=== PATIENT | female | born 1945 | race Caucasian/White ===

== ENCOUNTER → 2016-03-01 | Outpatient (REF) | payer OTHER ==
[~2016-03-01] MED LIST: CENTTAB PO; CRES20TA PO; FERA1TAB PO; OXYC1TAB23 PO; SULF500T2 PO; TYLE325T5 PO
[2016-03-01 14:02] LABS: PERCENT SATURATION 17.5 % (13.2-37.4)
== END | disposition home or self-care (01) ==
LOC: M LAB REF 13:15
PROVIDERS: ATTEND Internal Medicine
DX: D50.9 Iron deficiency anemia, unspecified (principal)

== ENCOUNTER → 2016-06-14 | Outpatient (CLI) | payer OTHER ==
[2016-06-14 18:26] LABS: CALCIUM LEVEL 8.8 MG/DL (8.8-10.2); CREATININE FOR GFR 1.1 MG/DL (0.55-1.02); POTASSIUM SERUM 4.6 MEQ/L (3.5-5.1)
== END ==
LOC: M SMT 13:54
PROVIDERS: ATTEND Urology
DX: Z85.528 Personal history of other malignant neoplasm of kidney (principal)

== ENCOUNTER → 2016-06-24 | Outpatient (CLI) | payer OTHER ==
[~2016-06-24] MED LIST changes: +GASTROGRAFIN SOLUTION 30ML (Q9963) As Ordered ONE; +ISOVUE-370 76% 100ML VIAL (Q9967) As Ordered ONE
--- NOTE | 2016-06-25 05:57 | REP ---
Clinical: History of renal carcinoma. Comparison: 06/16/2015. Technique: Axial precontrast, contrast enhanced, and delayed images of the abdomen using oral and 100 ml Isovue 370 intravenous contrast material with coronal and sagittal re-formations. Findings: The kidneys demonstrate chronic changes including cortical thinning, lobulated contour and areas of cortical scarring bilaterally. There is a 13 mm nonobstructing right intrarenal calculus along with smaller bilateral calcifications and no evidence for hydroureteronephrosis, acute perinephric stranding, or obvious recurrent renal mass lesion. Previously identified 2 cm left lower pole renal mass has been removed. Liver, spleen, pancreas, gallbladder, and bilateral adrenal glands are normal. The visualized enteric system is without obstruction or obvious acute process. No ascites. No obvious adenopathy. Large hiatal hernia again noted. Lung bases demonstrate chronic interstitial changes. Visualized portions of the heart and pericardium are normal. Impression: 1. Chronic-appearing changes of bilateral kidneys including 13 mm nonobstructing right renal calculus and evidence for prior partial left nephrectomy and excision of 2 cm previously identified renal mass. No acute renal findings are appreciated. 2. Large hiatal hernia. Signed by Mynor Paez MD 06/25/2016 05:47 A
== END ==
LOC: M RAD 12:13
PROVIDERS: ATTEND Urology
DX: Z09 Encounter for follow-up examination after completed treatment for conditions other than malignant neoplasm (principal); Z85.528 Personal history of other malignant neoplasm of kidney; N20.0 Calculus of kidney; K44.9 Diaphragmatic hernia without obstruction or gangrene
CPT/HCPCS: 74170; Q9963; Q9967

== ENCOUNTER → 2017-03-10 | Outpatient (REF) | payer OTHER ==
[2017-03-10 13:03] LABS: IRON (FE) 62 UG/DL (50-170); PERCENT SATURATION 34.4 % (13.2-45.0); TOTAL IRON BINDING CAPACITY 180 UG/DL (250-450)
== END ==
LOC: M LAB REF 12:11
DX: D50.9 Iron deficiency anemia, unspecified (principal)
CPT/HCPCS: 83550

== ENCOUNTER → 2017-09-03 | Outpatient (REF) | payer OTHER ==
[2017-09-03 14:35] LABS: IRON (FE) 68 UG/DL (50-170); PERCENT SATURATION 29.7 % (13.2-45.0); TOTAL IRON BINDING CAPACITY 229 UG/DL (250-450)
== END ==
LOC: M LAB REF 13:37
DX: D50.9 Iron deficiency anemia, unspecified (principal)
CPT/HCPCS: 83550

== ENCOUNTER 2017-10-30 14:34 | Emergency (ER) | payer OTHER ==
[2017-10-30 16:00] LABS: BASO % 0.4 % (0.0-1.0); EOS # 0.2 10^3/uL (0.0-0.50); HEMATOCRIT 36.4 % (36.0-47.0); HEMOGLOBIN 11.9 g/dl (12.0-15.5); IMMATURE GRANULOCYTE % 0.5 % (0-3.0); LYMPH # 1.1 10^3/uL (1.5-4.5); LYMPH % 12.9 % (24.0-44.0); MEAN CORPUSCULAR HEMOGLOBIN 30.3 pg (27.0-33.0); MEAN CORPUSCULAR HGB CONC 32.7 g/dl (32.0-36.5); MEAN CORPUSCULAR VOLUME 92.6 fl (80.0-96.0); MONO # 0.5 10^3/uL (0.0-0.8); MONO % 6.3 % (0.0-5.0); NEUTROPHILS # 6.6 10^3/uL (1.8-7.7); NEUTROPHILS % 77.9 % (36.0-66.0); PLATELET COUNT, AUTOMATED 260 10^3/uL (150-450); RED BLOOD COUNT 3.93 10^6/uL (4.00-5.40); RED CELL DISTRIBUTION WIDTH 14.6 % (11.5-14.5); WHITE BLOOD COUNT 8.4 10^3/uL (4.0-10.0)
[2017-10-30 16:37] LABS: ALBUMIN 4.1 GM/DL (3.2-5.2); ALBUMIN/GLOBULIN RATIO 1.14 (1.00-1.93); ALKALINE PHOSPHATASE 75 U/L (45-117); ALT/SGPT 30 U/L (12-78); ANION GAP 8 MEQ/L (8-16); AST/SGOT 18 U/L (7-37); BILIRUBIN,DIRECT 0.1 MG/DL (0.0-0.2); BILIRUBIN,TOTAL 0.4 MG/DL (0.2-1.0); BLOOD UREA NITROGEN 14 MG/DL (7-18); CALCIUM LEVEL 9.8 MG/DL (8.8-10.2); CARBON DIOXIDE LEVEL 25 MEQ/L (21-32); CHLORIDE LEVEL 108 MEQ/L (98-107); CREATININE FOR GFR 1.19 MG/DL (0.55-1.30); GLOMERULAR FILTRATION RATE 47.2 (>39); GLUCOSE, FASTING 86 MG/DL (70-100); POTASSIUM SERUM 4.4 MEQ/L (3.5-5.1); SODIUM LEVEL 141 MEQ/L (136-145); TOTAL PROTEIN 7.7 GM/DL (6.4-8.2)
[2017-10-30] MEDS ORDERED: PROHANCE 279.3MG/ML 5ML VIAL (A9576) As Ordered (19:18)
[2017-10-30] MEDS: methylPREDNISolone INJ 125 MG/2 ML VIAL (J2930) IV (20:39)
== END 2017-10-30 20:59 | disposition home or self-care (01) ==
LOC: M ED 14:34
DX: H54.62 Unqualified visual loss, left eye, normal vision right eye (principal); I10 Essential (primary) hypertension; E78.5 Hyperlipidemia, unspecified; D64.9 Anemia, unspecified; N28.9 Disorder of kidney and ureter, unspecified; Z79.899 Other long term (current) drug therapy
CPT/HCPCS: A9576

== ENCOUNTER → 2017-11-21 | Outpatient (CLI) | payer OTHER ==
[2017-11-21 15:15] LABS: HEMATOCRIT 35.3 % (36.0-47.0); HEMOGLOBIN 11.6 g/dl (12.0-15.5); MEAN CORPUSCULAR HEMOGLOBIN 30.4 pg (27.0-33.0); MEAN CORPUSCULAR HGB CONC 32.9 g/dl (32.0-36.5); MEAN CORPUSCULAR VOLUME 92.7 fl (80.0-96.0); PLATELET COUNT, AUTOMATED 167 10^3/uL (150-450); RED BLOOD COUNT 3.81 10^6/uL (4.00-5.40); RED CELL DISTRIBUTION WIDTH 14.3 % (11.5-14.5)
[2017-11-21 15:35] LABS: ANION GAP 6 MEQ/L (8-16); BLOOD UREA NITROGEN 17 MG/DL (7-18); C REACTIVE PROTEIN QUANTITATIV < 0.30 MG/DL (0.00-0.30); CALCIUM LEVEL 9.1 MG/DL (8.8-10.2); CARBON DIOXIDE LEVEL 27 MEQ/L (21-32); CHLORIDE LEVEL 111 MEQ/L (98-107); CREATININE FOR GFR 1.28 MG/DL (0.55-1.30); GLOMERULAR FILTRATION RATE 43.4 (>39); GLUCOSE, FASTING 147 MG/DL (70-100); POTASSIUM SERUM 3.8 MEQ/L (3.5-5.1); SODIUM LEVEL 144 MEQ/L (136-145)
[2017-11-21 17:43] LABS: ERYTHROCYTE SEDIMENTATION RATE 34 mm/hr (0-30)
[2017-11-25 00:06] LABS: ANGIOTENSIN 1 CONVERTING ENZYM 38 U/L (14-82); ANTINUCLEAR ANTIBODIES DIRECT Negative (Negative); Lyme Disease IgG/IgM Antibodie <0.91 ISR (0.00-0.90); Lyme Disease IgM Ab Quantitati <0.80 index (0.00-0.79); T PALLIDUM AB (FTA-AB) Non Reactive (Non Reactive)
== END ==
LOC: M LAB 14:47
DX: H47.012 Ischemic optic neuropathy, left eye (principal)
CPT/HCPCS: 82164

== ENCOUNTER → 2017-12-09 | Outpatient (CLI) | payer OTHER | LOC: M WUC 12:22 | DX: S80.01XA Contusion of right knee, initial encounter (principal); S80.11XA Contusion of right lower leg, initial encounter | CPT/HCPCS: 73564 ==

== ENCOUNTER → 2017-12-23 | Outpatient (REF) | payer OTHER ==
[2017-12-23 13:58] LABS: BASO % 0.5 % (0.0-1.0); EOS # 0.3 10^3/uL (0.0-0.50); EOS % 4.2 % (0.0-3.0); HEMATOCRIT 31.6 % (36.0-47.0); HEMOGLOBIN 10.1 g/dl (12.0-15.5); IMMATURE GRANULOCYTE % 0.9 % (0-3.0); LYMPH # 1.1 10^3/uL (1.5-4.5); LYMPH % 14.4 % (24.0-44.0); MEAN CORPUSCULAR HEMOGLOBIN 30.1 pg (27.0-33.0); MEAN CORPUSCULAR VOLUME 94.3 fl (80.0-96.0); MONO # 0.7 10^3/uL (0.0-0.8); MONO % 8.6 % (0.0-5.0); NEUTROPHILS # 5.4 10^3/uL (1.8-7.7); NEUTROPHILS % 71.4 % (36.0-66.0); PLATELET COUNT, AUTOMATED 322 10^3/uL (150-450); RED BLOOD COUNT 3.35 10^6/uL (4.00-5.40); RED CELL DISTRIBUTION WIDTH 14.1 % (11.5-14.5); WHITE BLOOD COUNT 7.6 10^3/uL (4.0-10.0)
[2017-12-23 14:12] LABS: DRVV SCREEN 43.2 SEC
[2017-12-23 14:13] LABS: ALBUMIN 3.8 GM/DL (3.2-5.2); ALBUMIN/GLOBULIN RATIO 1.23 (1.00-1.93); ALKALINE PHOSPHATASE 79 U/L (45-117); ALT/SGPT 24 U/L (12-78); ANION GAP 7 MEQ/L (8-16); AST/SGOT 17 U/L (7-37); BILIRUBIN,TOTAL 0.3 MG/DL (0.2-1.0); BLOOD UREA NITROGEN 17 MG/DL (7-18); CALCIUM LEVEL 9.5 MG/DL (8.8-10.2); CARBON DIOXIDE LEVEL 28 MEQ/L (21-32); CHLORIDE LEVEL 105 MEQ/L (98-107); CHOLESTEROL LEVEL 152 MG/DL (<200); CHOLESTEROL RISK RATIO 3.377 (<5); CREATININE FOR GFR 1.24 MG/DL (0.55-1.30); GLUCOSE, FASTING 82 MG/DL (70-100); HDL CHOLESTEROL 45 MG/DL (>40); LDL CHOLESTEROL 32 MG/DL (<100); NON-HDL-C 107 MG/DL; POTASSIUM SERUM 4.6 MEQ/L (3.5-5.1); RHEUMATOID FACTOR QUANT < 10.0 IU/ML (<15.0); SODIUM LEVEL 140 MEQ/L (136-145); TOTAL PROTEIN 6.9 GM/DL (6.4-8.2); TRIGLYCERIDES LEVEL 377 MG/DL (<150)
[2017-12-23 14:15] LABS: FOLATE > 24.0 NG/ML; VITAMIN B12 LEVEL 809 PG/ML
[2017-12-23 14:49] LABS: ERYTHROCYTE SEDIMENTATION RATE 63 mm/hr (0-30)
[2017-12-23 14:59] LABS: ESTIMATED AVERAGE GLUCOSE 111 MG/DL (60-110); HEMOGLOBIN A1c 5.5 %
[2017-12-25 11:35] LABS: ALBUMIN % 56.5 % (55.8-66.1); ALPHA-1-GLOBULIN % 4.9 % (2.9-4.9); ALPHA-1-GLOBULINS 0.34 GM/DL (0.17-0.41); ALPHA-2-GLOBULINS 0.99 GM/DL (0.42-0.99); ALPHA-2-GLOBULINS % 14.3 % (7.1-11.8); BETA-1-GLOBULINS 0.41 GM/DL (0.28-0.60); BETA-1-GLOBULINS % 5.9 % (4.7-7.2); BETA-2-GLOBULINS 0.36 GM/DL (0.19-0.55); BETA-2-GLOBULINS % 5.2 % (3.2-6.5); GAMMA GLOBULIN % 13.2 % (11.1-18.8); GAMMA GLOBULINS 0.91 GM/DL (0.65-1.58)
[2017-12-27 00:06] LABS: ANCA-ATYPICAL <1:20 titer (Neg:<1:20); ANTI DOUBLE STRAND-DNA AB 2 IU/mL (0-9); ANTINUCLEAR ANTIBODIES DIRECT Negative (Negative); CYTOPLASMIC NEUTROP AB ANCA-C <1:20 titer (Neg:<1:20); Lyme Disease IgG/IgM Antibodie <0.91 ISR (0.00-0.90); Lyme Disease IgM Ab Quantitati <0.80 index (0.00-0.79); PERINUCLEAR AB ANCA-P <1:20 titer (Neg:<1:20); SJOGREN'S ANTI SS-A <0.2 AI (0.0-0.9); SJOGREN'S ANTI SS-B <0.2 AI (0.0-0.9); VITAMIN B1 LEVEL WHOLE BLOOD 130.5 nmol/L (66.5-200.0); VITAMIN B6,PYRIDOXAL PHOSPHATE 29.5 ug/L (2.0-32.8); VITAMIN E(ALPHA TOCOPHEROL) 21.7 mg/L (9.0-29.0); VITAMIN E(GAMMA TOCOPHEROL) 1.3 mg/L (0.5-4.9)
== END ==
LOC: M LABNEURO 10:25
DX: H47.019 Ischemic optic neuropathy, unspecified eye (principal); G62.9 Polyneuropathy, unspecified
CPT/HCPCS: 82746

== ENCOUNTER → 2018-03-11 | Outpatient (REF) | payer OTHER, MEDICARE ==
[~2018-03-11] MED LIST changes: -GASTROGRAFIN SOLUTION 30ML (Q9963) As Ordered ONE; -ISOVUE-370 76% 100ML VIAL (Q9967) As Ordered ONE; +PREDOPD
[2018-03-11 13:52] LABS: PERCENT SATURATION 23.6 % (13.2-45.0)
== END ==
LOC: M LAB REF 13:25
PROVIDERS: ATTEND Internal Medicine
DX: D50.9 Iron deficiency anemia, unspecified (principal)

== ENCOUNTER 2018-05-27 06:15 | Day surgery (SDC) | payer MEDICARE ==
[~2018-05-27] VITALS: Ht 147.3 cm; Wt 59.0 kg
[~2018-05-27 06:15] MED LIST changes: -CRES20TA PO; +CRES20TA2 PO
[2018-05-27] MEDS ORDERED: NS 1,000 ML IV ONE (07:00)
[2018-05-27] MEDS ORDERED: PROPOFOL 200 MG/20 ML VIAL As Ordered ONE ×2 (07:03→08:16)
[2018-05-27] MEDS ORDERED: LIDOCAINE 2% INJ 100 MG/5 ML SDV (FOR ANES.) As Ordered ONE (07:03)
--- NOTE | 2018-05-27 07:56 | ROOR ---
Patient Name: Ruthy Gonzalez Procedure Date: 05/27/2018 7:31 AM Date of : 1945 Age: 72 Room: [facility] Gender: Female Note Status: Finalized Procedure: Colonoscopy to 30 cms + Biopsies (Incomplete Procedure) Indications: High risk colon cancer surveillance: Ulcerative pancolitis of 8 (or more) years duration Providers: Saturnino Clancy MD Referring MD: FRANKY HAYES JR, MD Requesting Provider: Medicines: Monitored Anesthesia Care Complications: No immediate complications. Procedure: Pre-Anesthesia Assessment: - The heart rate, respiratory rate, oxygen saturations, blood pressure, adequacy of pulmonary ventilation, and response to care were monitored throughout the procedure. The Colonoscope was introduced through the anus and advanced to the sigmoid colon. The colonoscopy was performed without difficulty. The patient tolerated the procedure well. The quality of the bowel preparation was good. Findings: The perianal and digital rectal examinations were normal. Non-bleeding internal hemorrhoids were found during retroflexion. The hemorrhoids were small and Grade I (internal hemorrhoids that do not prolapse). A benign-appearing, intrinsic severe stenosis was found at 30 cm proximal to the anus and was non-traversed. Biopsies were taken with a cold forceps for histology. Inflammation characterized by altered vascularity, congestion (edema), erosions, erythema, granularity and loss of vascularity was found in a continuous and circumferential pattern from the anus to the sigmoid colon. This was moderate in severity, and when compared to previous examinations, the findings are unchanged. Biopsies were taken with a cold forceps for histology. The exam was otherwise without abnormality. Impression: - Non-bleeding internal hemorrhoids. - Stricture at 30 cm proximal to the anus. Biopsied. - Ulcerative colitis. Inflammation was found from the anus to the sigmoid colon. This was moderate in severity, unchanged compared to previous examinations. Biopsied. - The examination was otherwise normal. - The procedure was aborted due to bowel stenosis. Recommendation: - Patient has a contact number available for emergencies. The signs and symptoms of potential delayed complications were discussed with the patient. Return to normal activities tomorrow. Written discharge instructions were provided to the patient. - Discharge patient to home. - Continue present medications. - Await pathology results. - Telephone GI clinic for pathology results in 1 week. - Refer to a colo-rectal surgeon at appointment to be scheduled. - The findings and recommendations were discussed with the patient's family. Saturnino Clancy MD Saturnino Clancy MD 05/27/2018 7:56:14 AM Electronically signed by Saturnino Clanyc MD Number of Addenda: 0 Note Initiated On: 05/27/2018 7:31 AM Estimated Blood Loss: Estimated blood loss: none.
[2018-05-27 08:21] VITALS: BP 150/84
== END 2018-05-27 08:24 | disposition home or self-care (01) ==
LOC: M OPP 06:15
PROVIDERS: ATTEND Internal Medicine Gastroenterology
DX: K64.0 First degree hemorrhoids (principal); K51.012 Ulcerative (chronic) pancolitis with intestinal obstruction

== ENCOUNTER → 2018-06-18 | Outpatient (CLI) | payer MEDICARE ==
[~2018-06-18] MED LIST changes: +LIQUID POLIBAR PLUS 105% w/v 1900ML BTL As Ordered ONE
--- NOTE | 2018-06-19 11:17 | REP ---
BARIUM ENEMA The procedure was performed under the direct supervision of Dr. Robbins. The images were reviewed with Dr. Robbins. [employer] film shows no organomegaly or pathological masses. The intestinal gas pattern is nonspecific. There are two right renal stones identified. Liquid barium was instilled into the colon and retrograde flow. In the sigmoid there is a 4 cm stricture. The visualized portion of the descending colon shows possible skip lesions. Not enough barium could be passed through the stricture to complete the exam. There are diverticula identified in the left colon. These findings may represent inflammatory changes versus neoplasm. Impression: There is a 4 cm stricture in the sigmoid colon. There are possible skip lesions identified approximately, however, not enough barium could be passed proximal to the stricture to complete the exam. These findings may represent inflammatory changes versus neoplasm. There are diverticula identified in the left colon. 2.3 minutes of fluoroscopy time was utilized for this procedure. Reviewed by CODI Mendez 06/18/2018 05:01 P Electronically Signed by Erik Robbins MD 06/19/2018 11:08 A
== END ==
LOC: M RAD 09:12
PROVIDERS: ATTEND Internal Medicine Gastroenterology
DX: K51.90 Ulcerative colitis, unspecified, without complications (principal); N20.0 Calculus of kidney; Q42 Congenital absence, atresia and stenosis of large intestine

== ENCOUNTER → 2018-07-20 | Outpatient (CLI) | payer MEDICARE ==
[~2018-07-20] MED LIST changes: -LIQUID POLIBAR PLUS 105% w/v 1900ML BTL As Ordered ONE
[2018-07-20 11:28] LABS: CREATININE FOR GFR 1.32 MG/DL (0.55-1.30); GLOMERULAR FILTRATION RATE 41.9 (>39)
== END ==
LOC: M LAB 10:35
PROVIDERS: ATTEND Surgery
DX: K56.699 Other intestinal obstruction unspecified as to partial versus complete obstruction (principal)

== ENCOUNTER → 2018-07-22 | Outpatient (CLI) | payer MEDICARE ==
[~2018-07-22] MED LIST changes: +GASTROGRAFIN SOLUTION 30ML (Q9963) As Ordered ONE; +ISOVUE-370 76% 100ML VIAL (Q9967) As Ordered ONE
--- NOTE | 2018-07-23 06:06 | REP ---
Clinical: Sigmoid stricture. History of renal cell carcinoma. Technique: Axial contrast enhanced images from the lung bases to the pubic symphysis using oral (per protocol) and 100 ml Isovue 370 intravenous contrast material. Coronal and sagittal re-formations obtained. Comparison: 06/24/2016, 06/16/2015. Findings: Lung bases demonstrate scattered fibroatelectatic changes along with a relatively new small 5 mm nodular density in the posterior left base (image 6). Large gastric hiatal hernia is essentially unchanged. Liver, spleen, pancreas, gallbladder, and bilateral adrenal glands are normal. Kidneys demonstrate extensive cortical thinning, scarring and irregular lobulations with a stable 12 mm calculus in the lower pole of the right kidney. No acute perinephric stranding or hydroureteronephrosis is appreciated. Further evaluation of the enteric system demonstrates a normal terminal ileum and appendix in the right lower quadrant as well as a nonobstructed right inguinal hernia containing loops of small bowel. Colonic and predominantly sigmoid diverticulosis is appreciated the sigmoid colon demonstrates moderate mucosal thickening along with chronic-appearing pericolonic mesenteric stranding and diverticulosis including a giant diverticulum along the inferior contour of the mid sigmoid colon which appears to be inseparable from surrounding chronic changes related to the superior/left side of the bladder. These findings may represent chronic sequelae of prior diverticulitis and appear relatively stable when compared to 2016. Further evaluation of the pelvis demonstrates the patient to be status post hysterectomy. A fat containing left inguinal hernia is identified. No ascites. No free air. No significant adenopathy. Abdominal aorta and vasculature without aneurysm or dissection. Musculoskeletal structures demonstrate degenerative changes without focal osseous abnormality. Impression: 1. Chronic-appearing changes to the kidneys including nonobstructing 12 mm right lower pole calculus. Previously identified left renal mass has been removed and there is no evidence for recurrence or metastatic disease. 2. Chronic-appearing changes involving the sigmoid colon likely related to prior diverticulitis with chronic changes along the left/superior aspect of the bladder which remain relatively stable when compared to 2016. 3. Right inguinal hernia contains nonobstructed loops of small bowel. Small fat containing left inguinal hernia also identified. 4. Small 5 mm noncalcified nodule in the left lung base is nonspecific and may warrant 6-month follow-up chest CT. 5. Further chronic changes as described above. Electronically Signed by Mynor Paez MD 07/23/2018 05:57 A
== END ==
LOC: M RAD 16:01
PROVIDERS: ATTEND Surgery
DX: K56.699 Other intestinal obstruction unspecified as to partial versus complete obstruction (principal); K57.30 Diverticulosis of large intestine without perforation or abscess without bleeding; K40.90 Unilateral inguinal hernia, without obstruction or gangrene, not specified as recurrent; N20.0 Calculus of kidney; R91.1 Solitary pulmonary nodule
CPT/HCPCS: 74177; Q9963; Q9967

== ENCOUNTER 2018-10-08 08:16 | Inpatient (IN) | payer MEDICARE ==
[~2018-10-08] VITALS: Ht 144.8 cm; Wt 54.4 kg
--- NOTE | 2018-10-08 05:30 | HPE ---
DATE OF ADMISSION: 10/08/2018 ADMITTING DIAGNOSIS: Sigmoid colon stricture with history of ulcerative colitis. HISTORY OF PRESENT ILLNESS: The patient is a 73-year-old woman who had undergone a colonoscopy on May 27, 2018 for followup of a long history of ulcerative colitis. At the time of the colonoscopy by Dr. Clancy she was found to have a narrowing in the colon approximately 30 cm proximal to the anus. It was impossible to advance the scope beyond this point. Biopsies revealed chronic active colitis with surface ulceration but no granuloma or dysplasia was identified. With her long history of ulcerative colitis she is certainly at risk for carcinoma. There was no definite cancer seen but it is unclear if her narrowing is due to just chronic scarring from her colitis or whether this could be a malignant stricture. She was referred to me for consideration of resection. She had a barium enema obtained on June 18, 2018 which confirmed a 4 cm stricture in the sigmoid colon. Minimal contrast refluxed proximal to the stricture so it was difficult to ascertain the extent of her disease. A CT scan of the abdomen and pelvis was obtained which showed some chronic appearing changes involving the sigmoid colon. There was also noted a right inguinal hernia as well as a small nodule in the left lung base. There were some chronic changes in her kidneys associated with prior renal surgery. The patient is now admitted to undergo a robotic-assisted laparoscopic sigmoid colectomy with coloproctostomy. The patient is performing a full mechanical and antibiotic bowel preparation on the October 07 in anticipation of her admission on October 08 for surgery. MEDICATIONS: The patient's current medications include: - rosuvastatin 20 mg by mouth daily - Ferate 240 which is an iron preparation daily - woman's vitamin supplement daily ALLERGIES: The patient denies any known drug allergies. PAST MEDICAL HISTORY: 1. History of ulcerative colitis for many years. 2. She has history of hypercholesterolemia. 3.Anemia. 4. She had renal cell carcinoma. PAST SURGICAL HISTORY: 1. Robotic-assisted left partial nephrectomy. 2. She has had colonoscopies in 2014, 2016 and 2019 at least. 3. She undergone a previous lithotripsy. 4. She has had an anterior and posterior colporrhaphies. FAMILY HISTORY: Her father is secondary to natural causes and her mother is associated with hypertension. SOCIAL HISTORY: She is a nonsmoker and denies any alcohol use. REVIEW OF SYSTEMS: Review of systems reveals no recent chest pain or palpitations. She has no cough, wheezing or sputum production. She denies any current or recent rectal bleeding. She has had no abdominal pain. There is no history of heartburn, nausea or vomiting. She denies any dysuria or hematuria. She is not having any significant bone or joint issues. There is no history of deep venous thrombosis (DVT) or pulmonary embolus. PHYSICAL EXAMINATION: GENERAL: Physical exam shows a pleasant older woman in no acute distress. She is alert and oriented. VITAL SIGNS: Height is recorded as 58 inches with a weight of 59 kilograms for a BMI of approximately 27. HEENT: Sclerae are anicteric. SKIN: The skin is warm and dry. NECK: Neck is supple without mass or bruit. HEART: Exam shows a regular rate and rhythm. LUNGS: The lungs are clear. ABDOMEN: Soft and nontender without appreciable mass. She has several small scars on the left side of the abdomen consistent with her prior partial nephrectomy. The abdomen is otherwise soft and nontender. LOWER EXTREMITIES: Reveal no peripheral edema and she has palpable radial pulses. The patient underwent a preoperative medical evaluation by Dr. Refugio Gaspar on October 01. She was felt to be optimized from a cardiovascular standpoint for her planned surgery. She was instructed by her physician to hold her iron vitamin and chlorthalidone the night before the surgery. IMPRESSION: 1. Sigmoid colon stricture, possible malignant versus post inflammatory. 2. History of ulcerative colitis. 3. iron deficiency anemia. 4. Hypercholesterolemia. 5. Hypertension. PLAN: The patient is performing a mechanical and antibiotic bowel preparation on October 07. She will be admitted on the morning of October 08 for her robotic-assisted laparoscopic sigmoid colectomy with anastomosis. She was counseled regarding the risks of the surgery. Risks include but are not limited to bleeding, infection, scarring, adverse drug reaction, need for further surgery, injury to internal organ, hernia, and anastomotic leak. She had an opportunity to ask questions. She desires to proceed with surgery as it has been outlined. SEEMA
[~2018-10-08 08:16] MED LIST changes: +ALVIMOPAN 12 MG CAPSULE (ENTEREG) PO SCH; -GASTROGRAFIN SOLUTION 30ML (Q9963) As Ordered ONE; -ISOVUE-370 76% 100ML VIAL (Q9967) As Ordered ONE; +LR 1,000 ML IV SCH; +LR 500 ML IV SCH; +MULTCAP PO; +cefoTEtan DISODIUM 2 GM in D5W MINI-BAG PLUS 50 ML IV SCH
[2018-10-08] MEDS ORDERED: ALVIMOPAN 12 MG CAPSULE (ENTEREG) PO ONE (08:45)
[2018-10-08] MEDS ORDERED: LIDOCAINE 2% INJ 100 MG/5 ML SDV (FOR ANES.) As Ordered ONE (08:46)
[2018-10-08] MEDS ORDERED: fentaNYL 250 MCG/5 ML INJECTION (J3010) As Ordered ONE (08:46)
[2018-10-08] MEDS ORDERED: ROCURONIUM BROMIDE 50 MG/5 ML VIAL As Ordered ONE ×3 (08:46→18:21)
[2018-10-08] MEDS ORDERED: dexameTHASONE 4 MG/ML 1ML VIAL (J1100) As Ordered ONE (08:46)
[2018-10-08] MEDS ORDERED: ONDANSETRON 4MG/2ML VIAL (J2405) As Ordered ONE ×2 (08:46→15:14)
[2018-10-08] MEDS ORDERED: PROPOFOL 200 MG/20 ML VIAL As Ordered ONE (08:46)
[2018-10-08] MEDS ORDERED: MIDAZOLAM INJ 2 MG/2 ML VIAL (J2250) As Ordered ONE (08:47)
[2018-10-08] MEDS ORDERED: BUPIVACAINE HCL 0.25% 30 ML VIAL As Ordered ONE (10:26)
[2018-10-08] MEDS ORDERED: PHENYLephrine HCL 500 MCG/5 ML (100MCG/ML) SYRINGE (J2370) As Ordered ONE ×2 (11:01→19:44)
[2018-10-08] MEDS ORDERED: LABETALOL HCL 100 MG/20 ML VIAL As Ordered ONE ×2 (11:56→12:43)
[2018-10-08] MEDS ORDERED: REMIFENTANIL 1MG 3ML VIAL As Ordered ONE (11:57)
[2018-10-08] MEDS ORDERED: ACETAMINOPHEN 1000MG 100ML IV BTL (OFIRMEV) (J0131 PER 10MG) As Ordered ONE ×2 (12:18→19:59)
[2018-10-08] MEDS ORDERED: hydrALAZINE INJ 20 MG/ML VIAL As Ordered ONE (13:20)
[2018-10-08] MEDS ORDERED: NEOSTIGMINE 10 MG/10 ML VIAL (J2710) As Ordered ONE (15:09)
[2018-10-08] MEDS ORDERED: GLYCOPYRROLATE INJ 0.2 MG/ML 2 ML VIAL As Ordered ONE (15:09)
[2018-10-08] MEDS ORDERED: ESMOLOL INJ 100MG/10ML VIAL As Ordered ONE (15:17)
[2018-10-08] MEDS ORDERED: KETOROLAC 60 MG/2 ML VIAL (J1885) As Ordered ONE (17:17)
[2018-10-08] MEDS ORDERED: fentaNYL 100 MCG/2 ML INJECTION (J3010) As Ordered ONE (17:17)
[2018-10-08] MEDS ORDERED: cefoTEtan INJ 2GM VIAL (S0074 PER 500MG) As Ordered ONE (18:58)
[2018-10-08] MEDS ORDERED: SUGAMMADEX SODIUM 500 MG/5 ML VIAL (BRIDION) As Ordered ONE (19:18)
[2018-10-08] MEDS ORDERED: PHENYLEPHRINE INJ 10MG/ML VIAL (J2370) As Ordered ONE (19:28)
[2018-10-08] MEDS ORDERED: HYDROmorphone HCL 2 MG/ML 1ML VIAL (J1170) As Ordered ONE (19:42)
[2018-10-08] MEDS ORDERED: MORPHINE 4 MG/ML 1ML VIAL/SYRINGE (J2270) IV PRN (21:00)
[2018-10-08] MEDS ORDERED: ACETAMINOPHEN TAB 650MG DOSE (2X325MG) PO PRN (21:00)
[2018-10-08] MEDS ORDERED: ONDANSETRON 4MG/2ML VIAL (J2405) IV PRN ×2 (21:00→21:15)
[2018-10-08] MEDS ORDERED: NORCO, ANEXSIA 5/325MG TABLET (HYDROcodone/ACETAMINOPHEN) PO PRN (21:00)
[2018-10-08] MEDS ORDERED: KETOROLAC 30 MG/ML VIAL (J1885) IV PRN (21:00)
[2018-10-08] MEDS ORDERED: fentaNYL 100 MCG/2 ML INJECTION (J3010) IV PRN (21:15)
[2018-10-08] MEDS ORDERED: LR 1,000 ML IV SCH (21:15)
[2018-10-08] MEDS ORDERED: PERCOCET 5MG/325MG TAB PO PRN (21:15)
[2018-10-08] MEDS: LR 1,000 ML IV SCH (22:30)
[2018-10-08 22:40] VITALS: BP 125/62
[2018-10-08 23:10] VITALS: BP 115/69
[2018-10-08] MEDS: PIPERACILLIN/TAZOBACTAM SOD 3.375 GM in D5W MINI-BAG PLUS 50 ML IV SCH (23:31)
[2018-10-09] VITALS (9 sets, daily range): BP systolic 114–138; BP diastolic 53–81
[2018-10-09] MEDS: ALVIMOPAN 12 MG CAPSULE (ENTEREG) PO SCH ×3 (00:07→20:48)
[2018-10-09] MEDS: LR 1,000 ML IV SCH ×3 (04:59→20:48)
[2018-10-09] MEDS: PIPERACILLIN/TAZOBACTAM SOD 3.375 GM in D5W MINI-BAG PLUS 50 ML IV SCH ×3 (05:23→18:45)
[2018-10-09 06:35] LABS: BASO % 0.2 % (0.0-1.0); HEMATOCRIT 27.7 % (36.0-47.0); LYMPH # 0.8 10^3/uL (1.5-4.5); LYMPH % 6.3 % (24.0-44.0); MEAN CORPUSCULAR HEMOGLOBIN 30.7 pg (27.0-33.0); MEAN CORPUSCULAR HGB CONC 32.5 g/dl (32.0-36.5); MEAN CORPUSCULAR VOLUME 94.5 fl (80.0-96.0); MONO # 0.8 10^3/uL (0.0-0.8); MONO % 6.6 % (0.0-5.0); NEUTROPHILS % 86.5 % (36.0-66.0); PLATELET COUNT, AUTOMATED 199 10^3/uL (150-450); RED BLOOD COUNT 2.93 10^6/uL (4.00-5.40); WHITE BLOOD COUNT 12.7 10^3/uL (4.0-10.0)
[2018-10-09 06:56] LABS: CREATININE FOR GFR 2.16 MG/DL (0.55-1.30); GLOMERULAR FILTRATION RATE 23.7 (>39); POTASSIUM SERUM 4.2 MEQ/L (3.5-5.1)
[2018-10-09] MEDS: ENOXAPARIN 40 MG/0.4 ML SYRINGE (J1650) SC SCH (10:48)
--- NOTE | 2018-10-09 13:45 | IPN ---
DATE: 10/09/2018 Subjectively, the patient has been doing well overnight. No complaints of nausea. No vomiting. Has been tolerating some clear liquids. She has been afebrile overnight, and her white count is slightly elevated at 12.7 this morning. She has overall had some serosanguineous drainage from her Len-Rivas. Her ostomy is starting to put out some liquids. Her dressings clean and dry. Lungs are diminished bilaterally at the bases. Heart is regular. Abdomen is soft, nondistended, nontender. IMPRESSION AND PLAN: Patient is status post sigmoid colectomy with low anastomosis and diverting ostomy, who at this point seems to be making some slow but progressive improvement. She has overall been relatively stable. She is not complaining of any significant shortness of breath, not complaining of any significant pain at this time, and thus recommendation at this time is to continue on a clear liquid diet from a gastrointestinal (GI) standpoint and will watch her fluid output. She does seem a little bit dry still, and thus will keep her fluids going as well as her oral at this time. Seems to be comfortable from a pain standpoint and thus will continue with current treatment as is. Encourage her to get up out of bed from a Torre catheter standpoint. Given there was a bladder repair that was required at the time of the operation, I would recommend keeping the Torre in 3-5 days. Will see how she is doing from an activity standpoint prior to proceeding with the next step of discontinuing Torre, increasing activity, diet, etc.,
[2018-10-09] MEDS: ROSUVASTATIN 10 MG TAB (CRESTOR) PO SCH (20:48)
[2018-10-10] VITALS (8 sets, daily range): BP systolic 108–150; BP diastolic 70–90
[2018-10-10] MEDS: PIPERACILLIN/TAZOBACTAM SOD 3.375 GM in D5W MINI-BAG PLUS 50 ML IV SCH ×4 (00:16→18:16)
[2018-10-10] MEDS: LR 1,000 ML IV SCH (04:09)
[2018-10-10] MEDS: ALVIMOPAN 12 MG CAPSULE (ENTEREG) PO SCH ×2 (08:47→20:38)
[2018-10-10] MEDS: ENOXAPARIN 40 MG/0.4 ML SYRINGE (J1650) SC SCH (08:48)
[2018-10-10] MEDS: IPRATROPIUM 0.5MG/ALBUTEROL 2.5MG INH SOL UD 3ML (DUONEB)(J7620) NEB SCH ×3 (11:34→19:59)
[2018-10-10] MEDS: ROSUVASTATIN 10 MG TAB (CRESTOR) PO SCH (20:38)
[2018-10-11] MEDS: PIPERACILLIN/TAZOBACTAM SOD 3.375 GM in D5W MINI-BAG PLUS 50 ML IV SCH ×5 (00:12→23:33)
[2018-10-11 02:00] VITALS: BP 127/72
[2018-10-11 06:00] VITALS: BP 122/70
[2018-10-11 06:13] LABS: HEMATOCRIT 26.1 % (36.0-47.0); HEMOGLOBIN 8.3 g/dl (12.0-15.5); MEAN CORPUSCULAR HEMOGLOBIN 29.9 pg (27.0-33.0); MEAN CORPUSCULAR HGB CONC 31.8 g/dl (32.0-36.5); MEAN CORPUSCULAR VOLUME 93.9 fl (80.0-96.0); PLATELET COUNT, AUTOMATED 207 10^3/uL (150-450); RED BLOOD COUNT 2.78 10^6/uL (4.00-5.40)
[2018-10-11 06:27] LABS: CALCIUM LEVEL 8.6 MG/DL (8.8-10.2); CREATININE FOR GFR 1.52 MG/DL (0.55-1.30); GLOMERULAR FILTRATION RATE 35.5 (>39); POTASSIUM SERUM 3.8 MEQ/L (3.5-5.1)
[2018-10-11] MEDS: IPRATROPIUM 0.5MG/ALBUTEROL 2.5MG INH SOL UD 3ML (DUONEB)(J7620) NEB SCH ×4 (07:43→19:49)
[2018-10-11] MEDS: ENOXAPARIN 40 MG/0.4 ML SYRINGE (J1650) SC SCH (08:20)
[2018-10-11] MEDS: ALVIMOPAN 12 MG CAPSULE (ENTEREG) PO SCH (08:20)
[2018-10-11] MEDS: LOPERAMIDE 2 MG CAP PO SCH ×2 (11:36→20:21)
[2018-10-11] MEDS: LACTOBACILLUS ACIDOPHILUS CAP (BACID) PO SCH ×3 (11:36→20:21)
[2018-10-11 14:00] VITALS: BP 124/74
[2018-10-11 18:00] VITALS: BP 140/90
--- NOTE | 2018-10-11 18:25 | IPN ---
DATE: 10/11/2018 The patient is status post laparoscopic sigmoid colectomy which ended up with a very low anastomosis, some anastomosis issues that resulted in a diverting ileostomy and since that time she has been doing relatively well increasing her activity. Her white count is normal and she has had good ileostomy output. Her creatinine has dropped nicely as well and she continues with her Torre catheter in place. Her Len-Rivas drain has continued to drain a significant amount of serosanguineous but no purulent fluid and no other significant abnormality. On her physical exam, her abdomen is soft, nondistended, nontender. No guarding, no rebound, no peritoneal signs are appreciated. Her ileostomy is functioning nicely with some very liquid enteric contents. IMPRESSION AND PLAN: The patient is status post bowel surgery and seems to be making some slow but progressive improvements. At this point, continuing her on a regular diet and encouraging her to take by mouth intake is reasonable at this time. She was encouraged to increase her activity and start with ostomy training. We have started her on some lactobacillus, also some minimal Imodium, we will see how that affects the GI output. We have encouraged her to increase her activity and we will see how the Len-Rivas drain drains over the next several days. From a Torre standpoint, she has a bladder repair performed and thus we will keep the Torre catheter in for the next 24-48 hours and at that point depending on how she is doing, if she is continuing to increase her activity we may consider removing the Torre catheter.
[2018-10-11] MEDS: ROSUVASTATIN 10 MG TAB (CRESTOR) PO SCH (20:22)
[2018-10-11 22:00] VITALS: BP 124/79
[2018-10-12] MEDS: PIPERACILLIN/TAZOBACTAM SOD 3.375 GM in D5W MINI-BAG PLUS 50 ML IV SCH ×3 (05:49→17:44)
[2018-10-12 06:00] VITALS: BP 130/83
[2018-10-12] MEDS: IPRATROPIUM 0.5MG/ALBUTEROL 2.5MG INH SOL UD 3ML (DUONEB)(J7620) NEB SCH ×4 (07:13→20:18)
[2018-10-12] MEDS: ENOXAPARIN 40 MG/0.4 ML SYRINGE (J1650) SC SCH (08:09)
[2018-10-12] MEDS: LOPERAMIDE 2 MG CAP PO SCH ×4 (08:10→20:10)
[2018-10-12] MEDS: LACTOBACILLUS ACIDOPHILUS CAP (BACID) PO SCH ×4 (08:10→20:10)
[2018-10-12 10:00] VITALS: BP 133/85
--- NOTE | 2018-10-12 13:14 | RO ---
DATE OF PROCEDURE: 10/08/2018 PREOPERATIVE DIAGNOSIS: Sigmoid colon stricture. POSTOPERATIVE DIAGNOSES: 1. 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 2. Rectal laceration secondary to instrumentation. 3. Right inguinal hernia. PROCEDURES PERFORMED: 1. Robotic-assisted sigmoid colectomy with takedown of extensive colovesical adhesions and possible fistula. 2. Robotic-assisted repair of bladder. 3. Flexible sigmoidoscopy with application of endoscopic clips for repair of rectal laceration. 4. Open coloproctostomy with ileostomy. 5. Mobilization of splenic flexure. SURGEON: Dr. Bassem Stock LABEL CODER: Dr. Keven Waterman SECOND ANIMAL PATHOLOGY TEACHER: Jo Lopez, nurse practitioner Dr. Waterman's assistance was essential in performing the anastomosis and repairing the rectal laceration endoscopically. ANESTHESIA: General. INDICATIONS FOR PROCEDURE: The patient is a 72-year-old woman with a long history of ulcerative colitis. She had recently undergone a routine colonoscopy and was found to have a significant stricture at 30 cm which could not be passed. Given her history of ulcerative colitis, it is unclear if this is a benign or malignant stricture. She is now for a robotic-assisted laparoscopic sigmoid colectomy. OPERATIVE PROCEDURE: The patient was brought to the operating room and placed on the table in a supine position. She was placed under general endotracheal anesthesia. The patient was moved into a low lithotomy position with the legs supported in padded leg holders. A Torre catheter was inserted. I performed a digital rectal examination which showed no evidence of significant stricture in the palpable rectum. The abdomen was prepped and draped in a sterile fashion. The site for four robotic ports were marked essentially in a row extending from the left upper quadrant beneath the costal margin in the midclavicular line down into the right lower quadrant. The abdomen was eventually entered with a Veress needle and was inflated without difficulty. The trocars were all placed. The patient cart was brought into position and the camera port was docked and following targeting the additional robotic arms were docked. Instruments were inserted and I moved to the control console to proceed with the laparoscopic robotic-assisted portion of the procedure. Initial inspection showed some small bowel filling the pelvis. The patient was tilted to a fairly sharp Trendelenburg position and rolled to the right. The sigmoid colon was found to be densely scarred to the anterolateral pelvic wall. Initially, some lateral attachments of the low to mid descending colon were lysed using a combination of sharp, cautery and blunt dissection. The sigmoid colon was found to be densely scarred to the posterior inferior aspect of the bladder. As dissection was attempted it was clear that there was effectively a fusion of the wall of the colon with the bladder. I proceeded with the dissection, but in the course of dissection I did create a small opening in the bladder, perhaps a centimeter to a centimeter and a half in size. It may be that the patient had an underlying colovesical fistula though she had not complained of any definite symptoms. The left ureter was identified and preserved, though distally this had been caught in some of the scar tissue around the colon. Once the colon had been freed from the pelvic sidewall of the bladder, I proceeded with some additional dissection up to and including the splenic flexure. The colon was transected above the area of scarring using two firings of the da Simon surgical 45 mm stapler. Then using the vessel sealer, the mesentery was divided down to its base and dissection proceeded inferiorly freeing the distal sigmoid and upper rectum from the posterior attachments. Distally the distal rectum was also transected with a load of the 45 mm stapler. The specimen was set to the side. A number of small bleeding points were identified and controlled. The ends of the bowel were inspected and some fibrofatty tissue was dissected to clear the area for a stapled anastomosis. At this point the bladder defect was sutured closed with two layers of #3-0 Vicryl sutures. These were placed robotically prior to proceeding with the attempted anastomosis. At this point, Dr. Waterman came to the operating room to assist. The 12 mm port in the right lower quadrant was removed and this incision was extended to approximately 5 cm with the fascia opened and the muscle preserved. A small Sylvester retractor was utilized. The specimen was delivered. The small piece of fibrofatty tissue was removed which was found to contain a single 1 cm firm node and this was sent as a separate specimen for lymph node. The colon was densely scarred in its midportion and somewhat dilated proximal to this area. This was set aside for further inspection later. The proximal end of the colon was delivered through the incision and was cleared of some fibrofatty tissue. The staple line was removed and a pursestring suture of #2-0 Prolene was placed. The anvil of a 29 mm EEA stapler was inserted. The colon was irrigated and then reduced into the abdomen. The posterior tissues of the rectus sheath were closed with a running suture of #1 Vicryl. The anterior sheath was also closed with absorbable sutures. The wound was filled with a moistened sponge. Dr. Waterman then went down to the perineum and gently dilated the rectum with EEA sizers. He attempted to advance the 29 mm stapler without success and then reattempted passage of an EEA sizer and it was clear that this had penetrated much of the wall of the rectum in a right posterolateral position. The sizer was seen just subperitoneally. He removed the sizer and then proceeded to perform a flexible sigmoidoscopic exam. This showed a definite perhaps 2 cm laceration of the rectal wall at or below the 10 cm samuel. We discussed options for treatment. We agreed that he would attempt closure of the laceration using endoscopic clips. He therefore continued the flexible sigmoidoscopic exam and placed six to eight hemostatic clips to approximate the edges of the mucosa across the defect. He appeared to have adequate closure of the defect. He then removed the colonoscope. We discussed options how to address her rectal laceration. This would preclude further attempts at a transanal stapling. I tried briefly to approximate the two ends of the bowel using robotic suturing after redocking the robot. However, it was clear that this would take an unacceptable length of time and would still leave us in a situation with a somewhat uncertain rectal closure. I elected to proceed with an open coloproctostomy with creation of a diverting ileostomy. A low midline incision was made and a Bookwalter retractor was placed. The ends of the bowel were identified and there was clearly an acceptable length for a closure without undue tension. The suture lines were cut off both ends of the bowel. A posterior row of interrupted #3-0 Vicryl seromuscular sutures were placed. A two-layer hand-sewn anastomosis was performed with #3-0 Vicryl. Two running sutures of #3-0 Vicryl were begun at the midline of the posterior wall and run in opposite directions using a cannel suturing anteriorly. A second row of #3-0 Vicryl sutures was placed anteriorly. This appeared to produce an excellent anastomosis. The terminal ileum was identified and at a point approximately 10-12 inches proximal to the ileocecal valve the small bowel was divided with a linear cutter 55 stapler. The mesentery was partially divided using cautery. An ostomy site was created in the right upper quadrant through one of the trocar sites. The distal end of the bowel was sutured to the side of the proximal end of the bowel to keep these approximated for ease of anastomosis. The suturing was done with #2-0 Prolene to samuel this area. The end of the bowel was delivered through the ostomy site. The abdomen was irrigated diffusely with warm saline which was removed. There was no evidence of any significant bleeding. A 19-English Armando drain was placed through a stab wound in the left lower quadrant and directed down into the pelvis near the bladder repair. The midline incision was closed with #1 Vicryl for the peritoneum and then interrupted simple sutures of #1 Vicryl closing the midline fascia. The drain was sutured to the skin with a #2-0 Prolene. The skin incisions were all closed with skin gianna. The ileostomy was then matured by excising the suture line and creating a short Cheadle slit. The stoma was then everted with four corner everting sutures of #3-0 Vicryl. Multiple additional sutures were placed to complete the maturation of the ostomy. An ostomy appliance was placed. A chlorhexidine gluconate OpSite was placed at the drain site. Sterile dressings were applied. The Torre catheter was left in place. The patient tolerated the procedure surprisingly well considering the long duration of the surgery at approximately 9 hours. She was awakened in the operating room, extubated and moved to the recovery room in stable condition. SEEMA
[2018-10-12 14:00] VITALS: BP 132/86
[2018-10-12] MEDS: ROSUVASTATIN 10 MG TAB (CRESTOR) PO SCH (20:10)
[2018-10-12 22:00] VITALS: BP 138/82
[2018-10-13] MEDS: PIPERACILLIN/TAZOBACTAM SOD 3.375 GM in D5W MINI-BAG PLUS 50 ML IV SCH ×4 (00:12→17:54)
[2018-10-13 02:00] VITALS: BP 132/71
[2018-10-13 06:00] VITALS: BP 130/81
[2018-10-13] MEDS: IPRATROPIUM 0.5MG/ALBUTEROL 2.5MG INH SOL UD 3ML (DUONEB)(J7620) NEB SCH ×4 (07:39→19:29)
[2018-10-13] MEDS: LOPERAMIDE 2 MG CAP PO SCH ×4 (08:10→21:09)
[2018-10-13] MEDS: LACTOBACILLUS ACIDOPHILUS CAP (BACID) PO SCH ×4 (08:10→21:09)
[2018-10-13] MEDS: ENOXAPARIN 40 MG/0.4 ML SYRINGE (J1650) SC SCH (08:10)
[2018-10-13 14:00] VITALS: BP 130/80
[2018-10-13] MEDS ORDERED: CYSTO-CONRAY II 17.2% 250ML VIAL (Q9958) As Ordered ONE (15:36)
[2018-10-13 18:00] VITALS: BP 133/82
[2018-10-13] MEDS: ROSUVASTATIN 10 MG TAB (CRESTOR) PO SCH (21:09)
[2018-10-13 22:00] VITALS: BP 134/77
--- NOTE | 2018-10-13 23:36 | REP ---
CYSTOGRAM The procedure was performed under the direct supervision of Dr. Robbins. The images were reviewed with Dr. Robbins. The patient has a history of sigmoid colectomy. The patient arrived in the department with an existing indwelling Torre catheter. Cysto-Conray II was instilled into the bladder in a retrograde flow. 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 There is impression on the left dome of the bladder which likely represents postsurgical repair. There is no extravasation of contrast from the bladder visualized. There is a small amount of postvoid residual. 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 This may further be evaluated with a CT cystogram. There is impression on the left dome of the bladder which likely represents postsurgical repair. There is no extravasation of contrast from the bladder visualized. 0.2 minutes of fluoroscopy time was utilized for this procedure. Reviewed by CODI Mendez 10/13/2018 04:31 P Electronically Signed by Erik Robbins MD 10/13/2018 11:27 P
[2018-10-14] MEDS: PIPERACILLIN/TAZOBACTAM SOD 3.375 GM in D5W MINI-BAG PLUS 50 ML IV SCH ×2 (00:04→05:57)
[2018-10-14 06:00] VITALS: BP 146/89
[2018-10-14 06:35] LABS: CALCIUM LEVEL 9.1 MG/DL (8.8-10.2); CREATININE FOR GFR 1.28 MG/DL (0.55-1.30); GLOMERULAR FILTRATION RATE 43.3 (>39); POTASSIUM SERUM 4.1 MEQ/L (3.5-5.1)
[2018-10-14] MEDS: IPRATROPIUM 0.5MG/ALBUTEROL 2.5MG INH SOL UD 3ML (DUONEB)(J7620) NEB SCH ×4 (07:44→20:01)
[2018-10-14] MEDS: LACTOBACILLUS ACIDOPHILUS CAP (BACID) PO SCH ×4 (08:14→20:31)
[2018-10-14] MEDS: ENOXAPARIN 40 MG/0.4 ML SYRINGE (J1650) SC SCH (08:14)
[2018-10-14] MEDS: LOPERAMIDE 2 MG CAP PO SCH ×4 (08:14→20:32)
[2018-10-14 10:00] VITALS: BP 134/83
[2018-10-14 14:00] VITALS: BP 136/88
[2018-10-14 18:00] VITALS: BP 135/90
[2018-10-14] MEDS: ROSUVASTATIN 10 MG TAB (CRESTOR) PO SCH (20:32)
[2018-10-14 22:00] VITALS: BP 137/90
[2018-10-15 02:00] VITALS: BP 134/86
[2018-10-15 06:00] VITALS: BP 157/85
[2018-10-15] MEDS: IPRATROPIUM 0.5MG/ALBUTEROL 2.5MG INH SOL UD 3ML (DUONEB)(J7620) NEB SCH ×2 (07:23→11:28)
[2018-10-15] MEDS: LOPERAMIDE 2 MG CAP PO SCH ×2 (07:38→12:10)
[2018-10-15] MEDS: LACTOBACILLUS ACIDOPHILUS CAP (BACID) PO SCH ×2 (07:38→12:10)
[2018-10-15] MEDS: ENOXAPARIN 40 MG/0.4 ML SYRINGE (J1650) SC SCH (07:39)
--- NOTE | 2018-10-20 10:23 | IPN ---
DATE: 10/12/2018 The patient overall seems to be making some very slow progress, but overall seems to have had some higher ostomy output over the last several days. She has been relatively slow in progressing. She has tolerated a regular diet that I started on her yesterday. In general, the major issue at this time seems to be rehabilitation from a surgical standpoint. Her ostomy is pink and draining some liquid stool today. Otherwise, her midline incision is healing nicely without any erythema, drainage or discharge. She has been afebrile and intake and output show that she continues to have significant Len-Rivas (J-P) output but it is mostly serosanguineous at this time. IMPRESSION/PLAN: The patient seems to be making some slow but progressive improvement. However, she is still not in a position where she can adequately care for her ostomy. The nurses have been working with her to see if this could be expedited with some care from the family and it sounds as though her daughter will be helping provide some of this care. In any case, we will continue with current treatment and we will see how she can do over the next day or so and hopefully get her home when she is able to master this issue.
--- NOTE | 2018-10-20 10:27 | IPN ---
DATE: 10/13/2018 Subjectively, the patient still continues to be doing relatively well every time I see her; however, she is sitting in the chair and not really moving around all that much and seems to have not a great understanding of her ostomy and ostomy care. However, it seems as though she is tolerating her diet better and she is moving around a little bit better each day. She has been afebrile. Her vital signs have been stable. Urine output has been good. However, her CHER drain still continues with some serosanguineous drainage. Incisions otherwise on abdominal exam seem to be improving daily and she seems to be making some slow progress. Will continue with patient education and care. At this point, it has been a week since her surgery, so will order a cystogram to see what is going on with her gallbladder and make sure the bladder repair has held up nicely. Once this is looking good, will discontinue the Torre and then will see about discharging her home over the next few days. Otherwise, I have asked the nurses to discuss with occupational therapy/physical therapy (OT/PT) whether this is an individual that would benefit from rehabilitation on a short-term basis.
--- NOTE | 2018-10-20 10:28 | IPN ---
DATE: 10/14/2018 The patient overall seems to be continuing to make some good progress and actually the nursing staff says they have worked it out that it would be reasonable to discharge her home over the next 24 hours with again some additional teaching care this afternoon for her daughter. From a surgical standpoint, a cystogram was performed and where the bladder repair was showed no evidence of leak. However, there was some question of leak from the urethra. Thus, I discussed this with Dr. Dolan and Dr. Dolan has instructed us to keep the Torre catheter in for a week and have her seen in the office in a week. At that point, he will do a cystoscopy and make sure that they do not see any tear or problems with the urethra itself. However, he anticipates that some of this was some incontinence of fluid around the Torre catheter itself, which just dribbled through the urethra itself. However, to be on the safe side, he recommended keeping the Torre catheter in place and to see her in a week. Thus, we will schedule that after discharge for him. In addition, we will get gianna out prior to discharge as well as the Len-Rivas drain and then she will followup in week or two with Dr. Stock if she continues to make some progress and is ready for discharge home tomorrow.
== END 2018-10-15 14:37 | disposition home health service (06) | DRG 330 ==
LOC: M OR 08:16 → M MSPAV 22:18
PROVIDERS: ADMIT Surgery; ATTEND Surgery
PROC: 0TQB4ZZ Repair Bladder, Percutaneous Endoscopic Approach (ICD-10-PCS; 2018-10-08)
PROC: 07BC4ZX Excision of Pelvis Lymphatic, Percutaneous Endoscopic Approach, Diagnostic (ICD-10-PCS; 2018-10-08)
PROC: 0D1B0J4 Bypass Ileum to Cutaneous with Synthetic Substitute, Open Approach (ICD-10-PCS; 2018-10-08)
PROC: 0W3P8ZZ Control Bleeding in Gastrointestinal Tract, Via Natural or Artificial Opening Endoscopic (ICD-10-PCS; 2018-10-08)
PROC: 8E0W4CZ Robotic Assisted Procedure of Trunk Region, Percutaneous Endoscopic Approach (ICD-10-PCS; 2018-10-08)
PROC: 0DBN4ZZ Excision of Sigmoid Colon, Percutaneous Endoscopic Approach (ICD-10-PCS; principal; 2018-10-08 10:15)
DX: K51.812 Other ulcerative colitis with intestinal obstruction (principal); N32.1 Vesicointestinal fistula; K91.71 Accidental puncture and laceration of a digestive system organ or structure during a digestive system procedure; I12.9 Hypertensive chronic kidney disease with stage 1 through stage 4 chronic kidney disease, or unspecified chronic kidney disease; N18.3 Chronic kidney disease, stage 3 (moderate); D50.9 Iron deficiency anemia, unspecified; E78.00 Pure hypercholesterolemia, unspecified; Z85.528 Personal history of other malignant neoplasm of kidney; Z90.5 Acquired absence of kidney; Z79.899 Other long term (current) drug therapy; Z53.31 Laparoscopic surgical procedure converted to open procedure

== ENCOUNTER 2018-11-04 14:34 | Inpatient (IN) | payer MEDICARE ==
[~2018-11-04] VITALS: Ht 147.3 cm; Wt 53.1 kg
[~2018-11-04 14:34] MED LIST changes: -ALVIMOPAN 12 MG CAPSULE (ENTEREG) PO SCH; -LR 1,000 ML IV SCH; -LR 500 ML IV SCH; -cefoTEtan DISODIUM 2 GM in D5W MINI-BAG PLUS 50 ML IV SCH
[2018-11-04] MEDS ORDERED: NS 1,000 ML IV ONE (15:15)
[2018-11-04 15:31] LABS: BASO % 0.3 % (0.0-1.0); EOS # 0.1 10^3/uL (0.0-0.5); EOS % 0.8 % (0.0-3.0); HEMATOCRIT 34.8 % (36.0-47.0); HEMOGLOBIN 12.2 g/dl (12.0-15.5); LYMPH # 0.5 10^3/uL (1.5-5.0); MEAN CORPUSCULAR HEMOGLOBIN 29.9 pg (27.0-33.0); MEAN CORPUSCULAR HGB CONC 35.1 g/dl (32.0-36.5); MEAN CORPUSCULAR VOLUME 85.3 fl (80.0-96.0); MONO # 0.3 10^3/uL (0.0-0.8); MONO % 4.5 % (0.0-5.0); NEUTROPHILS # 6.3 10^3/uL (1.5-8.5); NEUTROPHILS % 86.8 % (36.0-66.0); PLATELET COUNT, AUTOMATED 233 10^3/uL (150-450); RED BLOOD COUNT 4.08 10^6/uL (4.00-5.40); WHITE BLOOD COUNT 7.3 10^3/uL (4.0-10.0)
[2018-11-04 15:44] LABS: INR 1.08; PROTHROMBIN TIME 13.7 SECONDS (11.8-14.0)
[2018-11-04 15:45] LABS: PARTIAL THROMBOPLASTIN TIME 32.1 SECONDS (25.0-38.4)
--- NOTE | 2018-11-04 15:51 | REP ---
CHEST, SINGLE VIEW: Single view of the chest is performed. There is no acute infiltrate. Heart is normal in size. There is calcification of the thoracic aorta. There is a moderate sized hiatal hernia. Electronically Signed by Erik Robbins MD 11/05/2018 04:47 P
[2018-11-04 16:03] LABS: BILIRUBIN,DIRECT 0.2 MG/DL (0.0-0.2); BILIRUBIN,TOTAL 0.4 MG/DL (0.2-1.0); CALCIUM LEVEL 8.4 MG/DL (8.8-10.2); CREATININE FOR GFR 11.1 MG/DL (0.55-1.30); GLOMERULAR FILTRATION RATE 3.6 (>39); POTASSIUM SERUM 4.1 MEQ/L (3.5-5.1); TOTAL PROTEIN 7.9 GM/DL (6.4-8.2)
[2018-11-04 17:25] LABS: VENOUS BASE EXCESS -11.9 (-2.0-2.0); VENOUS HCO3 11.7 MEQ/L (23.0-27.0); VENOUS O2 SATURATION 98.8 % (60.0-80.0); VENOUS PARTIAL PRESSURE CO2 21.2 mmHg (38.0-50.0); VENOUS PARTIAL PRESSURE O2 205.6 mmHg (30.0-50.0); VENOUS PH 7.361 UNITS (7.330-7.430); VENOUS TOTAL CO2 12.4 MEQ/L (24.0-28.0)
[2018-11-04] MEDS ORDERED: PT COMMENTS (17:35)
[2018-11-04 18:40] VITALS: BP 120/74
--- NOTE | 2018-11-04 19:33 | HPEPDOC ---
[facility] Medical History & Physical Date of Admission Nov 04, 2018 Date of Service: Nov 04, 2018 History and Physical CHIEF COMPLAINT: [look ill] The patient is a 73-year-old woman who had undergone sigmoid colectomy with coloproctostomy this past summer who was sent to the ed by Dr. Gaspar because of elevated cr. She stated that since her surgery she has not had good appetite and has been getting weaker. Per daughter at bedside she only eats soft foods. Patient said she feels a bit depressed, and denied difficulty swallowing, nausea, vomiting, abd pain, fever or chills. MEDICATIONS: see below ALLERGIES: The patient denies any known drug allergies. PAST MEDICAL HISTORY: 1. History of ulcerative colitis for many years. 2. She has history of hypercholesterolemia. 3.Anemia. 4. She had renal cell carcinoma. PAST SURGICAL HISTORY: sigmoid colectomy with coloproctostomy Robotic-assisted left partial nephrectomy. She has had colonoscopies in 2013, 2016 and 2018 at least. She undergone a previous lithotripsy. She has had an anterior and posterior colporrhaphies. FAMILY HISTORY: Her father is secondary to natural causes and her mother is associated with hypertension. SOCIAL HISTORY: She is a nonsmoker and denies any alcohol use ROS All 10 points ROS are negative except for what stated in HPI PHYSICAL EXAMINATION: GENERAL: dry, alert and oriented, slow to respond, in no acute distress. HEENT normocephalic , atraumatic, PEERLA, EOMI, neck supple, no enlarged thyr oid, no tenderness , no lymphadenopathy VITAL SIGNS: Afebrile, vital signs stable. CARDIOVASCULAR: Regular rate and rhythm, no murmurs , rubs or gallops , no chest wall tenderness RESP LCTAB , no wheezes, crackles or rhonchi , no fremitus ABDOMEN: + bowel sounds, Soft, nontender, no distended , no organomegaly , colostomy bag with green soft stool EXTREMITIES: moves extremities voluntarily, no tenderness, or swelling, normal strength NEURO cn 2-12 intact, no foal deficit, AOA Psych- depressed mood and flat affect Assessment and plan Acute on chronic renal failure with metabolic acidosis hyponatremia -c/w ruth - strict I and Os -nephro consulted -bmp q8 for now for sodium correction -f/u UA -f/u vitamin D and b12 dvt ppx full code, from home, no svc - Vital Signs Vital Signs Date Time Temp Pulse Resp B/P (MAP) Pulse Ox O2 Delivery O2 Flow Rate FiO2 11/04/18 18:40 97.9 86 16 120/74 (89) 98 11/04/18 14:35 Room Air Laboratory Data Labs 24H Laboratory Tests 2 11/04/18 15:21: Immature Granulocyte % (Auto) 0.6, White Blood Count 7.3, Red Blood Count 4.08, Hemoglobin 12.2, Hematocrit 34.8L, Mean Corpuscular Volume 85.3, Mean Corpuscular Hemoglobin 29.9, Mean Corpuscular Hemoglobin Concent 35.1, Red Cell Distribution Width 14.1, Platelet Count 233, Neutrophils (%) (Auto) 86.8H, Lymphocytes (%) (Auto) 7.0L, Monocytes (%) (Auto) 4.5, Eosinophils (%) (Auto) 0.8, Basophils (%) (Auto) 0.3, Neutrophils # (Auto) 6.3, Lymphocytes # (Auto) 0.5L, Monocytes # (Auto) 0.3, Eosinophils # (Auto) 0.1, Basophils # (Auto) 0.0, Nucleated Red Blood Cells % (auto) 0.0, Prothrombin Time 13.7, Prothromb Time International Ratio 1.08, Activated Partial Thromboplast Time 32.1, Anion Gap 22H, Glomerular Filtration Rate 3.6L, Calcium Level 8.4L, Aspartate Amino Transf (AST/SGOT) 20, Alanine Aminotransferase (ALT/SGPT) 48, Alkaline Phosphatase 105, Total Bilirubin 0.4, Direct Bilirubin 0.2, Total Protein 7.9, Albumin 4.0, Albumin/Globulin Ratio 1.03, Lipase 520H 11/04/18 17:03: Blood Gas Bicarbonate Standard 15.0, Venous Blood pH 7.361, Venous Blood Partial Pressure CO2 21.2L, Venous Blood Partial Pressure O2 205.6H, Venous Blood Total Carbon Dioxide 12.4L, Venous Blood HCO3 11.7L, Venous Blood Oxygen Saturation 98.8H, Venous Blood Base Excess -11.9L, Lactic Acid Level 1.7 CBC/BMP Laboratory Tests 11/04/18 15:21 Red Blood Count 4.08, Mean Corpuscular Volume 85.3, Mean Corpuscular Hemoglobin 29.9, Mean Corpuscular Hemoglobin Concent 35.1, Red Cell Distribution Width 14.1, Neutrophils (%) (Auto) 86.8 H, Lymphocytes (%) (Auto) 7.0 L, Monocytes (%) (Auto) 4.5, Eosinophils (%) (Auto) 0.8, Basophils (%) (Auto) 0.3, Neutrophils # (Auto) 6.3, Lymphocytes # (Auto) 0.5 L, Monocytes # (Auto) 0.3, Eosinophils # (Auto) 0.1, Basophils # (Auto) 0.0 Home Medications Miscellaneous Medications [Pt Comments] PATIENTS DAUGHTER STATES THAT DR. MORAN TOOK THE PT. OFF EVERYTHING AFTER HER SURGERY ON September. HASN'T TAKEN ANYTHING SINCE 10/08 Allergies Coded Allergies: No Known Allergies (Verified , 10/08/18) A-FIB/CHADSVASC A-FIB History Current/History of A-Fib/PAF?: No Current PO Anticoag Therapy: No Age/Risk Factor Scoring CHADSVASC: CHADSVASC Response (Comments) Value Age Risk Factor Age >/= 75 years old 2 Gender Risk Factor Female 1 Hx of CHF No 0 Hx of HTN Yes 1 Hx of Stroke/TIA/or VTE No 0 Hx of Diabetes Yes 1 Hx of Vascular Disease No 0 Total 5 Treatment Treatment ordered: NONE Reason Anticoagulant not given: Not indicated/[id number] KEN ALONZO MD Nov 04, 2018 19:33
[2018-11-04] MEDS ORDERED: NS 1,000 ML IV SCH ×2 (19:45→22:30)
[2018-11-04 20:00] VITALS: BP 118/64
--- NOTE | 2018-11-04 21:13 | REPVR ---
PROCEDURE INFORMATION: Exam: US Retroperitoneal Limited, Kidneys Exam date and time: 11/04/2018 8:42 PM Clinical history: 73 years old, female; Condition or disease; Kidney or ureter condition; Chronic kidney disease or failure; Not specified; Additional info: Arf TECHNIQUE: Imaging protocol: Real-time ultrasound of the retroperitoneum with image documentation. Examination was focused on the kidneys. COMPARISON: CT ABD PELVIS WITH CONTRAST 07/22/2018 5:35 PM FINDINGS: Right kidney: The right kidney measures 7.5 cm in its cephalocaudad dimension and 3.9 x 2.9 cm in diameter. The right renal parenchyma is echogenic. No mass, cyst or hydronephrosis. There is a shadowing calculus in the lower pole measuring 8 x 4 x 6 mm. No mass, cyst or hydronephrosis. Left kidney: The left kidney measures 9.8 cm in its cephalocaudad dimension and 5.8 x 4.0 cm in diameter. There is a lobular contour of the left kidney with echogenic parenchyma. Bladder: Torre catheter in the bladder. IMPRESSION: 1. Mild right renal atrophy. 2. Echogenic kidneys bilaterally consistent with medical renal disease. There is a lobular contour of the left kidney. 3. Right renal calculus in the lower pole measuring 8 x 4 x 6 mm. 4. There is a Torre catheter in the bladder. 5. No hydronephrosis. Electronically signed by: Ilan Berger On 11/04/2018 21:13:26 PM
[2018-11-04] MEDS: DOCUSATE SODIUM 100 MG CAP PO SCH (21:30)
[2018-11-04] MEDS: HEPARIN SOD (PORCINE) 5000 UNITS/ML VIAL SC SCH (21:31)
[2018-11-04 22:21] LABS: ALBUMIN 3.2 GM/DL (3.2-5.2); CALCIUM LEVEL 7.6 MG/DL (8.8-10.2); MAGNESIUM LEVEL 2.4 MG/DL (1.8-2.4); PHOSPHORUS LEVEL 11.5 MG/DL (2.5-4.9); POTASSIUM SERUM 3.6 MEQ/L (3.5-5.1)
[2018-11-04] MEDS: KCL 20MEQ IN 0.45NS 1000ML 1,000 ML IV SCH (23:28)
[2018-11-04 23:59] VITALS: BP 129/71
[2018-11-05 04:00] VITALS: BP 116/60
--- NOTE | 2018-11-05 07:22 | CR ---
DATE OF CONSULTATION: 11/04/2018 REQUESTING PHYSICIAN: Dr. Ontiveros in the emergency room. CONSULTING PHYSICIAN: Dr. Ann REASON FOR CONSULTATION: Management of acute renal failure. CHIEF COMPLAINT: The patient is feeling weak and tired and she was sent by Dr. Gaspar's office because of abnormal labs. HISTORY OF PRESENT ILLNESS: Ruthy Gonzalez is a 73-year-old female with past medical history of chronic kidney disease stage III with a best baseline creatinine of around 1.2 and history of partial left nephrectomy because of renal cell carcinoma. The patient recently had a sigmoid colectomy with coloproctostomy during the summer and as reported by the patient's daughter the patient does not have a good appetite. She does not eat much. She eats a little bit of soft foods. She does not drink enough liquids. She has been depressed now a days. When she got the labs done at the primary care's office, she was found to have acute renal failure. The patient was sent to the emergency room for further evaluation and on further investigation in the ER she was found to have a creatinine of 11.1 with a BUN of 199 and a sodium of 120. She was extremely dehydrated. She was started on IV fluid hydration. The case was discussed with myself by the ER physician, Dr. Ontiveros. Decision was made to hydrate the patient and repeat the labs in the evening. The patient needed my immediate attention. I emergently saw the patient at the bedside in the emergency room tonight. I took the history from the patient and from her daughter at the bedside. The patient is otherwise afebrile and hemodynamically stable and she is awake and follows commands. PAST MEDICAL HISTORY: Patient has history of chronic kidney disease stage III with baseline creatinine of 1.3, history of ulcerative colitis for many years, hyperlipidemia, anemia, history of renal cell carcinoma. PAST SURGICAL HISTORY: Status post sigmoid colectomy and colpoproctostomy, history of partial left nephrectomy, history of colonoscopies in the past, lithotripsy in the past. ALLERGIES: No known drug allergies. FAMILY HISTORY: No significant family history of end-stage renal disease requiring hemodialysis. SOCIAL HISTORY: The patient lives at home. Her daughter is the caregiver. She denies any smoking, illicit drug abuse or alcohol abuse. REVIEW OF SYSTEMS: The patient is very depressed at this time. She answers few questions. She is feeling weak and tired nowadays. Eyes: She denies any blurry vision, double vision. ENT: She denies any dysphagia or odynophagia. Cardiovascular: She denies any chest pain or palpitation. Respiratory: She denies any shortness of breath. GI: She reports a decreased appetite and she has an ostomy. Genitourinary: She has an indwelling Torre catheter. Musculoskeletal: She denies any muscle aches and pains. She does report weakness. Skin: She denies any rashes or ulcers. WAITER/WAITRESS FORMAL: She denies any strokes or seizures. Psych: The patient denies any issues, but the daughter reports that she is very depressed. Hematology/Oncology: There is no easy bleeding or bruising. All other review of systems is negative. PHYSICAL EXAMINATION: General: The patient is awake, alert, oriented times two, laying in bed, weak and cachectic. Vital Signs: Temperature is 97.6 degrees Fahrenheit. Blood pressure 126/67. Pulse is 94. Respiratory rate of 18. Saturating 99% on room air. Head and Neck Exam: The patient has bitemporal wasting. Neck is supple. Mucous membranes are moist. Cardiovascular: S1 and S2, regular rate. No edema of the bilateral lower extremities. Respiratory: Chest is clear to auscultation bilaterally. Bilateral equal air entry. No rales or rhonchi. Abdomen: Soft. Positive bowel sounds. Right lower quadrant ostomy was noted with liquid stool in the ostomy. Genitourinary: Patient has an indwelling Torre catheter, urine in the bag is dark yellow. Musculoskeletal: No clubbing or cyanosis. Pulses are 2+. Skin: The patient has decreased skin turgor all over indicative of dehydration. WAITER/WAITRESS FORMAL: No focal deficit. The patient moves all extremities and follows commands. LAB REVIEW: CBC showed a WBC of 7.3, hemoglobin 12.2, platelets of 233. INR is 1.08. LVBG: The pH was 7.36. BMP showed sodium 120, potassium 4.1, chloride 83, bicarb 15, BUN 199, creatinine 11.1, glucose 124, lactic acid 1.7, calcium 8.4, albumin 4, lipase 520. Urinalysis is not available. IMAGING STUDIES: Chest x-ray was done which showed a moderate size hiatal hernia, no infiltrate. Renal ultrasound was done today and showed mild right renal atrophy, echogenic kidneys bilaterally, right renal calculus in the lower pole which was 8 x 4 x 6 mm. Torre catheter in the bladder. No hydronephrosis was noted. CURRENT INPATIENT MEDICATIONS: The patient's medications include normal saline 1000 mL bolus and then she was started at 150 mL an hour IV fluid. She is on Colace 100 mg by mouth twice a day and she is on heparin 5000 subcu q. 12 hourly. ASSESSMENT: 73-year-old female with history of chronic kidney disease stage III admitted at this time with acute renal failure, hyponatremia, high anion gap, metabolic acidosis and dehydration. PLAN: 1. Acute renal failure. Clinically, it looks like the patient is dehydrated and volume depleted. She has an ostomy status and she was not able to keep herself well hydrated. She was already given 1 liter normal saline bolus, she is getting normal saline at 150 mL an hour. I have ordered a repeat BMP to be done at 9:00 p.m. today. Depending upon the BMP results, I will change the IV fluid rate or type if needed. Continue the Torre catheter at this time. No urgent need of hemodialysis at this time. I believe that her electrolytes and acid base status would improve with IV fluid hydration. 2. High anion gap metabolic acidosis. It is secondary to a combination of high output of ostomy, dehydration and inability to keep herself hydrated. The bicarb level is expected to improve. However, if her bicarb level does not start improving, I would change the IV fluids to bicarb containing fluids. 3. Hyponatremia. The patient has hypovolemic hyponatremia. Sodium level is expected to improve with IV normal saline hydration. Repeat BMP level pending. Depending upon the BMP results, the fluids will be changed. 4. History of left-sided renal mass. The patient had robotic assisted laparoscopic left partial nephrectomy. She had a baseline creatinine of around 1.2 as outpatient. Repeat renal imaging done today showed no evidence of mass. Thank you for involving me in the care of this patient. I shall be happy to follow the patient along with you tomorrow morning. Total critical care time spent in the management of this patient in the emergency room today was 45 minutes.
[2018-11-05 07:53] VITALS: BP 112/60
[2018-11-05 08:26] LABS: HEMATOCRIT 27.2 % (36.0-47.0); MEAN CORPUSCULAR HEMOGLOBIN 29.2 pg (27.0-33.0); MEAN CORPUSCULAR HGB CONC 34.2 g/dl (32.0-36.5); MEAN CORPUSCULAR VOLUME 85.5 fl (80.0-96.0); PLATELET COUNT, AUTOMATED 184 10^3/uL (150-450); RED BLOOD COUNT 3.18 10^6/uL (4.00-5.40); WHITE BLOOD COUNT 6.1 10^3/uL (4.0-10.0)
[2018-11-05 08:32] LABS: HEMOGLOBIN 9.3 g/dl (12.0-15.5)
[2018-11-05] MEDS: DOCUSATE SODIUM 100 MG CAP PO SCH ×2 (09:01→20:02)
[2018-11-05] MEDS: HEPARIN SOD (PORCINE) 5000 UNITS/ML VIAL SC SCH ×2 (09:01→20:02)
[2018-11-05] MEDS: KCL 20MEQ IN 0.45NS 1000ML 1,000 ML IV SCH (09:34)
[2018-11-05 09:37] LABS: ALBUMIN 3.1 GM/DL (3.2-5.2); BILIRUBIN,TOTAL 0.5 MG/DL (0.2-1.0); CALCIUM LEVEL 7.6 MG/DL (8.8-10.2); CREATININE FOR GFR 8.27 MG/DL (0.55-1.30); MAGNESIUM LEVEL 2.2 MG/DL (1.8-2.4); POTASSIUM SERUM 3.8 MEQ/L (3.5-5.1); TOTAL PROTEIN 6.1 GM/DL (6.4-8.2)
--- NOTE | 2018-11-05 10:42 | IPNPDOC ---
Subjective Date Seen The patient was seen on 11/05/18. Subjective Chief Complaint/HPI Patient is comfortable and not in distress. Offers no new complaints General: Denies: ROS Unobtainable, Chills, Night Sweats, Fatigue, Malaise, Normal Appetite, Other Symptoms Constitutional: Denies: Chills, Fever, Malaise, Night Sweats, Weakness, Fatigue, Weight Loss, Lethargy, Other Eyes: Denies: Pain, Vision change, Conjunctivae inflammation, Eyelid inflammation, Redness, Other ENT: Denies: Head Aches, Ear Pain, Dysphagia, Sinus Congestion, Post Nasal Drip, Sore Throat, Epistaxis, Other Symptoms Skin: Denies: Rash, Lesions, Jaundice, Bruising, Itching, Dry, Breakdown, Nail Changes, Other Pulmonary: Denies: Dyspnea, Cough, Pleuritic Chest Pain, Other Symptoms Cardiovascular: Denies: Chest Pain, Palpitations, Orthopnea, Paroxysmal Noc. Dyspnea, Edema, Lt Headedness, Other Symptoms Gastrointestinal: Denies: Nausea, Vomiting, Abdominal Pain, Diarrhea, Consti pation, Melena, Hematochezia, Other Symptoms Endocrine: Denies: Polydipsia, Polyphagia, Polyuria, Heat Intolerance, Cold Intolerance, Other Endocrine Sx Musculoskeletal: Denies: Neck Pain, Back Pain, Shoulder Pain, Arm Pain, Hand Pain, Leg Pain, Foot Pain, Joint Pain, Muscle Pain, Spasms, Other Symptoms Neurological: Denies: Weakness, Numbness, Incoordination, Change in speech, Confusion, Seizures, Other Symptoms Objective Physical Examination General Exam: Positive: Alert, Cooperative Eye Exam: Positive: PERRLA, Conjunctiva & lids normal ENT Exam: Positive: Atraumatic, Mucous membr. moist/pink Neck Exam: Positive: Supple Chest Exam: Positive: Clear to auscultation Heart Exam: Positive: Rate Normal, Normal S1, Normal S2 Abdomen Exam: Positive: Normal bowel sounds Extremity Exam: Positive: Normal pulses Skin Exam: Positive: Nl turgor and temperature Assessment /Plan Problems (1) Acute renal failure Status: Acute Problem Text: Acute renal failure most likely secondary to dehydration Patient received 1 L of normal saline in ED and has been started on normal saline 850 mL per hour Nephrology consult has been up done and appreciated Fluid management as per nephrology Torre catheter Repeat labs in a.m. High anion gap metabolic acidosis secondary to high output from ostomy and dehydration . We'll continue monitoring, bicarbonate if needed, will add bicarbonates and IV fluid (2) Renal cell carcinoma Problem Text: History of left-sided renal cell carcinoma Status post left partial nephrectomy Repeat imaging was within normal limits (3) Hyponatremia Status: Acute Problem Text: Serum sodium level is slightly improved Nephrology consultation appreciated Was likely causes hypovolemic hyponatremia BMP in a.m. (4) Ulcerative colitis Status: Acute Problem Text: History of ulcerative colitis Continue home meds Plan/VTE VTE Prophylaxis Ordered?: Yes VS, I&O, 24H, Fishbone Vital Signs/I&O Vital Signs Date Time Temp Pulse Resp B/P (MAP) Pulse Ox O2 Delivery O2 Flow Rate FiO2 11/05/18 07:53 98.2 88 20 112/60 (77) 100 11/04/18 14:35 Room Air I&O- Last 24 Hours up to 6 AM 11/05/18 06:00 Intake Total 1350 ml Output Total 600 ml Balance 750 ml Laboratory Data 24H LABS Laboratory Tests 2 11/04/18 15:21: Immature Granulocyte % (Auto) 0.6, White Blood Count 7.3, Red Blood Count 4.08, Hemoglobin 12.2, Hematocrit 34.8L, Mean Corpuscular Volume 85.3, Mean Corpuscular Hemoglobin 29.9, Mean Corpuscular Hemoglobin Concent 35.1, Red Cell Distribution Width 14.1, Platelet Count 233, Neutrophils (%) (Auto) 86.8H, Lymphocytes (%) (Auto) 7.0L, Monocytes (%) (Auto) 4.5, Eosinophils (%) (Auto) 0.8, Basophils (%) (Auto) 0.3, Neutrophils # (Auto) 6.3, Lymphocytes # (Auto) 0.5L, Monocytes # (Auto) 0.3, Eosinophils # (Auto) 0.1, Basophils # (Auto) 0.0, Nucleated Red Blood Cells % (auto) 0.0, Prothrombin Time 13.7, Prothromb Time International Ratio 1.08, Activated Partial Thromboplast Time 32.1, Anion Gap 22H, Glomerular Filtration Rate 3.6L, Calcium Level 8.4L, Aspartate Amino Transf (AST/SGOT) 20, Alanine Aminotransferase (ALT/SGPT) 48, Alkaline Phosphatase 105, Total Bilirubin 0.4, Direct Bilirubin 0.2, Total Protein 7.9, Albumin 4.0, Albumin/Globulin Ratio 1.03, Lipase 520H 11/04/18 17:03: Blood Gas Bicarbonate Standard 15.0, Venous Blood pH 7.361, Venous Blood Partial Pressure CO2 21.2L, Venous Blood Partial Pressure O2 205.6H, Venous Blood Total Carbon Dioxide 12.4L, Venous Blood HCO3 11.7L, Venous Blood Oxygen Saturation 98.8H, Venous Blood Base Excess -11.9L, Lactic Acid Level 1.7 11/04/18 21:15: Anion Gap 18H, Glomerular Filtration Rate 4.0L, Calcium Level 7.6L, Albumin 3.2, Blood Urea Nitrogen 175H, Creatinine 10.00*H, Sodium Level 125L, Potassium Level 3.6, Chloride Level 92L, Carbon Dioxide Level 15L, Phosphorus Level 11.5H, Magnesium Level 2.4 11/05/18 08:01: Nucleated Red Blood Cells % (auto) 0.0, Anion Gap 18H, Glomerular Filtration Rate 5.0L, Calcium Level 7.6L, Aspartate Amino Transf (AST/SGOT) 19, Alanine Am inotransferase (ALT/SGPT) 38, Alkaline Phosphatase 78, Total Bilirubin 0.5, Total Protein 6.1#L, Albumin 3.1L, Albumin/Globulin Ratio 1.03, Lipase 498H, Blood Urea Nitrogen 164H, Creatinine 8.27*H, Sodium Level 128L, Potassium Level 3.8, Chloride Level 95L, Carbon Dioxide Level 15L, Magnesium Level 2.2 CBC/BMP Laboratory Tests 11/04/18 15:21 Red Blood Count 4.08, Mean Corpuscular Volume 85.3, Mean Corpuscular Hemoglobin 29.9, Mean Corpuscular Hemoglobin Concent 35.1, Red Cell Distribution Width 14.1, Neutrophils (%) (Auto) 86.8 H, Lymphocytes (%) (Auto) 7.0 L, Monocytes (%) (Auto) 4.5, Eosinophils (%) (Auto) 0.8, Basophils (%) (Auto) 0.3, Neutrophils # (Auto) 6.3, Lymphocytes # (Auto) 0.5 L, Monocytes # (Auto) 0.3, Eosinophils # (Auto) 0.1, Basophils # (Auto) 0.0 11/04/18 21:15 Anion Gap 18 H 11/05/18 08:01 Red Blood Count 3.18 L, Mean Corpuscular Volume 85.5, Mean Corpuscular Hemoglobin 29.2, Mean Corpuscular Hemoglobin Concent 34.2, Red Cell Distribution Width 13.9, Calcium Level 7.6 L, Aspartate Amino Transf (AST/SGOT) 19, Alanine Aminotransferase (ALT/SGPT) 38, Alkaline Phosphatase 78, Total Bilirubin 0.5, Total Protein 6.1 #L, Albumin 3.1 L MARCUS ASHLEY MD Nov 05, 2018 10:42
[2018-11-05 12:00] VITALS: BP 112/60
[2018-11-05 12:07] LABS: TOTAL 25(OH) VITAMIN D 20.2 NG/ML (30.0-100.0)
[2018-11-05 12:27] LABS: AMORPHOUS SEDIMENT MODERATE (NEGATIVE); APPEARANCE, URINE TURBID (CLEAR); BACTERIA, URINE AUTO 3+ (NEGATIVE); BILIRUBIN, URINE AUTO NEGATIVE (NEGATIVE); BLOOD, URINE BLOOD 1+ (NEGATIVE); COLOR, URINE YELLOW (YELLOW); GLUCOSE, URINE (UA) AUTO NEGATIVE (NEGATIVE); KETONE, URINE AUTO NEGATIVE (NEGATIVE); LEUKOCYTE ESTERASE, URINE AUTO 3+ (NEGATIVE); MUCUS, URINE SMALL (NEGATIVE); NITRITE, URINE AUTO POSITIVE (NEGATIVE); PROTEIN, URINE AUTO 1+ mg/dL (NEGATIVE); RBC, URINE AUTO 41 /HPF (0-3); SPECIFIC GRAVITY URINE AUTO 1.011 (1.002-1.035); SQUAMOUS EPITHELIAL CELL UR AU 1 /HPF (0-6); URIC ACID CRYSTALS MODERATE; UROBILINOGEN, URINE AUTO 0.2 mg/dL (0.0-2.0); WBC, URINE AUTO TNTC /HPF (0-3)
[2018-11-05 12:42] LABS: CHLORIDE,RANDOM URINE 28 MEQ/L; CREATININE,RANDOM URINE 98.5 MG/DL; POTASSIUM RANDOM URINE 28.2 MEQ/L; SODIUM,RANDOM URINE 21 MEQ/L
[2018-11-05] MEDS ORDERED: SODIUM BICARBONATE 100 MEQ in KCL 20MEQ IN D5W 1000ML 1,000 ML IV SCH ×2 (13:00)
[2018-11-05] MEDS ORDERED: SODIUM BICARBONATE 100 MEQ, POTASSIUM CHLORIDE INJ 20 MEQ in D5W 1,000 ML IV SCH (13:00)
[2018-11-05 16:00] VITALS: BP 112/60
[2018-11-05 16:45] LABS: ALBUMIN 2.9 GM/DL (3.2-5.2); CALCIUM LEVEL 7.6 MG/DL (8.8-10.2); CREATININE FOR GFR 7.35 MG/DL (0.55-1.30); GLOMERULAR FILTRATION RATE 5.8 (>39); MAGNESIUM LEVEL 2.1 MG/DL (1.8-2.4); PHOSPHORUS LEVEL 8.9 MG/DL (2.5-4.9); POTASSIUM SERUM 3.4 MEQ/L (3.5-5.1)
[2018-11-05] MEDS ORDERED: POTASSIUM CHLORIDE 10 MEQ SR TABLET PO ONE ×2 (19:00→19:30)
[2018-11-05 20:00] VITALS: BP 108/57
[2018-11-05] MEDS: NS 1,000 ML IV SCH (20:02)
--- NOTE | 2018-11-05 21:29 | ECGEPIP ---
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
--- NOTE | 2018-11-05 21:31 | IPN ---
DATE: 11/05/2018 SUBJECTIVE: The patient was seen and examined at the bedside today morning. The patient is more awake and alert today. She is answering more questions. She continues to be on IV fluid hydration. Her renal function is very gradually improving, creatinine is down to 8.2 on today's labs. The patient still has multiple electrolyte abnormalities. She started eating soft food today morning. She is otherwise afebrile and hemodynamically stable. OBJECTIVE: VITAL SIGNS: Temperature is 96.8 degrees Fahrenheit, blood pressure 112/60, pulse is 92, respiratory of 18, saturating 95% on room air. INTAKE AND OUTPUT: Urine output recorded is only 200 mL. Weight on the bed scale is 47.9 kg. PHYSICAL EXAMINATION: GENERAL: Patient is awake, alert, oriented times two laying in bed, depressed, getting ready to eat her breakfast. HEAD AND NECK EXAM: Bitemporal wasting. Neck is supple. Mucous membranes are moist. CARDIOVASCULAR: S1, S2 regular rate. No edema of the bilateral lower extremities. RESPIRATORY: Chest is clear to auscultation bilaterally. Bilateral equal air entry. No rales or rhonchi. ABDOMEN: Soft. Right lower quadrant ostomy was noted with greenish liquid stools. GENITOURINARY: She has an indwelling Torre catheter. MUSCULOSKELETAL: No clubbing or cyanosis. Pulses are 2+. WINDOW DRESSER: The patient has a depressed mood. Otherwise she follows commands and moves extremities. SKIN: The patient has decreased skin turgor. LABORATORY REVIEW: CBC showed WBC 6.1, hemoglobin 9.3, platelets of 184. Urinalysis done today showed it was turbid was 1+ blood, 1+ protein, 3+ leukocyte esterase, 3+ bacteria. BMP done today shows showed sodium 128, potassium 3.8, chloride 95, bicarb 15, BUN 164, creatinine 8.2, glucose 96, calcium 7.6, magnesium 2.2, albumin 3.1. CURRENT INPATIENT MEDICATIONS: The patient was started on KCL 20 mEq and D5W with 100 mEq of bicarb. She is on Tylenol p.r.n. ASSESSMENT/PLAN: 1. Acute renal failure. It is secondary to dehydration volume depletion. The patient is getting IV fluid hydration. Her renal function is gradually improving, BUN and creatinine levels are coming down. IV fluids have been changed according to the serial labs and electrolyte results. The latest result came back in the evening which showed a sodium of 127 and a low potassium and creatinine has come down to 7.35, so the fluids were changed to normal saline at 125 mL an hour. 2. Hypokalemia. Latest potassium is 3.4. The patient was given potassium chloride 40 mEq by mouth times one dose. 3. Hyponatremia. The patient has hypovolemic hyponatremia. Sodium level was gradually improving and IV fluids have been changed back to normal saline at 125 mL an hour. 4. High anion gap metabolic acidosis. It is secondary to renal failure and bicarb loss from the ostomy. IV bicarb containing fluids have been stopped and I have started the patient on Bicitra 30 mL by mouth every 8 hours. 5. Hyperphosphatemia. It is secondary to renal failure. Phosphorus level is slowly improving with IV fluid hydration. 6. Protein calorie malnutrition. The patient had a very decreased oral intake at home. She is very depressed. She has been started on a soft foods. Continue to encourage oral intake. 7. Vitamin D deficiency. I am going to start the patient on daily vitamin D.
[2018-11-05] MEDS: BICITRA 30ML SOLN UDC PO SCH (21:54)
[2018-11-05 23:18] VITALS: BP 113/57
[2018-11-06] MEDS: NS 1,000 ML IV SCH ×3 (03:56→22:10)
[2018-11-06 04:00] VITALS: BP 104/56
[2018-11-06] MEDS: BICITRA 30ML SOLN UDC PO SCH ×2 (05:44→13:46)
[2018-11-06] MEDS: CIPROFLOXACIN 500 MG TAB PO SCH (06:00)
[2018-11-06 06:57] LABS: BASO % 0.3 % (0.0-1.0); EOS # 0.5 10^3/uL (0.0-0.5); EOS % 8.2 % (0.0-3.0); HEMATOCRIT 24.8 % (36.0-47.0); HEMOGLOBIN 8.4 g/dl (12.0-15.5); LYMPH # 0.5 10^3/uL (1.5-5.0); LYMPH % 8.2 % (24.0-44.0); MEAN CORPUSCULAR HEMOGLOBIN 30.2 pg (27.0-33.0); MEAN CORPUSCULAR HGB CONC 33.9 g/dl (32.0-36.5); MEAN CORPUSCULAR VOLUME 89.2 fl (80.0-96.0); MONO # 0.3 10^3/uL (0.0-0.8); MONO % 5.3 % (0.0-5.0); NEUTROPHILS # 4.7 10^3/uL (1.5-8.5); NEUTROPHILS % 77.3 % (36.0-66.0); PLATELET COUNT, AUTOMATED 144 10^3/uL (150-450); RED BLOOD COUNT 2.78 10^6/uL (4.00-5.40)
[2018-11-06 07:13] VITALS: BP 106/56
[2018-11-06 07:29] LABS: ALBUMIN 2.5 GM/DL (3.2-5.2); CALCIUM LEVEL 7.2 MG/DL (8.8-10.2); CREATININE FOR GFR 5.93 MG/DL (0.55-1.30); GLOMERULAR FILTRATION RATE 7.4 (>39); PHOSPHORUS LEVEL 6.6 MG/DL (2.5-4.9); POTASSIUM SERUM 3.8 MEQ/L (3.5-5.1)
[2018-11-06] MEDS: HEPARIN SOD (PORCINE) 5000 UNITS/ML VIAL SC SCH ×2 (08:20→20:54)
[2018-11-06] MEDS: DOCUSATE SODIUM 100 MG CAP PO SCH ×2 (08:20→21:43)
[2018-11-06] MEDS: VITAMIN D 1,000 INTERNATIONAL UNITS TABLET PO SCH (08:20)
[2018-11-06] MEDS ORDERED: POTASSIUM CHLORIDE 10 MEQ SR TABLET PO ONE (10:00)
[2018-11-06] MEDS: CALCIUM/VITAMIN D 500 MG TAB PO SCH ×2 (10:15→20:54)
--- NOTE | 2018-11-06 10:24 | IPNPDOC ---
Subjective Date Seen The patient was seen on 11/06/18. Subjective Chief Complaint/HPI Patient comfortable offers no new complaints at the present time General: Denies: ROS Unobtainable, Chills, Night Sweats, Fatigue, Malaise, Normal Appetite, Other Symptoms Constitutional: Denies: Chills, Fever, Malaise, Night Sweats, Weakness, Fatigue, Weight Loss, Lethargy, Other Eyes: Denies: Pain, Vision change, Conjunctivae inflammation, Eyelid inflammation, Redness, Other ENT: Denies: Head Aches, Ear Pain, Dysphagia, Sinus Congestion, Post Nasal Dr ip, Sore Throat, Epistaxis, Other Symptoms Pulmonary: Denies: Dyspnea, Cough, Pleuritic Chest Pain, Other Symptoms Cardiovascular: Denies: Chest Pain, Palpitations, Orthopnea, Paroxysmal Noc. Dyspnea, Edema, Lt Headedness, Other Symptoms Gastrointestinal: Denies: Nausea, Vomiting, Abdominal Pain, Diarrhea, Constipation, Melena, Hematochezia, Other Symptoms Musculoskeletal: Denies: Neck Pain, Back Pain, Shoulder Pain, Arm Pain, Hand Pain, Leg Pain, Foot Pain, Joint Pain, Muscle Pain, Spasms, Other Symptoms Neurological: Denies: Weakness, Numbness, Incoordination, Change in speech, Con fusion, Seizures, Other Symptoms Objective Physical Examination Neck Exam: Positive: Supple Chest Exam: Positive: Clear to auscultation Heart Exam: Positive: Rate Normal, Normal S1, Normal S2 Abdomen Exam: Positive: Normal bowel sounds Extremity Exam: Positive: Normal pulses Skin Exam: Positive: Nl turgor and temperature Assessment /Plan Problems (1) Acute renal failure Status: Acute Problem Text: Acute renal failure most likely secondary to dehydration Patient received 1 L of normal saline in ED and was started on normal saline 1 50 mL per hour, but later changed to 100 mL per hour by nephrology Fluid management as per nephrology Torre catheter Repeat labs in a.m. High anion gap metabolic acidosis secondary to high output from ostomy and de hydration Bicarbonates were added by nephrology for metabolic acidosis (2) Renal cell carcinoma Status: Chronic Problem Text: History of left-sided renal cell carcinoma Status post left partial nephrectomy Repeat imaging was within normal limits (3) Hyponatremia Status: Acute Problem Text: Serum sodium is improving Nephrology consultation appreciated Was likely causes hypovolemic hyponatremia BMP in a.m. (4) Ulcerative colitis Status: Acute Problem Text: History of ulcerative colitis Continue home meds (5) UTI (urinary tract infection) Status: Acute Problem Text: Add Cipro 250 mg by mouth twice a day Urine cultures pending Plan/VTE VTE Prophylaxis Ordered?: Yes VS, I&O, 24H, Fishbone Vital Signs/I&O Vital Signs Date Time Temp Pulse Resp B/P (MAP) Pulse Ox O2 Delivery O2 Flow Rate FiO2 11/06/18 07:13 97.6 87 20 106/56 (73) 100 11/04/18 14:35 Room Air I&O- Last 24 Hours up to 6 AM 11/06/18 06:00 Intake Total 2135 ml Output Total 1800 ml Balance 335 ml Laboratory Data 24H LABS Laboratory Tests 2 11/05/18 12:01: Urine Appearance TURBIDH, Urine Color YELLOW, Urine pH 8.0, Urine Specific Carmine 1.011, Urine Protein 1+H, Urine Glucose (UA) NEGATIVE, Urine Ketones NEGATIVE, Urine Urobilinogen 0.2, Urine Bilirubin NEGATIVE, Urine Leukocyte Esterase 3+H, Urine Blood 1+H, Urine Nitrite POSITIVE, Urine WBC (Auto) TNTCH, Urine RBC (Auto) 41H, Urine Hyaline Casts (Auto) 0, Urine Bacteria (Auto) 3+H, Urine Squamous Epithelial Cells 1, Urine Uric Acid Crystals (Auto) MODERATE, Urine Amorphous Sediment MODERATEH, Urine Mucus (Auto) SMALL, Urine Sperm (Auto) , Urine Random Creatinine 98.5, Urine Random Sodium 21, Urine Random Potassium 28.2, Urine Random Chloride 28 11/05/18 15:57: Blood Urea Nitrogen 152H, Creatinine 7.35H, Sodium Level 127L, Potassium Level 3.4L, Chloride Level 93L, Carbon Dioxide Level 17L, Anion Gap 17H, Glomerular Filtration Rate 5.8L, Calcium Level 7.6L, Phosphorus Level 8.9#H, Magnesium Level 2.1, Albumin 2.9L 11/06/18 06:01: Blood Urea Nitrogen 139H, Creatinine 5.93H, Sodium Level 131L, Potassium Level 3.8, Chloride Level 100, Carbon Dioxide Level 17L, Anion Gap 14, Glomerular Filtration Rate 7.4L, Calcium Level 7.2L, Phosphorus Level 6.6#H, Albumin 2.5L, Immature Granulocyte % (Auto) 0.7, White Blood Count 6.0, Red Blood Count 2.78L, Hemoglobin 8.4L, Hematocrit 24.8L, Mean Corpuscular Volume 89.2, Mean Corpuscular Hemoglobin 30.2, Mean Corpuscular Hemoglobin Concent 33.9, Red Cell Distribution Width 14.0, Platelet Count 144L, Neutrophils (%) (Auto) 77.3H, Lymphocytes (%) (Auto) 8.2L, Monocytes (%) (Auto) 5.3H, Eosinophils (%) (Auto) 8.2H, Basophils (%) (Auto) 0.3, Neutrophils # (Auto) 4.7, Lymphocytes # (Auto) 0.5L, Monocytes # (Auto) 0.3, Eosinophils # (Auto) 0.5, Basophils # (Auto) 0.0, Nucleated Red Blood Cells % (auto) 0.0 CBC/BMP Laboratory Tests 11/05/18 15:57 Anion Gap 17 H 11/06/18 06:01 Anion Gap 14, Red Blood Count 2.78 L, Mean Corpuscular Volume 89.2, Mean Corpuscular Hemoglobin 30.2, Mean Corpuscular Hemoglobin Concent 33.9, Red Cell Distribution Width 14.0, Neutrophils (%) (Auto) 77.3 H, Lymphocytes (%) (Auto) 8.2 L, Monocytes (%) (Auto) 5.3 H, Eosinophils (%) (Auto) 8.2 H, Basophils (%) (Auto) 0.3, Neutrophils # (Auto) 4.7, Lymphocytes # (Auto) 0.5 L, Monocytes # (Auto) 0.3, Eosinophils # (Auto) 0.5, Basophils # (Auto) 0.0 MARCUS ASHLEY MD Nov 06, 2018 10:24
[2018-11-06 10:26] LABS: ACETONE/KETONE 4.13 MG/DL (<2.81)
[2018-11-06 12:00] VITALS: BP 94/57
[2018-11-06 12:13] LABS: PERCENT SATURATION 24.5 % (13.2-45.0)
[2018-11-06 16:00] VITALS: BP 110/58
[2018-11-06 20:00] VITALS: BP 107/56
[2018-11-06] MEDS ORDERED: NS 1,000 ML IV ONE (20:45)
[2018-11-06] MEDS: SODIUM BICARBONATE 325 MG TAB PO SCH (21:43)
[2018-11-06 23:59] VITALS: BP 118/62
[2018-11-07] MEDS: CIPROFLOXACIN 500 MG TAB PO SCH ×2 (00:34→17:56)
[2018-11-07] MEDS ORDERED: diphenhydrAMINE 25 MG CAP PO ONE (01:00)
[2018-11-07 04:00] VITALS: BP 126/67
[2018-11-07 06:08] LABS: BASO % 0.2 % (0.0-1.0); EOS # 0.6 10^3/uL (0.0-0.5); EOS % 11.7 % (0.0-3.0); HEMATOCRIT 22.2 % (36.0-47.0); HEMOGLOBIN 7.3 g/dl (12.0-15.5); LYMPH # 0.5 10^3/uL (1.5-5.0); LYMPH % 8.9 % (24.0-44.0); MEAN CORPUSCULAR HEMOGLOBIN 29.2 pg (27.0-33.0); MEAN CORPUSCULAR HGB CONC 32.9 g/dl (32.0-36.5); MEAN CORPUSCULAR VOLUME 88.8 fl (80.0-96.0); MONO # 0.3 10^3/uL (0.0-0.8); MONO % 5.3 % (0.0-5.0); NEUTROPHILS # 3.7 10^3/uL (1.5-8.5); NEUTROPHILS % 73.7 % (36.0-66.0); PLATELET COUNT, AUTOMATED 145 10^3/uL (150-450); WHITE BLOOD COUNT 5.1 10^3/uL (4.0-10.0)
[2018-11-07] MEDS: NS 1,000 ML IV SCH ×3 (06:20→22:09)
[2018-11-07 06:34] LABS: ALBUMIN 2.2 GM/DL (3.2-5.2); BILIRUBIN,TOTAL 0.3 MG/DL (0.2-1.0); CALCIUM LEVEL 7.3 MG/DL (8.8-10.2); CREATININE FOR GFR 4.19 MG/DL (0.55-1.30); PHOSPHORUS LEVEL 4.4 MG/DL (2.5-4.9); POTASSIUM SERUM 3.8 MEQ/L (3.5-5.1); TOTAL PROTEIN 4.7 GM/DL (6.4-8.2)
[2018-11-07 08:00] VITALS: BP 118/58
[2018-11-07] MEDS: DOCUSATE SODIUM 100 MG CAP PO SCH ×2 (09:01→20:03)
[2018-11-07] MEDS: VITAMIN D 1,000 INTERNATIONAL UNITS TABLET PO SCH (09:01)
[2018-11-07] MEDS: HEPARIN SOD (PORCINE) 5000 UNITS/ML VIAL SC SCH ×2 (09:01→20:02)
[2018-11-07] MEDS: CALCIUM/VITAMIN D 500 MG TAB PO SCH ×2 (09:01→20:03)
[2018-11-07] MEDS: SODIUM BICARBONATE 325 MG TAB PO SCH ×4 (09:01→20:03)
--- NOTE | 2018-11-07 10:37 | IPNPDOC ---
Subjective Date Seen The patient was seen on 11/07/18. Subjective Chief Complaint/HPI Patient is comfortable offers no new complaints at the present time General: Denies: ROS Unobtainable, Chills, Night Sweats, Fatigue, Malaise, Normal Appetite, Other Symptoms Constitutional: Denies: Chills, Fever, Malaise, Night Sweats, Weakness, Fatigue, Weight Loss, Lethargy, Other Pulmonary: Denies: Dyspnea, Cough, Pleuritic Chest Pain, Other Symptoms Cardiovascular: Denies: Chest Pain, Palpitations, Orthopnea, Paroxysmal Noc. Dyspnea, Edema, Lt Headedness, Other Symptoms Gastrointestinal: Denies: Nausea, Vomiting, Abdominal Pain, Diarrhea, Constipation, Melena, Hematochezia, Other Symptoms Musculoskeletal: Denies: Neck Pain, Back Pain, Shoulder Pain, Arm Pain, Hand Pain, Leg Pain, Foot Pain, Joint Pain, Muscle Pain, Spasms, Other Symptoms Neurological: Denies: Weakness, Numbness, Incoordination, Change in speech, Confusion, Seizures, Other Symptoms Objective Physical Examination General Exam: Positive: Alert, Cooperative Neck Exam: Positive: Supple Chest Exam: Positive: Clear to auscultation, Normal air movement Heart Exam: Positive: Rate Normal, Normal S1, Normal S2 Abdomen Exam: Positive: Normal bowel sounds, Soft Extremity Exam: Positive: Normal pulses Skin Exam: Positive: Nl turgor and temperature Assessment /Plan Problems (1) Acute renal failure Status: Acute Problem Text: Acute renal failure most likely secondary to dehydration Patient received 1 L of normal saline in ED and was started on normal saline 1 50 mL per hour, but later changed to 100 mL per hour by nephrology Continue fluid management as per nephrology Patient's BUN is 98, and creatinine 4.19 today, which is improving Patient's hemoglobin 7.3 with hematocrit of 22.2, probably dilutional patient is asymptomatic , We will transfuse if hemoglobin drops under 7, repeat CBC in a.m. High anion gap metabolic acidosis secondary to high output from ostomy and dehydration Bicarbonates were added by nephrology for metabolic acidosis (2) Renal cell carcinoma Status: Chronic Problem Text: History of left-sided renal cell carcinoma Status post left partial nephrectomy Repeat imaging was within normal limits (3) Hyponatremia Status: Acute Problem Text: Serum sodium is improving Nephrology consultation appreciated Was likely causes hypovolemic hyponatremia BMP in a.m. (4) Ulcerative colitis Status: Acute Problem Text: History of ulcerative colitis Continue home meds (5) UTI (urinary tract infection) Status: Acute Problem Text: Add Cipro 250 mg by mouth twice a day Urine cultures pending Plan/VTE VTE Prophylaxis Ordered?: Yes VS, I&O, 24H, Fishbone Vital Signs/I&O Vital Signs Date Time Temp Pulse Resp B/P (MAP) Pulse Ox O2 Delivery O2 Flow Rate FiO2 11/07/18 08:00 99.8 94 18 118/58 (78) 99 11/04/18 14:35 Room Air I&O- Last 24 Hours up to 6 AM 11/07/18 06:00 Intake Total 2690 ml Output Total 2950 ml Balance -260 ml Laboratory Data 24H LABS Laboratory Tests 2 11/07/18 05:45: Immature Granulocyte % (Auto) 0.2, White Blood Count 5.1, Red Blood Count 2.50L, Hemoglobin 7.3L, Hematocrit 22.2L, Mean Corpuscular Volume 88.8, Mean Corpuscular Hemoglobin 29.2, Mean Corpuscular Hemoglobin Concent 32.9, Red Cell Distribution Width 14.6H, Platelet Count 145L, Neutrophils (%) (Auto) 73.7H, Lymphocytes (%) (Auto) 8.9L, Monocytes (%) (Auto) 5.3H, Eosinophils (%) (Auto) 11.7H, Basophils (%) (Auto) 0.2, Neutrophils # (Auto) 3.7, Lymphocytes # (Auto) 0.5L, Monocytes # (Auto) 0.3, Eosinophils # (Auto) 0.6H, Basophils # (Auto) 0.0, Nucleated Red Blood Cells % (auto) 0.0, Anion Gap 10, Glomerular Filtration Rate 11.0L, Blood Urea Nitrogen 98H, Creatinine 4.19H, Sodium Level 141#, Potassium Level 3.8, Chloride Level 111H, Carbon Dioxide Level 20L, Calcium Level 7.3L, Phosphorus Level 4.4#, Aspartate Amino Transf (AST/SGOT) 24, Alanine Aminotransferase (ALT/SGPT) 38, Alkaline Phosphatase 81, Total Bilirubin 0.3, Total Protein 4.7#L, Albumin 2.2L, Albumin/Globulin Ratio 0.88L CBC/BMP Laboratory Tests 11/07/18 05:45 Red Blood Count 2.50 L, Mean Corpuscular Volume 88.8, Mean Corpuscular Hemoglobin 29.2, Mean Corpuscular Hemoglobin Concent 32.9, Red Cell Distribution Width 14.6 H, Neutrophils (%) (Auto) 73.7 H, Lymphocytes (%) (Auto) 8.9 L, Monocytes (%) (Auto) 5.3 H, Eosinophils (%) (Auto) 11.7 H, Basophils (%) (Auto) 0.2, Neutrophils # (Auto) 3.7, Lymphocytes # (Auto) 0.5 L, Monocytes # (Auto) 0.3, Eosinophils # (Auto) 0.6 H, Basophils # (Auto) 0.0, Calcium Level 7.3 L, Phosphorus Level 4.4 #, Aspartate Amino Transf (AST/SGOT) 24, Alanine Aminotransferase (ALT/SGPT) 38, Alkaline Phosphatase 81, Total Bilirubin 0.3, Total Protein 4.7 #L, Albumin 2.2 L MARCUS ASHLEY MD Nov 07, 2018 10:37
[2018-11-07 12:00] VITALS: BP 111/57
--- NOTE | 2018-11-07 13:29 | IPN ---
DATE OF SERVICE: 11/06/2018 SUBJECTIVE: The patient was seen and examined at the bedside. The patient was sitting in the sofa today. She is still very depressed. She answers few questions. Her oral intake is improving. The patient continues to be on intravenous (IV) fluid. Urine output and stool output is getting better now. Her hyponatremia is slowly improving; creatinine is down to 5.9. OBJECTIVE: Vital signs: Temperature is 97.4 degrees Fahrenheit, blood pressure 110/58, pulse is 97, respiratory rate of 18, saturating 100% on room air. Intake and output: Urine output recorded is 350 mL. Stool output so far is 2100 mL. So, according to this, this patient is in 1 liter negative fluid balance despite continuous IV fluid hydration. Weight in the bed scale is 48.3 kg. PHYSICAL EXAMINATION: General: The patient is awake, alert, oriented times two, sitting up in the sofa, in no apparent distress. Head and neck examination: Extraocular muscles intact. Pupils equally round and reactive to light. Mucous membranes are moist. Neck is supple. There is no jugular venous distention (JVD). Cardiovascular: S1, S2, regular rate. No edema of the bilateral lower extremities. Respiratory: Chest is clear to auscultation bilaterally. Bilateral equal air entry. No rales or rhonchi. Abdomen: Soft. Right lower quadrant ostomy was noted. There is liquid stool in the ostomy. Genitourinary: She has an indwelling Torre catheter. Musculoskeletal: No clubbing or cyanosis. Pulses are 2+. 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 She moves extremities. Otherwise, she has a depressed mood. LABORATORY REVIEW: Complete blood count (CBC) showed a WBC of 6, hemoglobin is 8.4, platelets are 144. Basic metabolic profile (BMP) today morning showed sodium 131, potassium 3.8, chloride 100, bicarbonate 17, BUN 139, creatinine 5.9, calcium is 7.2, phosphorus 6.6, transferrin saturation is 24.5, albumin is 2.5. B-hydroxybutyrate today morning was 4.1. CURRENT INPATIENT MEDICATIONS: The patient's medications were all reviewed by me. She has been started on normal saline at 125 mL/h; and because of the increased stool output, I have ordered a bolus of normal saline 1 liter tonight. She is also started on calcium plus vitamin D. She has also been started on ciprofloxacin 500 mg by mouth every 18 hours. I also started her on Bicitra 30 mL by mouth every 8 hours. The patient was given one dose of potassium chloride 20 mEq today morning, and she has been started on vitamin D 1000 units by mouth daily. ASSESSMENT AND PLAN: 1. Acute renal failure. It was secondary to dehydration and volume depletion. The patient continues to be on normal saline at 125 mL/h. BUN and creatinine are slowly improving. The patient is in negative fluid balance. I have ordered another dose of normal saline 1 liter bolus. 2. Diarrhea. The patient has already been started on ciprofloxacin by primary team. Diarrhea might be related to Bicitra, as well. I am stopping the Bicitra at this time. Continue to monitor the stool output and replete the stool output with normal saline. 3. Hyponatremia. The patient has hypovolemic hyponatremia. Sodium level is improving with improvement in the volume status. Continue hydration with normal saline. 4. High anion gap metabolic acidosis. It is secondary to diarrhea, starvation ketosis, and acute renal failure. The patient was started on oral Bicitra; however, because of diarrhea, I have stopped the Bicitra. I would start the patient on oral sodium bicarbonate tablets. IV bicarbonate was stopped. Serum bicarbonate level is slowly improving with improvement in the renal function. 5. Hyperphosphatemia. It is secondary to renal failure. Phosphorus level is slowly improving. 6. Anemia. Iron levels are adequate. If needed, the patient can get 1 unit of packed red blood cells (PRBC) transfusion. Vitamin B12 levels are also normal. 7. Vitamin D deficiency. The patient has been started on oral vitamin D and calcium supplementation. 8. Protein-calorie malnutrition. The patient is currently on a soft mechanical diet. She is tolerating the food better. However, diarrhea is also worsening. 9. High output Ostomy. The patient is having more ostomy output. So far, stool output is more than 2 liters. Extra 1 liter normal saline was ordered. Bicitra is being stopped. She is also getting ciprofloxacin. The patient has history of ulcerative colitis. 10. Urinary tract infection. Culture results are pending. Urine was very turbid yesterday. Ciprofloxacin should cover urinary tract infection (UTI), as well. MTDD
[2018-11-07 16:00] VITALS: BP 134/68
[2018-11-07 20:00] VITALS: BP 122/57
[2018-11-07] MEDS: ACETAMINOPHEN TAB 650MG DOSE (2X325MG) PO PRN (23:48)
[2018-11-07 23:59] VITALS: BP 109/52
[2018-11-08 04:00] VITALS: BP 120/61
[2018-11-08 05:42] LABS: BASO % 0.2 % (0.0-1.0); EOS # 0.6 10^3/uL (0.0-0.5); EOS % 10.2 % (0.0-3.0); HEMATOCRIT 22.1 % (36.0-47.0); HEMOGLOBIN 7.2 g/dl (12.0-15.5); LYMPH # 0.4 10^3/uL (1.5-5.0); LYMPH % 7.2 % (24.0-44.0); MEAN CORPUSCULAR HEMOGLOBIN 29.5 pg (27.0-33.0); MEAN CORPUSCULAR HGB CONC 32.6 g/dl (32.0-36.5); MEAN CORPUSCULAR VOLUME 90.6 fl (80.0-96.0); MONO # 0.3 10^3/uL (0.0-0.8); MONO % 5.2 % (0.0-5.0); NEUTROPHILS # 4.6 10^3/uL (1.5-8.5); NEUTROPHILS % 76.9 % (36.0-66.0); PLATELET COUNT, AUTOMATED 131 10^3/uL (150-450); RED BLOOD COUNT 2.44 10^6/uL (4.00-5.40)
[2018-11-08 06:06] LABS: BILIRUBIN,TOTAL 0.2 MG/DL (0.2-1.0); CALCIUM LEVEL 7.7 MG/DL (8.8-10.2); CREATININE FOR GFR 3.39 MG/DL (0.55-1.30); GLOMERULAR FILTRATION RATE 14.1 (>39); PHOSPHORUS LEVEL 3.9 MG/DL (2.5-4.9); POTASSIUM SERUM 3.7 MEQ/L (3.5-5.1); TOTAL PROTEIN 4.7 GM/DL (6.4-8.2)
[2018-11-08] MEDS: NS 1,000 ML IV SCH ×2 (06:17→14:30)
[2018-11-08 08:00] VITALS: BP 122/69
[2018-11-08] MEDS: HEPARIN SOD (PORCINE) 5000 UNITS/ML VIAL SC SCH ×2 (09:12→20:59)
[2018-11-08] MEDS: SODIUM BICARBONATE 325 MG TAB PO SCH ×4 (09:13→20:59)
[2018-11-08] MEDS: CALCIUM/VITAMIN D 500 MG TAB PO SCH ×2 (09:13→20:59)
[2018-11-08] MEDS: DOCUSATE SODIUM 100 MG CAP PO SCH ×2 (09:13→20:59)
[2018-11-08] MEDS: VITAMIN D 1,000 INTERNATIONAL UNITS TABLET PO SCH (09:13)
--- NOTE | 2018-11-08 09:26 | IPN ---
DATE OF VISIT: 11/07/2018 Mrs. Gonzalez is seen this morning on her bedside. She is sitting in the chair and dosed off. I woke her up. She is receiving intravenous (IV) fluid. She is still very weak and frail. She did not have any complaints this morning. On physical exam, temperature 99.8 degrees Fahrenheit, heart rate 94 per minute and respiratory rate 18 per minute. Blood pressure 118/58 mmHg and oxygen saturation 99% on room air. Head is atraumatic. Neck is supple and without jugular venous distention (JVD) or thyroid enlargement. Heart sounds are regular and lungs clear to auscultation. Abdomen soft and nontender. Bowel sounds are normal. Extremities without any cyanosis or clubbing. Neurologically she seems grossly intact. Today's labs show WBC count 5.1, hemoglobin 7.3 and hematocrit 22. Sodium 141, potassium 3.8, CO2 20, BUN 98 and creatinine 4.19. Glucose 90, calcium 7.3 and phosphorus 4.4. Her iron studies from yesterday showed an iron level of 56, ferritin 646 and saturation 24.5%. PROBLEMS: 1. Acute renal failure probably superimposed on chronic kidney disease. Kidney function gradually improving with IV fluid hydration. Her oral intake is still not great. We will continue with IV fluid for next 24 hours and repeat her renal profile again tomorrow morning. 2. Hyponatremia. Her sodium level has improved to normal range now and we will continue with current IV fluid. 3. Metabolic acidosis. Improving with sodium bicarbonate supplement, which will be continued for next 24 hours, and renal profile will be repeated again. 4. Anemia. Patient has worsening anemia related to hemodilution. She was most likely quite dehydrated on admission. I feel that she would need transfusion, however, will defer to hospitalist service. SEEMA
--- NOTE | 2018-11-08 10:39 | IPNPDOC ---
Subjective Date Seen The patient was seen on 11/08/18. Subjective Chief Complaint/HPI Patient is comfortable offers no new complaints at the present time General: Denies: ROS Unobtainable, Chills, Night Sweats, Fatigue, Malaise, Normal Appetite, Other Symptoms Constitutional: Denies: Chills, Fever, Malaise, Night Sweats, Weakness, Fatigue, Weight Loss, Lethargy, Other Eyes: Denies: Pain, Vision change, Conjunctivae inflammation, Eyelid inflammation, Redness, Other Skin: Denies: Rash, Lesions, Jaundice, Bruising, Itching, Dry, Breakdown, Nail Changes, Other Pulmonary: Denies: Dyspnea, Cough, Pleuritic Chest Pain, Other Symptoms Cardiovascular: Denies: Chest Pain, Palpitations, Orthopnea, Paroxysmal Noc. Dyspnea, Edema, Lt Headedness, Other Symptoms Gastrointestinal: Denies: Nausea, Vomiting, Abdominal Pain, Diarrhea, Constipation, Melena, Hematochezia, Other Symptoms Musculoskeletal: Denies: Neck Pain, Back Pain, Shoulder Pain, Arm Pain, Hand Pain, Leg Pain, Foot Pain, Joint Pain, Muscle Pain, Spasms, Other Symptoms Neurological: Denies: Weakness, Numbness, Incoordination, Change in speech, Confusion, Seizures, Other Symptoms Objective Physical Examination General Exam: Positive: Alert, Cooperative Neck Exam: Positive: Supple Chest Exam: Positive: Clear to auscultation, Normal air movement Heart Exam: Positive: Rate Normal, Normal S1, Normal S2 Abdomen Exam: Positive: Normal bowel sounds, Soft Extremity Exam: Positive: Normal pulses Skin Exam: Positive: Nl turgor and temperature Assessment /Plan Problems (1) Acute renal failure Status: Acute Problem Text: Acute renal failure most likely secondary to dehydration Patient received 1 L of normal saline in ED and was started on normal saline 1 50 mL per hour, but later changed to 100 mL per hour by nephrology Continue IV fluids for 24 more hours. Renal functions are improving very well. Her BUN is 67, creatinine of 3.39 Patient's BUN is 98, and creatinine 4.19 today, which is improving Patient's hemoglobin is 7.2 today admitted, hematocrit 22.1, we'll transfuse 1 unit of PRBC today High anion gap metabolic acidosis secondary to high output from ostomy and dehydration Bicarbonates were added by nephrology for metabolic acidosis (2) Renal cell carcinoma Status: Chronic Problem Text: History of left-sided renal cell carcinoma Status post left partial nephrectomy Repeat imaging was within normal limits (3) Hyponatremia Status: Acute Problem Text: Serum sodium is within normal limit, now Was likely causes hypovolemic hyponatremia Continue IV fluids as per orders P labs in a.m. (4) Ulcerative colitis Status: Acute Problem Text: History of ulcerative colitis Continue home meds (5) UTI (urinary tract infection) Status: Acute Problem Text: Add Cipro 250 mg by mouth twice a day Urine cultures pending Plan/VTE VTE Prophylaxis Ordered?: Yes VS, I&O, 24H, Fishbone Vital Signs/I&O Vital Signs Date Time Temp Pulse Resp B/P (MAP) Pulse Ox O2 Delivery O2 Flow Rate FiO2 11/08/18 08:00 97.5 94 18 122/69 (86) 97 11/04/18 14:35 Room Air I&O- Last 24 Hours up to 6 AM 11/08/18 06:00 Intake Total 1555 ml Output Total 2825 ml Balance -1270 ml Laboratory Data 24H LABS Laboratory Tests 2 11/08/18 05:32: Immature Granulocyte % (Auto) 0.3, White Blood Count 6.0, Red Blood Count 2.44L, Hemoglobin 7.2L, Hematocrit 22.1L, Mean Corpuscular Volume 90.6, Mean Corpuscular Hemoglobin 29.5, Mean Corpuscular Hemoglobin Concent 32.6, Red Cell Distribution Width 14.6H, Platelet Count 131L, Neutrophils (%) (Auto) 76.9H, Lymphocytes (%) (Auto) 7.2L, Monocytes (%) (Auto) 5.2H, Eosinophils (%) (Auto) 10.2H, Basophils (%) (Auto) 0.2, Neutrophils # (Auto) 4.6, Lymphocytes # (Auto) 0.4L, Monocytes # (Auto) 0.3, Eosinophils # (Auto) 0.6H, Basophils # (Auto) 0.0, Nucleated Red Blood Cells % (auto) 0.0, Anion Gap 10, Glomerular Filtration Rate 14.1L, Blood Urea Nitrogen 67H, Creatinine 3.39H, Sodium Level 141, Potassium Level 3.7, Chloride Level 112H, Carbon Dioxide Level 19L, Calcium Level 7.7L, Phosphorus Level 3.9, Aspartate Amino Transf (AST/SGOT) 17, Alanine Aminotransferase (ALT/SGPT) 33, Alkaline Phosphatase 80, Total Bilirubin 0.2, Total Protein 4.7L, Albumin 2.0L, Albumin/Globulin Ratio 0.74L CBC/BMP Laboratory Tests 11/08/18 05:32 Red Blood Count 2.44 L, Mean Corpuscular Volume 90.6, Mean Corpuscular Hemoglobin 29.5, Mean Corpuscular Hemoglobin Concent 32.6, Red Cell Distribution Width 14.6 H, Neutrophils (%) (Auto) 76.9 H, Lymphocytes (%) (Auto) 7.2 L, Monocytes (%) (Auto) 5.2 H, Eosinophils (%) (Auto) 10.2 H, Basophils (%) (Auto) 0.2, Neutrophils # (Auto) 4.6, Lymphocytes # (Auto) 0.4 L, Monocytes # (Auto) 0.3, Eosinophils # (Auto) 0.6 H, Basophils # (Auto) 0.0, Calcium Level 7.7 L, Phosphorus Level 3.9, Aspartate Amino Transf (AST/SGOT) 17, Alanine Amino transferase (ALT/SGPT) 33, Alkaline Phosphatase 80, Total Bilirubin 0.2, Total Protein 4.7 L, Albumin 2.0 L MARCUS ASHLEY MD Nov 08, 2018 10:39
[2018-11-08 12:00] VITALS: BP 123/66
[2018-11-08] MEDS: CIPROFLOXACIN 500 MG TAB PO SCH (14:30)
[2018-11-08 16:00] VITALS: BP 140/71
[2018-11-08 20:00] VITALS: BP 113/68
[2018-11-08] MEDS: ACETAMINOPHEN TAB 650MG DOSE (2X325MG) PO PRN (21:02)
[2018-11-09] VITALS: BP 135/63
[2018-11-09 04:00] VITALS: BP 136/71
[2018-11-09 05:52] LABS: BASO % 0.2 % (0.0-1.0); EOS # 0.6 10^3/uL (0.0-0.5); EOS % 9.3 % (0.0-3.0); HEMATOCRIT 27.4 % (36.0-47.0); LYMPH # 0.6 10^3/uL (1.5-5.0); MEAN CORPUSCULAR HEMOGLOBIN 29.8 pg (27.0-33.0); MEAN CORPUSCULAR HGB CONC 32.8 g/dl (32.0-36.5); MEAN CORPUSCULAR VOLUME 90.7 fl (80.0-96.0); MONO # 0.3 10^3/uL (0.0-0.8); MONO % 4.9 % (0.0-5.0); NEUTROPHILS # 4.7 10^3/uL (1.5-8.5); NEUTROPHILS % 76.1 % (36.0-66.0); PLATELET COUNT, AUTOMATED 166 10^3/uL (150-450); RED BLOOD COUNT 3.02 10^6/uL (4.00-5.40); WHITE BLOOD COUNT 6.1 10^3/uL (4.0-10.0)
[2018-11-09] MEDS: CIPROFLOXACIN 500 MG TAB PO SCH ×2 (05:52→21:27)
[2018-11-09 06:23] LABS: CALCIUM LEVEL 7.4 MG/DL (8.8-10.2); CREATININE FOR GFR 3.09 MG/DL (0.55-1.30); GLOMERULAR FILTRATION RATE 15.7 (>39); PHOSPHORUS LEVEL 3.4 MG/DL (2.5-4.9); POTASSIUM SERUM 3.7 MEQ/L (3.5-5.1)
[2018-11-09 06:24] LABS: BILIRUBIN,TOTAL 0.6 MG/DL (0.2-1.0); TOTAL PROTEIN 4.7 GM/DL (6.4-8.2)
[2018-11-09 07:59] VITALS: BP 121/71
[2018-11-09] MEDS: DOCUSATE SODIUM 100 MG CAP PO SCH ×2 (09:00→21:00)
[2018-11-09] MEDS: HEPARIN SOD (PORCINE) 5000 UNITS/ML VIAL SC SCH ×2 (09:03→21:25)
[2018-11-09] MEDS: VITAMIN D 1,000 INTERNATIONAL UNITS TABLET PO SCH (09:04)
[2018-11-09] MEDS: SODIUM BICARBONATE 325 MG TAB PO SCH ×4 (09:04→21:24)
[2018-11-09] MEDS: CALCIUM/VITAMIN D 500 MG TAB PO SCH ×2 (09:04→21:24)
[2018-11-09] MEDS: NS 1,000 ML IV SCH ×4 (09:30→22:55)
--- NOTE | 2018-11-09 09:51 | IPNPDOC ---
Subjective Date Seen The patient was seen on 11/09/18. Subjective Chief Complaint/HPI Patient stable. Offers no new complaints at the present time General: Denies: ROS Unobtainable, Chills, Night Sweats, Fatigue, Malaise, Normal Appetite, Other Symptoms Constitutional: Denies: Chills, Fever, Malaise, Night Sweats, Weakness, Fatigue, Weight Loss, Lethargy, Other Skin: Denies: Rash, Lesions, Jaundice, Bruising, Itching, Dry, Breakdown, Nail Changes, Other Pulmonary: Denies: Dyspnea, Cough, Pleuritic Chest Pain, Other Symptoms Cardiovascular: Denies: Chest Pain, Palpitations, Orthopnea, Paroxysmal Noc. Dyspnea, Edema, Lt Headedness, Other Symptoms Gastrointestinal: Denies: Nausea, Vomiting, Abdominal Pain, Diarrhea, Constipation, Melena, Hematochezia, Other Symptoms Endocrine: Denies: Polydipsia, Polyphagia, Polyuria, Heat Intolerance, Cold Intolerance, Other Endocrine Sx Musculoskeletal: Denies: Neck Pain, Back Pain, Shoulder Pain, Arm Pain, Hand Pain, Leg Pain, Foot Pain, Joint Pain, Muscle Pain, Spasms, Other Symptoms Neurological: Denies: Weakness, Numbness, Incoordination, Change in speech, Confusion, Seizures, Other Symptoms Objective Physical Examination General Exam: Positive: Alert, Cooperative Neck Exam: Positive: Supple Chest Exam: Positive: Clear to auscultation, Normal air movement Heart Exam: Positive: Rate Normal, Normal S1, Normal S2 Abdomen Exam: Positive: Normal bowel sounds, Soft Extremity Exam: Positive: Normal pulses Skin Exam: Positive: Nl turgor and temperature Assessment /Plan Problems (1) Acute renal failure Status: Acute Problem Text: Acute renal failure most likely secondary to dehydration Patient received 1 L of normal saline in ED and was started on normal saline 1 50 mL per hour, but later changed to 100 mL per hour by nephrology IV fluids were continued. BUN is 54 and creatinine 3.09 which is progressively improving Patient's hemoglobin is 9, hematocrit 27.4 after transfusion of 1 unit of PRBC yesterday Patient is still has a high output from ostomy causing dehydration Will await nephrology follow-up and recommendations DC planning (2) Renal cell carcinoma Status: Chronic Problem Text: History of left-sided renal cell carcinoma Status post left partial nephrectomy Repeat imaging was within normal limits (3) Hyponatremia Status: Acute Problem Text: Serum sodium is within normal limit, 140 now Was likely causes hypovolemic hyponatremia Continue IV fluids as per orders Further recommendations as per nephrology (4) Ulcerative colitis Status: Acute Problem Text: History of ulcerative colitis Continue home meds (5) UTI (urinary tract infection) Status: Acute Problem Text: Continue Cipro 500 mg by mouth every 18 hours for UTI Urine cultures were never done. We will repeat UA with reflex culture Plan/VTE VTE Prophylaxis Ordered?: Yes VS, I&O, 24H, Fishbone Vital Signs/I&O Vital Signs Date Time Temp Pulse Resp B/P (MAP) Pulse Ox O2 Delivery O2 Flow Rate FiO2 11/09/18 07:59 98.2 91 18 121/71 (88) 98 11/04/18 14:35 Room Air I&O- Last 24 Hours up to 6 AM 11/09/18 06:00 Intake Total 420 ml Output Total 2125 ml Balance -1705 ml Laboratory Data 24H LABS Laboratory Tests 2 11/09/18 05:11: Immature Granulocyte % (Auto) 0.5, White Blood Count 6.1, Red Blood Count 3.02L, Hemoglobin 9.0L, Hematocrit 27.4L, Mean Corpuscular Volume 90.7, Mean Corpuscular Hemoglobin 29.8, Mean Corpuscular Hemoglobin Concent 32.8, Red Cell Distribution Width 15.1H, Platelet Count 166, Neutrophils (%) (Auto) 76.1H, Lym phocytes (%) (Auto) 9.0L, Monocytes (%) (Auto) 4.9, Eosinophils (%) (Auto) 9.3H, Basophils (%) (Auto) 0.2, Neutrophils # (Auto) 4.7, Lymphocytes # (Auto) 0.6L, Monocytes # (Auto) 0.3, Eosinophils # (Auto) 0.6H, Basophils # (Auto) 0.0, Nucleated Red Blood Cells % (auto) 0.0, Anion Gap 9, Glomerular Filtration Rate 15.7L, Blood Urea Nitrogen 54H, Creatinine 3.09H, Sodium Level 140, Potassium Level 3.7, Chloride Level 109H, Carbon Dioxide Level 22, Calcium Level 7.4L, Phosphorus Level 3.4, Aspartate Amino Transf (AST/SGOT) 18, Alanine Aminotransferase (ALT/SGPT) 33, Alkaline Phosphatase 86, Total Bilirubin 0.6#, Total Protein 4.7L, Albumin 2.0L, Albumin/Globulin Ratio 0.74L CBC/BMP Laboratory Tests 11/09/18 05:11 Red Blood Count 3.02 L, Mean Corpuscular Volume 90.7, Mean Corpuscular Hemoglobin 29.8, Mean Corpuscular Hemoglobin Concent 32.8, Red Cell Distribution Width 15.1 H, Neutrophils (%) (Auto) 76.1 H, Lymphocytes (%) (Auto) 9.0 L, Monocytes (%) (Auto) 4.9, Eosinophils (%) (Auto) 9.3 H, Basophils (%) (Auto) 0.2, Neutrophils # (Auto) 4.7, Lymphocytes # (Auto) 0.6 L, Monocytes # (Auto) 0.3, Eosinophils # (Auto) 0.6 H, Basophils # (Auto) 0.0, Calcium Level 7.4 L, Phosphorus Level 3.4, Aspartate Amino Transf (AST/SGOT) 18, Alanine Aminotransferase (ALT/SGPT) 33, Alkaline Phosphatase 86, Total Bilirubin 0.6 #, Total Protein 4.7 L, Albumin 2.0 L MARCUS ASHLEY MD Nov 09, 2018 09:51
[2018-11-09 11:52] VITALS: BP 142/77
[2018-11-09 16:00] VITALS: BP 135/76
--- NOTE | 2018-11-09 19:43 | IPN ---
DATE: 11/08/2018 Ms. Gonzalez is seen this morning on her bedside. She is sitting in the chair again today but is awake and able to respond to questions. She denies any dyspnea or chest pain. She reports that she did eat some breakfast. She has no fever or chills. Her ostomy has been functioning. PHYSICAL EXAMINATION: Temperature 97.5 degrees Fahrenheit, heart rate 94 per minute and respiratory rate 18 per minute. Blood pressure 122/69 mmHg and oxygen saturation 97% on room air. Intake and output records from yesterday showed total intake 1555 and output 2450 mL. Her weight is up 0.7 pounds since yesterday. Her head is atraumatic. Neck is supple and without JVD or thyroid enlargement. Heart sounds are regular and lungs clear to auscultation. Abdomen soft and nontender and bowel sounds are normal. Extremities without any cyanosis or clubbing. Skin has no rash or ulcers. Neurologically she is more alert today and able to answer questions. Today's labs show WBC count 6.0, hemoglobin 7.2 and hematocrit 22.1. Sodium 141, potassium 3.7, CO2 19, BUN 67 and creatinine 3.39. PROBLEMS: 1. Acute renal failure superimposed on chronic kidney disease. Kidney function continues to improve. She is receiving IV fluid and we will continue with the same. She has high output ostomy and needs to continue IV fluid for now. Her oral intake is not great. 2. Metabolic acidosis. She has improved and now mild metabolic acidosis. At this point her kidney function is improving and we anticipate that her acidosis will correct. We will continue with sodium bicarbonate. 3. Anemia. Her anemia is significant and she is likely to benefit from transfusion. I would recommend two units of packed RBCs as she still seems to be dehydrated and likely to have further hemodilution.
[2018-11-09 20:00] VITALS: BP 117/67
[2018-11-10] VITALS: BP 128/64
[2018-11-10 04:00] VITALS: BP 133/64
[2018-11-10] MEDS: NS 1,000 ML IV SCH ×3 (06:00→20:49)
[2018-11-10 06:14] LABS: BASO % 0.2 % (0.0-1.0); EOS # 0.6 10^3/uL (0.0-0.5); EOS % 9.1 % (0.0-3.0); HEMATOCRIT 25.8 % (36.0-47.0); HEMOGLOBIN 8.4 g/dl (12.0-15.5); LYMPH # 0.6 10^3/uL (1.5-5.0); LYMPH % 9.6 % (24.0-44.0); MEAN CORPUSCULAR HEMOGLOBIN 29.5 pg (27.0-33.0); MEAN CORPUSCULAR HGB CONC 32.6 g/dl (32.0-36.5); MEAN CORPUSCULAR VOLUME 90.5 fl (80.0-96.0); MONO # 0.3 10^3/uL (0.0-0.8); MONO % 4.6 % (0.0-5.0); NEUTROPHILS # 4.8 10^3/uL (1.5-8.5); NEUTROPHILS % 76.2 % (36.0-66.0); PLATELET COUNT, AUTOMATED 163 10^3/uL (150-450); RED BLOOD COUNT 2.85 10^6/uL (4.00-5.40); WHITE BLOOD COUNT 6.4 10^3/uL (4.0-10.0)
--- NOTE | 2018-11-10 06:24 | IPN ---
DATE OF SERVICE: 11/09/2018 Ms. Gonzalez is seen this morning on her bedside. She is feeling about the same and continues to have highly watery output from her ostomy. She denies any nausea or vomiting. She has no fever or chills. On physical examination, temperature 98.2 degrees Fahrenheit, heart rate 90 per minute and respiratory rate 18 per minute. Blood pressure 120/71 mmHg and oxygen saturation 98% on room air. Intake and output records from yesterday show a negative fluid balance of about 1700 mL with recorded intake of 1170 and output 2900. I feel that her intake is not being recorded accurately as she is receiving IV fluid at 125 mL per hour and her intake should be at least 2624 ml. Head is atraumatic. Neck is supple and without jugular venous distention (JVD) or thyroid enlargement. Heart sounds are regular and lungs clear to auscultation. Abdomen: Soft and nontender. Ostomy is functioning and bag is about half way filled with liquid stool. Extremities have no cyanosis or clubbing. Neurologically she is awake, alert and oriented. Today's labs show WBC count 6.1, hemoglobin 9.0, hematocrit 27.4. Sodium 140, potassium 3.7, CO2 is up to 22, BUN 54 and creatinine 3.09. Calcium 7.4 and phosphorus 3.4. PROBLEMS: 1. Acute renal failure superimposed on chronic kidney disease. Kidney function is gradually improving and we will continue with current IV fluid of 125 mL per hour. I feel that her intake has not been recorded accurately yesterday and she should be receiving at least 2-1/2 liters of fluid a day in addition to her oral intake. 2. Metabolic acidosis. The patient remains on oral sodium bicarbonate and acidosis has improved. We will continue with the same for now. 3. Anemia. Her anemia has improved following transfusion. At this point, we will continue to monitor on a daily basis. 5. Watery diarrhea. The patient remains on ciprofloxacin 500 mg every 28 hours.
[2018-11-10 06:38] LABS: ALBUMIN 1.8 GM/DL (3.2-5.2); CALCIUM LEVEL 7.5 MG/DL (8.8-10.2); CREATININE FOR GFR 2.81 MG/DL (0.55-1.30); GLOMERULAR FILTRATION RATE 17.5 (>39); PHOSPHORUS LEVEL 3.4 MG/DL (2.5-4.9); POTASSIUM SERUM 3.6 MEQ/L (3.5-5.1)
[2018-11-10 07:55] VITALS: BP 110/62
[2018-11-10] MEDS ORDERED: diphenhydrAMINE 25 MG CAP PO ONE (09:00)
[2018-11-10] MEDS: SODIUM BICARBONATE 325 MG TAB PO SCH ×4 (09:45→20:49)
[2018-11-10] MEDS: VITAMIN D 1,000 INTERNATIONAL UNITS TABLET PO SCH (09:45)
[2018-11-10] MEDS: CALCIUM/VITAMIN D 500 MG TAB PO SCH ×2 (09:45→20:49)
[2018-11-10] MEDS: DOCUSATE SODIUM 100 MG CAP PO SCH ×2 (09:45→20:49)
[2018-11-10] MEDS: HEPARIN SOD (PORCINE) 5000 UNITS/ML VIAL SC SCH ×2 (09:46→20:49)
--- NOTE | 2018-11-10 10:50 | IPNPDOC ---
Text Note Date of Service The patient was seen on 11/10/18. NOTE Subjective: Patient was seen and examined at the bedside. Patient reports that he continued to express high output from the ostomy. He denies any chest pain, shortness breath, palpitations. Objective: Vitals (See below) General: Lying in bed, no acute distress, comfortable, AAOx3 HEENT: NC, AT CVS: +S1S2 Lungs: Fair air entry b/l, -w/r/r Abdomen: Soft, ND, NT, + Ostomy Extremities: - Edema, - Calf tenderness Assessment and plan: Acute renal failure - likely 2/2 dehydration - 2/2 increased fluid losses from ostomy - Baseline Cr of 1.2-1.5 - Creatinine on admission of 11.1; has improved significantly with IV fluid hydration - c/w IV fluid hydration - Nephrology on consultation Renal Cell CA - s/p L sided renal cell CA; s/p Left partial nephrectomy s/p Hyponatremia - Resolved High output from ostomy - Has history of Ulcerative colitis - Will get CT abdomen / pelvis - Check output for C. diff - c/w Ciprofloxacin and Metronidazole - Will trend CRP UTI - UA consistent with urinary tract infection; repeat urine culture on 11/09, does not appear to reveal any bacteria - c/w Ciprofloxacin Severe Protein Malnutrition - Poor oral intake; have consumed 25% of her meals - Dietary consulted for output from ostomy DVT prophylaxis - c/w Heparin VS,Fishbone, I+O VS, Fishbone, I+O Laboratory Tests 11/10/18 05:53 Red Blood Count 2.85 L, Mean Corpuscular Volume 90.5, Mean Corpuscular Hemoglobin 29.5, Mean Corpuscular Hemoglobin Concent 32.6, Red Cell Distribution Width 15.2 H, Neutrophils (%) (Auto) 76.2 H, Lymphocytes (%) (Auto) 9.6 L, Webb cytes (%) (Auto) 4.6, Eosinophils (%) (Auto) 9.1 H, Basophils (%) (Auto) 0.2, Neutrophils # (Auto) 4.8, Lymphocytes # (Auto) 0.6 L, Monocytes # (Auto) 0.3, Eosinophils # (Auto) 0.6 H, Basophils # (Auto) 0.0, Anion Gap 8 Vital Signs Date Time Temp Pulse Resp B/P (MAP) Pulse Ox O2 Delivery O2 Flow Rate FiO2 11/10/18 07:55 97.3 83 18 110/62 (78) 94 11/04/18 14:35 Room Air I&O- Last 24 Hours up to 6 AM 11/10/18 06:00 Intake Total 5365 ml Output Total 3330 ml Balance 2035 ml KEIRA CHANG MD Nov 10, 2018 10:50
[2018-11-10 11:41] LABS: C REACTIVE PROTEIN QUANTITATIV 1.26 MG/DL (0.00-0.30)
[2018-11-10 12:00] VITALS: BP 125/62
--- NOTE | 2018-11-10 12:49 | REP ---
CT of the abdomen and pelvis without IV or bowel contrast: Comparison is 07/22/2018. The patient is an interim sigmoid colectomy and diverting ileostomy. Within the visualized lower lung salter are small bilateral pleural effusions accompanied by atelectasis of the lower lobes as interval changes. The left lower lobe 5 mm lung nodule on the comparison study is obscured on the current examination. There is no bowel distension or obstruction. There are no air-fluid levels. There is a lack of haustral pattern throughout the colon. This may represent chronic colitis. There is no ascites. No pneumoperitoneum. There is a large fixed hiatal hernia containing almost all of the stomach. This is unchanged. The unenhanced hepatic parenchyma, pancreas, spleen, and adrenals are unremarkable. There is chronic bilateral renal cortical scarring, unchanged. There are nonobstructive calculi in the lower pole right kidney, unchanged. There is no hydronephrosis. The abdominal aorta is unremarkable except for occasional calcified atheroma. The mesentery is unremarkable. There is no ascites. Pelvis: There is a Torre catheter in the bladder. There is a hysterectomy. Vaginal cuff and adnexa are unremarkable. The right inguinal hernia containing bowel loops identified on the prior study is no longer present. Impression: There has been interim sigmoid colon resection and diverting ileostomy. There is no evidence of bowel distension or obstruction. No air-fluid levels. There is no ascites. The mesentery is unremarkable. There is a large fixed hiatal hernia containing almost all of the stomach, unchanged. There are small bilateral pleural effusions and there is bilateral lower lobe atelectasis as an interval change. The left lower lobe lung nodule is obscured on the current study. Bilateral renal cortical scarring. There is no hydronephrosis. There are nonobstructive renal calculi at the lower pole of the right kidney. There appear be capsular calcifications at the lower pole of the left kidney. The previous right inguinal hernia containing small bowel loops is no longer identified. Electronically Signed by Erik Thornton MD 11/10/2018 12:40 P
[2018-11-10] MEDS: metroNIDAZOLE (FLAGYL) 500 MG TAB PO SCH ×2 (13:17→21:08)
[2018-11-10 15:00] LABS: CLOSTRIDIUM DIFFICILE PCR NEGATIVE (NEGATIVE)
[2018-11-10 15:55] VITALS: BP 117/56
[2018-11-10] MEDS: CIPROFLOXACIN 500 MG TAB PO SCH (17:03)
--- NOTE | 2018-11-10 19:06 | IPN ---
DATE: 11/10/2018 Mrs. Gonzalez is seen this morning on her bedside. She is sitting in the chair as usual and continues to have watery diarrhea from her ostomy. She denies any nausea, vomiting, dyspnea or chest pain. She is receiving IV fluid at 125 mL per hour. PHYSICAL EXAMINATION: Temperature 97.3 degrees Fahrenheit, heart rate 82 per minute and respiratory rate 18 per minute. Blood pressure 110/62 mmHg and oxygen saturation 94% on room air. Her head is atraumatic. Neck is supple and jugular venous distention (JVD) is not abnormally elevated. Heart sounds are regular. Lungs are clear to auscultation. Abdomen is soft and ostomy is putting out watery stool. Extremities have no cyanosis or clubbing. LABORATORY DATA: Today's laboratories show WBC count 6.4, hemoglobin 8.4 and hematocrit 25.8. Sodium 143, potassium 3.6, CO2 21, BUN 38 and creatinine 2.81. PROBLEMS: 1. Acute renal failure superimposed on chronic kidney disease. Kidney function is gradually improving and we will continue with IV fluid hydration as she has significant output from ostomy. 2. Metabolic acidosis. Her acidosis is also improving now and she remains on sodium bicarbonate supplement. 3. Anemia. Her anemia improved following transfusion, but now gradually it is worsening again. We will need to monitor closely and transfuse her as needed. 4. Diarrhea. Her ostomy output remains high. I have discussed with the hospitalist service and probably she will need to get a gastrointestinal (GI) panel to rule out any possibility of infection causes.
[2018-11-10 22:00] VITALS: BP 112/68
[2018-11-11] MEDS ORDERED: diphenhydrAMINE 25 MG CAP PO ONE (01:00)
[2018-11-11 06:00] VITALS: BP 123/68
[2018-11-11] MEDS: metroNIDAZOLE (FLAGYL) 500 MG TAB PO SCH (06:09)
[2018-11-11] MEDS: NS 1,000 ML IV SCH ×4 (06:10→21:47)
[2018-11-11 06:25] LABS: BASO % 0.2 % (0.0-1.0); EOS # 0.5 10^3/uL (0.0-0.5); EOS % 8.8 % (0.0-3.0); HEMATOCRIT 26.3 % (36.0-47.0); HEMOGLOBIN 8.5 g/dl (12.0-15.5); LYMPH # 0.5 10^3/uL (1.5-5.0); LYMPH % 8.8 % (24.0-44.0); MEAN CORPUSCULAR HGB CONC 32.3 g/dl (32.0-36.5); MEAN CORPUSCULAR VOLUME 92.9 fl (80.0-96.0); MONO # 0.4 10^3/uL (0.0-0.8); MONO % 6.7 % (0.0-5.0); NEUTROPHILS # 4.2 10^3/uL (1.5-8.5); NEUTROPHILS % 75.1 % (36.0-66.0); PLATELET COUNT, AUTOMATED 174 10^3/uL (150-450); RED BLOOD COUNT 2.83 10^6/uL (4.00-5.40); WHITE BLOOD COUNT 5.5 10^3/uL (4.0-10.0)
[2018-11-11 06:49] LABS: ALBUMIN 1.9 GM/DL (3.2-5.2); C REACTIVE PROTEIN QUANTITATIV 1.01 MG/DL (0.00-0.30); CALCIUM LEVEL 7.6 MG/DL (8.8-10.2); CREATININE FOR GFR 2.6 MG/DL (0.55-1.30); GLOMERULAR FILTRATION RATE 19.1 (>39); PHOSPHORUS LEVEL 3.1 MG/DL (2.5-4.9); POTASSIUM SERUM 3.6 MEQ/L (3.5-5.1)
[2018-11-11] MEDS ORDERED: LOPERAMIDE 2 MG CAPLET PO ONE (07:45)
[2018-11-11] MEDS: DOCUSATE SODIUM 100 MG CAP PO SCH ×2 (08:14→21:00)
[2018-11-11] MEDS: CALCIUM/VITAMIN D 500 MG TAB PO SCH ×2 (08:30→21:48)
[2018-11-11] MEDS: LACTOBACILLUS ACIDOPHILUS CAP (BACID) PO SCH ×3 (08:30→18:11)
[2018-11-11] MEDS: SODIUM BICARBONATE 325 MG TAB PO SCH ×4 (08:30→21:48)
[2018-11-11] MEDS: HEPARIN SOD (PORCINE) 5000 UNITS/ML VIAL SC SCH ×2 (08:31→21:52)
[2018-11-11] MEDS: VITAMIN D 1,000 INTERNATIONAL UNITS TABLET PO SCH (08:31)
[2018-11-11] MEDS: CIPROFLOXACIN 500 MG TAB PO SCH (11:52)
[2018-11-11] MEDS: diphenhydrAMINE 25 MG CAP PO PRN (11:52)
--- NOTE | 2018-11-11 11:52 | IPNPDOC ---
Text Note Date of Service The patient was seen on 11/11/18. NOTE Subjective: Patient was seen and examined at the bedside. Currently patient notes that her output from her ostomy is still significant. She denies any CP, SOB or p alpitations. Has been tolerating a diet. Objective: Vitals (See below) General: Lying in bed, no acute distress, comfortable, AAOx3 HEENT: NC, AT CVS: +S1S2 Lungs: Fair air entry b/l, no appreciable wheezing, rhonchi or rales Abdomen: Soft, nondistended, without tenderness, + Ostomy Extremities: No evidence of lower extremity edema, - Calf tenderness Assessment and plan: Acute renal failure - likely 2/2 dehydration - 2/2 increased fluid losses from ostomy - Baseline Cr of 1.2-1.5 - Creatinine on admission of 11.1; has improved significantly with IV fluid hydration - c/w IV fluid hydration - Nephrology on consultation Renal Cell CA - s/p L sided renal cell CA; s/p Left partial nephrectomy s/p Hyponatremia - Resolved High output from ostomy - Has history of Ulcerative colitis - CRP improving - C. diff PCR negative - CT abdomen / pelvis 11/10: There has been interim sigmoid colon resection and diverting ileostomy. There is no evidence of bowel distension or obstruction. No air-fluid levels. There is no ascites. The mesentery is unremarkable. There is a large fixed hiatal hernia containing almost all of the stomach, unchanged. There are small bilateral pleural effusions and there is bilateral lower lobe atelectasis as an interval change. The left lower lobe lung nodule is obscured on the current study. Bilateral renal cortical scarring. There is no hydronephrosis. There are nonobstructive renal calculi at the lower pole of the right kidney. There appear be capsular calcifications at the lower pole of the left kidney. The previous right inguinal hernia containing small bowel loops is no longer identified. - Will DC Metronidazole and Ciprofloxacin - Will start Loperamide UTI - UA consistent with urinary tract infection; repeat urine culture on 11/09, does not appear to reveal any bacteria - Will DC Ciprofloxacin - completed 5 day course Severe Protein Malnutrition - Poor oral intake; have consumed 25% of her meals - Dietary consulted for output from ostomy DVT prophylaxis - c/w Heparin Disposition: - Anticipate discharge within 24-48 hours VS,Ethel, I+O VS, Fishbone, I+O Laboratory Tests 11/11/18 06:05 Red Blood Count 2.83 L, Mean Corpuscular Volume 92.9, Mean Corpuscular Hemoglobin 30.0, Mean Corpuscular Hemoglobin Concent 32.3, Red Cell Distribution Width 15.3 H, Neutrophils (%) (Auto) 75.1 H, Lymphocytes (%) (Auto) 8.8 L, Monocytes (%) (Auto) 6.7 H, Eosinophils (%) (Auto) 8.8 H, Basophils (%) (Auto) 0.2, Neutrophils # (Auto) 4.2, Lymphocytes # (Auto) 0.5 L, Monocytes # (Auto) 0.4, Eosinophils # (Auto) 0.5, Basophils # (Auto) 0.0, Anion Gap 9 Vital Signs Date Time Temp Pulse Resp B/P (MAP) Pulse Ox O2 Delivery O2 Flow Rate FiO2 11/11/18 06:00 96.6 95 18 123/68 (86) 97 I&O- Last 24 Hours up to 6 AM 11/11/18 06:00 Intake Total 4147 ml Output Total 3575 ml Balance 572 ml KEIRA CHANG MD Nov 11, 2018 11:52
[2018-11-11] MEDS: LOPERAMIDE 2 MG CAPLET PO PRN (18:11)
--- NOTE | 2018-11-11 18:22 | IPN ---
DATE: 11/11/2018 Ms. Gonzalez is seen this morning on her bedside. She is getting ready for physical therapy and is sitting at the edge of bed. She continues to have large amount of liquid stool from her ostomy. She is receiving IV fluid at 125 mL per hour. The patient denies any fever, chills, vomiting, dyspnea or chest pain. PHYSICAL EXAMINATION: Temperature 96.6 degrees Fahrenheit, heart rate 95 per minute and respiratory rate 18 per minute. Blood pressure 123/68 mmHg and oxygen saturation 97% on room air. Head is atraumatic. Neck: Supple and without JVD or thyroid enlargement. Heart: Sounds regular and lungs clear to auscultation. Abdomen: Soft and ostomy is draining greenish liquid stools. Extremities have no cyanosis or clubbing. Today's labs show WBC count 5.5, hemoglobin 8.5, hematocrit 26.3. Sodium 143, potassium 3.6, CO2 20, BUN 32 and creatinine 2.60. PROBLEMS: 1. Acute kidney injury superimposed on chronic kidney disease. Slight improvement in kidney function is noticed and overall her kidney function has been gradually improving for THE last several days. She remains with high output from her ostomy and we will continue with IV fluid until her output decreases. 2. Metabolic acidosis. The patient remains on oral sodium bicarbonate 325 mg four times a day and her acidosis is gradually improving. 3. Anemia. At present, her anemia is stable since she was transfused few days ago. No urgent intervention is indicated. 4. High output ostomy. The patient remains on ciprofloxacin 500 mg every 18 hours. Metronidazole was started but has already been stopped.
[2018-11-11 22:00] VITALS: BP 119/66
[2018-11-12] MEDS: NS 1,000 ML IV SCH ×2 (05:56→22:19)
[2018-11-12] MEDS: CIPROFLOXACIN 500 MG TAB PO SCH (05:56)
[2018-11-12 06:00] VITALS: BP 115/65
[2018-11-12 07:17] LABS: BASO % 0.2 % (0.0-1.0); EOS # 0.5 10^3/uL (0.0-0.5); EOS % 11.3 % (0.0-3.0); HEMATOCRIT 24.9 % (36.0-47.0); LYMPH # 0.6 10^3/uL (1.5-5.0); LYMPH % 13.2 % (24.0-44.0); MEAN CORPUSCULAR HEMOGLOBIN 29.6 pg (27.0-33.0); MEAN CORPUSCULAR HGB CONC 32.1 g/dl (32.0-36.5); MEAN CORPUSCULAR VOLUME 92.2 fl (80.0-96.0); MONO # 0.3 10^3/uL (0.0-0.8); MONO % 7.2 % (0.0-5.0); NEUTROPHILS # 3.1 10^3/uL (1.5-8.5); NEUTROPHILS % 67.7 % (36.0-66.0); PLATELET COUNT, AUTOMATED 195 10^3/uL (150-450); WHITE BLOOD COUNT 4.6 10^3/uL (4.0-10.0)
[2018-11-12 07:40] LABS: ALBUMIN 1.8 GM/DL (3.2-5.2); C REACTIVE PROTEIN QUANTITATIV 0.99 MG/DL (0.00-0.30); CALCIUM LEVEL 7.2 MG/DL (8.8-10.2); CREATININE FOR GFR 2.51 MG/DL (0.55-1.30); GLOMERULAR FILTRATION RATE 19.9 (>39); PHOSPHORUS LEVEL 3.1 MG/DL (2.5-4.9); POTASSIUM SERUM 3.9 MEQ/L (3.5-5.1)
[2018-11-12 07:55] VITALS: BP 118/66
[2018-11-12] MEDS: VITAMIN D 1,000 INTERNATIONAL UNITS TABLET PO SCH (08:57)
[2018-11-12] MEDS: CALCIUM/VITAMIN D 500 MG TAB PO SCH ×2 (08:58→19:42)
[2018-11-12] MEDS: LACTOBACILLUS ACIDOPHILUS CAP (BACID) PO SCH ×3 (08:58→17:56)
[2018-11-12] MEDS: SODIUM BICARBONATE 325 MG TAB PO SCH ×4 (08:58→19:42)
[2018-11-12] MEDS: HEPARIN SOD (PORCINE) 5000 UNITS/ML VIAL SC SCH ×2 (08:59→19:42)
--- NOTE | 2018-11-12 10:38 | IPNPDOC ---
Text Note Date of Service The patient was seen on 11/12/18. NOTE Subjective: Patient was seen and examined at the bedside. . Patient has had no events overnight. She does indicate that output from her ostomy has improved after s tarting loperamide. Patient denies nausea, vomiting. Patient does have a Torre catheter in place that will be removed and replaced today. Denies chest pain, shortness of breath or palpitations. Objective: Vitals (See below) General: Lying in bed, no acute distress, comfortable, AAOx3 HEENT: NC, AT CVS: +S1S2 Lungs: Air entry remains fair bilaterally without evidence of wheezing, rales or rhonchi Abdomen: Remains soft, without any distention or tenderness, + Ostomy Extremities: Lower extremities are free of any edema, - Calf tenderness Assessment and plan: Acute renal failure - likely 2/2 dehydration - 2/2 increased fluid losses from ostomy - Baseline Cr of 1.2-1.5 - Creatinine on admission of 11.1; has improved significantly with IV fluid hydration - c/w IV fluid hydration for additional 24 hours - Nephrology on consultation High output from ostomy - Has history of Ulcerative colitis - Output from ostomy has improved; will continue to monitor - CRP continues to improve - C. diff PCR negative - CT abdomen / pelvis 11/10: There has been interim sigmoid colon resection and diverting ileostomy. There is no evidence of bowel distension or obstruction. No air-fluid levels. There is no ascites. The mesentery is unremarkable. There is a large fixed hiatal hernia containing almost all of the stomach, unchanged. There are small bilateral pleural effusions and there is bilateral lower lobe atelectasis as an interval change. The left lower lobe lung nodule is obscured on the current study. Bilateral renal cortical scarring. There is no hydronephrosis. There are nonobstructive renal calculi at the lower pole of the right kidney. There appear be capsular calcifications at the lower pole of the left kidney. The previous right inguinal hernia containing small bowel loops is no longer identified. - s/p Metronidazole and Ciprofloxacin - c/w Loperamide Renal Cell CA - s/p L sided renal cell CA; s/p Left partial nephrectomy s/p Hyponatremia - Resolved UTI - UA consistent with urinary tract infection; repeat urine culture on 11/09, does not appear to reveal any bacteria - s/p Ciprofloxacin 5 day course Severe Protein Malnutrition - Poor oral intake; have consumed 25% of her meals - Dietary consulted for output from ostomy DVT prophylaxis - c/w Heparin Disposition: - Anticipate discharge within 24 hours VS,Ethel, I+O VS, Ethel, I+O Laboratory Tests 11/12/18 06:27 Red Blood Count 2.70 L, Mean Corpuscular Volume 92.2, Mean Corpuscular Hemoglobin 29.6, Mean Corpuscular Hemoglobin Concent 32.1, Red Cell Distribution Width 15.7 H, Neutrophils (%) (Auto) 67.7 H, Lymphocytes (%) (Auto) 13.2 L, Monocytes (%) (Auto) 7.2 H, Eosinophils (%) (Auto) 11.3 H, Basophils (%) (Auto) 0.2, Neutrophils # (Auto) 3.1, Lymphocytes # (Auto) 0.6 L, Monocytes # (Auto) 0.3, Eosinophils # (Auto) 0.5, Basophils # (Auto) 0.0, Anion Gap 7 L Vital Signs Date Time Temp Pulse Resp B/P (MAP) Pulse Ox O2 Delivery O2 Flow Rate FiO2 11/12/18 07:55 99.1 72 18 118/66 (30) 97 I&O- Last 24 Hours up to 6 AM 11/12/18 06:00 Intake Total 3940 ml Output Total 2150 ml Balance 1790 ml KEIRA CHANG MD Nov 12, 2018 10:38
[2018-11-12 14:06] VITALS: BP 108/66
[2018-11-12 22:00] VITALS: BP 113/76
[2018-11-13 06:00] VITALS: BP 114/67
[2018-11-13] MEDS: NS 1,000 ML IV SCH ×3 (06:13→22:03)
[2018-11-13 07:19] LABS: C REACTIVE PROTEIN QUANTITATIV 1.12 MG/DL (0.00-0.30)
[2018-11-13] MEDS: CALCIUM/VITAMIN D 500 MG TAB PO SCH ×2 (07:46→20:30)
[2018-11-13] MEDS: LACTOBACILLUS ACIDOPHILUS CAP (BACID) PO SCH ×3 (07:46→18:11)
[2018-11-13] MEDS: SODIUM BICARBONATE 325 MG TAB PO SCH ×3 (07:46→17:17)
[2018-11-13] MEDS: VITAMIN D 1,000 INTERNATIONAL UNITS TABLET PO SCH (07:46)
[2018-11-13 07:57] LABS: BASO % 0.3 % (0.0-1.0); EOS # 0.6 10^3/uL (0.0-0.5); EOS % 15.5 % (0.0-3.0); HEMATOCRIT 25.9 % (36.0-47.0); HEMOGLOBIN 8.2 g/dl (12.0-15.5); LYMPH # 0.5 10^3/uL (1.5-5.0); LYMPH % 14.7 % (24.0-44.0); MEAN CORPUSCULAR HGB CONC 31.7 g/dl (32.0-36.5); MEAN CORPUSCULAR VOLUME 94.9 fl (80.0-96.0); MONO # 0.3 10^3/uL (0.0-0.8); MONO % 7.9 % (0.0-5.0); NEUTROPHILS # 2.2 10^3/uL (1.5-8.5); NEUTROPHILS % 61.1 % (36.0-66.0); PLATELET COUNT, AUTOMATED 210 10^3/uL (150-450); RED BLOOD COUNT 2.73 10^6/uL (4.00-5.40); WHITE BLOOD COUNT 3.7 10^3/uL (4.0-10.0)
[2018-11-13] MEDS: HEPARIN SOD (PORCINE) 5000 UNITS/ML VIAL SC SCH ×2 (08:03→20:30)
[2018-11-13 08:12] LABS: CALCIUM LEVEL 7.4 MG/DL (8.8-10.2); CREATININE FOR GFR 2.5 MG/DL (0.55-1.30); MAGNESIUM LEVEL 1.1 MG/DL (1.8-2.4)
[2018-11-13] MEDS: LOPERAMIDE 2 MG CAPLET PO PRN (08:19)
[2018-11-13] MEDS: LOPERAMIDE 2 MG CAPLET PO SCH ×8 (09:00→23:08)
--- NOTE | 2018-11-13 12:50 | IPNPDOC ---
Text Note Date of Service The patient was seen on 11/13/18. NOTE Subjective: Patient was seen and examined at the bedside. , Currently patient denies any abdominal pain, nausea, vomiting. Still has high output from her ostomy site. Denies any chest pain, shortness of breath or palpitations. Objective: Vitals (See below) General: Lying in bed, no acute distress, comfortable, AAOx3 HEENT: NC, AT CVS: +S1S2 Lungs: There is fair air entry bilaterally without any evidence of rhonchi, wheezing or rales Abdomen: Abdomen is soft, without any distention or tenderness. Ostomy site noted Extremities: No edema appreciated at lower extremities, - Calf tenderness Assessment and plan: Acute renal failure - likely 2/2 dehydration - 2/2 increased fluid losses from ostomy - Baseline Cr of 1.2-1.5 - Creatinine on admission of 11.1; has improved significantly with IV fluid hydration - Cr appears to have remained unchanged - c/w IV fluids based on output from ostomy - Nephrology on consultation High output from ostomy - Has history of Ulcerative colitis - Output from ostomy has improved; will continue to monitor - CRP continues to improve - C. diff PCR negative - CT abdomen / pelvis 11/10: There has been interim sigmoid colon resection and diverting ileostomy. There is no evidence of bowel distension or obstruction. No air-fluid levels. There is no ascites. The mesentery is unremarkable. There is a large fixed hiatal hernia containing almost all of the stomach, unchanged. There are small bilateral pleural effusions and there is bilateral lower lobe atelectasis as an interval change. The left lower lobe lung nodule is obscured on the current study. Bilateral renal cortical scarring. There is no hydronephrosis. There are nonobstructive renal calculi at the lower pole of the right kidney. There appear be capsular calcifications at the lower pole of the left kidney. The previous right inguinal hernia containing small bowel loops is no longer identified. - s/p Metronidazole and Ciprofloxacin - c/w Loperamide; will adjust to ensure that it gets provided on a regular basis Renal Cell CA - s/p L sided renal cell CA; s/p Left partial nephrectomy s/p Hyponatremia - Resolved UTI - UA consistent with urinary tract infection; repeat urine culture on 11/09, does not appear to reveal any bacteria - s/p Ciprofloxacin 5 day course Severe Protein Malnutrition - Poor oral intake; have consumed 25% of her meals - Dietary consulted for output from ostomy DVT prophylaxis - c/w Heparin Disposition: - Anticipate discharge within 24 hours ABHISHEK,Ethel, I+O VS, Ethel, I+O Laboratory Tests 11/13/18 06:35 Red Blood Count 2.73 L, Mean Corpuscular Volume 94.9, Mean Corpuscular H emoglobin 30.0, Mean Corpuscular Hemoglobin Concent 31.7 L, Red Cell Distribution Width 15.6 H, Neutrophils (%) (Auto) 61.1, Lymphocytes (%) (Auto) 14.7 L, Monocytes (%) (Auto) 7.9 H, Eosinophils (%) (Auto) 15.5 H, Basophils (%) (Auto) 0.3, Neutrophils # (Auto) 2.2, Lymphocytes # (Auto) 0.5 L, Monocytes # (Auto) 0.3, Eosinophils # (Auto) 0.6 H, Basophils # (Auto) 0.0, Calcium Level 7.4 L Vital Signs Date Time Temp Pulse Resp B/P (MAP) Pulse Ox O2 Delivery O2 Flow Rate FiO2 11/13/18 06:00 97.5 92 15 114/67 (44) 97 I&O- Last 24 Hours up to 6 AM 11/13/18 05:59 Intake Total 2080 ml Output Total 3300 ml Balance -1220 ml KEIRA CHANG MD Nov 13, 2018 12:50
[2018-11-13] MEDS ORDERED: MAG SULF 1GM/100ML (MAG RUN) 1 GM in IV 1 EA IV ONE (13:00)
[2018-11-13 14:00] VITALS: BP 104/54
[2018-11-13] MEDS: ACETAMINOPHEN TAB 650MG DOSE (2X325MG) PO PRN (15:53)
--- NOTE | 2018-11-13 20:48 | IPN ---
DATE: 11/13/2018 Mrs. Gonzalez is seen this morning on her bedside. She is sitting in the chair at the time of my visit. She is still receiving IV fluid at 125 mL per hour. Her output from her ostomy is still liquid and significant. She denies any nausea or vomiting. PHYSICAL EXAMINATION: Temperature 97.5 degrees Fahrenheit, heart rate 92 per minute and respiratory rate 15 per minute. Blood pressure 115/67 mmHg and oxygen saturation 97% on room air. Intake and output records from yesterday show a negative fluid balance of 1220 mL. On physical exam, the patient has no jugular venous distention (JVD) or thyroid enlargement. She has no oral thrush or ulcers. Heart sounds are relatively tachycardiac and lungs clear to auscultation. Abdomen: Soft and nontender. Ostomy in right lower abdomen is draining greenish liquid stool. Extremities have no cyanosis or clubbing. Neurologically she is awake, alert and oriented times three. Today's labs show WBC count 3.7, hemoglobin 8.2 and hematocrit 25.9. Platelets are 210. Sodium 145, potassium 4.0, CO2 of 25, BUN 25 and creatinine 2.50. Calcium level is 7.4 and magnesium 1.1. PROBLEM #1: Acute kidney injury. Most likely related to dehydration and kidney function has been improving with IV fluid hydration. She still has significant output from ostomy, and I would recommend to continue with IV fluid at 125-150 mL per hour. She will probably need gastrointestinal (GI) evaluation if her output from ostomy does not go down. PROBLEM #2: Metabolic acidosis. Acidosis has improved and I am going to stop her oral sodium bicarbonate, which could be contributing to watery stools. At this point, we will monitor without any bicarbonate and continued just with IV fluid. PROBLEM #3: Hypomagnesemia. She has received one dose of magnesium sulfate 1 gram. She is likely to require further magnesium supplement. PROBLEM #4: Anemia. The patient was transfused a few days ago and anemia had improved. However, seems to be gradually worsening again. She is likely to require further transfusion. PROBLEM #5: Disposition: At this point, the patient does not seem to be quite ready for discharge from A medical standpoint, though physically she seems better. She still has more than 3 liters output from her ostomy, which is significant and will put her at risk for dehydration and acute renal failure if she gets discharged. She needs to get at least 3-1/2 to 4 liters intake, which is quite difficult for her to take by mouth. Even if she takes that much amount orally, she is likely to pass it through her ostomy.
[2018-11-13 22:00] VITALS: BP 104/55
[2018-11-14] MEDS: LOPERAMIDE 2 MG CAPLET PO SCH ×12 (01:30→23:00)
[2018-11-14 06:00] VITALS: BP 116/69
[2018-11-14] MEDS: NS 1,000 ML IV SCH ×3 (06:09→20:06)
[2018-11-14 07:02] LABS: C REACTIVE PROTEIN QUANTITATIV 1.01 MG/DL (0.00-0.30)
[2018-11-14 08:15] LABS: HEMATOCRIT 24.4 % (36.0-47.0); HEMOGLOBIN 7.8 g/dl (12.0-15.5); MEAN CORPUSCULAR HEMOGLOBIN 30.6 pg (27.0-33.0); MEAN CORPUSCULAR VOLUME 95.7 fl (80.0-96.0); PLATELET COUNT, AUTOMATED 204 10^3/uL (150-450); RED BLOOD COUNT 2.55 10^6/uL (4.00-5.40); WHITE BLOOD COUNT 3.5 10^3/uL (4.0-10.0)
[2018-11-14 08:20] LABS: CALCIUM LEVEL 7.1 MG/DL (8.8-10.2); CREATININE FOR GFR 2.16 MG/DL (0.55-1.30); GLOMERULAR FILTRATION RATE 23.7 (>39); MAGNESIUM LEVEL 1.3 MG/DL (1.8-2.4); POTASSIUM SERUM 3.9 MEQ/L (3.5-5.1)
[2018-11-14] MEDS: CALCIUM/VITAMIN D 500 MG TAB PO SCH ×2 (08:42→20:46)
[2018-11-14] MEDS: VITAMIN D 1,000 INTERNATIONAL UNITS TABLET PO SCH (08:42)
[2018-11-14] MEDS: LACTOBACILLUS ACIDOPHILUS CAP (BACID) PO SCH ×3 (08:42→17:04)
[2018-11-14] MEDS: HEPARIN SOD (PORCINE) 5000 UNITS/ML VIAL SC SCH ×2 (08:42→20:46)
[2018-11-14] MEDS: MAG SULF 1GM/100ML (MAG RUN) 1 GM in IV 1 EA IV SCH ×3 (10:18→13:20)
[2018-11-14] MEDS: MAGNESIUM OXIDE 400 MG TAB (MAG-OX) PO SCH ×2 (10:20→20:46)
--- NOTE | 2018-11-14 10:45 | IPNPDOC ---
Text Note Date of Service The patient was seen on 11/14/18. NOTE Subjective: Patient was seen and examined at the bedside. Patient reports that output from her ostomy site has improved significantly. She denies any nausea, vomiting or abdominal pain. Denies chest pain, shortness breath, palpitations. Objective: Vitals (See below) General: Lying in bed, no acute distress, comfortable, AAOx3 HEENT: NC, AT CVS: +S1S2 Lungs: Air entry is fair bilaterally without evidence of rhonchi, rales or wheezing Abdomen: Abdomen remains soft without distention or tenderness. Right lower quadrant ostomy site is present Extremities: Lower extremities appear edematous, however, there is no pitting edema, - Calf tenderness Assessment and plan: Acute renal failure - likely 2/2 dehydration - 2/2 increased fluid losses from ostomy - Baseline Cr of 1.2-1.5 - Creatinine on admission of 11.1; has improved significantly with IV fluid hydration - Cr has improved this morning after ostomy output has reduced - c/w IV fluids based on output from ostomy - Nephrology on consultation High output from ostomy - Has history of Ulcerative colitis - Over the last 24 hours have been a significant reduction in the from her ostomy - CRP trending down - C. diff PCR negative - CT abdomen / pelvis 11/10: There has been interim sigmoid colon resection and diverting ileostomy. There is no evidence of bowel distension or obstruction. No air-fluid levels. There is no ascites. The mesentery is unremarkable. There is a large fixed hiatal hernia containing almost all of the stomach, unchanged. There are small bilateral pleural effusions and there is bilateral lower lobe atelectasis as an interval change. The left lower lobe lung nodule is obscured on the current study. Bilateral renal cortical scarring. There is no hydronephrosis. There are nonobstructive renal calculi at the lower pole of the right kidney. There appear be capsular calcifications at the lower pole of the left kidney. The previous right inguinal hernia containing small bowel loops is no longer identified. - s/p Metronidazole and Ciprofloxacin - c/w Loperamide on a scheduled basis Renal Cell CA - s/p L sided renal cell CA; s/p Left partial nephrectomy Leukopenia - No evidence of infection - Remains hemodynamically stable and afebrile - Will hold off on antibiotic therapy Normocytic anemia - Hg has slowly trended down - s/p 1 unit PRBC transfusion on 11/08/2018 - Will be transfused 1 unit PRBC today s/p Hyponatremia - Resolved UTI - UA consistent with urinary tract infection; repeat urine culture on 11/09, does not appear to reveal any bacteria - s/p Ciprofloxacin 5 day course Severe Protein Malnutrition - Poor oral intake; have consumed 25% of her meals - Dietary consulted for output from ostomy DVT prophylaxis - c/w Heparin Disposition: - Awaiting nephrology clearance VS,Ethel, I+O VS, Ethel I+O Laboratory Tests 11/14/18 05:58 Red Blood Count 2.55 L, Mean Corpuscular Volume 95.7, Mean Corpuscular Hemo globin 30.6, Mean Corpuscular Hemoglobin Concent 32.0, Red Cell Distribution Width 15.7 H, Calcium Level 7.1 L Vital Signs Date Time Temp Pulse Resp B/P (MAP) Pulse Ox O2 Delivery O2 Flow Rate FiO2 11/14/18 06:00 97.7 87 16 116/69 (85) 97 I&O- Last 24 Hours up to 6 AM 11/14/18 06:00 Intake Total 2920 ml Output Total 2575 ml Balance 345 ml KEIRA CHANG MD Nov 14, 2018 10:45
[2018-11-14] MEDS: SODIUM BICARBONATE 325 MG TAB PO SCH ×2 (12:04→20:46)
[2018-11-14 14:00] VITALS: BP 122/60
--- NOTE | 2018-11-14 14:54 | IPN ---
DATE: 11/14/2018 SUBJECTIVE: The patient was seen and examined at the bedside this morning. She continues to be on IV fluid hydration at 125 mL an hour. She is reporting that she is able to tolerate the oral diet now. Her ostomy output is getting better with the use of Lomotil. Renal function continues to improve. Creatinine is down to 2.1 today. Metabolic acidosis is recurrent after her bicarbonate was stopped. OBJECTIVE: Vital signs: Temperature is 97.7 degrees Fahrenheit, blood pressure 116/69, pulse is 87, respiratory of 60, saturating 97% on room air. Intake and output: Urine output recorded is 600 mL since overnight and stool output is 167 mL so far since overnight. Weight on the bed scale is not available. PHYSICAL EXAMINATION: General: The patient is awake, alert, oriented times three, laying in bed in no apparent distress. Head and neck exam: Extraocular muscles intact. Pupils equally round and reactive to light. Mucous membranes are moist. Neck is supple. There is no jugular venous distention (JVD). Cardiovascular: S1, S2 regular rate. Trace edema of the bilateral lower extremities. Respiratory: Chest is clear to auscultation bilaterally. Bilateral equal air entry. No rales or rhonchi. Abdomen: Soft, positive bowel sounds. Right lower quadrant ostomy was noted and there are semi-formed stools in the ostomy. Musculoskeletal: No clubbing or cyanosis. Pulses are 2+. Central nervous system (WEIGHT RECORDER):: No focal deficit. Power is 5/5 in all extremities. LABORATORY REVIEW: CBC showed WBC of 3.5, hemoglobin 7.8, platelets are 204. BMP shows sodium 144, potassium 3.9, chloride 115, bicarbonate 20, BUN 22, creatinine is 2.1, it was 2.5 yesterday. Calcium 7.1, magnesium 1.3, C-reactive protein is 1.01. CURRENT INPATIENT MEDICATIONS: The patient's medications were all reviewed by me. She is getting mag sulfate 1 gram IV every 1 hour for a total of three bags. I have decreased the IV fluid hydration to 75 mL an hour now since stool output is improving now. The patient was started on Imodium 2 mg every two hourly which has helped slow down the ostomy output. I have started the patient on magnesium oxide 800 mg p.o. twice a day. Even though sodium bicarbonate was stopped yesterday, I have restarted the sodium bicarbonate 650 mg p.o. twice a day because bicarbonate is worse again today morning. ASSESSMENT/PLAN: 1. Acute kidney injury. It was secondary to dehydration, volume depletion and increased ostomy output. The patient continues to be on IV fluid hydration. Since the ostomy output is slowing down, I have decreased the IV fluid hydration to 75 mL an hour now. 2. Metabolic acidosis. Bicarbonate level was stopped; however after stopping the bicarbonate the acidosis has returned. I have restarted the patient on sodium bicarbonate 650 mg p.o. twice a day. 3. Hypomagnsemia. The patient is getting a total of 3 grams of magnesium today IV. I have started her on oral magnesium oxide 800 mg p.o. twice a day. 4. Recurrent anemia. Hemoglobin has dropped below 8 now. I have ordered 1 unit of packed red blood cell transfusion. 5. High ostomy output. The patient was started on Imodium and ostomy output is significantly better with the use of Imodium now. Rest of the management is as per primary team.
[2018-11-14 22:00] VITALS: BP 120/72
[2018-11-15] MEDS: LOPERAMIDE 2 MG CAPLET PO SCH ×12 (00:40→23:16)
[2018-11-15] MEDS: ACETAMINOPHEN TAB 650MG DOSE (2X325MG) PO PRN (00:41)
[2018-11-15 06:00] VITALS: BP 126/68
[2018-11-15 06:37] LABS: BASO % 0.6 % (0.0-1.0); EOS # 0.6 10^3/uL (0.0-0.5); EOS % 16.2 % (0.0-3.0); HEMATOCRIT 27.9 % (36.0-47.0); HEMOGLOBIN 9.1 g/dl (12.0-15.5); LYMPH # 0.7 10^3/uL (1.5-5.0); LYMPH % 18.8 % (24.0-44.0); MEAN CORPUSCULAR HEMOGLOBIN 30.5 pg (27.0-33.0); MEAN CORPUSCULAR HGB CONC 32.6 g/dl (32.0-36.5); MEAN CORPUSCULAR VOLUME 93.6 fl (80.0-96.0); MONO # 0.4 10^3/uL (0.0-0.8); MONO % 10.9 % (0.0-5.0); NEUTROPHILS # 1.9 10^3/uL (1.5-8.5); NEUTROPHILS % 52.4 % (36.0-66.0); PLATELET COUNT, AUTOMATED 205 10^3/uL (150-450); RED BLOOD COUNT 2.98 10^6/uL (4.00-5.40); WHITE BLOOD COUNT 3.6 10^3/uL (4.0-10.0)
[2018-11-15 07:07] LABS: C REACTIVE PROTEIN QUANTITATIV 1.03 MG/DL (0.00-0.30); CALCIUM LEVEL 6.8 MG/DL (8.8-10.2); CREATININE FOR GFR 2.12 MG/DL (0.55-1.30); GLOMERULAR FILTRATION RATE 24.2 (>39); MAGNESIUM LEVEL 2.3 MG/DL (1.8-2.4); POTASSIUM SERUM 4.2 MEQ/L (3.5-5.1)
[2018-11-15] MEDS: NS 1,000 ML IV SCH (08:30)
[2018-11-15] MEDS: MAGNESIUM OXIDE 400 MG TAB (MAG-OX) PO SCH ×2 (08:31→20:10)
[2018-11-15] MEDS: LACTOBACILLUS ACIDOPHILUS CAP (BACID) PO SCH ×3 (08:31→17:50)
[2018-11-15] MEDS: HEPARIN SOD (PORCINE) 5000 UNITS/ML VIAL SC SCH ×2 (08:31→20:11)
[2018-11-15] MEDS: CALCIUM/VITAMIN D 500 MG TAB PO SCH ×2 (08:31→20:11)
[2018-11-15] MEDS: VITAMIN D 1,000 INTERNATIONAL UNITS TABLET PO SCH (08:31)
[2018-11-15] MEDS: SODIUM BICARBONATE 325 MG TAB PO SCH ×2 (08:31→20:11)
[2018-11-15] MEDS: METAMUCIL (PSYLLIUM) PACKET PO SCH ×2 (10:37→20:08)
--- NOTE | 2018-11-15 12:37 | IPNPDOC ---
Text Note Date of Service The patient was seen on 11/15/18. NOTE Subjective: Patient was seen and examined at the bedside. Currently the output from her ostomy has shown reduction in volume. She denies any CP, SOB or palpitations, Denies any abdominal pain. Objective: Vitals (See below) General: Lying in bed, no acute distress, comfortable, AAOx3 HEENT: NC, AT CVS: +S1S2 Lungs: There is fair air entry bilaterally without rhonchi, rales or wheezing Abdomen: Remains soft without distention or tenderness, ostomy site noted - bag with soft stools noted Extremities: LE are free of pitting edema , - Calf tenderness Assessment and plan: Acute renal failure - likely 2/2 dehydration - 2/2 increased fluid losses from ostomy - Baseline Cr of 1.2-1.5 - Creatinine on admission of 11.1; has improved significantly with IV fluid hydration - Cr has improved this morning after ostomy output has reduced - Will DC IV fluids - Nephrology on consultation High output from ostomy - Has history of Ulcerative colitis - Over the last 24 hours have been a significant reduction in the from her ostomy - C. diff PCR negative - CT abdomen / pelvis 11/10: There has been interim sigmoid colon resection and diverting ileostomy. There is no evidence of bowel distension or obstruction. No air-fluid levels. There is no ascites. The mesentery is unremarkable. There is a large fixed hiatal hernia containing almost all of the stomach, unchanged. There are small bilateral pleural effusions and there is bilateral lower lobe atelectasis as an interval change. The left lower lobe lung nodule is obscured on the current study. Bilateral renal cortical scarring. There is no hydronep hrosis. There are nonobstructive renal calculi at the lower pole of the right kidney. There appear be capsular calcifications at the lower pole of the left kidney. The previous right inguinal hernia containing small bowel loops is no longer identified. - s/p Metronidazole and Ciprofloxacin - c/w Loperamide on a scheduled basis; Will add Metamucil BID dosing for bulking effect Renal Cell CA - s/p L sided renal cell CA; s/p Left partial nephrectomy Leukopenia - No evidence of infection - Remains hemodynamically stable and afebrile - Will hold off on antibiotic therapy Normocytic anemia - s/p 2 unit PRBC transfusion on 11/08/18, 11/14/18 - Hemoglobin has improved with transfusion s/p Hyponatremia - Resolved UTI - UA consistent with urinary tract infection; repeat urine culture on 11/09, does not appear to reveal any bacteria - s/p Ciprofloxacin 5 day course Severe Protein Malnutrition - Poor oral intake; have consumed 25% of her meals - Dietary consulted for output from ostomy DVT prophylaxis - c/w Heparin Disposition: - Awaiting for output from ostomy to subside significantly - Will DC fluids and monitor renal function at this time Ethel WEISS I+O VSEthel I+O Laboratory Tests 11/15/18 06:13 Red Blood Count 2.98 L, Mean Corpuscular Volume 93.6, Mean Corpuscular Hemoglobin 30.5, Mean Corpuscular Hemoglobin Concent 32.6, Red Cell Distribution Width 15.9 H, Neutrophils (%) (Auto) 52.4, Lymphocytes (%) (Auto) 18.8 L, Monocytes (%) (Auto) 10.9 H, Eosinophils (%) (Auto) 16.2 H, Basophils (%) (Auto) 0.6, Neutrophils # (Auto) 1.9, Lymphocytes # (Auto) 0.7 L, Monocytes # (Auto) 0.4, Eosinophils # (Auto) 0.6 H, Basophils # (Auto) 0.0, Calcium Level 6.8 L Vital Signs Date Time Temp Pulse Resp B/P (MAP) Pulse Ox O2 Delivery O2 Flow Rate FiO2 11/15/18 06:00 97.9 100 19 126/68 (87) 100 I&O- Last 24 Hours up to 6 AM 11/15/18 06:00 Intake Total 2777 ml Output Total 2250 ml Balance 527 ml KEIRA CHANG MD Nov 15, 2018 12:37
[2018-11-15 14:00] VITALS: BP 122/67
--- NOTE | 2018-11-15 20:38 | IPN ---
DATE: 11/15/2018 SUBJECTIVE: The patient was seen and examined at the bedside today morning. She is afebrile, hemodynamically stable. Her stool output is significantly decreased. Her IV fluids were stopped today morning. Renal function is stable. Creatinine is fluctuating at 2.1 now. She was given 1 unit of PRBC transfusion. Hemoglobin level has improved to 9.1 today. OBJECTIVE: Vital signs: Temperature is 97.9 degrees Fahrenheit, blood pressure 126/68, pulse is 100, respiratory rate of 19, saturating 100% on room air. Intake and output: Urine output recorded is 1100 mL yesterday, 800 mL so far today since overnight. Weight in the bed scale is not available. Stool output is only 600 mL since overnight. PHYSICAL EXAMINATION: General: The patient is awake, alert, oriented times three, laying in bed, in no apparent distress. Head and neck exam: Extraocular muscles intact. Pupils equally round and reactive to light. Mucous membranes are moist. Neck is supple. There is no JVD. Cardiovascular: S1, S2, regular rate. No edema of the bilateral lower extremities. Respiratory: Chest is clear to auscultation bilaterally. Bilateral equal air entry. No rales or rhonchi. Abdomen: Soft, positive bowel sounds. Right lower quadrant ostomy is noted. Semi-formed greenish stool is present in the back. Musculoskeletal: No clubbing or cyanosis. Pulses are 2+. 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 LABORATORY REVIEW: CBC showed WBC 3.6, hemoglobin 9.1, platelets of 105. BMP showed sodium 142, potassium 4.2, chloride 112, bicarbonate is 24, BUN 18, creatinine is 2.1, calcium 6.8, magnesium 2.3, C-reactive protein is 1.03. CURRENT INPATIENT MEDICATIONS: The patient's medications were all reviewed by me. IV fluids have been stopped now. She was started on magnesium 800 mg twice a day. She has also been started on Metamucil one packet by mouth twice a day. ASSESSMENT/PLAN: 1. Acute kidney injury superimposed on chronic kidney disease. Patient's renal function has improved close to baseline. Creatinine has been fluctuating at around 2.1. She is able to hydrate herself orally. IV fluids are being stopped. 2. Metabolic acidosis. Continue current dose of sodium bicarbonate 650 mg by mouth twice a day. Bicarbonate level is improving. 3. Hypomagnesemia. Continue current dose of magnesium oxide 800 mg by mouth twice a day. 4. Anemia. The patient was given 1 unit of PRBC transfusion yesterday. Hemoglobin level is 9.1 which is optimal. 5. High output ostomy. IV fluids are being stopped. The patient is currently getting Imodium. Metamucil was started today to increase the bulk of the stools. DISPOSITION: If the patient is able to hydrate herself orally and if her renal function stays stable without IV fluids, then she can be discharged over the next 24-48 hours.
[2018-11-15 22:00] VITALS: BP 125/67
[2018-11-16] MEDS: LOPERAMIDE 2 MG CAPLET PO SCH ×13 (01:00→23:03)
[2018-11-16] MEDS: ACETAMINOPHEN TAB 650MG DOSE (2X325MG) PO PRN ×2 (01:23→21:49)
[2018-11-16 06:00] VITALS: BP 124/76
[2018-11-16 06:20] LABS: BASO % 0.5 % (0.0-1.0); EOS # 0.7 10^3/uL (0.0-0.5); EOS % 16.6 % (0.0-3.0); HEMATOCRIT 27.6 % (36.0-47.0); LYMPH # 0.8 10^3/uL (1.5-5.0); LYMPH % 18.8 % (24.0-44.0); MEAN CORPUSCULAR HEMOGLOBIN 29.6 pg (27.0-33.0); MEAN CORPUSCULAR HGB CONC 32.6 g/dl (32.0-36.5); MEAN CORPUSCULAR VOLUME 90.8 fl (80.0-96.0); MONO # 0.5 10^3/uL (0.0-0.8); MONO % 11.6 % (0.0-5.0); NEUTROPHILS # 2.2 10^3/uL (1.5-8.5); NEUTROPHILS % 51.8 % (36.0-66.0); PLATELET COUNT, AUTOMATED 204 10^3/uL (150-450); RED BLOOD COUNT 3.04 10^6/uL (4.00-5.40); WHITE BLOOD COUNT 4.2 10^3/uL (4.0-10.0)
[2018-11-16 06:36] LABS: IONIZED CALCIUM 4.2 MG/DL (4.5-5.3)
[2018-11-16 06:52] LABS: CALCIUM LEVEL 7.7 MG/DL (8.8-10.2); CREATININE FOR GFR 2.08 MG/DL (0.55-1.30); GLOMERULAR FILTRATION RATE 24.7 (>39); MAGNESIUM LEVEL 2.1 MG/DL (1.8-2.4); POTASSIUM SERUM 4.7 MEQ/L (3.5-5.1)
[2018-11-16] MEDS: MAGNESIUM OXIDE 400 MG TAB (MAG-OX) PO SCH ×2 (08:01→21:50)
[2018-11-16] MEDS: VITAMIN D 1,000 INTERNATIONAL UNITS TABLET PO SCH (08:01)
[2018-11-16] MEDS: SODIUM BICARBONATE 325 MG TAB PO SCH ×2 (08:01→21:48)
[2018-11-16] MEDS: METAMUCIL (PSYLLIUM) PACKET PO SCH (08:01)
[2018-11-16] MEDS: CALCIUM/VITAMIN D 500 MG TAB PO SCH ×2 (08:01→21:48)
[2018-11-16] MEDS: LACTOBACILLUS ACIDOPHILUS CAP (BACID) PO SCH ×3 (08:01→16:55)
[2018-11-16] MEDS: HEPARIN SOD (PORCINE) 5000 UNITS/ML VIAL SC SCH ×2 (08:02→21:50)
[2018-11-16] MEDS ORDERED: CALCIUM GLUCONATE 1,000 MG in D5W MINI-BAG PLUS 100 ML IV ONE (11:00)
--- NOTE | 2018-11-16 11:09 | IPNPDOC ---
Text Note Date of Service The patient was seen on 11/16/18. NOTE Subjective: Patient was seen and examined at the bedside. I have advised the patient that her kidney function appears to have slightly improved compared to yesterday, however, output from ostomy, although reduced, still remains watery. Patient denies chest pain, shortness breath or palpitation. She has been tolerating an oral diet. Denies any abdominal pain. Objective: Vitals (See below) General: Lying in bed, no acute distress, comfortable, AAOx3 HEENT: NC, AT CVS: +S1S2 Lungs: Air entry is fair bilaterally, without any auscultated rhonchi, rales or wheezing Abdomen: Remains soft without distention or tenderness; stools in ostomy bag remain very watery Extremities: No evidence of pitting edema in lower extremities, - Calf te nderness Assessment and plan: Acute renal failure - likely 2/2 dehydration - 2/2 increased fluid losses from ostomy - Baseline Cr of 1.2-1.5 - Creatinine on admission of 11.1; - Creatinine has continued to improve after holding IV fluids; however, output from ostomy, still remains very watery - Patient is at high risk for readmission - s/p IV fluids - Nephrology on consultation High output from ostomy - Has history of Ulcerative colitis - Output from ostomy site, although reduced in volume, still remains relatively watery - C. diff PCR negative - CT abdomen / pelvis 11/10: There has been interim sigmoid colon resection and diverting ileostomy. There is no evidence of bowel distension or obstruction. No air-fluid levels. There is no ascites. The mesentery is unremarkable. There is a large fixed hiatal hernia containing almost all of the stomach, unchanged. There are small bilateral pleural effusions and there is bilateral lower lobe atelectasis as an interval change. The left lower lobe lung nodule is obscured on the current study. Bilateral renal cortical scarring. There is no hydronephrosis. There are nonobstructive renal calculi at the lower pole of the right kidney. There appear be capsular calcifications at the lower pole of the left kidney. The previous right inguinal hernia containing small bowel loops is no longer identified. - s/p Metronidazole and Ciprofloxacin - c/w Loperamide on a scheduled basis; c/w Metamucil; will increase frequency today Renal Cell CA - s/p L sided renal cell CA; s/p Left partial nephrectomy Leukopenia - No evidence of infection - Remains hemodynamically stable and afebrile - Will hold off on antibiotic therapy Normocytic anemia - s/p 2 unit PRBC transfusion on 11/08/18, 11/14/18 - Hemoglobin has improved with transfusion s/p Hyponatremia - Resolved UTI - UA consistent with urinary tract infection; repeat urine culture on 11/09, does not appear to reveal any bacteria - s/p Ciprofloxacin 5 day course Severe Protein Malnutrition - Poor oral intake; have consumed 25% of her meals - Dietary consulted for output from ostomy DVT prophylaxis - c/w Heparin Disposition: - Awaiting for stool to solidify - s/p IV fluids VS,Fishbone, I+O VS, Fishbone, I+O Laboratory Tests 11/16/18 05:51 Calcium Level 7.7 L 11/16/18 06:06 Red Blood Count 3.04 L, Mean Corpuscular Volume 90.8, Mean Corpuscular H emoglobin 29.6, Mean Corpuscular Hemoglobin Concent 32.6, Red Cell Distribution Width 15.7 H, Neutrophils (%) (Auto) 51.8, Lymphocytes (%) (Auto) 18.8 L, Monocytes (%) (Auto) 11.6 H, Eosinophils (%) (Auto) 16.6 H, Basophils (%) (Auto) 0.5, Neutrophils # (Auto) 2.2, Lymphocytes # (Auto) 0.8 L, Monocytes # (Auto) 0.5, Eosinophils # (Auto) 0.7 H, Basophils # (Auto) 0.0 Vital Signs Date Time Temp Pulse Resp B/P (MAP) Pulse Ox O2 Delivery O2 Flow Rate FiO2 11/16/18 06:00 97.6 76 16 124/76 (92) 99 I&O- Last 24 Hours up to 6 AM 11/16/18 06:00 Intake Total 2910 ml Output Total 3150 ml Balance -240 ml KEIRA CHANG MD Nov 16, 2018 11:09
[2018-11-16] MEDS ORDERED: METAMUCIL (PSYLLIUM) PACKET PO SCH ×2 (13:00→21:00)
[2018-11-16 14:00] VITALS: BP 151/83
--- NOTE | 2018-11-16 14:00 | IPN ---
DATE: 11/16/2018 SUBJECTIVE: The patient was seen and examined at the bedside. She was actually sitting on the sofa. She was eating her breakfast in the morning when I saw her. Her IV fluid was stopped yesterday. Renal function is stable, creatinine is at 2.08 now. She reports that she is able to keep herself hydrated now. Stool output from the ostomy is stable. She denies any active complaints at this time. OBJECTIVE: Vital signs: Temperature is 97.6 degrees Fahrenheit, blood pressure 124/76, pulse is 76, respiratory of 16, saturating 99% on room air. Intake and output: Urine output recorded is 1700 mL yesterday. There is no urine output recorded today. Stool output so far since overnight is 2.8 liters. Weight on the bed scale is not available. PHYSICAL EXAMINATION: General: The patient is awake, alert, oriented times three, sitting up in the sofa. No apparent distress. Head and neck exam: Extraocular muscles intact. Pupils equally round and reactive to light. Mucous membranes are moist. Neck is supple. There is no jugular venous distention (JVD). Cardiovascular: S1, S2. Regular rate. No edema of the bilateral lower extremities. Respiratory: Chest is clear to auscultation bilaterally. Bilateral equal air entry. No rales or rhonchi. Abdomen: Soft, positive bowel sounds. Right lower quadrant ostomy with greenish liquid stools in the bag. Musculoskeletal: No clubbing or cyanosis. Pulses are 2+. Central nervous system (MANAGER ECONOMIC): No focal deficit. Power is 5/5 in all extremities. LABORATORY REVIEW: CBC showed WBC of 4.2, hemoglobin is 9, platelets 204. BMP showed sodium 142, potassium 4.7, chloride 110, bicarbonate 24, BUN 16, creatinine is 2.08, it was 2.1 yesterday, calcium 7.7, ionized calcium is 4.2, magnesium is 2.1 . CURRENT INPATIENT MEDICATIONS: The patient's medications were all reviewed by me. Her IV fluids have been stopped. I have ordered a dose of calcium gluconate 1 gram IV times one dose. I see that the Metamucil dose has been increased to one packet four times a day. ASSESSMENT/PLAN: 1. Acute kidney injury superimposed on chronic kidney disease. The patient's IV fluids were stopped yesterday. Renal function is stable. Continue to encourage oral hydration. 2. Metabolic acidosis. It is well controlled with current dose of sodium bicarbonate. 3. Hypocalcemia. The patient continues to be on oral calcium tablets I have ordered one dose of IV calcium gluconate today as well. 4. Hypomagnesemia. Magnesium level is controlled with current dose of magnesium oxide 800 mg twice a day. 5. High output ostomy. IV fluids have been stopped. Metamucil dose is being increased. She is also getting Imodium. The rest of the management is as per primary team. 6. Anemia. Hemoglobin is stable at around 9. Last blood transfusion was 2 days ago. DISPOSITION: The patient's ostomy output is looking more watery today. There is a right of readmission. Primary team is keeping her in the hospital for now to monitor the intake and output.
[2018-11-16] MEDS ORDERED: FIBER-CON 625 MG TAB PO ONE (15:00)
[2018-11-16] MEDS ORDERED: FIBER-CON 625 MG TAB PO SCH (21:00)
[2018-11-16 22:00] VITALS: BP 138/72
[2018-11-17] MEDS: LOPERAMIDE 2 MG CAPLET PO SCH ×9 (00:22→20:28)
[2018-11-17 06:00] VITALS: BP 121/67
[2018-11-17 06:11] LABS: EOS # 0.8 10^3/uL (0.0-0.5); EOS % 18.6 % (0.0-3.0); HEMOGLOBIN 9.3 g/dl (12.0-15.5); LYMPH # 0.8 10^3/uL (1.5-5.0); LYMPH % 19.3 % (24.0-44.0); MEAN CORPUSCULAR HEMOGLOBIN 29.6 pg (27.0-33.0); MEAN CORPUSCULAR HGB CONC 32.1 g/dl (32.0-36.5); MEAN CORPUSCULAR VOLUME 92.4 fl (80.0-96.0); MONO # 0.4 10^3/uL (0.0-0.8); MONO % 10.5 % (0.0-5.0); NEUTROPHILS # 2.1 10^3/uL (1.5-8.5); NEUTROPHILS % 49.2 % (36.0-66.0); PLATELET COUNT, AUTOMATED 237 10^3/uL (150-450); RED BLOOD COUNT 3.14 10^6/uL (4.00-5.40); WHITE BLOOD COUNT 4.2 10^3/uL (4.0-10.0)
[2018-11-17 06:37] LABS: CALCIUM LEVEL 7.6 MG/DL (8.8-10.2); CREATININE FOR GFR 2.06 MG/DL (0.55-1.30); POTASSIUM SERUM 4.6 MEQ/L (3.5-5.1)
[2018-11-17 08:00] VITALS: BP 140/82
[2018-11-17] MEDS: SODIUM BICARBONATE 325 MG TAB PO SCH ×2 (08:58→20:27)
[2018-11-17] MEDS: LACTOBACILLUS ACIDOPHILUS CAP (BACID) PO SCH ×3 (08:58→17:03)
[2018-11-17] MEDS: VITAMIN D 1,000 INTERNATIONAL UNITS TABLET PO SCH (08:59)
[2018-11-17] MEDS: MAGNESIUM OXIDE 400 MG TAB (MAG-OX) PO SCH ×2 (08:59→20:28)
[2018-11-17] MEDS: diphenhydrAMINE 25 MG CAP PO PRN (09:00)
[2018-11-17] MEDS: HEPARIN SOD (PORCINE) 5000 UNITS/ML VIAL SC SCH ×2 (09:00→20:29)
[2018-11-17] MEDS: CALCIUM/VITAMIN D 500 MG TAB PO SCH ×2 (09:00→20:28)
[2018-11-17] MEDS: FIBER-CON 625 MG TAB PO SCH ×4 (09:01→20:28)
[2018-11-17] MEDS ORDERED: ESCITALOPRAM OXALATE 10 MG TAB (LEXAPRO) PO ONE (10:45)
--- NOTE | 2018-11-17 11:02 | IPNPDOC ---
Text Note Date of Service The patient was seen on 11/17/18. NOTE Subjective: Patient was seen and examined at the bedside. Currently patient still continues to experience watery output from her ostomy. She denies any CP, SOB or palpitations. She is without abdominal pain. Objective: Vitals (See below) General: Lying in bed, no acute distress, comfortable, AAOx3 HEENT: NC, AT CVS: +S1S2 Lungs: Air entry is fair b/l, no rhonchi/rales/wheezing Abdomen: Soft, ND, NT, Ostomy bag noted with copious watery stool Extremities: LE are free of edema , - Calf tenderness Assessment and plan: Acute renal failure - likely 2/2 dehydration - 2/2 increased fluid losses from ostomy - Baseline Cr of 1.2-1.5 - Creatinine on admission of 11.1; - Creatinine is approaching normal however has not changed significantly over last 48 hours - Patient is at high risk for readmission - s/p IV fluids - Nephrology on consultation High output from ostomy - Has history of Ulcerative colitis - Patient reports that she is unable to tolerate taking Metamucil - Output from ostomy site, although reduced in volume, still remains relatively watery - C. diff PCR negative - CT abdomen / pelvis 11/10: There has been interim sigmoid colon resection and diverting ileostomy. There is no evidence of bowel distension or obstruction. No air-fluid levels. There is no ascites. The mesentery is unremarkable. There is a large fixed hiatal hernia containing almost all of the stomach, unchanged. There are small bilateral pleural effusions and there is bilateral lower lobe atelectasis as an interval change. The left lower lobe lung nodule is obscured on the current study. Bilateral renal cortical scarring. There is no hydronephrosis. There are nonobstructive renal calculi at the lower pole of the right kidney. There appear be capsular calcifications at the lower pole of the left kidney. The previous right inguinal hernia containing small bowel loops is no longer identified. - s/p Metronidazole and Ciprofloxacin - c/w Loperamide - will adjust the frequency to ensure more coverage over a 24 hour period; c/w FiberCon at high frequency / dose; s/p Metamucil Renal Cell CA - s/p L sided renal cell CA; s/p Left partial nephrectomy s/p Leukopenia - No evidence of infection - Remains hemodynamically stable and afebrile - Will hold off on antibiotic therapy Normocytic anemia - s/p 2 unit PRBC transfusion on 11/08/18, 11/14/18 - Hemoglobin has improved with transfusion s/p Hyponatremia - Resolved UTI - UA consistent with urinary tract infection; repeat urine culture on 11/09, does not appear to reveal any bacteria - s/p Ciprofloxacin 5 day course Severe Protein Malnutrition - Poor oral intake; have consumed 25% of her meals - Dietary consulted for output from ostomy DVT prophylaxis - c/w Heparin Disposition: - Awaiting for stool to solidify - s/p IV fluids VS,Fishbone, I+O VS, Fishbone, I+O Laboratory Tests 11/17/18 05:46 Red Blood Count 3.14 L, Mean Corpuscular Volume 92.4, Mean Corpuscular Hemoglobin 29.6, Mean Corpuscular Hemoglobin Concent 32.1, Red Cell Distribution Width 15.5 H, Neutrophils (%) (Auto) 49.2, Lymphocytes (%) (Auto) 19.3 L, Monocytes (%) (Auto) 10.5 H, Eosinophils (%) (Auto) 18.6 H, Basophils (%) (Auto) 1.0, Neutrophils # (Auto) 2.1, Lymphocytes # (Auto) 0.8 L, Monocytes # (Auto) 0.4, Eosinophils # (Auto) 0.8 H, Basophils # (Auto) 0.0, Calcium Level 7.6 L Vital Signs Date Time Temp Pulse Resp B/P (MAP) Pulse Ox O2 Delivery O2 Flow Rate FiO2 11/17/18 08:00 97.5 82 14 140/82 (101) 95 I&O- Last 24 Hours up to 6 AM 11/17/18 06:00 Intake Total 1620 ml Output Total 4825 ml Balance -3205 ml KEIRA CHANG MD Nov 17, 2018 11:02
[2018-11-17 12:33] LABS: C REACTIVE PROTEIN QUANTITATIV 2.13 MG/DL (0.00-0.30)
[2018-11-17 14:00] VITALS: BP 138/78
--- NOTE | 2018-11-17 20:19 | IPN ---
DATE: 11/17/2018 SUBJECTIVE The patient was seen and examined at the bedside today morning. She is afebrile, hemodynamically stable. She is no longer on IV fluids. Although she has liquid stools from the ostomy she is able to hydrate herself. Renal function is stable, creatinine is at 2.06 today. OBJECTIVE Vital signs: Temperature is 97.7 degrees Fahrenheit. Blood pressure 138/78, pulse is 86, respiratory rate of 16, saturating 95% on room air. Intake and output: Urine output recorded as 1.2 liters so far today since overnight. Stool output is 1.6 liters. Weight in the bed scale is not available. PHYSICAL EXAMINATION General: The patient is awake, alert, oriented times three, sitting up in the sofa. No apparent distress. Head and neck examination: Extraocular muscles intact. Pupils equally round and reactive to light. Mucous membranes are moist. Neck is supple. There is no JVD. Cardiovascular: S1, S2, regular rate. No edema of the bilateral lower extremities. Respiratory: Chest is clear to auscultation bilaterally. Bilateral equal air entry. No rales or rhonchi. Abdomen: Soft, positive bowel sounds. Right lower quadrant ostomy with liquid greenish stool in the bag. Musculoskeletal: No clubbing or cyanosis. Pulses are 2+. DOCKETING SPECIALIST: No focal deficit. Power is 5/5 in all extremities. LAB REVIEW: CBC showed WBC 4.2, hemoglobin 9.3, platelets 237. BMP showed sodium 142, potassium 4.6, chloride 110, bicarb 26, BUN 16, creatinine is 2.06, calcium 7.6, magnesium is 2, C-reactive protein is 2.1. CURRENT INPATIENT MEDICATIONS The patient's medications were all reviewed by me. FiberCon is changed to four times a day. Imodium has been changed to 2 mg every 4 hourly. Metamucil has been stopped. ASSESSMENT/PLAN 1. Acute kidney injury superimposed on chronic kidney disease. It was secondary to dehydration. Patient's renal function has been stable for last 2 days without IV fluids. Continue to encourage oral hydration. 2. Metabolic acidosis. Continue current dose of oral sodium bicarbonate, bicarb level is stable. 3. Hypocalcemia. Continue oral calcium tablets. The patient was given a dose of IV calcium gluconate yesterday as well. 4. Hypomagnesemia. Magnesium level is controlled with current dose of magnesium oxide. 5. High output ostomy. Continue to encourage oral hydration. The patient is currently on FiberCon and Imodium. The rest of the management is as per primary team. 6. Disposition. The patient's renal function is stable. Electrolytes are within the acceptable range. Nephrology service is going to sign off at this moment. Please call nephrology service for any help in the management of this patient during this hospitalization.
[2018-11-17] MEDS: ACETAMINOPHEN TAB 650MG DOSE (2X325MG) PO PRN (20:27)
[2018-11-17 22:00] VITALS: BP 137/81
[2018-11-18] MEDS: LOPERAMIDE 2 MG CAPLET PO SCH ×6 (01:59→20:32)
[2018-11-18 06:00] VITALS: BP 134/80
[2018-11-18 06:22] LABS: BASO # 0.1 10^3/uL (0.0-0.2); BASO % 1.1 % (0.0-1.0); EOS # 0.9 10^3/uL (0.0-0.5); EOS % 19.5 % (0.0-3.0); HEMATOCRIT 30.9 % (36.0-47.0); HEMOGLOBIN 9.9 g/dl (12.0-15.5); LYMPH # 0.8 10^3/uL (1.5-5.0); LYMPH % 17.6 % (24.0-44.0); MEAN CORPUSCULAR HEMOGLOBIN 29.7 pg (27.0-33.0); MEAN CORPUSCULAR VOLUME 92.8 fl (80.0-96.0); MONO # 0.6 10^3/uL (0.0-0.8); MONO % 11.8 % (0.0-5.0); NEUTROPHILS # 2.3 10^3/uL (1.5-8.5); NEUTROPHILS % 47.9 % (36.0-66.0); PLATELET COUNT, AUTOMATED 270 10^3/uL (150-450); RED BLOOD COUNT 3.33 10^6/uL (4.00-5.40); WHITE BLOOD COUNT 4.8 10^3/uL (4.0-10.0)
[2018-11-18 06:45] LABS: CALCIUM LEVEL 8.3 MG/DL (8.8-10.2); CREATININE FOR GFR 2.08 MG/DL (0.55-1.30); GLOMERULAR FILTRATION RATE 24.7 (>39); POTASSIUM SERUM 4.5 MEQ/L (3.5-5.1)
[2018-11-18] MEDS: CALCIUM/VITAMIN D 500 MG TAB PO SCH ×2 (09:52→20:31)
[2018-11-18] MEDS: MAGNESIUM OXIDE 400 MG TAB (MAG-OX) PO SCH ×2 (09:52→20:31)
[2018-11-18] MEDS: ESCITALOPRAM OXALATE 10 MG TAB (LEXAPRO) PO SCH (09:52)
[2018-11-18] MEDS: LACTOBACILLUS ACIDOPHILUS CAP (BACID) PO SCH ×3 (09:53→17:12)
[2018-11-18] MEDS: FIBER-CON 625 MG TAB PO SCH ×4 (09:53→20:31)
[2018-11-18] MEDS: SODIUM BICARBONATE 325 MG TAB PO SCH ×2 (09:53→20:31)
[2018-11-18] MEDS: HEPARIN SOD (PORCINE) 5000 UNITS/ML VIAL SC SCH ×2 (09:53→20:31)
[2018-11-18] MEDS: VITAMIN D 1,000 INTERNATIONAL UNITS TABLET PO SCH (09:53)
--- NOTE | 2018-11-18 12:56 | IPNPDOC ---
Text Note Date of Service The patient was seen on 11/18/18. NOTE Subjective: Patient was seen and examined at the bedside. Continues to experience profuse watery diarrhea. No CP, SOB, palpitations or cough. Denies abdominal pain, N/V. Objective: Vitals (See below) General: Lying in bed, no acute distress, comfortable, AAOx3 HEENT: NC, AT CVS: +S1S2 Lungs: Air entry is fair b/l, auscultations without rhonchi, rales or Abdomen: Soft, non-distended / non-tender, Ostomy with continued output Extremities: No edema is appreciated at LE bilaterally, - Calf tenderness Assessment and plan: Acute renal failure - likely 2/2 dehydration - 2/2 increased fluid losses from ostomy - Baseline Cr of 1.2-1.5 - Creatinine on admission of 11.1; - Creatinine is approaching normal however has not changed significantly over last 48 hours - Patient is at high risk for readmission - s/p IV fluids - Appreciate nephrology's input; have signed off High output from ostomy - Has history of Ulcerative colitis - Continues with profuse output - will adjust therapy to reduce output - C. diff PCR negative - CT abdomen / pelvis 11/10: There has been interim sigmoid colon resection and diverting ileostomy. There is no evidence of bowel distension or obstruction. No air-fluid levels. There is no ascites. The mesentery is unremarkable. There is a large fixed hiatal hernia containing almost all of the stomach, unchanged. There are small bilateral pleural effusions and there is bilateral lower lobe atelectasis as an interval change. The left lower lobe lung nodule is obscured on the current study. Bilateral renal cortical scarring. There is no hydronephrosis. There are nonobstructive renal calculi at the lower pole of the right kidney. There appear be capsular calcifications at the lower pole of the left kidney. The previous right inguinal hernia containing small bowel loops is no longer identified. - s/p Metronidazole and Ciprofloxacin - c/w Loperamide / FiberCon; Added Cholestyramine and Octreotide Renal Cell CA - s/p L sided renal cell CA; s/p Left partial nephrectomy s/p Leukopenia - No evidence of infection - Remains hemodynamically stable and afebrile Normocytic anemia - s/p 2 unit PRBC transfusion on 11/08/18, 11/14/18 - Hemoglobin has improved with transfusion s/p Hyponatremia - Resolved UTI - UA consistent with urinary tract infection; repeat urine culture on 11/09, does not appear to reveal any bacteria - s/p Ciprofloxacin 5 day course Severe Protein Malnutrition - Poor oral intake - Dietary consulted for output from ostomy DVT prophylaxis - c/w Heparin Disposition: - Awaiting for stool to solidify; added 2 additional agents to regimen - s/p IV fluids VS,Fishbone, I+O VS, Fishbone, I+O Laboratory Tests 11/18/18 05:46 Red Blood Count 3.33 L, Mean Corpuscular Volume 92.8, Mean Corpuscular Hemoglobin 29.7, Mean Corpuscular Hemoglobin Concent 32.0, Red Cell Distribution Width 15.2 H, Neutrophils (%) (Auto) 47.9, Lymphocytes (%) (Auto) 17.6 L, Monocytes (%) (Auto) 11.8 H, Eosinophils (%) (Auto) 19.5 H, Basophils (%) (Auto) 1.1 H, Neutrophils # (Auto) 2.3, Lymphocytes # (Auto) 0.8 L, Monocytes # (Auto) 0.6, Eosinophils # (Auto) 0.9 H, Basophils # (Auto) 0.1, Calcium Level 8.3 L Vital Signs Date Time Temp Pulse Resp B/P (MAP) Pulse Ox O2 Delivery O2 Flow Rate FiO2 11/18/18 06:00 98.0 84 18 134/80 (98) 17 I&O- Last 24 Hours up to 6 AM 11/18/18 06:00 Intake Total 1470 ml Output Total 2850 ml Balance -1380 ml KEIRA CHANG MD Nov 18, 2018 12:56
[2018-11-18] MEDS: OCTREOTIDE ACETATE 100 MCG/ML VIAL (J2354) SC SCH ×2 (13:37→20:32)
[2018-11-18 14:00] VITALS: BP 126/68
[2018-11-18] MEDS ORDERED: CHOLESTYRAMINE 4 GM PWD PKT PO SCH (16:00)
[2018-11-18] MEDS: CHOLESTYRAMINE 4 GM PWD PKT PO SCH ×2 (17:12→20:30)
[2018-11-18 22:00] VITALS: BP 124/70
[2018-11-19] MEDS: LOPERAMIDE 2 MG CAPLET PO SCH ×6 (00:48→21:00)
[2018-11-19] MEDS: OCTREOTIDE ACETATE 100 MCG/ML VIAL (J2354) SC SCH ×2 (05:07→12:06)
[2018-11-19 06:00] VITALS: BP 127/71
[2018-11-19 06:18] LABS: BASO # 0.1 10^3/uL (0.0-0.2); BASO % 1.3 % (0.0-1.0); EOS # 1.1 10^3/uL (0.0-0.5); HEMATOCRIT 30.9 % (36.0-47.0); HEMOGLOBIN 9.8 g/dl (12.0-15.5); LYMPH # 0.8 10^3/uL (1.5-5.0); LYMPH % 17.3 % (24.0-44.0); MEAN CORPUSCULAR HEMOGLOBIN 29.6 pg (27.0-33.0); MEAN CORPUSCULAR HGB CONC 31.7 g/dl (32.0-36.5); MEAN CORPUSCULAR VOLUME 93.4 fl (80.0-96.0); MONO # 0.5 10^3/uL (0.0-0.8); MONO % 10.9 % (0.0-5.0); NEUTROPHILS # 2.2 10^3/uL (1.5-8.5); NEUTROPHILS % 45.7 % (36.0-66.0); PLATELET COUNT, AUTOMATED 290 10^3/uL (150-450); RED BLOOD COUNT 3.31 10^6/uL (4.00-5.40); WHITE BLOOD COUNT 4.8 10^3/uL (4.0-10.0)
[2018-11-19 06:46] LABS: CALCIUM LEVEL 8.1 MG/DL (8.8-10.2); CREATININE FOR GFR 2.09 MG/DL (0.55-1.30); GLOMERULAR FILTRATION RATE 24.6 (>39); MAGNESIUM LEVEL 1.8 MG/DL (1.8-2.4); POTASSIUM SERUM 5.2 MEQ/L (3.5-5.1)
[2018-11-19 06:51] LABS: EOS % 21.9 % (0.0-3.0)
[2018-11-19 08:15] VITALS: BP 156/78
[2018-11-19] MEDS: LACTOBACILLUS ACIDOPHILUS CAP (BACID) PO SCH ×3 (08:42→16:55)
[2018-11-19] MEDS: MAGNESIUM OXIDE 400 MG TAB (MAG-OX) PO SCH ×2 (08:42→20:48)
[2018-11-19] MEDS: CALCIUM/VITAMIN D 500 MG TAB PO SCH ×2 (08:42→20:48)
[2018-11-19] MEDS: VITAMIN D 1,000 INTERNATIONAL UNITS TABLET PO SCH (08:42)
[2018-11-19] MEDS: ESCITALOPRAM OXALATE 10 MG TAB (LEXAPRO) PO SCH (08:43)
[2018-11-19] MEDS: FIBER-CON 625 MG TAB PO SCH ×4 (08:43→20:48)
[2018-11-19] MEDS: HEPARIN SOD (PORCINE) 5000 UNITS/ML VIAL SC SCH ×2 (08:43→20:47)
[2018-11-19] MEDS: SODIUM BICARBONATE 325 MG TAB PO SCH ×2 (08:47→20:48)
[2018-11-19] MEDS: CHOLESTYRAMINE 4 GM PWD PKT PO SCH ×3 (10:50→21:00)
[2018-11-19] MEDS ORDERED: SOD POLYSTYRENE SULFONATE SUSP 15 GM/60 ML UD PO ONE (11:00)
[2018-11-19] MEDS ORDERED: ESCI10TA2 PO (12:42)
[2018-11-19] MEDS ORDERED: SODI325T9 PO (12:42)
[2018-11-19] MEDS ORDERED: CHOL4PW PO (12:42)
[2018-11-19] MEDS ORDERED: CALCD50TA PO (12:42)
[2018-11-19] MEDS ORDERED: CHOL100029 PO (12:42)
[2018-11-19] MEDS ORDERED: RISATAB3 PO (12:42)
[2018-11-19] MEDS ORDERED: FIBE62TA PO (12:42)
[2018-11-19] MEDS ORDERED: LOPE2CA PO (12:42)
[2018-11-19] MEDS ORDERED: MAG400TA PO (12:42)
--- NOTE | 2018-11-19 12:44 | IPNPDOC ---
Text Note Date of Service The patient was seen on 11/19/18. NOTE Subjective: Patient was seen and examined at the bedside. Continues to experience profuse watery diarrhea. No CP, SOB, palpitations or cough. Denies abdominal pain, N/V. Objective: Vitals (See below) General: Lying in bed, no acute distress, comfortable, AAOx3 HEENT: NC, AT CVS: +S1S2 Lungs: Air entry is fair b/l, auscultations without rhonchi, rales or Abdomen: Soft, non-distended / non-tender, Ostomy with continued output Extremities: No edema is appreciated at LE bilaterally, - Calf tenderness Assessment and plan: Acute renal failure - likely 2/2 dehydration - 2/2 increased fluid losses from ostomy - Baseline Cr of 1.2-1.5 - Creatinine on admission of 11.1; - Creatinine is approaching normal however has not changed significantly over last 48 hours - Patient is at high risk for readmission - s/p IV fluids - Appreciate nephrology's input; have signed off High output from ostomy - Has history of Ulcerative colitis - Output today appears to have subsided significantly - C. diff PCR negative - CT abdomen / pelvis 11/10: There has been interim sigmoid colon resection and diverting ileostomy. There is no evidence of bowel distension or obstruction. No air-fluid levels. There is no ascites. The mesentery is unremarkable. There is a large fixed hiatal hernia containing almost all of the stomach, unchanged. There are small bilateral pleural effusions and there is bilateral lower lobe atelectasis as an interval change. The left lower lobe lung nodule is obscured on the current study. Bilateral renal cortical scarring. There is no hydronephrosis. There are nonobstructive renal calculi at the lower pole of the right kidney. There appear be capsular calcifications at the lower pole of the left kidney. The previous right inguinal hernia containing small bowel loops is no longer identified. - s/p Metronidazole and Ciprofloxacin - c/w Loperamide / FiberCon / Cholestyramine; Will attempt to discontinue Octreotide today Renal Cell CA - s/p L sided renal cell CA; s/p Left partial nephrectomy s/p Leukopenia - No evidence of infection - Remains hemodynamically stable and afebrile Normocytic anemia - s/p 2 unit PRBC transfusion on 11/08/18, 11/14/18 - Hemoglobin has improved with transfusion s/p Hyponatremia - Resolved UTI - UA consistent with urinary tract infection; repeat urine culture on 11/09, does not appear to reveal any bacteria - s/p Ciprofloxacin 5 day course Severe Protein Malnutrition - Poor oral intake - Dietary consulted for output from ostomy DVT prophylaxis - c/w Heparin Disposition: - Patient still appears to be solidifying - Anticipate discharge within 24-48 hours VS,Fishbone, I+O VS, Fishbone, I+O Laboratory Tests 11/19/18 06:03 Red Blood Count 3.31 L, Mean Corpuscular Volume 93.4, Mean Corpuscular Hemoglobin 29.6, Mean Corpuscular Hemoglobin Concent 31.7 L, Red Cell Distribution Width 14.7 H, Neutrophils (%) (Auto) 45.7, Lymphocytes (%) (Auto) 17.3 L, Monocytes (%) (Auto) 10.9 H, Eosinophils (%) (Auto) 21.9 H, Basophils (%) (Auto) 1.3 H, Neutrophils # (Auto) 2.2, Lymphocytes # (Auto) 0.8 L, Monocytes # (Auto) 0.5, Eosinophils # (Auto) 1.1 H, Basophils # (Auto) 0.1, Calcium Level 8.1 L Vital Signs Date Time Temp Pulse Resp B/P (MAP) Pulse Ox O2 Delivery O2 Flow Rate FiO2 11/19/18 08:15 98.8 65 18 156/78 (104) 95 I&O- Last 24 Hours up to 6 AM 11/19/18 06:00 Intake Total 2760 ml Output Total 2850 ml Balance -90 ml KEIRA CHANG MD Nov 19, 2018 12:44
[2018-11-19 14:00] VITALS: BP 135/60
[2018-11-19 22:00] VITALS: BP 119/83
[2018-11-20] MEDS: LOPERAMIDE 2 MG CAPLET PO SCH ×6 (01:00→22:39)
[2018-11-20 06:00] VITALS: BP 127/73
[2018-11-20 06:14] LABS: HEMATOCRIT 33.9 % (36.0-47.0); HEMOGLOBIN 10.3 g/dl (12.0-15.5); MEAN CORPUSCULAR HEMOGLOBIN 29.3 pg (27.0-33.0); MEAN CORPUSCULAR HGB CONC 30.4 g/dl (32.0-36.5); MEAN CORPUSCULAR VOLUME 96.6 fl (80.0-96.0); PLATELET COUNT, AUTOMATED 278 10^3/uL (150-450); RED BLOOD COUNT 3.51 10^6/uL (4.00-5.40); WHITE BLOOD COUNT 5.5 10^3/uL (4.0-10.0)
[2018-11-20 06:33] LABS: CALCIUM LEVEL 8.3 MG/DL (8.8-10.2); CREATININE FOR GFR 2.01 MG/DL (0.55-1.30); GLOMERULAR FILTRATION RATE 25.7 (>39)
[2018-11-20 07:08] LABS: EOSINOPHILS 16 % (0-3); LYMPHOCYTES 32 % (16-44); MONOCYTES 3 % (0-5); NEUTROPHILS 49 % (28-66)
[2018-11-20 07:09] LABS: PLATELET ESTIMATE NORMAL (NORMAL)
--- NOTE | 2018-11-20 08:46 | IPNPDOC ---
Text Note Date of Service The patient was seen on 11/20/18. NOTE Subjective: -Persisting higher than baseline ostomy output with watery stool without abdominal pain/N/V/CP/SOB. Objective: Vitals (See below) General: Lying in bed, no acute distress, AOx3 HEENT: NC, AT, MMM CVS: RRR, no mrg Lungs: CTAB, no crackles or wheezing Abdomen: Normoactive bowel sounds, non-distended / non-tender, Ostomy with watery brown stool Extremities: WWP, no LE edema Assessment and plan: Acute renal failure - likely 2/2 dehydration - 2/2 increased fluid losses from ostomy - Baseline Cr of 1.2-1.5 - Creatinine on admission of 11.1; continues to improve - Patient at high risk for readmission, s/p IV fluids - Appreciate nephrology's input; have signed off, recommended normalization of Cr back to baseline before DC Diarrhea: with high output from ostomy - Has history of Ulcerative colitis - Improved output but still significant - C. diff PCR negative - CT abdomen / pelvis 11/10: noted interim sigmoid colon resection and diverting ileostomy without acute pathology - s/p Metronidazole and Ciprofloxacin - c/w Loperamide / FiberCon / Cholestyramine - dc'd octreotide Renal Cell CA - s/p L sided renal cell CA; s/p Left partial nephrectomy s/p Leukopenia - No evidence of infection - Remains hemodynamically stable and afebrile Normocytic anemia - s/p 2 unit PRBC transfusion on 11/08/18, 11/14/18 - Hemoglobin has improved with transfusion and is stable at this time s/p Hyponatremia - Resolved UTI - UA consistent with urinary tract infection; repeat urine culture on 11/09, does not appear to reveal any bacteria - s/p Ciprofloxacin 5 day course Severe Protein Malnutrition - Poor oral intake - Dietary consulted for output from ostomy DVT prophylaxis - c/w Heparin Disposition: - Diarrhea improving - Anticipate discharge within 24-48 hours VS,Ethel, I+O VS, Ethel, I+O Laboratory Tests 11/20/18 05:57 Red Blood Count 3.51 L, Mean Corpuscular Volume 96.6 H, Mean Corpuscular Hemoglobin 29.3, Mean Corpuscular Hemoglobin Concent 30.4 L, Red Cell Distribution Width 14.7 H, Calcium Level 8.3 L Vital Signs Date Time Temp Pulse Resp B/P (MAP) Pulse Ox O2 Delivery O2 Flow Rate FiO2 11/20/18 06:00 97.9 74 16 127/73 (91) 98 I&O- Last 24 Hours up to 6 AM 11/20/18 06:00 Intake Total 860 ml Output Total 3925 ml Balance -3065 ml LALITO AMADOR MD Nov 20, 2018 08:46
[2018-11-20] MEDS: LACTOBACILLUS ACIDOPHILUS CAP (BACID) PO SCH ×3 (09:21→17:10)
[2018-11-20] MEDS: ESCITALOPRAM OXALATE 10 MG TAB (LEXAPRO) PO SCH (09:21)
[2018-11-20] MEDS: CALCIUM/VITAMIN D 500 MG TAB PO SCH ×2 (09:21→22:40)
[2018-11-20] MEDS: VITAMIN D 1,000 INTERNATIONAL UNITS TABLET PO SCH (09:21)
[2018-11-20] MEDS: FIBER-CON 625 MG TAB PO SCH ×4 (09:21→22:40)
[2018-11-20] MEDS: HEPARIN SOD (PORCINE) 5000 UNITS/ML VIAL SC SCH ×2 (09:22→22:40)
[2018-11-20] MEDS: MAGNESIUM OXIDE 400 MG TAB (MAG-OX) PO SCH ×2 (09:22→22:39)
[2018-11-20] MEDS: SODIUM BICARBONATE 325 MG TAB PO SCH ×2 (09:22→22:40)
[2018-11-20] MEDS: CHOLESTYRAMINE 4 GM PWD PKT PO SCH ×3 (09:22→22:39)
[2018-11-20 14:00] VITALS: BP 137/78
[2018-11-20 22:00] VITALS: BP 138/82
[2018-11-21] MEDS: LOPERAMIDE 2 MG CAPLET PO SCH ×6 (01:44→21:01)
[2018-11-21 06:00] VITALS: BP 125/78
[2018-11-21 06:45] LABS: HEMATOCRIT 32.5 % (36.0-47.0); HEMOGLOBIN 10.3 g/dl (12.0-15.5); MEAN CORPUSCULAR HGB CONC 31.7 g/dl (32.0-36.5); MEAN CORPUSCULAR VOLUME 94.8 fl (80.0-96.0); PLATELET COUNT, AUTOMATED 359 10^3/uL (150-450); RED BLOOD COUNT 3.43 10^6/uL (4.00-5.40); WHITE BLOOD COUNT 6.4 10^3/uL (4.0-10.0)
[2018-11-21 07:10] LABS: CALCIUM LEVEL 8.4 MG/DL (8.8-10.2); CREATININE FOR GFR 2.01 MG/DL (0.55-1.30); GLOMERULAR FILTRATION RATE 25.7 (>39); MAGNESIUM LEVEL 1.8 MG/DL (1.8-2.4); POTASSIUM SERUM 4.6 MEQ/L (3.5-5.1)
[2018-11-21 08:33] LABS: ANISOCYTOSIS 1+; ATYPICAL LYMPH 2 % (0-5); EOSINOPHILS 12 % (0-3); LYMPHOCYTES 19 % (16-44); METAMYELOCYTES 2 % (0-0); MONOCYTES 9 % (0-5); MYELOCYTES 3 % (0-0); NEUTROPHILS 48 % (28-66); PLATELET ESTIMATE NORMAL (NORMAL)
[2018-11-21] MEDS: SODIUM BICARBONATE 325 MG TAB PO SCH ×2 (08:33→21:02)
[2018-11-21] MEDS: FIBER-CON 625 MG TAB PO SCH ×4 (08:33→21:03)
[2018-11-21] MEDS: VITAMIN D 1,000 INTERNATIONAL UNITS TABLET PO SCH (08:33)
[2018-11-21] MEDS: HEPARIN SOD (PORCINE) 5000 UNITS/ML VIAL SC SCH ×2 (08:33→21:03)
[2018-11-21] MEDS: ESCITALOPRAM OXALATE 10 MG TAB (LEXAPRO) PO SCH (08:33)
[2018-11-21] MEDS: LACTOBACILLUS ACIDOPHILUS CAP (BACID) PO SCH ×3 (08:33→17:03)
[2018-11-21] MEDS: MAGNESIUM OXIDE 400 MG TAB (MAG-OX) PO SCH ×2 (08:33→21:01)
[2018-11-21] MEDS: CALCIUM/VITAMIN D 500 MG TAB PO SCH ×2 (08:33→21:01)
--- NOTE | 2018-11-21 09:07 | IPNPDOC ---
Text Note Date of Service The patient was seen on 11/21/18. NOTE Subjective: -Persisting higher than baseline ostomy, however better over the material handler 1st shift last night, this AM output with watery stool without abdominal pain/N/V/CP/SOB. Objective: Vitals (See below) General: Lying in bed, no acute distress, AOx3 HEENT: NC, AT, MMM CVS: RRR, no mrg Lungs: CTAB, no crackles or wheezing Abdomen: Normoactive bowel sounds, non-distended / non-tender, Ostomy with watery brown stool Extremities: WWP, no LE edema Assessment and plan: Acute renal failure - likely 2/2 dehydration - 2/2 increased fluid losses from ostomy - Baseline Cr of 1.2-1.5 - Creatinine on admission of 11.1; much improved now stable at 2.01 - Patient at high risk for readmission, s/p IV fluids - Appreciate nephrology's input; have signed off, recommended normalization of Cr back to baseline before DC - continue sodium bicarb 650 BID Diarrhea: with high output from ostomy - Has history of Ulcerative colitis - Improved output but still significant - C. diff PCR negative - CT abdomen / pelvis 11/10: noted interim sigmoid colon resection and diverting ileostomy without acute pathology - s/p Metronidazole and Ciprofloxacin - Loperamide was increased from 1g BID to 2g QID / FiberCon / Cholestyramine -Of note, patient was given kayexalate before for hyperK which likely exacerbated the output, none will be given today - s/p octreotide Renal Cell CA - s/p L sided renal cell CA; s/p Left partial nephrectomy s/p Leukopenia - No evidence of infection - Remains hemodynamically stable and afebrile Normocytic anemia - s/p 2 unit PRBC transfusion on 11/08/18, 11/14/18 - Hemoglobin has improved with transfusion and is stable at this time s/p Hyponatremia - Resolved UTI - UA consistent with urinary tract infection; repeat urine culture on 11/09, does not appear to reveal any bacteria - s/p Ciprofloxacin 5 day course Severe Protein Malnutrition - Poor oral intake - Dietary consulted for output from ostomy DVT prophylaxis - c/w Heparin Disposition: - per clinical improvement VS,Fishbone, I+O VS, Fishbone, I+O Laboratory Tests 11/21/18 05:50 Red Blood Count 3.43 L, Mean Corpuscular Volume 94.8, Mean Corpuscular Hemoglobin 30.0, Mean Corpuscular Hemoglobin Concent 31.7 L, Red Cell Distribution Width 14.8 H, Calcium Level 8.4 L Vital Signs Date Time Temp Pulse Resp B/P (MAP) Pulse Ox O2 Delivery O2 Flow Rate FiO2 11/21/18 06:00 99.2 75 16 125/78 (94) 94 I&O- Last 24 Hours up to 6 AM 11/21/18 06:00 Intake Total 560 ml Output Total 1975 ml Balance -1415 ml LALITO AMADOR MD Nov 21, 2018 09:07
[2018-11-21] MEDS: CHOLESTYRAMINE 4 GM PWD PKT PO SCH ×3 (10:07→21:03)
[2018-11-21 14:00] VITALS: BP 135/82
[2018-11-21 22:00] VITALS: BP 114/70
[2018-11-22] MEDS: LOPERAMIDE 2 MG CAPLET PO SCH ×6 (01:40→20:41)
[2018-11-22 06:00] VITALS: BP 110/70
[2018-11-22 06:39] LABS: HEMATOCRIT 34.8 % (36.0-47.0); HEMOGLOBIN 10.9 g/dl (12.0-15.5); MEAN CORPUSCULAR HEMOGLOBIN 29.6 pg (27.0-33.0); MEAN CORPUSCULAR HGB CONC 31.3 g/dl (32.0-36.5); MEAN CORPUSCULAR VOLUME 94.6 fl (80.0-96.0); PLATELET COUNT, AUTOMATED 388 10^3/uL (150-450); RED BLOOD COUNT 3.68 10^6/uL (4.00-5.40); WHITE BLOOD COUNT 9.2 10^3/uL (4.0-10.0)
[2018-11-22 06:49] LABS: CALCIUM LEVEL 8.8 MG/DL (8.8-10.2); CREATININE FOR GFR 2.03 MG/DL (0.55-1.30); GLOMERULAR FILTRATION RATE 25.4 (>39); POTASSIUM SERUM 5.1 MEQ/L (3.5-5.1)
[2018-11-22] MEDS: FIBER-CON 625 MG TAB PO SCH ×4 (08:58→20:41)
[2018-11-22] MEDS: CALCIUM/VITAMIN D 500 MG TAB PO SCH ×2 (08:58→20:41)
[2018-11-22] MEDS: LACTOBACILLUS ACIDOPHILUS CAP (BACID) PO SCH ×3 (08:58→17:09)
[2018-11-22] MEDS: MAGNESIUM OXIDE 400 MG TAB (MAG-OX) PO SCH ×2 (08:58→20:40)
[2018-11-22] MEDS: VITAMIN D 1,000 INTERNATIONAL UNITS TABLET PO SCH (08:58)
[2018-11-22] MEDS: HEPARIN SOD (PORCINE) 5000 UNITS/ML VIAL SC SCH ×2 (08:59→20:41)
[2018-11-22] MEDS: ESCITALOPRAM OXALATE 10 MG TAB (LEXAPRO) PO SCH (08:59)
[2018-11-22] MEDS: SODIUM BICARBONATE 325 MG TAB PO SCH ×2 (08:59→20:40)
[2018-11-22] MEDS ORDERED: LOMOTIL 2.5MG/0.025MG TABLET PO SCH ×2 (09:00→11:45)
[2018-11-22] MEDS: CHOLESTYRAMINE 4 GM PWD PKT PO SCH ×3 (11:02→23:22)
--- NOTE | 2018-11-22 11:06 | IPNPDOC ---
Text Note Date of Service The patient was seen on 11/22/18. NOTE Subjective: Patient continues to have high stool output via ostomy, watery like, greenish color. Patient denies nausea, vomiting, fever, chills, shortness of breath, dysuria Objective: NAD Vitals (See below) General: Lying in bed, no acute distress, AOx3 HEENT: PERRLA, EOMI CVS: RRR, no mrg Lungs: CTAB, no crackles or wheezing Abdomen: Normoactive bowel sounds, mildly distended, non-tender, ostomy with watery greenish stool Extremities: No cyanosis, no edema Assessment and plan: Patient is 73 years old female with past medical history of ulcerative colitis, status post bilateral resection with ileostomy presents to the hospital with acute kidney injury, high ostomy output and anemia. Acute renal failure - likely 2/2 dehydration, patient has left partial nephrec conner - 2/2 increased fluid losses from ostomy. - Baseline Cr of 1.2-1.5 - Creatinine on admission of 11.1; much improved now stable at 2 - continue sodium bicarb 650 BID Diarrhea: with high output from ostomy - Has history of Ulcerative colitis - Improved output but still significant - C. diff PCR negative - CT abdomen / pelvis 11/10: noted interim sigmoid colon resection and diverting ileostomy without acute pathology - s/p Metronidazole and Ciprofloxacin - Loperamide was increased from 1g BID to 2g QID / FiberCon / Cholestyramine - I added Lomotil to her medical regimen - GI panel - s/p octreotide Renal Cell CA - s/p L sided renal cell CA; s/p Left partial nephrectomy s/p Leukopenia - No evidence of infection - Remains hemodynamically stable and afebrile Normocytic anemia - s/p 2 unit PRBC transfusion on 11/08/18, 11/14/18 - Hemoglobin has improved with transfusion and is stable at this time s/p Hyponatremia - Resolved UTI - UA consistent with urinary tract infection; repeat urine culture on 11/09, does not appear to reveal any bacteria - s/p Ciprofloxacin 5 day course Severe Protein Malnutrition - Poor oral intake - Dietary consulted for output from ostomy DVT prophylaxis - c/w Heparin Disposition: - per clinical improvement VS,Fishbone, I+O VS, Fishbone, I+O Laboratory Tests 11/22/18 05:53 Red Blood Count 3.68 L, Mean Corpuscular Volume 94.6, Mean Corpuscular Hemoglobin 29.6, Mean Corpuscular Hemoglobin Concent 31.3 L, Red Cell Distribution Width 14.8 H, Calcium Level 8.8 Vital Signs Date Time Temp Pulse Resp B/P (MAP) Pulse Ox O2 Delivery O2 Flow Rate FiO2 11/22/18 06:00 99.4 85 16 110/70 (83) 95 I&O- Last 24 Hours up to 6 AM 11/22/18 05:59 Intake Total 918 ml Output Total 3150 ml Balance -2232 ml MARC MCCANN DO Nov 22, 2018 11:06
[2018-11-22 14:00] VITALS: BP 110/71
[2018-11-22] MEDS: LOMOTIL 2.5MG/0.025MG TABLET PO SCH ×2 (16:10→20:41)
[2018-11-22 22:00] VITALS: BP 106/69
[2018-11-23] MEDS: LOPERAMIDE 2 MG CAPLET PO SCH ×6 (01:56→20:26)
[2018-11-23 06:00] VITALS: BP 93/58
[2018-11-23 06:35] LABS: HEMATOCRIT 34.9 % (36.0-47.0); HEMOGLOBIN 10.9 g/dl (12.0-15.5); MEAN CORPUSCULAR HEMOGLOBIN 29.5 pg (27.0-33.0); MEAN CORPUSCULAR HGB CONC 31.2 g/dl (32.0-36.5); MEAN CORPUSCULAR VOLUME 94.3 fl (80.0-96.0); PLATELET COUNT, AUTOMATED 386 10^3/uL (150-450); WHITE BLOOD COUNT 8.8 10^3/uL (4.0-10.0)
[2018-11-23 07:03] LABS: CALCIUM LEVEL 8.8 MG/DL (8.8-10.2); CREATININE FOR GFR 2.28 MG/DL (0.55-1.30); GLOMERULAR FILTRATION RATE 22.2 (>39); MAGNESIUM LEVEL 2.1 MG/DL (1.8-2.4); POTASSIUM SERUM 5.1 MEQ/L (3.5-5.1)
[2018-11-23] MEDS: VITAMIN D 1,000 INTERNATIONAL UNITS TABLET PO SCH (10:38)
[2018-11-23] MEDS: SODIUM BICARBONATE 325 MG TAB PO SCH ×2 (10:38→20:25)
[2018-11-23] MEDS: LACTOBACILLUS ACIDOPHILUS CAP (BACID) PO SCH ×3 (10:38→17:44)
[2018-11-23] MEDS: CALCIUM/VITAMIN D 500 MG TAB PO SCH ×2 (10:39→20:26)
[2018-11-23] MEDS: FIBER-CON 625 MG TAB PO SCH ×4 (10:39→20:26)
[2018-11-23] MEDS: ESCITALOPRAM OXALATE 10 MG TAB (LEXAPRO) PO SCH (10:40)
[2018-11-23] MEDS: MAGNESIUM OXIDE 400 MG TAB (MAG-OX) PO SCH ×2 (10:41→20:26)
[2018-11-23] MEDS: HEPARIN SOD (PORCINE) 5000 UNITS/ML VIAL SC SCH ×2 (10:41→20:26)
[2018-11-23] MEDS: LOMOTIL 2.5MG/0.025MG TABLET PO SCH ×3 (10:48→20:25)
[2018-11-23] MEDS: CHOLESTYRAMINE 4 GM PWD PKT PO SCH ×3 (12:09→21:05)
[2018-11-23] MEDS: NS 1,000 ML IV SCH ×2 (12:32→16:21)
[2018-11-23 14:00] VITALS: BP 122/60
--- NOTE | 2018-11-23 14:11 | REP ---
AP pelvis: There are multiple metallic clips in the midline of the pelvis inferiorly. There is demineralization. There is no fracture. The sacroiliac and hip articulations are unremarkable. Impression: Multiple metallic clips in the midline of the pelvis inferiorly. Electronically Signed by Erik Thornton MD 11/23/2018 02:02 P
--- NOTE | 2018-11-23 14:54 | IPNPDOC ---
Text Note Date of Service The patient was seen on 11/23/18. NOTE Subjective: Patient continues to have high stool output via ostomy. Yesterday patient developed large bowel movement per rectum with blood clots. Patient denies nausea, vomiting, fever, chills, shortness of breath, dysuria Objective: NAD Vitals (See below) General: Lying in bed, no acute distress, AOx3 HEENT: PERRLA, EOMI CVS: RRR, no mrg Lungs: CTAB, no crackles or wheezing Abdomen: Normoactive bowel sounds, mildly distended, non-tender, ostomy with watery greenish stool Extremities: No cyanosis, no edema AP pelvis: There are multiple metallic clips in the midline of the pelvis inferiorly. There is demineralization. There is no fracture. The sacroiliac and hip articulations are unremarkable. Impression: Multiple metallic clips in the midline of the pelvis inferiorly. Assessment and plan: Patient is 73 years old female with past medical history of ulcerative colitis, status post bilateral resection with ileostomy presents to the hospital with acute kidney injury, high ostomy output and anemia. Acute renal failure - likely 2/2 dehydration, patient has left partial nephrectomy - 2/2 increased fluid losses from ostomy. - Baseline Cr of 1.2-1.5 - Creatinine on admission of 11.1; much improved now stable at 2.2 - continue sodium bicarb 650 BID Diarrhea: with high output from ostomy - Has history of ulcerative colitis - Improved output but still significant - C. diff PCR negative - CT abdomen / pelvis 11/10: noted interim sigmoid colon resection and diverting ileostomy without acute pathology - s/p Metronidazole and Ciprofloxacin - Loperamide was increased from 1g BID to 2g QID / FiberCon / Cholestyramine - I added Lomotil to her medical regimen - GI panel negative - s/p octreotide - Dr Haynes planned a reconnection bowel surgery Renal Cell CA - s/p L sided renal cell CA; s/p Left partial nephrectomy s/p Leukopenia - No evidence of infection - Remains hemodynamically stable and afebrile Normocytic anemia - s/p 2 unit PRBC transfusion on 11/08/18, 11/14/18 - Hemoglobin has improved with transfusion and is stable at this time s/p Hyponatremia - Resolved UTI - Resolved - UA consistent with urinary tract infection; repeat urine culture on 11/09, does not appear to reveal any bacteria - s/p Ciprofloxacin 5 day course Severe Protein Malnutrition - Poor oral intake - Dietary consulted for output from ostomy -Ensure DVT prophylaxis - c/w Heparin Disposition: - per clinical improvement VS,Ethel, I+O VS, [place], I+O Laboratory Tests 11/23/18 06:10 Red Blood Count 3.70 L, Mean Corpuscular Volume 94.3, Mean Corpuscular Hemoglobin 29.5, Mean Corpuscular Hemoglobin Concent 31.2 L, Red Cell Distribution Width 15.0 H, Calcium Level 8.8 Vital Signs Date Time Temp Pulse Resp B/P (MAP) Pulse Ox O2 Delivery O2 Flow Rate FiO2 11/23/18 06:00 98.1 84 17 93/58 (61) 94 I&O- Last 24 Hours up to 6 AM 11/23/18 06:00 Intake Total 480 ml Output Total 1800 ml Balance -1320 ml MARC MCCANN DO Nov 23, 2018 14:54
[2018-11-23 22:00] VITALS: BP 124/69
[2018-11-24] MEDS: LOPERAMIDE 2 MG CAPLET PO SCH ×6 (02:17→20:29)
[2018-11-24] MEDS: NS 1,000 ML IV SCH ×3 (02:20→15:26)
[2018-11-24 06:00] VITALS: BP 100/64
[2018-11-24 06:50] LABS: HEMATOCRIT 32.2 % (36.0-47.0); MEAN CORPUSCULAR HEMOGLOBIN 29.4 pg (27.0-33.0); MEAN CORPUSCULAR HGB CONC 31.1 g/dl (32.0-36.5); MEAN CORPUSCULAR VOLUME 94.7 fl (80.0-96.0); PLATELET COUNT, AUTOMATED 373 10^3/uL (150-450); WHITE BLOOD COUNT 8.6 10^3/uL (4.0-10.0)
[2018-11-24 07:15] LABS: CALCIUM LEVEL 8.4 MG/DL (8.8-10.2); CREATININE FOR GFR 2.23 MG/DL (0.55-1.30); GLOMERULAR FILTRATION RATE 22.8 (>39)
[2018-11-24] MEDS: CALCIUM/VITAMIN D 500 MG TAB PO SCH ×2 (09:02→20:29)
[2018-11-24] MEDS: VITAMIN D 1,000 INTERNATIONAL UNITS TABLET PO SCH (09:02)
[2018-11-24] MEDS: HEPARIN SOD (PORCINE) 5000 UNITS/ML VIAL SC SCH ×2 (09:02→20:29)
[2018-11-24] MEDS: MAGNESIUM OXIDE 400 MG TAB (MAG-OX) PO SCH ×2 (09:03→20:29)
[2018-11-24] MEDS: LOMOTIL 2.5MG/0.025MG TABLET PO SCH ×3 (09:03→20:32)
[2018-11-24] MEDS: SODIUM BICARBONATE 325 MG TAB PO SCH ×2 (09:04→20:29)
[2018-11-24] MEDS: FIBER-CON 625 MG TAB PO SCH ×4 (09:04→20:28)
[2018-11-24] MEDS: ESCITALOPRAM OXALATE 10 MG TAB (LEXAPRO) PO SCH (09:04)
[2018-11-24] MEDS: CHOLESTYRAMINE 4 GM PWD PKT PO SCH ×3 (10:49→21:42)
--- NOTE | 2018-11-24 13:13 | IPNPDOC ---
Text Note Date of Service The patient was seen on 11/24/18. NOTE Subjective: Patient continues to have high stool output via ostomy. Ostomy bag full with greenish liquid. Patient denies nausea, vomiting, fever, chills, shortness of breath, dysuria Objective: NAD Vitals (See below) General: Lying in bed, no acute distress, AOx3 HEENT: PERRLA, EOMI CVS: RRR, no mrg Lungs: CTAB, no crackles or wheezing Abdomen: Normoactive bowel sounds, mildly distended, non-tender, ostomy with watery greenish stool Extremities: No cyanosis, no edema Assessment and plan: Patient is 73 years old female with past medical history of ulcerative colitis, status post bilateral resection with ileostomy presents to the hospital with acute kidney injury, high ostomy output and anemia. Acute renal failure - likely 2/2 dehydration, patient has left partial nephrectomy - 2/2 increased fluid losses from ostomy. - Baseline Cr of 1.2-1.5 - Creatinine on admission of 11.1; much improved now stable - continue sodium bicarb 650 BID Diarrhea: with high output from ostomy - Has history of ulcerative colitis - Improved output but still significant - C. diff PCR negative - CT abdomen / pelvis 11/10: noted interim sigmoid colon resection and diverting ileostomy without acute pathology - s/p Metronidazole and Ciprofloxacin - Loperamide was increased from 1g BID to 2g QID / FiberCon / Cholestyramine - I added Lomotil to her medical regimen - GI panel negative - s/p octreotide - Dr Haynes planned a reconnection bowel surgery Renal Cell CA - s/p L sided renal cell CA; s/p Left partial nephrectomy s/p Leukopenia - No evidence of infection - Remains hemodynamically stable and afebrile Normocytic anemia - s/p 2 unit PRBC transfusion on 11/08/18, 11/14/18 - Hemoglobin has improved with transfusion and is stable at this time s/p Hyponatremia - Resolved UTI - Resolved - UA consistent with urinary tract infection; repeat urine culture on 11/09, does not appear to reveal any bacteria - s/p Ciprofloxacin 5 day course Severe Protein Malnutrition - Poor oral intake - Dietary consulted for output from ostomy -Ensure DVT prophylaxis - c/w Heparin Disposition: - per clinical improvement VS,Fishbone, I+O VS, Fishbone, I+O Laboratory Tests 11/24/18 05:51 Red Blood Count 3.40 L, Mean Corpuscular Volume 94.7, Mean Corpuscular Hemoglobin 29.4, Mean Corpuscular Hemoglobin Concent 31.1 L, Red Cell Distribution Width 14.9 H, Calcium Level 8.4 L Vital Signs Date Time Temp Pulse Resp B/P (MAP) Pulse Ox O2 Delivery O2 Flow Rate FiO2 11/24/18 06:00 98.9 86 16 100/64 (67) 93 I&O- Last 24 Hours up to 6 AM 11/24/18 05:59 Intake Total 2480 ml Output Total 2860 ml Balance -380 ml MARC MCCANN DO Nov 24, 2018 13:13
[2018-11-24 14:00] VITALS: BP 135/72
[2018-11-24 22:00] VITALS: BP 129/68
[2018-11-25] MEDS: NS 1,000 ML IV SCH ×3 (00:28→22:24)
[2018-11-25] MEDS: LOPERAMIDE 2 MG CAPLET PO SCH ×6 (00:28→22:23)
[2018-11-25] MEDS: ACETAMINOPHEN TAB 650MG DOSE (2X325MG) PO PRN (00:28)
[2018-11-25 06:00] VITALS: BP 147/70
[2018-11-25 06:04] LABS: HEMATOCRIT 32.1 % (36.0-47.0); HEMOGLOBIN 9.9 g/dl (12.0-15.5); MEAN CORPUSCULAR HEMOGLOBIN 29.5 pg (27.0-33.0); MEAN CORPUSCULAR HGB CONC 30.8 g/dl (32.0-36.5); MEAN CORPUSCULAR VOLUME 95.5 fl (80.0-96.0); PLATELET COUNT, AUTOMATED 314 10^3/uL (150-450); RED BLOOD COUNT 3.36 10^6/uL (4.00-5.40); WHITE BLOOD COUNT 8.1 10^3/uL (4.0-10.0)
[2018-11-25 06:33] LABS: CALCIUM LEVEL 8.5 MG/DL (8.8-10.2); CREATININE FOR GFR 1.93 MG/DL (0.55-1.30); GLOMERULAR FILTRATION RATE 26.9 (>39); MAGNESIUM LEVEL 1.9 MG/DL (1.8-2.4); POTASSIUM SERUM 4.7 MEQ/L (3.5-5.1)
--- NOTE | 2018-11-25 07:52 | IPN ---
DATE: 11/24/2018 The patient is approaching 7 weeks postop from a laparoscopic sigmoid colectomy for a stricture associated with underlying ulcerative colitis. Some technical problems were encountered during her surgery wherein she suffered a laceration of the rectal mucosa and underlying muscularis which was closed with some surgical clips. A hand-sewn anastomosis was performed and a diverting ileostomy was created. The patient was doing well in general, but developed significant dehydration with acute renal failure and was actually admitted to the hospital on November 04 just under month after her surgery. She has remained hospitalized now for nearly 3 weeks receiving IV fluid. When I saw her 2 days ago he was looking pretty good. She continues with a fairly high output from her ileostomy. A KUB was done yesterday which showed multiple clips still in place in the rectum. VITAL SIGNS: Show that she has been afebrile over the past 24 hours. Her pulse is in the 80s and 90s. Blood pressure is normal with a normal room air pulse oximetry. INTAKE AND OUTPUT: Shows that yesterday she had 1280 mL recorded in with 2600 recorded out. Intake and output record would suggest that she is negative 8556-1142 mL of everyday and clearly this record cannot be correct. PHYSICAL EXAMINATION: The patient is sitting up in a chair eating pancakes syrup. She is alert and oriented. She appears comfortable. Abdomen is soft and without significant tenderness. She has an ileostomy in the right side of the abdomen with some fluid in the bag. Laboratory studies today show white count of 90, hemoglobin and hematocrit 32 and platelet count of 373,000. Her chemistry profile shows normal electrolytes with BUN of 15, creatinine 2.2 which is stable and a glucose of 85. IMPRESSION: The patient appears to be quite stable on her IV hydration and the hospital monitoring. She still has multiple clips present in the rectum at the site of her clipped closure of the rectal laceration. ' PLAN: I have spoken with the patient about proceeding with a flexible sigmoidoscopic exam to assess her rectal laceration and her colorectal anastomosis. If these areas appear to be well-healed or healing then we may be able to consider a closure of her ileostomy which would likely be the most effective means of controlling her high ileostomy output. She will likely require a barium enema or a CT scan of the rectum with rectal contrast to further ensure that her rectal injury is healed prior to proceeding with the closure. I would anticipate the flexible sigmoidoscopic exam will occur on November 26. MTDD
[2018-11-25] MEDS: FIBER-CON 625 MG TAB PO SCH ×4 (08:39→22:23)
[2018-11-25] MEDS: ESCITALOPRAM OXALATE 10 MG TAB (LEXAPRO) PO SCH (08:39)
[2018-11-25] MEDS: SODIUM BICARBONATE 325 MG TAB PO SCH ×2 (08:40→22:23)
[2018-11-25] MEDS: CALCIUM/VITAMIN D 500 MG TAB PO SCH ×2 (08:40→22:22)
[2018-11-25] MEDS: VITAMIN D 1,000 INTERNATIONAL UNITS TABLET PO SCH (08:40)
[2018-11-25] MEDS: MAGNESIUM OXIDE 400 MG TAB (MAG-OX) PO SCH ×2 (08:40→22:22)
[2018-11-25] MEDS: HEPARIN SOD (PORCINE) 5000 UNITS/ML VIAL SC SCH ×2 (08:41→22:22)
[2018-11-25] MEDS: CHOLESTYRAMINE 4 GM PWD PKT PO SCH ×3 (08:44→22:21)
[2018-11-25] MEDS: LOMOTIL 2.5MG/0.025MG TABLET PO SCH ×3 (09:05→22:22)
[2018-11-25 14:00] VITALS: BP 124/73
--- NOTE | 2018-11-25 14:17 | IPNPDOC ---
Text Note Date of Service The patient was seen on 11/25/18. NOTE Subjective: No any acute events overnight. Ostomy bag full with greenish liquid. Patient denies nausea, vomiting, fever, chills, shortness of breath, dysuria Objective: NAD Vitals (See below) General: Lying in bed, no acute distress, AOx3 HEENT: PERRLA, EOMI CVS: RRR, no mrg Lungs: CTAB, no crackles or wheezing Abdomen: Normoactive bowel sounds, mildly distended, non-tender, ostomy with watery greenish stool Extremities: No cyanosis, no edema Assessment and plan: Patient is 73 years old female with past medical history of ulcerative colitis, status post bilateral resection with ileostomy presents to the hospital with acute kidney injury, high ostomy output and anemia. Acute renal failure - likely 2/2 dehydration, patient has left partial nephrectomy - 2/2 increased fluid losses from ostomy. - Baseline Cr of 1.2-1.5 - Creatinine on admission of 11.1; much improved now stable - continue sodium bicarb 650 BID Diarrhea: with high output from ostomy - Has history of ulcerative colitis - Improved output but still significant - C. diff PCR negative - CT abdomen / pelvis 11/10: noted interim sigmoid colon resection and diverting ileostomy without acute pathology - s/p Metronidazole and Ciprofloxacin - Loperamide was increased from 1g BID to 2g QID / FiberCon / Cholestyramine - I added Lomotil to her medical regimen - GI panel negative - s/p octreotide - Dr Haynes planned a flexible sigmoidoscopic exam to assess her rectal laceration and her colorectal anastomosis on 11/26/18, . If these areas appeared to be well-healed or healing then the surgical team may be able to consider a closure of her ileostomy. Renal Cell CA - s/p L sided renal cell CA; s/p Left partial nephrectomy s/p Leukopenia - No evidence of infection - Remains hemodynamically stable and afebrile Normocytic anemia - s/p 2 unit PRBC transfusion on 11/08/18, 11/14/18 - Hemoglobin has improved with transfusion and is stable at this time s/p Hyponatremia - Resolved UTI - Resolved - UA consistent with urinary tract infection; repeat urine culture on 11/09, does not appear to reveal any bacteria - s/p Ciprofloxacin 5 day course Severe Protein Malnutrition - Poor oral intake - Dietary consulted for output from ostomy -Ensure DVT prophylaxis - c/w Heparin VS,Fishbone, I+O VS, Fishbone, I+O Laboratory Tests 11/25/18 05:45 Red Blood Count 3.36 L, Mean Corpuscular Volume 95.5, Mean Corpuscular Hemoglobin 29.5, Mean Corpuscular Hemoglobin Concent 30.8 L, Red Cell Distribution Width 14.8 H, Calcium Level 8.5 L Vital Signs Date Time Temp Pulse Resp B/P (MAP) Pulse Ox O2 Delivery O2 Flow Rate FiO2 11/25/18 06:00 98.9 88 18 147/70 (95) 95 I&O- Last 24 Hours up to 6 AM 11/25/18 06:00 Intake Total 3586 ml Output Total 2550 ml Balance 1036 ml MARC MCCANN DO Nov 25, 2018 14:17
[2018-11-25] MEDS: FLEET ENEMA PR SCH ×2 (14:31→22:24)
[2018-11-25 20:00] VITALS: BP 128/72
[2018-11-26] MEDS: LOPERAMIDE 2 MG CAPLET PO SCH ×6 (01:19→21:41)
[2018-11-26 06:00] VITALS: BP 130/78
[2018-11-26 06:05] LABS: HEMATOCRIT 31.7 % (36.0-47.0); HEMOGLOBIN 9.9 g/dl (12.0-15.5); MEAN CORPUSCULAR HEMOGLOBIN 30.1 pg (27.0-33.0); MEAN CORPUSCULAR HGB CONC 31.2 g/dl (32.0-36.5); MEAN CORPUSCULAR VOLUME 96.4 fl (80.0-96.0); PLATELET COUNT, AUTOMATED 312 10^3/uL (150-450); RED BLOOD COUNT 3.29 10^6/uL (4.00-5.40); WHITE BLOOD COUNT 8.1 10^3/uL (4.0-10.0)
[2018-11-26 06:30] LABS: CALCIUM LEVEL 8.1 MG/DL (8.8-10.2); CREATININE FOR GFR 1.63 MG/DL (0.55-1.30); GLOMERULAR FILTRATION RATE 32.7 (>39); MAGNESIUM LEVEL 1.7 MG/DL (1.8-2.4); POTASSIUM SERUM 4.5 MEQ/L (3.5-5.1)
[2018-11-26] MEDS ORDERED: PROPOFOL 200 MG/20 ML VIAL As Ordered ONE (07:11)
[2018-11-26] MEDS ORDERED: LIDOCAINE 2% INJ 100 MG/5 ML SDV (FOR ANES.) As Ordered ONE (07:11)
[2018-11-26] MEDS: NS 1,000 ML IV SCH ×2 (08:03→17:07)
--- NOTE | 2018-11-26 08:15 | ROOR ---
Patient Name: Ruthy Gonzalez Procedure Date: 11/26/2018 7:34 AM Date of : 1945 Age: 73 Room: OP02 Gender: Female Note Status: Finalized Procedure: Colonoscopy Indications: Follow-up endoscopy after surgery, Patient had rectal laceration at surgery 7 weeks ago treated with endoscopic clips. Now for reevaluation of rectal tear and hand sewn anastomosis. Providers: Bassem Stock MD Referring MD: FRANKY HAYES JR, MD Requesting Provider: Medicines: Monitored Anesthesia Care Complications: No immediate complications. Procedure: Pre-Anesthesia Assessment: - Prior to the procedure, a History and Physical was performed, and patient medications and allergies were reviewed. The patient is competent. The risks and benefits of the procedure and the sedation options and risks were discussed with the patient. All questions were answered and informed consent was obtained. Patient identification and proposed procedure were verified by the physician, the nurse and the anesthesiologist in the procedure room. Mental Status Examination: alert and oriented. Airway Examination: normal oropharyngeal airway and neck mobility. CV Examination: regular rate and rhythm. Prophylactic Antibiotics: The patient does not require prophylactic antibiotics. Prior Anticoagulants: The patient has taken no previous anticoagulant or antiplatelet agents. ASA Grade Assessment: II - A patient with mild systemic disease. After reviewing the risks and benefits, the patient was deemed in satisfactory condition to undergo the procedure. The anesthesia plan was to use monitored anesthesia care (MAC). Immediately prior to administration of medications, the patient was re-assessed for adequacy to receive sedatives. The heart rate, respiratory rate, oxygen saturations, blood pressure, adequacy of pulmonary ventilation, and response to care were monitored throughout the procedure. The physical status of the patient was re-assessed after the procedure. The Colonoscope [id number] #[id number] was introduced through the anus and advanced to the descending colon for evaluation. This was the intended extent. The colonoscopy was performed without difficulty. The patient tolerated the procedure well. The quality of the bowel preparation was adequate. Findings: The digital rectal exam findings include palpable endoscopic clips at tip of finger. Some blood was noted on the examining finger. A diffuse area of severely congested, erythematous, eroded, friable (with spontaneous bleeding), granular and inflamed mucosa was found in the rectum, in the recto-sigmoid colon and in the sigmoid colon. Biopsies were taken with a cold forceps for histology. There was evidence of a prior end-to-end colo-rectal anastomosis at 16 cm proximal to the anus. This was patent and was characterized by erosion, friable mucosa, a hemorrhagic appearance and inflammation. The anastomosis was traversed. There was evidence of a prior repair of the rectum with multiple endoscopic clips noted in the rectal wall. Impression: - Palpable endoscopic clips at tip of finger. found on digital rectal exam. - Congested, erythematous, eroded, friable (with spontaneous bleeding), granular and inflamed mucosa in the rectum, in the recto-sigmoid colon and in the sigmoid colon. Biopsied. - Patent end-to-end colo-rectal anastomosis, characterized by erosion, friable mucosa, a hemorrhagic appearance and inflammation. - Repair of the rectum with multiple endoscopic clips noted in the rectal wall. anastomosis. Recommendation: - [facility] patient to [facility] for [facility] care. Bassem Stock MD Bassem Stock MD 11/26/2018 8:15:10 AM Electronically signed by Bassem Stock MD Number of Addenda: 0 Note Initiated On: 11/26/2018 7:34 AM Estimated Blood Loss: Estimated blood loss was minimal.
[2018-11-26 08:39] VITALS: BP 159/105
[2018-11-26 09:00] VITALS: BP 160/86
[2018-11-26] MEDS: LOMOTIL 2.5MG/0.025MG TABLET PO SCH ×3 (09:00→21:42)
[2018-11-26 10:00] VITALS: BP 146/80
[2018-11-26] MEDS: HEPARIN SOD (PORCINE) 5000 UNITS/ML VIAL SC SCH ×2 (10:25→21:40)
[2018-11-26] MEDS: VITAMIN D 1,000 INTERNATIONAL UNITS TABLET PO SCH (10:25)
[2018-11-26] MEDS: SODIUM BICARBONATE 325 MG TAB PO SCH ×2 (10:25→21:41)
[2018-11-26] MEDS: FIBER-CON 625 MG TAB PO SCH ×4 (10:26→21:41)
[2018-11-26] MEDS: MAGNESIUM OXIDE 400 MG TAB (MAG-OX) PO SCH ×2 (10:26→21:41)
[2018-11-26] MEDS: CALCIUM/VITAMIN D 500 MG TAB PO SCH ×2 (10:27→21:41)
[2018-11-26] MEDS: ESCITALOPRAM OXALATE 10 MG TAB (LEXAPRO) PO SCH (10:27)
--- NOTE | 2018-11-26 11:30 | IPN ---
DATE: 11/25/2018 HISTORY: The patient had undergone a sigmoid colectomy for a stricture in the face of longstanding ulcerative colitis about 6-7 weeks ago. She required a diverting ileostomy because of some problems with her rectal anastomosis. She was admitted 3 weeks ago with dehydration from ileostomy output. I had counseled her previously that the best approach might be to close her ileostomy if her rectal injury has healed. Vital signs show that she has been afebrile. Her pulse has been in the 80s and low 90s. Blood pressure is good. Intake and output show that yesterday she had 3500 recorded in with 2500 recorded out. PHYSICAL EXAMINATION: The patient appears quite comfortable today. She is alert and oriented. Abdomen is soft and without significant tenderness. Her low midline incision is well-healed. Her ileostomy appears healthy. Laboratory studies show a white count of 8, hemoglobin 10, hematocrit 32 and platelet count 314,000. Chemistry profile shows normal electrolytes with a BUN of 14, creatinine 1.9 and glucose of 91. IMPRESSION: The patient seems to be doing well currently, but is requiring IV hydration to prevent problems from continued relatively high output from her ileostomy. PLAN: The patient was counseled for a flex sig/colonoscopy tomorrow. Primarily I wish to reassess her rectal injury to see if that is healed and also look at her anastomosis. Because we were not able to see above her stricture in the sigmoid at her most recent colonoscopy, I will try to see as much of her colon as is possible. The patient was counseled and desires to proceed with the procedure tomorrow. SEEMA
[2018-11-26] MEDS: CHOLESTYRAMINE 4 GM PWD PKT PO SCH ×3 (11:58→21:42)
[2018-11-26 14:00] VITALS: BP 112/74
--- NOTE | 2018-11-26 15:46 | IPNPDOC ---
Text Note Date of Service The patient was seen on 11/26/18. NOTE Subjective: Patient did have colonoscopy in the morning, she complains of nausea and one time vomiting after colonoscopy. Objective: NAD Vitals (See below) General: Lying in bed, no acute distress, AOx3 HEENT: PERRLA, EOMI CVS: RRR, no mrg Lungs: CTAB, no crackles or wheezing Abdomen: Normoactive bowel sounds, mildly distended, non-tender, ostomy with watery greenish stool Extremities: No cyanosis, no edema Assessment and plan: Patient is 73 years old female with past medical history of ulcerative colitis, status post bilateral resection with ileostomy presents to the hospital with acute kidney injury, high ostomy output and anemia. Acute renal failure - likely 2/2 dehydration, patient has left partial nephrectomy - 2/2 increased fluid losses from ostomy. - Baseline Cr of 1.2-1.5 - Creatinine on admission of 11.1; much improved now stable - continue sodium bicarb 650 BID Diarrhea: with high output from ostomy - Has history of ulcerative colitis - Improved output but still significant - C. diff PCR negative - CT abdomen / pelvis 11/10: noted interim sigmoid colon resection and diverting ileostomy without acute pathology - s/p Metronidazole and Ciprofloxacin - Loperamide was increased from 1g BID to 2g QID / FiberCon / Cholestyramine - I added Lomotil to her medical regimen - GI panel negative - s/p octreotide - Dr Haynes did colonoscopy on 11/26/18: patent end-to-end colo-rectal anastomosis, characterized by erosion, friable mucosa, a hemorrhagic appearance and inflammation Renal Cell CA - s/p L sided renal cell CA; s/p Left partial nephrectomy s/p Leukopenia - No evidence of infection - Remains hemodynamically stable and afebrile Normocytic anemia - s/p 2 unit PRBC transfusion on 11/08/18, 11/14/18 - Hemoglobin has improved with transfusion and is stable at this time s/p Hyponatremia - Resolved UTI - Resolved - UA consistent with urinary tract infection; repeat urine culture on 11/09, does not appear to reveal any bacteria - s/p Ciprofloxacin 5 day course Severe Protein Malnutrition - Poor oral intake - Dietary consulted for output from ostomy -Ensure DVT prophylaxis - c/w Heparin VS,Fishbone, I+O VS, Fishbone, I+O Laboratory Tests 11/26/18 05:44 Red Blood Count 3.29 L, Mean Corpuscular Volume 96.4 H, Mean Corpuscular Hemoglobin 30.1, Mean Corpuscular Hemoglobin Concent 31.2 L, Red Cell Distribution Width 14.8 H, Calcium Level 8.1 L Vital Signs Date Time Temp Pulse Resp B/P (MAP) Pulse Ox O2 Delivery O2 Flow Rate FiO2 11/26/18 14:00 98.8 92 18 112/74 (87) 96 I&O- Last 24 Hours up to 6 AM 11/26/18 06:00 Intake Total 1320 ml Output Total 1925 ml Balance -605 ml MARC MCCANN DO Nov 26, 2018 15:45
[2018-11-26] MEDS: MESALAMINE 250 MG CR CAP PO SCH ×2 (16:24→21:41)
--- NOTE | 2018-11-26 17:32 | IPN ---
DATE: 11/26/2018 HISTORY: Patient is now seven weeks postoperative from her prior sigmoid colectomy with hand-sewn anastomosis and clipped closure of a rectal laceration with diverting ileostomy. She has been in the hospital now on the medicine service for three weeks, keeping her hydrated for relatively higher output ileostomy. I performed a flexible sigmoidoscopic exam today that shows that her rectal laceration appears to be well-healed. Her anastomosis is healed, though a little narrowed in this area by inflammation because she appears to have had a significant exacerbation of her underlying ulcerative colitis. She has diffuse marked inflammation with some small ulcerations, hemorrhage and inflammation diffusely. I spoke with Dr. Clancy this afternoon about how best to try to control her ulcerative colitis. He recommended starting her on some Solu-Medrol with 20 mg intravenous (IV) every 6 hours and also suggested we could consider Pentasa. I have ordered the Solu-Medrol and Pentasa, with the Pentasa starting at a relatively low dose. I spoke with the patient about this plan. Once she has been treated for several days, I would consider proceeding with a closure of her ileostomy. Long-term, the patient may well require some immunomodulator therapy for her ulcerative colitis. I did do some biopsies and they should have results within the next several days. I am thinking surgery might be able to take place next Friday or . SEEMA
[2018-11-26] MEDS: methylPREDNISolone INJ 40 MG/1 ML VIAL (J2920) IV SCH (17:59)
[2018-11-26 22:00] VITALS: BP 134/70
[2018-11-27] MEDS: LOPERAMIDE 2 MG CAPLET PO SCH ×6 (00:56→17:00)
[2018-11-27] MEDS: methylPREDNISolone INJ 40 MG/1 ML VIAL (J2920) IV SCH ×4 (00:56→17:42)
[2018-11-27] MEDS: NS 1,000 ML IV SCH ×3 (00:56→19:45)
[2018-11-27 06:00] VITALS: BP 123/72
[2018-11-27 06:17] LABS: HEMATOCRIT 28.7 % (36.0-47.0); MEAN CORPUSCULAR HEMOGLOBIN 29.5 pg (27.0-33.0); MEAN CORPUSCULAR HGB CONC 31.4 g/dl (32.0-36.5); MEAN CORPUSCULAR VOLUME 94.1 fl (80.0-96.0); PLATELET COUNT, AUTOMATED 280 10^3/uL (150-450); RED BLOOD COUNT 3.05 10^6/uL (4.00-5.40); WHITE BLOOD COUNT 6.3 10^3/uL (4.0-10.0)
[2018-11-27 06:35] LABS: CALCIUM LEVEL 8.5 MG/DL (8.8-10.2); CREATININE FOR GFR 1.61 MG/DL (0.55-1.30); GLOMERULAR FILTRATION RATE 33.2 (>39); MAGNESIUM LEVEL 1.8 MG/DL (1.8-2.4); POTASSIUM SERUM 5.3 MEQ/L (3.5-5.1)
[2018-11-27] MEDS: LOMOTIL 2.5MG/0.025MG TABLET PO SCH ×3 (08:10→21:05)
[2018-11-27] MEDS: FIBER-CON 625 MG TAB PO SCH ×4 (08:10→21:06)
[2018-11-27] MEDS: VITAMIN D 1,000 INTERNATIONAL UNITS TABLET PO SCH (08:11)
[2018-11-27] MEDS: HEPARIN SOD (PORCINE) 5000 UNITS/ML VIAL SC SCH ×2 (08:11→21:07)
[2018-11-27] MEDS: MAGNESIUM OXIDE 400 MG TAB (MAG-OX) PO SCH ×2 (08:11→21:06)
[2018-11-27] MEDS: SODIUM BICARBONATE 325 MG TAB PO SCH ×2 (08:11→21:06)
[2018-11-27] MEDS: ESCITALOPRAM OXALATE 10 MG TAB (LEXAPRO) PO SCH (08:11)
[2018-11-27] MEDS: CALCIUM/VITAMIN D 500 MG TAB PO SCH ×2 (08:12→21:06)
[2018-11-27] MEDS: MESALAMINE 250 MG CR CAP PO SCH ×3 (08:12→21:06)
[2018-11-27] MEDS: CHOLESTYRAMINE 4 GM PWD PKT PO SCH ×3 (10:02→22:19)
[2018-11-27 14:00] VITALS: BP 126/74
--- NOTE | 2018-11-27 14:12 | IPNPDOC ---
Text Note Date of Service The patient was seen on 11/27/18. NOTE Subjective: Patient is doing better today. She has a formed stool in ostomy bag. Patient denies fever, chills, nausea, vomiting, dysuria Objective: NAD Vitals (See below) General: Lying in bed, no acute distress, AOx3 HEENT: PERRLA, EOMI CVS: RRR, no mrg Lungs: CTAB, no crackles or wheezing Abdomen: Normoactive bowel sounds, mildly distended, non-tender, ostomy with watery greenish formed stool Extremities: No cyanosis, no edema Assessment and plan: Patient is 73 years old female with past medical history of ulcerative colitis, status post bilateral resection with ileostomy presents to the hospital with acute kidney injury, high ostomy output and anemia. Acute renal failure - likely 2/2 dehydration, patient has left partial nephrectomy - 2/2 increased fluid losses from ostomy. - Baseline Cr of 1.2-1.5 - Creatinine on admission of 11.1; much improved now stable Diarrhea: with high output from ostomy - Has history of ulcerative colitis - Improved output but still significant - C. diff PCR negative - CT abdomen / pelvis 11/10: noted interim sigmoid colon resection and diverting ileostomy without acute pathology - s/p Metronidazole and Ciprofloxacin - Loperamide was increased from 1g BID to 2g QID / FiberCon / Cholestyramine - I added Lomotil to her medical regimen - GI panel negative - s/p octreotide - Dr Haynes did colonoscopy on 11/26/18: patent end-to-end colo-rectal anastomosis, characterized by erosion, friable mucosa, a hemorrhagic appearance and inflammation. Dr Clancy recommended starting her on some Solu-Medrol with 20 mg intravenous (IV) every 6 hours and Pentasa. Plan per surgical team: Once she has been treated for several days, proceed with a closure of her ileostomy Renal Cell CA - s/p L sided renal cell CA; s/p Left partial nephrectomy s/p Leukopenia - No evidence of infection - Remains hemodynamically stable and afebrile Normocytic anemia - s/p 2 unit PRBC transfusion on 11/08/18, 11/14/18 - Hemoglobin has improved with transfusion and is stable at this time s/p Hyponatremia - Resolved UTI - Resolved - UA consistent with urinary tract infection; repeat urine culture on 11/09, does not appear to reveal any bacteria - s/p Ciprofloxacin 5 day course Severe Protein Malnutrition - Poor oral intake - Dietary consulted for output from ostomy -Ensure DVT prophylaxis - c/w Heparin VS,Fishbone, I+O VS, Fishbone, I+O Laboratory Tests 11/27/18 06:01 Red Blood Count 3.05 L, Mean Corpuscular Volume 94.1, Mean Corpuscular Hemoglobin 29.5, Mean Corpuscular Hemoglobin Concent 31.4 L, Red Cell Distribution Width 14.6 H, Calcium Level 8.5 L 11/27/18 07:47 11/27/18 11:36 Vital Signs Date Time Temp Pulse Resp B/P (MAP) Pulse Ox O2 Delivery O2 Flow Rate FiO2 11/27/18 06:00 98.2 70 16 123/72 (89) 96 I&O- Last 24 Hours up to 6 AM 11/27/18 06:00 Intake Total 2150 ml Output Total 2600 ml Balance -450 ml MARC MCCANN DO Nov 27, 2018 14:12
[2018-11-27] MEDS ORDERED: CALCIUM GLUCONATE 1,000 MG in D5W MINI-BAG PLUS 100 ML IV ONE (17:45)
[2018-11-27] MEDS ORDERED: ALBUTEROL SULFATE 2.5 MG/0.5 ML INH NEB SOLN NEB ONE (18:00)
[2018-11-27 18:27] LABS: CALCIUM LEVEL 8.1 MG/DL (8.8-10.2); CREATININE FOR GFR 1.76 MG/DL (0.55-1.30); POTASSIUM SERUM 4.8 MEQ/L (3.5-5.1)
[2018-11-27 21:55] LABS: CALCIUM LEVEL 8.4 MG/DL (8.8-10.2); CREATININE FOR GFR 1.78 MG/DL (0.55-1.30); GLOMERULAR FILTRATION RATE 29.6 (>39); POTASSIUM SERUM 4.4 MEQ/L (3.5-5.1)
[2018-11-27 22:00] VITALS: BP 129/75
[2018-11-28] MEDS: methylPREDNISolone INJ 40 MG/1 ML VIAL (J2920) IV SCH ×5 (00:03→23:53)
[2018-11-28 02:15] LABS: CALCIUM LEVEL 8.3 MG/DL (8.8-10.2); CREATININE FOR GFR 1.71 MG/DL (0.55-1.30); POTASSIUM SERUM 5.3 MEQ/L (3.5-5.1)
[2018-11-28] MEDS: NS 1,000 ML IV SCH ×3 (04:23→23:53)
[2018-11-28 06:00] VITALS: BP 137/79
[2018-11-28 06:07] LABS: HEMATOCRIT 25.9 % (36.0-47.0); HEMOGLOBIN 8.3 g/dl (12.0-15.5); MEAN CORPUSCULAR HEMOGLOBIN 30.4 pg (27.0-33.0); MEAN CORPUSCULAR VOLUME 94.9 fl (80.0-96.0); PLATELET COUNT, AUTOMATED 251 10^3/uL (150-450); RED BLOOD COUNT 2.73 10^6/uL (4.00-5.40); WHITE BLOOD COUNT 9.6 10^3/uL (4.0-10.0)
[2018-11-28 06:40] LABS: CALCIUM LEVEL 8.2 MG/DL (8.8-10.2); CREATININE FOR GFR 1.64 MG/DL (0.55-1.30); GLOMERULAR FILTRATION RATE 32.5 (>39); MAGNESIUM LEVEL 1.6 MG/DL (1.8-2.4)
[2018-11-28] MEDS ORDERED: HumuLIN R (REGULAR) INSULIN (NovoLIN R) **100U/ML** PER UNIT IV STA (08:37)
[2018-11-28] MEDS ORDERED: DEXTROSE 50% 50 ML SYRINGE IV STA (08:37)
[2018-11-28] MEDS ORDERED: CALCIUM GLUCONATE 1,000 MG in D5W MINI-BAG PLUS 100 ML IV ONE (08:45)
[2018-11-28] MEDS ORDERED: ALBUTEROL SULFATE 2.5 MG/0.5 ML INH NEB SOLN NEB ONE (08:45)
[2018-11-28] MEDS ORDERED: FLUBLOK(EGG FREE)(QUAD)INFLUENZA VACC 0.5ML SYRINGE (90682)18YRS&OLDER IM ONE (09:00)
[2018-11-28] MEDS: SODIUM BICARBONATE 325 MG TAB PO SCH ×2 (09:10→20:41)
[2018-11-28] MEDS: FIBER-CON 625 MG TAB PO SCH ×4 (09:10→20:41)
[2018-11-28] MEDS: MESALAMINE 250 MG CR CAP PO SCH ×3 (09:10→20:41)
[2018-11-28] MEDS: ESCITALOPRAM OXALATE 10 MG TAB (LEXAPRO) PO SCH (09:11)
[2018-11-28] MEDS: MAGNESIUM OXIDE 400 MG TAB (MAG-OX) PO SCH ×2 (09:11→20:41)
[2018-11-28] MEDS: VITAMIN D 1,000 INTERNATIONAL UNITS TABLET PO SCH (09:11)
[2018-11-28] MEDS: CALCIUM/VITAMIN D 500 MG TAB PO SCH ×2 (09:11→20:40)
[2018-11-28 09:45] LABS: CALCIUM LEVEL 8.5 MG/DL (8.8-10.2); CREATININE FOR GFR 1.63 MG/DL (0.55-1.30); GLOMERULAR FILTRATION RATE 32.7 (>39); POTASSIUM SERUM 5.4 MEQ/L (3.5-5.1)
[2018-11-28] MEDS ORDERED: SODIUM BICARBONATE 150 MEQ in D5W 1,000 ML IV ONE (10:00)
--- NOTE | 2018-11-28 10:08 | ECGEPIP ---
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
--- NOTE | 2018-11-28 10:09 | ECGEPIP ---
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
[2018-11-28] MEDS: LOMOTIL 2.5MG/0.025MG TABLET PO SCH ×3 (10:14→20:41)
[2018-11-28] MEDS: HEPARIN SOD (PORCINE) 5000 UNITS/ML VIAL SC SCH ×2 (10:15→20:42)
[2018-11-28] MEDS: CHOLESTYRAMINE 4 GM PWD PKT PO SCH ×3 (10:15→22:03)
[2018-11-28 13:34] LABS: CALCIUM LEVEL 8.4 MG/DL (8.8-10.2); CREATININE FOR GFR 1.75 MG/DL (0.55-1.30); GLOMERULAR FILTRATION RATE 30.2 (>39); POTASSIUM SERUM 4.1 MEQ/L (3.5-5.1)
[2018-11-28 14:00] VITALS: BP 142/80
--- NOTE | 2018-11-28 15:22 | IPNPDOC ---
Text Note Date of Service The patient was seen on 11/28/18. NOTE Subjective: In the morning BMP significant for hyperkalemia. She has a formed stool in ostomy bag. Patient denies fever, chills, nausea, vomiting, dysuria Objective: NAD Vitals (See below) General: Lying in bed, no acute distress, AOx3 HEENT: PERRLA, EOMI CVS: RRR, no mrg Lungs: CTAB, no crackles or wheezing Abdomen: Normoactive bowel sounds, mildly distended, non-tender, ostomy with watery greenish formed stool Extremities: No cyanosis, no edema Assessment and plan: Patient is 73 years old female with past medical history of ulcerative colitis, status post bilateral resection with ileostomy presents to the hospital with acute kidney injury, high ostomy output and anemia. Hyperkalemia D50, 10 units of insulin, albuterol, bicarbonate Potassium every 4 hours At 1 PM potassium improved to 4.1 Acute renal failure - likely 2/2 dehydration, patient has left partial nephrectomy - 2/2 increased fluid losses from ostomy. - Baseline Cr of 1.2-1.5 - Creatinine on admission of 11.1; much improved now stable Diarrhea: with high output from ostomy - Has history of ulcerative colitis - Improved output but still significant - C. diff PCR negative - CT abdomen / pelvis 11/10: noted interim sigmoid colon resection and diverting ileostomy without acute pathology - s/p Metronidazole and Ciprofloxacin - Loperamide was increased from 1g BID to 2g QID / FiberCon / Cholestyramine - I added Lomotil to her medical regimen - GI panel negative - s/p octreotide - Dr Haynes did colonoscopy on 11/26/18: patent end-to-end colo-rectal anastomosis, characterized by erosion, friable mucosa, a hemorrhagic appearance and inflammation. Dr Clancy recommended starting her on some Solu-Medrol with 20 mg intravenous (IV) every 6 hours and Pentasa. Plan per surgical team: Once she has been treated for several days, proceed with a closure of her ileostomy Renal Cell CA - s/p L sided renal cell CA; s/p Left partial nephrectomy s/p Leukopenia - No evidence of infection - Remains hemodynamically stable and afebrile Normocytic anemia - s/p 2 unit PRBC transfusion on 11/08/18, 11/14/18 - Hemoglobin has improved with transfusion and is stable at this time s/p Hyponatremia - Resolved UTI - Resolved - UA consistent with urinary tract infection; repeat urine culture on 11/09, does not appear to reveal any bacteria - s/p Ciprofloxacin 5 day course Severe Protein Malnutrition - Poor oral intake - Dietary consulted for output from ostomy -Ensure DVT prophylaxis - c/w Heparin VS,Fishbone, I+O VS, Fishbone, I+O Laboratory Tests 11/27/18 15:23 11/27/18 17:53 Calcium Level 8.1 L 11/27/18 19:40 11/27/18 21:26 Calcium Level 8.4 L 11/28/18 01:38 Calcium Level 8.3 L 11/28/18 05:50 Calcium Level 8.2 L, Red Blood Count 2.73 L, Mean Corpuscular Volume 94.9, Mean Corpuscular Hemoglobin 30.4, Mean Corpuscular Hemoglobin Concent 32.0, Red Cell Distribution Width 14.7 H 11/28/18 09:04 Calcium Level 8.5 L 11/28/18 12:56 Calcium Level 8.4 L Vital Signs Date Time Temp Pulse Resp B/P (MAP) Pulse Ox O2 Delivery O2 Flow Rate FiO2 11/28/18 14:00 97.8 72 18 142/80 (100) 96 I&O- Last 24 Hours up to 6 AM 11/28/18 06:00 Intake Total 2400 ml Output Total 3050 ml Balance -650 ml MARC MCCANN DO Nov 28, 2018 15:22
[2018-11-28 22:00] VITALS: BP 135/77
[2018-11-29] MEDS: methylPREDNISolone INJ 40 MG/1 ML VIAL (J2920) IV SCH ×3 (05:31→18:28)
[2018-11-29 05:50] LABS: HEMATOCRIT 26.8 % (36.0-47.0); HEMOGLOBIN 8.4 g/dl (12.0-15.5); MEAN CORPUSCULAR HEMOGLOBIN 29.6 pg (27.0-33.0); MEAN CORPUSCULAR HGB CONC 31.3 g/dl (32.0-36.5); MEAN CORPUSCULAR VOLUME 94.4 fl (80.0-96.0); PLATELET COUNT, AUTOMATED 255 10^3/uL (150-450); RED BLOOD COUNT 2.84 10^6/uL (4.00-5.40); WHITE BLOOD COUNT 8.4 10^3/uL (4.0-10.0)
[2018-11-29 06:00] VITALS: BP 142/79
[2018-11-29 06:08] LABS: CALCIUM LEVEL 8.6 MG/DL (8.8-10.2); CREATININE FOR GFR 1.6 MG/DL (0.55-1.30); GLOMERULAR FILTRATION RATE 33.5 (>39); MAGNESIUM LEVEL 1.7 MG/DL (1.8-2.4); POTASSIUM SERUM 5.4 MEQ/L (3.5-5.1)
[2018-11-29] MEDS ORDERED: DEXTROSE 50% 50 ML SYRINGE IV STA (07:07)
[2018-11-29] MEDS ORDERED: HumuLIN R (REGULAR) INSULIN (NovoLIN R) **100U/ML** PER UNIT IV STA (07:07)
[2018-11-29] MEDS ORDERED: MAG SULF 1GM/100ML (MAG RUN) 1 GM in IV 1 EA IV ONE (07:15)
[2018-11-29] MEDS ORDERED: CALCIUM GLUCONATE 1,000 MG in D5W MINI-BAG PLUS 100 ML IV ONE (07:15)
[2018-11-29] MEDS: LACTOBACILLUS ACIDOPHILUS CAP (BACID) PO SCH ×3 (08:22→18:28)
[2018-11-29] MEDS: CALCIUM/VITAMIN D 500 MG TAB PO SCH ×2 (08:22→20:34)
[2018-11-29] MEDS: FIBER-CON 625 MG TAB PO SCH ×4 (08:22→20:36)
[2018-11-29] MEDS: MAGNESIUM OXIDE 400 MG TAB (MAG-OX) PO SCH ×2 (08:22→20:35)
[2018-11-29] MEDS: ESCITALOPRAM OXALATE 10 MG TAB (LEXAPRO) PO SCH (08:22)
[2018-11-29] MEDS: NS 1,000 ML IV SCH ×2 (08:23→18:28)
[2018-11-29] MEDS: VITAMIN D 1,000 INTERNATIONAL UNITS TABLET PO SCH (08:23)
[2018-11-29] MEDS: HEPARIN SOD (PORCINE) 5000 UNITS/ML VIAL SC SCH ×2 (08:23→20:36)
[2018-11-29] MEDS: SODIUM BICARBONATE 325 MG TAB PO SCH ×2 (08:29→20:35)
[2018-11-29] MEDS: CHOLESTYRAMINE 4 GM PWD PKT PO SCH ×3 (08:29→21:56)
[2018-11-29] MEDS: LOMOTIL 2.5MG/0.025MG TABLET PO SCH ×3 (08:29→20:34)
[2018-11-29] MEDS: MESALAMINE 250 MG CR CAP PO SCH ×3 (08:29→20:35)
[2018-11-29 14:00] VITALS: BP 137/70
--- NOTE | 2018-11-29 15:47 | IPNPDOC ---
Text Note Date of Service The patient was seen on 11/29/18. NOTE Subjective: In the morning BMP significant for hyperkalemia again. She has a formed stool in ostomy bag. Patient denies fever, chills, nausea, vomiting, dysuria Objective: NAD Vitals (See below) General: Lying in bed, no acute distress, AOx3 HEENT: PERRLA, EOMI CVS: RRR, no mrg Lungs: CTAB, no crackles or wheezing Abdomen: Normoactive bowel sounds, mildly distended, non-tender, ostomy with watery greenish formed stool Extremities: No cyanosis, no edema Assessment and plan: Patient is 73 years old female with past medical history of ulcerative colitis, status post bilateral resection with ileostomy presents to the hospital with acute kidney injury, high ostomy output and anemia. Hyperkalemia D50, 10 units of insulin, albuterol, bicarbonate Potassium every 4 hours At 2 PM potassium improved to 4.7 Acute renal failure - likely 2/2 dehydration, patient has left partial nephrectomy - 2/2 increased fluid losses from ostomy. - Baseline Cr of 1.2-1.5 - Creatinine on admission of 11.1; much improved now stable Diarrhea: with high output from ostomy - Has history of ulcerative colitis - Improved output but still significant - C. diff PCR negative - CT abdomen / pelvis 11/10: noted interim sigmoid colon resection and diverting ileostomy without acute pathology - s/p Metronidazole and Ciprofloxacin - Loperamide was increased from 1g BID to 2g QID / FiberCon / Cholestyramine - I added Lomotil to her medical regimen - GI panel negative - s/p octreotide - Dr Haynes did colonoscopy on 11/26/18: patent end-to-end colo-rectal anastomosis, characterized by erosion, friable mucosa, a hemorrhagic appearance and inflammation. Dr Clancy recommended starting her on some Solu-Medrol with 20 mg intravenous (IV) every 6 hours and Pentasa. Plan per surgical team: Once she has been treated for several days, proceed with a closure of her ileostomy Renal Cell CA - s/p L sided renal cell CA; s/p Left partial nephrectomy s/p Leukopenia - No evidence of infection - Remains hemodynamically stable and afebrile Normocytic anemia - s/p 2 unit PRBC transfusion on 11/08/18, 11/14/18 - Hemoglobin has improved with transfusion and is stable at this time s/p Hyponatremia - Resolved UTI - Resolved - UA consistent with urinary tract infection; repeat urine culture on 11/09, does not appear to reveal any bacteria - s/p Ciprofloxacin 5 day course Severe Protein Malnutrition - Poor oral intake - Dietary consulted for output from ostomy -Ensure DVT prophylaxis - c/w Heparin VS,Fishbone, I+O VS, Fishbone, I+O Laboratory Tests 11/28/18 16:38 11/28/18 20:12 11/29/18 00:41 11/29/18 05:19 Red Blood Count 2.84 L, Mean Corpuscular Volume 94.4, Mean Corpuscular Hemoglobin 29.6, Mean Corpuscular Hemoglobin Concent 31.3 L, Red Cell Distribution Width 14.9 H, Calcium Level 8.6 L 11/29/18 11:15 11/29/18 14:51 Vital Signs Date Time Temp Pulse Resp B/P (MAP) Pulse Ox O2 Delivery O2 Flow Rate FiO2 11/29/18 06:00 99.1 80 16 142/79 (100) 94 I&O- Last 24 Hours up to 6 AM 11/29/18 06:00 Intake Total 4544 ml Output Total 3975 ml Balance 569 ml MARC MCCANN DO Nov 29, 2018 15:47
[2018-11-29] MEDS: LOPERAMIDE 2 MG CAPLET PO SCH (20:35)
[2018-11-29 22:00] VITALS: BP 148/82
[2018-11-30] MEDS: methylPREDNISolone INJ 40 MG/1 ML VIAL (J2920) IV SCH ×5 (00:08→23:25)
[2018-11-30] MEDS: LOPERAMIDE 2 MG CAPLET PO SCH ×6 (01:13→21:00)
[2018-11-30] MEDS: NS 1,000 ML IV SCH ×3 (03:33→21:28)
[2018-11-30 03:42] LABS: HEMATOCRIT 26.4 % (36.0-47.0); HEMOGLOBIN 8.3 g/dl (12.0-15.5); MEAN CORPUSCULAR HEMOGLOBIN 29.4 pg (27.0-33.0); MEAN CORPUSCULAR HGB CONC 31.4 g/dl (32.0-36.5); MEAN CORPUSCULAR VOLUME 93.6 fl (80.0-96.0); PLATELET COUNT, AUTOMATED 231 10^3/uL (150-450); RED BLOOD COUNT 2.82 10^6/uL (4.00-5.40); WHITE BLOOD COUNT 9.5 10^3/uL (4.0-10.0)
[2018-11-30 04:10] LABS: CALCIUM LEVEL 8.5 MG/DL (8.8-10.2); CREATININE FOR GFR 1.65 MG/DL (0.55-1.30); GLOMERULAR FILTRATION RATE 32.3 (>39); MAGNESIUM LEVEL 2.1 MG/DL (1.8-2.4); POTASSIUM SERUM 5.6 MEQ/L (3.5-5.1)
[2018-11-30 06:00] VITALS: BP 137/80
[2018-11-30] MEDS ORDERED: DEXTROSE 50% 50 ML SYRINGE IV STA (07:06)
[2018-11-30] MEDS ORDERED: HumuLIN R (REGULAR) INSULIN (NovoLIN R) **100U/ML** PER UNIT IV STA (07:06)
[2018-11-30 08:00] LABS: CALCIUM LEVEL 8.2 MG/DL (8.8-10.2); CREATININE FOR GFR 1.58 MG/DL (0.55-1.30); GLOMERULAR FILTRATION RATE 33.9 (>39); POTASSIUM SERUM 5.6 MEQ/L (3.5-5.1)
[2018-11-30] MEDS ORDERED: FUROSEMIDE 40 MG/4 ML VIAL (J1940) IV ONE (08:00)
[2018-11-30] MEDS ORDERED: CALCIUM GLUCONATE 1,000 MG in D5W MINI-BAG PLUS 100 ML IV ONE (08:00)
[2018-11-30] MEDS: MESALAMINE 250 MG CR CAP PO SCH ×3 (08:06→21:27)
[2018-11-30] MEDS: HEPARIN SOD (PORCINE) 5000 UNITS/ML VIAL SC SCH ×2 (08:06→21:27)
[2018-11-30] MEDS: LACTOBACILLUS ACIDOPHILUS CAP (BACID) PO SCH ×3 (08:06→17:25)
[2018-11-30] MEDS: FIBER-CON 625 MG TAB PO SCH ×4 (08:06→21:28)
[2018-11-30] MEDS: LOMOTIL 2.5MG/0.025MG TABLET PO SCH ×3 (08:07→21:27)
[2018-11-30] MEDS: VITAMIN D 1,000 INTERNATIONAL UNITS TABLET PO SCH (08:07)
[2018-11-30] MEDS: CALCIUM/VITAMIN D 500 MG TAB PO SCH ×2 (08:08→21:28)
[2018-11-30] MEDS: ESCITALOPRAM OXALATE 10 MG TAB (LEXAPRO) PO SCH (08:08)
[2018-11-30] MEDS: MAGNESIUM OXIDE 400 MG TAB (MAG-OX) PO SCH ×2 (08:11→21:28)
[2018-11-30] MEDS: SODIUM BICARBONATE 325 MG TAB PO SCH ×2 (08:12→21:27)
--- NOTE | 2018-11-30 08:20 | ECGEPIP ---
[facility] Test Date: 2018-11-30 Pat Name: MC BUCKNER Department: Room: [place] [address] Gender: Female Title Closer: RENEE : 1945 Requested By: MARC MCCANN Order Number: [id number] Reading MD: Katrina oDdd Measurements Intervals [place] Rate: 59 P: 33 MD: 169 QRS: -1 QRSD: 80 T: 62 QT: 482 QTc: 481 Interpretive Statements SINUS BRADYCARDIA RATE SLOWER LAE PROLONGED QTC INTERVAL NEW POSSIBLE OLD IWMI WITH POST EXT C/W 11/28/18RATE FASTER QTC PROLONG NEW NSSTTWA SLIGHTLY MORE MARKED Electronically Signed on 11-30-2018 8:20:46 EDT by Katrina Dodd
[2018-11-30] MEDS ORDERED: FLUBLOK(EGG FREE)(QUAD)INFLUENZA VACC 0.5ML SYRINGE (90682)18YRS&OLDER IM ONE (09:00)
[2018-11-30] MEDS: CHOLESTYRAMINE 4 GM PWD PKT PO SCH ×3 (10:30→21:27)
[2018-11-30 11:46] LABS: CALCIUM LEVEL 8.9 MG/DL (8.8-10.2); CREATININE FOR GFR 1.73 MG/DL (0.55-1.30); GLOMERULAR FILTRATION RATE 30.6 (>39); POTASSIUM SERUM 4.6 MEQ/L (3.5-5.1)
[2018-11-30 14:00] VITALS: BP 122/71
--- NOTE | 2018-11-30 14:57 | IPNPDOC ---
Text Note Date of Service The patient was seen on 11/30/18. NOTE Subjective: In the morning BMP significant for hyperkalemia of 5.6. She has a formed brownish stool in ostomy bag. Patient denies fever, chills, nausea, vomiting, dysuria Objective: NAD Vitals (See below) General: Lying in bed, no acute distress, AOx3 HEENT: PERRLA, EOMI CVS: RRR, no mrg Lungs: CTAB, no crackles or wheezing Abdomen: Normoactive bowel sounds, mildly distended, non-tender, ostomy with brownish formed stool Extremities: No cyanosis, no edema Assessment and plan: Patient is 73 years old female with past medical history of ulcerative colitis, status post bilateral resection with ileostomy presents to the hospital with acute kidney injury, high ostomy output and anemia. Patient was found to have exacerbation of ulcerative colitis, she is receiving steroids and mesalamin. Dr. Haynes planned reconnection bowel surgery on 12/02/18 Hyperkalemia D50, 10 units of insulin, albuterol, bicarbonate Potassium every 4 hours At 1 PM potassium improved to 4.6 Acute renal failure - likely 2/2 dehydration, patient has left partial nephrectomy - 2/2 increased fluid losses from ostomy. - Baseline Cr of 1.2-1.5 - Creatinine on admission of 11.1; much improved now stable Diarrhea: with high output from ostomy - Has history of ulcerative colitis - Improved output but still significant - C. diff PCR negative - CT abdomen / pelvis 11/10: noted interim sigmoid colon resection and diverting ileostomy without acute pathology - s/p Metronidazole and Ciprofloxacin - Loperamide was increased from 1g BID to 2g QID / FiberCon / Cholestyramine - I added Lomotil to her medical regimen - GI panel negative - s/p octreotide - Dr Haynes did colonoscopy on 11/26/18: patent end-to-end colo-rectal anastomosis, characterized by erosion, friable mucosa, a hemorrhagic appearance and inflammation. Dr Clancy recommended starting her on some Solu-Medrol with 20 mg intravenous (IV) every 6 hours and Pentasa. Plan per surgical team: Once she has been treated for several days, proceed with a closure of her ileostomy Renal Cell CA - s/p L sided renal cell CA; s/p Left partial nephrectomy s/p Leukopenia - No evidence of infection - Remains hemodynamically stable and afebrile Normocytic anemia - s/p 2 unit PRBC transfusion on 11/08/18, 11/14/18 - Hemoglobin has improved with transfusion and is stable at this time s/p Hyponatremia - Resolved UTI - Resolved - UA consistent with urinary tract infection; repeat urine culture on 11/09, does not appear to reveal any bacteria - s/p Ciprofloxacin 5 day course Severe Protein Malnutrition - Poor oral intake - Dietary consulted for output from ostomy -Ensure DVT prophylaxis - c/w Heparin VS,Fishbone, I+O VS, Fishbone, I+O Laboratory Tests 11/29/18 19:05 11/29/18 22:54 11/30/18 03:33 Red Blood Count 2.82 L, Mean Corpuscular Volume 93.6, Mean Corpuscular Hemoglobin 29.4, Mean Corpuscular Hemoglobin Concent 31.4 L, Red Cell Distribution Width 14.9 H, Calcium Level 8.5 L 11/30/18 07:21 Calcium Level 8.2 L 11/30/18 10:49 Calcium Level 8.9 Vital Signs Date Time Temp Pulse Resp B/P (MAP) Pulse Ox O2 Delivery O2 Flow Rate FiO2 11/30/18 14:00 97.6 85 20 122/71 (88) 95 I&O- Last 24 Hours up to 6 AM 11/30/18 06:00 Intake Total 3770 ml Output Total 4475 ml Balance -705 ml MARC MCCANN DO Nov 30, 2018 14:57
[2018-11-30 15:42] LABS: CALCIUM LEVEL 8.3 MG/DL (8.8-10.2); CREATININE FOR GFR 1.76 MG/DL (0.55-1.30); POTASSIUM SERUM 4.8 MEQ/L (3.5-5.1)
[2018-11-30 19:35] LABS: CALCIUM LEVEL 8.4 MG/DL (8.8-10.2); CREATININE FOR GFR 1.7 MG/DL (0.55-1.30); GLOMERULAR FILTRATION RATE 31.2 (>39); POTASSIUM SERUM 5.3 MEQ/L (3.5-5.1)
[2018-11-30 22:00] VITALS: BP 131/83
[2018-11-30 23:47] LABS: CALCIUM LEVEL 8.5 MG/DL (8.8-10.2); CREATININE FOR GFR 1.66 MG/DL (0.55-1.30); GLOMERULAR FILTRATION RATE 32.1 (>39); POTASSIUM SERUM 5.3 MEQ/L (3.5-5.1)
[2018-12-01] MEDS: LOPERAMIDE 2 MG CAPLET PO SCH ×6 (00:10→21:00)
[2018-12-01 04:35] LABS: CALCIUM LEVEL 8.6 MG/DL (8.8-10.2); CREATININE FOR GFR 1.6 MG/DL (0.55-1.30); GLOMERULAR FILTRATION RATE 33.5 (>39); POTASSIUM SERUM 5.5 MEQ/L (3.5-5.1)
[2018-12-01] MEDS: methylPREDNISolone INJ 40 MG/1 ML VIAL (J2920) IV SCH ×4 (05:21→23:48)
[2018-12-01 06:00] VITALS: BP 150/81
[2018-12-01 06:12] LABS: HEMATOCRIT 27.1 % (36.0-47.0); HEMOGLOBIN 8.7 g/dl (12.0-15.5); MEAN CORPUSCULAR HEMOGLOBIN 29.7 pg (27.0-33.0); MEAN CORPUSCULAR HGB CONC 32.1 g/dl (32.0-36.5); MEAN CORPUSCULAR VOLUME 92.5 fl (80.0-96.0); PLATELET COUNT, AUTOMATED 263 10^3/uL (150-450); RED BLOOD COUNT 2.93 10^6/uL (4.00-5.40); WHITE BLOOD COUNT 14.8 10^3/uL (4.0-10.0)
[2018-12-01 06:34] LABS: CALCIUM LEVEL 8.4 MG/DL (8.8-10.2); CREATININE FOR GFR 1.53 MG/DL (0.55-1.30); GLOMERULAR FILTRATION RATE 35.2 (>39); MAGNESIUM LEVEL 1.9 MG/DL (1.8-2.4); POTASSIUM SERUM 5.5 MEQ/L (3.5-5.1)
[2018-12-01] MEDS: NS 1,000 ML IV SCH ×2 (07:33→18:46)
[2018-12-01] MEDS: HEPARIN SOD (PORCINE) 5000 UNITS/ML VIAL SC SCH ×2 (08:08→21:40)
[2018-12-01] MEDS: SODIUM BICARBONATE 325 MG TAB PO SCH ×2 (08:08→21:40)
[2018-12-01] MEDS: MESALAMINE 250 MG CR CAP PO SCH ×3 (08:08→21:40)
[2018-12-01] MEDS: LOMOTIL 2.5MG/0.025MG TABLET PO SCH ×3 (08:08→21:40)
[2018-12-01] MEDS: LACTOBACILLUS ACIDOPHILUS CAP (BACID) PO SCH ×3 (08:09→18:46)
[2018-12-01] MEDS: VITAMIN D 1,000 INTERNATIONAL UNITS TABLET PO SCH (08:09)
[2018-12-01] MEDS: FIBER-CON 625 MG TAB PO SCH ×4 (08:09→21:40)
[2018-12-01] MEDS: MAGNESIUM OXIDE 400 MG TAB (MAG-OX) PO SCH ×2 (08:09→21:39)
[2018-12-01] MEDS: ESCITALOPRAM OXALATE 10 MG TAB (LEXAPRO) PO SCH (08:09)
[2018-12-01] MEDS: CALCIUM/VITAMIN D 500 MG TAB PO SCH ×2 (08:10→21:39)
[2018-12-01] MEDS: CHOLESTYRAMINE 4 GM PWD PKT PO SCH ×3 (10:49→21:39)
[2018-12-01 14:00] VITALS: BP 133/73
--- NOTE | 2018-12-01 20:21 | IPNPDOC ---
Date Seen The patient was seen on 12/01/18. Progress Note SUBJECTIVE: Patient reported only mild soreness in abdomen but otherwise is comfortable with no other complaints. Afebrile overnight. WBC increased from 9.5 to 14.8 however. Cr trending down 1.6->1.53. K remained elevated 5.5 OBJECTIVE PHYSICAL EXAMINATION: VITAL SIGNS: Please see below. General: No acute distress, Alert Eyes: Normal sclera, EOMI, MANJINDER HENT: Atraumatic, neck supple, moist mucous membranes Cardiovascular: Normal rate, normal rhythm. No murmurs appreciated. Pulmonary: Clear to auscultation b/l, no wheezing GI: Soft, nontender, nondistended Skin: Warm and dry Neuro: CN grossly intact. No focal deficits. Strengths equal b/l. Psych: oriented x 3 LABORATORY DATA, IMAGING STUDIES, MICROBIOLOGY: Please see below. DVT prophylaxis ordered?: HSQ ASSESSMENT AND PLAN: 1. Ulcerative colitis - s/p sigmoid colectomy with ileostomy. - Symptoms improved on steroids and mesalamine as recommended by GI. - Surgery following as well, plan to take patient back to OR tomorrow for closure of ileostomy after medically treated with steroids and mensalamine. - Has high output ostomy. GI panel negative, s/p octreotide. 2. Renal cell ca - s/p L. side partial nephrectomy. 3. Normocytic anemia - s/p 2 units pRBC. - Monitor and transfuse as needed. 4. UTI - Resolved. s/p ciprofloxacin 5 days. 5. Severe protein malnutrition - 2/2 poor oral intake and high ostomy output. - c/w ensure and supplements. 6. Hyperkalemia - appeared to be chronically elevated for the past few days. - To be on low potassium diet. - May benefit from some IVF. - f/u AM levels and treat if needed. VS, I&O, 24H, Ethel Vital Signs/I&O Vital Signs Date Time Temp Pulse Resp B/P (MAP) Pulse Ox O2 Delivery O2 Flow Rate FiO2 12/01/18 14:00 98.2 85 17 133/73 (93) 94 I&O- Last 24 Hours up to 6 AM 12/01/18 05:59 Intake Total 3290 ml Output Total 5800 ml Balance -2510 ml Laboratory Data 24H LABS Laboratory Tests 2 11/30/18 23:07: Anion Gap 8, Glomerular Filtration Rate 32.1L, Blood Urea Nitrogen 29H, Creatinine 1.66H, Sodium Level 133L, Potassium Level 5.3H, Chloride Level 102, Carbon Dioxide Level 23, Calcium Level 8.5L 12/01/18 03:12: Anion Gap 8, Glomerular Filtration Rate 33.5L, Blood Urea Nitrogen 29H, Creatinine 1.60H, Sodium Level 135L, Potassium Level 5.5H, Chloride Level 103, Carbon Dioxide Level 24, Calcium Level 8.6L 12/01/18 05:52: Anion Gap 6L, Glomerular Filtration Rate 35.2L, Blood Urea Nitrogen 30H, Creatinine 1.53H, Sodium Level 135L, Potassium Level 5.5H, Chloride Level 106, Carbon Dioxide Level 23, Calcium Level 8.4L, Nucleated Red Blood Cells % (auto) 0.2H, Magnesium Level 1.9 CBC/BMP Laboratory Tests 11/30/18 23:07 Calcium Level 8.5 L 12/01/18 03:12 Calcium Level 8.6 L 12/01/18 05:52 Calcium Level 8.4 L, Red Blood Count 2.93 L, Mean Corpuscular Volume 92.5, Mean Corpuscular Hemoglobin 29.7, Mean Corpuscular Hemoglobin Concent 32.1, Red Cell Distribution Width 14.8 H Microbiology Microbiology 11/22/18 Gastrointestinal Tract Panel (PCR) - Final, Complete TERANLOLA MD Dec 01, 2018 20:21
[2018-12-01 22:00] VITALS: BP 144/83
[2018-12-02] MEDS: LOPERAMIDE 2 MG CAPLET PO SCH ×6 (00:25→20:22)
[2018-12-02] MEDS: NS 1,000 ML IV SCH ×4 (03:46→22:50)
[2018-12-02] MEDS: methylPREDNISolone INJ 40 MG/1 ML VIAL (J2920) IV SCH ×2 (05:18→17:19)
[2018-12-02 05:55] LABS: HEMATOCRIT 28.3 % (36.0-47.0); HEMOGLOBIN 9.1 g/dl (12.0-15.5); MEAN CORPUSCULAR HEMOGLOBIN 29.3 pg (27.0-33.0); MEAN CORPUSCULAR HGB CONC 32.2 g/dl (32.0-36.5); PLATELET COUNT, AUTOMATED 266 10^3/uL (150-450); RED BLOOD COUNT 3.11 10^6/uL (4.00-5.40); WHITE BLOOD COUNT 17.2 10^3/uL (4.0-10.0)
[2018-12-02 06:00] VITALS: BP 138/84
[2018-12-02 06:22] LABS: CALCIUM LEVEL 8.4 MG/DL (8.8-10.2); CREATININE FOR GFR 1.6 MG/DL (0.55-1.30); GLOMERULAR FILTRATION RATE 33.5 (>39); MAGNESIUM LEVEL 1.8 MG/DL (1.8-2.4); POTASSIUM SERUM 5.7 MEQ/L (3.5-5.1)
[2018-12-02] MEDS ORDERED: GASTROGRAFIN SOLUTION 30ML (Q9963) As Ordered ONE (08:06)
[2018-12-02] MEDS: HEPARIN SOD (PORCINE) 5000 UNITS/ML VIAL SC SCH ×2 (08:45→20:33)
[2018-12-02] MEDS: CHOLESTYRAMINE 4 GM PWD PKT PO SCH ×3 (08:45→22:49)
[2018-12-02] MEDS: FIBER-CON 625 MG TAB PO SCH ×4 (08:45→20:34)
[2018-12-02] MEDS: CALCIUM/VITAMIN D 500 MG TAB PO SCH ×2 (08:46→20:33)
[2018-12-02] MEDS: VITAMIN D 1,000 INTERNATIONAL UNITS TABLET PO SCH (08:46)
[2018-12-02] MEDS: MAGNESIUM OXIDE 400 MG TAB (MAG-OX) PO SCH ×2 (08:46→20:34)
[2018-12-02] MEDS: MESALAMINE 250 MG CR CAP PO SCH ×3 (08:46→20:33)
[2018-12-02] MEDS: SODIUM BICARBONATE 325 MG TAB PO SCH ×2 (08:46→20:34)
[2018-12-02] MEDS: ESCITALOPRAM OXALATE 10 MG TAB (LEXAPRO) PO SCH (08:46)
[2018-12-02] MEDS: LACTOBACILLUS ACIDOPHILUS CAP (BACID) PO SCH ×3 (08:46→17:20)
[2018-12-02] MEDS: LOMOTIL 2.5MG/0.025MG TABLET PO SCH ×3 (08:49→20:34)
[2018-12-02] MEDS ORDERED: HumuLIN R (REGULAR) INSULIN (NovoLIN R) **100U/ML** PER UNIT IV STA (09:11)
[2018-12-02] MEDS ORDERED: DEXTROSE 50% 50 ML SYRINGE IV STA (09:11)
--- NOTE | 2018-12-02 12:02 | REP ---
CT pelvis without IV or oral contrast: With rectal contrast. History: Confirm healing rectal injury. Comparison CT study November 10, 2018. CT findings: There is a right mid abdominal colostomy again noted. Small and large bowel loops visualized proximal to this are not dilated. There is some rectal contrast opacifying the rectum and sigmoid and to a lesser extent descending colon. There is no evidence of extravasation. No inflammatory change or abnormal fluid collection is seen in the perirectal soft tissues. A Torre catheter is noted in place in the empty bladder along with some air. There is a large intrarenal calculus noted incidentally in the right kidney. This calculus measures 10 mm in diameter. It is unchanged. There is some fibrosis and calcification along the lower pole of the left kidney also unchanged. Impression: Rectal contrast is administered. No evidence of extravasation. Electronically Signed by Lico Alvares MD 12/02/2018 01:49 P
[2018-12-02 12:34] LABS: CALCIUM LEVEL 8.1 MG/DL (8.8-10.2); CREATININE FOR GFR 1.52 MG/DL (0.55-1.30); GLOMERULAR FILTRATION RATE 35.5 (>39); POTASSIUM SERUM 4.8 MEQ/L (3.5-5.1)
[2018-12-02 14:00] VITALS: BP 140/80
--- NOTE | 2018-12-02 16:14 | IPNPDOC ---
Date Seen The patient was seen on 12/02/18. Progress Note SUBJECTIVE: Patient is comfortable today without any complaints. WBC 14.8->17.2 but afebrile overnight. Is on steroids. K+ trended up despite on a low potassium diet. K+ 5.7 this AM. Given insulin/dextrose and started on NS IVF with improvement to 4.8. OBJECTIVE PHYSICAL EXAMINATION: VITAL SIGNS: Please see below. General: No acute distress, Alert Eyes: Normal sclera, EOMI, MANJINDER HENT: Atraumatic, neck supple, moist mucous membranes Cardiovascular: Normal rate, normal rhythm. No murmurs appreciated. Pulmonary: Clear to auscultation b/l, no wheezing GI: Soft, nontender, ostomy in place with brown stool. Skin: Warm and dry Neuro: CN grossly intact. No focal deficits. Strengths equal b/l. Psych: oriented x 3 LABORATORY DATA, IMAGING STUDIES, MICROBIOLOGY: Please see below. DVT prophylaxis ordered?: HSQ ASSESSMENT AND PLAN: 1. Ulcerative colitis - s/p sigmoid colectomy with ileostomy. - Symptoms improved on steroids and mesalamine as recommended by GI. - Surgery following as well, plan to take patient back to OR for closure of ileostomy after medically treated with steroids and mensalamine. - Has high output ostomy. GI panel negative, s/p octreotide. 2. Renal cell ca - s/p L. side partial nephrectomy. 3. Normocytic anemia - s/p 2 units pRBC. - Monitor and transfuse as needed. 4. UTI - Resolved. s/p ciprofloxacin 5 days. 5. Severe protein malnutrition - 2/2 poor oral intake and high ostomy output. - c/w ensure and supplements. 6. Hyperkalemia - Started on low K diet and IVF today - K improved post treatment. - f/u repeat AM levels and treat if needed. VS, I&O, 24H, [place] Vital Signs/I&O Vital Signs Date Time Temp Pulse Resp B/P (MAP) Pulse Ox O2 Delivery O2 Flow Rate FiO2 12/02/18 14:00 98.0 78 17 140/80 (100) 96 I&O- Last 24 Hours up to 6 AM 12/02/18 06:00 Intake Total 2475 ml Output Total 4425 ml Balance -1950 ml Laboratory Data 24H LABS Laboratory Tests 2 12/02/18 05:38: Nucleated Red Blood Cells % (auto) 0.2H, Anion Gap 9, Glomerular Filtration Rate 33.5L, Calcium Level 8.4L, Magnesium Level 1.8 12/02/18 11:56: Anion Gap 9, Glomerular Filtration Rate 35.5L, Calcium Level 8.1L CBC/BMP Laboratory Tests 12/02/18 05:38 12/02/18 11:56 Microbiology Microbiology 11/22/18 Gastrointestinal Tract Panel (PCR) - Final, Complete LOLA TERAN MD Dec 02, 2018 16:14
[2018-12-02 22:00] VITALS: BP 143/85
[2018-12-03] MEDS: LOPERAMIDE 2 MG CAPLET PO SCH ×6 (00:42→20:06)
[2018-12-03] MEDS: methylPREDNISolone INJ 40 MG/1 ML VIAL (J2920) IV SCH ×2 (05:22→17:50)
[2018-12-03 06:00] VITALS: BP 144/84
[2018-12-03 06:42] LABS: HEMATOCRIT 27.7 % (36.0-47.0); HEMOGLOBIN 8.7 g/dl (12.0-15.5); MEAN CORPUSCULAR HEMOGLOBIN 29.2 pg (27.0-33.0); MEAN CORPUSCULAR HGB CONC 31.4 g/dl (32.0-36.5); PLATELET COUNT, AUTOMATED 255 10^3/uL (150-450); RED BLOOD COUNT 2.98 10^6/uL (4.00-5.40); WHITE BLOOD COUNT 16.9 10^3/uL (4.0-10.0)
[2018-12-03 06:59] LABS: CALCIUM LEVEL 8.1 MG/DL (8.8-10.2); CREATININE FOR GFR 1.39 MG/DL (0.55-1.30); GLOMERULAR FILTRATION RATE 39.3 (>39); MAGNESIUM LEVEL 1.8 MG/DL (1.8-2.4); POTASSIUM SERUM 5.5 MEQ/L (3.5-5.1)
[2018-12-03 07:08] LABS: ANISOCYTOSIS 1+; LYMPHOCYTES 12 % (16-44); METAMYELOCYTES 6 % (0-0); MONOCYTES 8 % (0-5); MYELOCYTES 3 % (0-0); NEUTROPHILS 70 % (28-66); PLATELET ESTIMATE NORMAL (NORMAL)
[2018-12-03] MEDS: ESCITALOPRAM OXALATE 10 MG TAB (LEXAPRO) PO SCH (09:08)
[2018-12-03] MEDS: CHOLESTYRAMINE 4 GM PWD PKT PO SCH ×4 (09:08→22:18)
[2018-12-03] MEDS: FIBER-CON 625 MG TAB PO SCH ×4 (09:08→20:25)
[2018-12-03] MEDS: CALCIUM/VITAMIN D 500 MG TAB PO SCH ×2 (09:08→20:25)
[2018-12-03] MEDS: SODIUM BICARBONATE 325 MG TAB PO SCH ×2 (09:08→20:25)
[2018-12-03] MEDS: VITAMIN D 1,000 INTERNATIONAL UNITS TABLET PO SCH (09:08)
[2018-12-03] MEDS: LACTOBACILLUS ACIDOPHILUS CAP (BACID) PO SCH ×3 (09:09→17:52)
[2018-12-03] MEDS: MESALAMINE 250 MG CR CAP PO SCH ×4 (09:09→20:25)
[2018-12-03] MEDS: MAGNESIUM OXIDE 400 MG TAB (MAG-OX) PO SCH ×2 (09:09→20:25)
[2018-12-03] MEDS: LOMOTIL 2.5MG/0.025MG TABLET PO SCH ×4 (09:09→20:25)
[2018-12-03] MEDS: NS 1,000 ML IV SCH ×2 (09:10→20:26)
[2018-12-03] MEDS ORDERED: FLUDROCORTISONE ACETATE 0.1 MG TAB PO ONE (11:00)
--- NOTE | 2018-12-03 11:19 | IPNPDOC ---
Date Seen The patient was seen on 12/03/18. Progress Note SUBJECTIVE: Patient was seen and examined at the bedside this morning. Nephrology was called again for persistent hyperkalemia despite diet change and IV fluids. She has also been taking sodium bicarbonate daily. She has been having formed stool through her ostomy bag and plans to go to the OR today for ostomy reversal. She has no complaints this morning and states she feels well. OBJECTIVE: PHYSICAL EXAMINATION: VITAL SIGNS: Please see below. GENERAL APPEARANCE: Sitting up in bed, calm, cooperative, appears stated age, no acute distress HEENT: EOMI, PERRLA; neck is supple with no thyromegaly or lymphadenopathy RESPIRATORY: Clear to auscultation bilaterally with no adventitious breath sounds appreciated CARDIOVASCULAR: JVD normal; RRR without murmurs/rubs/gallops ABDOMEN: Soft, nontender to palpation, no masses/organomegaly, Ostomy in place draining greenish fluid/formed stool EXTREMITIES: Some trace edema in ankles and feet bilaterally NEUROLOGICAL: No obvious focal deficits PSYCHIATRIC: normal mood/affect Skin: No rashes or ulcers. LN: No significant cervical or inguinal lymphadenopathy LABORATORY DATA, IMAGING STUDIES, MICROBIOLOGY: Please see below. ASSESSMENT AND PLAN: This is a 73 YO F with history of CKD III (b/l Cr 1.2) and recent sigmoid colectomy found to have acute renal failure with metabolic acidosis on this admission, now going for ostomy reversal but has persistent hyperkalemia PROBLEMS: 1. Acute on chronic kidney disease III: -Patient's Cr 1.39 today, which is improved from past couple of days. 2. Metabolic acidosis: -Patient has been on sodium bicarbonate with a stable bicarbonate level for several days 3. 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 Likely to improve with dose of fludrocortisone -Aldosterone/Renin level ordered -Urine lytes ordered -Will recheck renal profile tonight 4. Hypomagnesemia: -Continue MagOx replacement 5. History of L-sided renal mass: patient had partial nephrectomy -Cr stable for now. 6. High-output ostomy: Plan for trip to the OR today at 1500 for ostomy reversal -Patient has been on fluids, which were just decreased to 75cc/hr from 100cc -Continue FiberCon and Immodium DISPOSITION: Pending further workup and labs this afternoon. Will continue to monitor the patient closely. VS, I&O, 24H, Fishbone Vital Signs/I&O Vital Signs Date Time Temp Pulse Resp B/P (MAP) Pulse Ox O2 Delivery O2 Flow Rate FiO2 12/03/18 06:00 96.8 66 15 144/84 (104) 97 I&O- Last 24 Hours up to 6 AM 12/03/18 05:59 Intake Total 3180 ml Output Total 3800 ml Balance -620 ml Laboratory Data 24H LABS Laboratory Tests 2 12/02/18 11:56: Anion Gap 9, Glomerular Filtration Rate 35.5L, Calcium Level 8.1L 12/03/18 06:01: Anion Gap 7L, Glomerular Filtration Rate 39.3, Calcium Level 8.1L, Immature Granulocyte % (Auto) , Nucleated Red Blood Cells % (auto) 0.2H, Neutrophils 70H, Band Neutrophils 1, Lymphocytes (Manual) 12L, Monocytes (Manual) 8H, Metamyelocytes 6H, Myelocytes 3H, Anisocytosis 1+, Platelet Estimate NORMAL, Magnesium Level 1.8 12/03/18 09:27: CBC/BMP Laboratory Tests 12/02/18 11:56 12/03/18 06:01 GME ATTESTATION GME ATTESTATION My faculty preceptor for this patient encounter was physically present during the encounter and was fully available. All aspects of the patient interview, examination, medical decision making process, and medical care plan development were reviewed and approved by the faculty preceptor. The faculty preceptor is aware and concurs with the plan as stated in the body of this note and will attest to such by his/her cosignature. DEVEN BRANNON MD Dec 03, 2018 11:19
[2018-12-03 12:58] LABS: CHLORIDE,RANDOM URINE 142 MEQ/L; CREATININE,RANDOM URINE < 13.0 MG/DL; POTASSIUM RANDOM URINE 12.5 MEQ/L; SODIUM,RANDOM URINE 145 MEQ/L
[2018-12-03 14:00] VITALS: BP 164/72
[2018-12-03 15:01] LABS: ALBUMIN 2.4 GM/DL (3.2-5.2); CALCIUM LEVEL 8.1 MG/DL (8.8-10.2); CREATININE FOR GFR 1.4 MG/DL (0.55-1.30); PHOSPHORUS LEVEL 4.3 MG/DL (2.5-4.9)
--- NOTE | 2018-12-03 17:24 | IPN ---
DATE: 12/03/2018 HISTORY: Patient had a CT scan of the pelvis with some rectal contrast yesterday to confirm that her rectal injury is healed and there was no evidence of any extravasation of contrast. There are still several clips in the rectum. She is now eight weeks postoperative from her sigmoid colectomy. She reports that she has been feeling much better and feels as if she is ready to have her ileostomy closed. Vital signs show that the patient has been afebrile over the past 24 hours. Her pulses in the 70s and 80s generally. Her blood pressure has been good. Intake and output shows that yesterday she had 4400 in recorded with 3600 out, 750 of which was stool. PHYSICAL EXAMINATION: She is alert and oriented. She appears quite comfortable at rest. She denies any abdominal discomfort. She reports that she has not had any rectal output and has had no bleeding. Physical exam shows she is alert and oriented. Heart exam shows a regular rhythm. The abdomen is nondistended and soft. Her ileostomy appears healthy and has some particulate matter in the bag. The abdomen is soft throughout without any tenderness. Laboratory studies this morning showed a white count of 17, with a hemoglobin of 9, hematocrit of 28 and a platelet count of 255,000. Differential count showed 70% neutrophils, 1 band, 12 lymphocytes, 8 monocytes, 6 metamyelocytes and 3 myelocytes. Chemistry profile showed a sodium of 137, potassium 5.5, chloride 108, CO2 of 22, BUN of 40, creatinine 1.39 and a glucose of 82. IMPRESSION: Patient appears now ready for closure of her ileostomy. She is comfortable and her abdomen is soft and nontender and there is no evidence of rectal leak. PLAN: Patient was scheduled as an add-on for takedown of her ileostomy today; however, on repeat testing this afternoon, her potassium is 6.0 and anesthesia is not agreeable to proceeding with surgery with her potassium that high. We will therefore cancel her surgery for today and hope that her electrolytes can be better controlled so that we can put her back on the schedule for closure of her ileostomy sometime in the near future. SEEMA
[2018-12-03] MEDS ORDERED: metroNIDAZOLE 500 MG in IV 1 EA IV ONE (18:00)
[2018-12-03] MEDS ORDERED: cefoTEtan DISODIUM 2 GM in D5W MINI-BAG PLUS 50 ML IV ONE (18:00)
[2018-12-03] MEDS ORDERED: HumuLIN R (REGULAR) INSULIN (NovoLIN R) **100U/ML** PER UNIT IV STA (18:03)
[2018-12-03] MEDS ORDERED: DEXTROSE 50% 50 ML SYRINGE IV STA (18:03)
--- NOTE | 2018-12-03 20:18 | IPNPDOC ---
Date Seen The patient was seen on 12/03/18. Progress Note SUBJECTIVE: Patient reported no complaints today, was anxious to get surgery this morning. K elevated at 5.5, follow up found to be at 6.0 Evaluated by nephrology. Surgery cancelled due to hyperkalemia. OBJECTIVE PHYSICAL EXAMINATION: VITAL SIGNS: Please see below. General: No acute distress, Alert Eyes: Normal sclera, EOMI, MANJINDER HENT: Atraumatic, neck supple, moist mucous membranes Cardiovascular: Normal rate, normal rhythm. No murmurs appreciated. Pulmonary: Clear to auscultation b/l, no wheezing GI: Soft, nontender, ostomy in place with brown stool. Skin: Warm and dry Neuro: CN grossly intact. No focal deficits. Strengths equal b/l. Psych: oriented x 3 LABORATORY DATA, IMAGING STUDIES, MICROBIOLOGY: Please see below. DVT prophylaxis ordered?: HSQ ASSESSMENT AND PLAN: 1. Ulcerative colitis - s/p sigmoid colectomy with ileostomy. - Symptoms improved on steroids and mesalamine as recommended by GI. - Surgery following as well, plan to take patient back to OR for closure of ileostomy after medically treated with steroids and mensalamine. - Has high output ostomy. GI panel negative, s/p octreotide. 2. Renal cell ca - s/p L. side partial nephrectomy. 3. Normocytic anemia - s/p 2 units pRBC. - Monitor and transfuse as needed. 4. UTI - Resolved. s/p ciprofloxacin 5 days. 5. Severe protein malnutrition - 2/2 poor oral intake and high ostomy output. - c/w ensure and supplements. 6. Hyperkalemia - Started on low K diet and IVF with persistent hyperkalemia. - Nephrology following. Workup for RTA. - Given 1 dose of fludrocortisone. - Getting insulin/dextrose and to repeat BMP. VS, I&O, 24H, Fishbone Vital Signs/I&O Vital Signs Date Time Temp Pulse Resp B/P (MAP) Pulse Ox O2 Delivery O2 Flow Rate FiO2 12/03/18 14:00 98.4 95 17 164/72 (102) 98 Room Air I&O- Last 24 Hours up to 6 AM 12/03/18 06:00 Intake Total 3030 ml Output Total 2875 ml Balance 155 ml Laboratory Data 24H LABS Laboratory Tests 2 12/03/18 06:01: Immature Granulocyte % (Auto) , Nucleated Red Blood Cells % (auto) 0.2H, Neutrophils 70H, Band Neutrophils 1, Lymphocytes (Manual) 12L, Monocytes (Manual) 8H, Metamyelocytes 6H, Myelocytes 3H, Anisocytosis 1+, Platelet Estimate NORMAL, Anion Gap 7L, Glomerular Filtration Rate 39.3, Calcium Level 8.1L, Magnesium Level 1.8 12/03/18 08:52: Urine Random Creatinine < 13.0, Urine Random Sodium 145, Urine Random Potassium 12.5, Urine Random Chloride 142 12/03/18 09:27: 12/03/18 14:21: Anion Gap 5L, Glomerular Filtration Rate 39.0, Calcium Level 8.1L, Phosphorus Level 4.3, Albumin 2.4L 12/03/18 20:07: CBC/BMP Laboratory Tests 12/03/18 06:01 12/03/18 14:21 LOLA TERAN MD Dec 03, 2018 20:18
[2018-12-03 20:38] LABS: CALCIUM LEVEL 8.4 MG/DL (8.8-10.2); CREATININE FOR GFR 1.42 MG/DL (0.55-1.30); GLOMERULAR FILTRATION RATE 38.4 (>39); POTASSIUM SERUM 4.8 MEQ/L (3.5-5.1)
[2018-12-03 22:00] VITALS: BP 150/80
[2018-12-04] MEDS: LOPERAMIDE 2 MG CAPLET PO SCH ×6 (00:53→21:00)
[2018-12-04 06:00] VITALS: BP 170/80
[2018-12-04] MEDS: methylPREDNISolone INJ 40 MG/1 ML VIAL (J2920) IV SCH ×2 (06:00→18:43)
[2018-12-04 06:26] LABS: HEMATOCRIT 27.9 % (36.0-47.0); MEAN CORPUSCULAR HEMOGLOBIN 29.6 pg (27.0-33.0); MEAN CORPUSCULAR HGB CONC 32.3 g/dl (32.0-36.5); MEAN CORPUSCULAR VOLUME 91.8 fl (80.0-96.0); PLATELET COUNT, AUTOMATED 247 10^3/uL (150-450); RED BLOOD COUNT 3.04 10^6/uL (4.00-5.40); WHITE BLOOD COUNT 14.4 10^3/uL (4.0-10.0)
[2018-12-04 06:50] VITALS: BP 152/87
[2018-12-04 06:55] LABS: CALCIUM LEVEL 7.6 MG/DL (8.8-10.2); CREATININE FOR GFR 1.39 MG/DL (0.55-1.30); GLOMERULAR FILTRATION RATE 39.3 (>39); POTASSIUM SERUM 5.2 MEQ/L (3.5-5.1)
[2018-12-04] MEDS ORDERED: amLODIPine 5 MG TAB PO ONE (07:00)
[2018-12-04] MEDS: LACTOBACILLUS ACIDOPHILUS CAP (BACID) PO SCH ×3 (08:00→18:42)
[2018-12-04] MEDS: SODIUM BICARBONATE 325 MG TAB PO SCH ×2 (10:23→21:13)
[2018-12-04] MEDS: MESALAMINE 250 MG CR CAP PO SCH ×3 (10:24→21:14)
[2018-12-04] MEDS: ESCITALOPRAM OXALATE 10 MG TAB (LEXAPRO) PO SCH (10:24)
[2018-12-04] MEDS: CALCIUM/VITAMIN D 500 MG TAB PO SCH ×2 (10:24→21:14)
[2018-12-04] MEDS: VITAMIN D 1,000 INTERNATIONAL UNITS TABLET PO SCH (10:24)
[2018-12-04] MEDS: MAGNESIUM OXIDE 400 MG TAB (MAG-OX) PO SCH ×2 (10:24→21:14)
[2018-12-04] MEDS: FIBER-CON 625 MG TAB PO SCH ×4 (10:25→21:13)
[2018-12-04] MEDS: FLUDROCORTISONE ACETATE 0.1 MG TAB PO SCH (10:25)
[2018-12-04] MEDS: LOMOTIL 2.5MG/0.025MG TABLET PO SCH ×3 (10:26→21:18)
--- NOTE | 2018-12-04 11:01 | IPNPDOC ---
Date Seen The patient was seen on 12/04/18. Progress Note NEPHROLOGY SERVICE PROGRESS NOTE: SUBJECTIVE: Patient was seen and examined at the bedside this morning. She was supposed to have ostomy reversal yesterday but did not go because her potassium was 6.0. Surgery will be delayed to next week, reportedly. She did get 1 dose of fludrocortisone yesterday, which has brought her K down from 5.2 to 4.8 today. She is also making a good amount of urine. She has no complaints this morning. OBJECTIVE: PHYSICAL EXAMINATION: VITAL SIGNS: Please see below. GENERAL APPEARANCE: Sitting up in bed, calm, cooperative, appears stated age, no acute distress HEENT: EOMI, PERRLA; neck is supple with no thyromegaly or lymphadenopathy RESPIRATORY: Clear to auscultation bilaterally with no adventitious breath sounds appreciated CARDIOVASCULAR: JVD normal; RRR without murmurs/rubs/gallops ABDOMEN: Soft, nontender to palpation, no masses/organomegaly, Ostomy in place draining greenish fluid/formed stool EXTREMITIES: Some trace edema in ankles and feet bilaterally NEUROLOGICAL: No obvious focal deficits PSYCHIATRIC: normal mood/affect Skin: No rashes or ulcers. LN: No significant cervical or inguinal lymphadenopathy LABORATORY DATA, IMAGING STUDIES, MICROBIOLOGY: Please see below. 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 Acute on chronic kidney disease III: stable -Patient's Cr 1.39 today 2. Metabolic acidosis: -Patient has been on sodium bicarbonate with a stable bicarbonate level for several days 3. 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 She did respond to the first dose yesterday -Potassium 5.2 today -Will recheck renal profile tomorrow -IV Fluids have been stopped, as they are no longer needed 4. Hypomagnesemia: -Continue MagOx replacement 5. History of L-sided renal mass: patient had partial nephrectomy -Cr stable for now. 6. High-output ostomy: Plan for trip to the OR soon ostomy reversal -Continue FiberCon and Immodium -Continue clear liquid diet, but be sure to keep to 2g K restriction for now DISPOSITION: Pending clinical improvement VS, I&O, 24H, Fishbone Vital Signs/I&O Vital Signs Date Time Temp Pulse Resp B/P (MAP) Pulse Ox O2 Delivery O2 Flow Rate FiO2 12/04/18 06:50 152/87 (108) 12/04/18 06:08 63 12/04/18 06:00 97.8 14 96 Room Air I&O- Last 24 Hours up to 6 AM 12/04/18 06:00 Intake Total 815 ml Output Total 3350 ml Balance -2535 ml Laboratory Data 24H LABS Laboratory Tests 2 12/03/18 14:21: Anion Gap 5L, Glomerular Filtration Rate 39.0, Calcium Level 8.1L, Phosphorus Level 4.3, Albumin 2.4L 12/03/18 20:07: Anion Gap 7L, Glomerular Filtration Rate 38.4L, Calcium Level 8.4L 12/04/18 06:10: Anion Gap 7L, Glomerular Filtration Rate 39.3, Calcium Level 7.6L, Nucleated Red Blood Cells % (auto) 0.2H CBC/BMP Laboratory Tests 12/03/18 14:21 12/03/18 20:07 12/04/18 06:10 GME ATTESTATION GME ATTESTATION My faculty preceptor for this patient encounter was physically present during the encounter and was fully available. All aspects of the patient interview, examination, medical decision making process, and medical care plan development were reviewed and approved by the faculty preceptor. The faculty preceptor is aware and concurs with the plan as stated in the body of this note and will attest to such by his/her cosignature. ATTENDING NOTE Pt was seen and examined with the resident today AM. Assessment: CKD3 Persistent Hyperkalemia RTA Ostomy Status Plan: Cont Florinef 0.1 mg NS 500 bolus+Lasix 20 mg IV ordered today for Kaliuresis. If hyperkalemia persists then daily veltassa 15 gram kem be started. DEVEN BRANNON MD Dec 04, 2018 11:01 SYDNEY GARRIDO MD Dec 05, 2018 20:00
[2018-12-04] MEDS: CHOLESTYRAMINE 4 GM PWD PKT PO SCH ×3 (12:42→22:36)
[2018-12-04 14:00] VITALS: BP 148/79
--- NOTE | 2018-12-04 14:52 | IPNPDOC ---
Date Seen The patient was seen on 12/04/18. Progress Note SUBJECTIVE: Patient offered no complaints. Surgery was cancelled last night due to hyperkalemia. Trended down after treatment to 4.8 last night and 5.2 this morning. OBJECTIVE PHYSICAL EXAMINATION: VITAL SIGNS: Please see below. General: No acute distress, Alert Eyes: Normal sclera, EOMI, MANJINDER HENT: Atraumatic, neck supple, moist mucous membranes Cardiovascular: Normal rate, normal rhythm. No murmurs appreciated. Pulmonary: Clear to auscultation b/l, no wheezing GI: Soft, nontender, ostomy in place with formed stool. Skin: Warm and dry Neuro: CN grossly intact. No focal deficits. Strengths equal b/l. Psych: oriented x 3 LABORATORY DATA, IMAGING STUDIES, MICROBIOLOGY: Please see below. DVT prophylaxis ordered?: HSQ ASSESSMENT AND PLAN: 1. Ulcerative colitis - s/p sigmoid colectomy with ileostomy. - Symptoms improved on steroids and mesalamine as recommended by GI. - Surgery following as well, plan to take patient back to OR for closure of ileostomy after medically treated with steroids/mesalamine and improvement of electrolytes. - Has high output ostomy. GI panel negative, s/p octreotide. 2. Renal cell ca - s/p L. side partial nephrectomy. 3. Normocytic anemia - s/p 2 units pRBC. - Monitor and transfuse as needed. 4. UTI - Resolved. s/p ciprofloxacin 5 days. 5. Severe protein malnutrition - 2/2 poor oral intake and high ostomy output. - c/w ensure and supplements. 6. CKD III - Cr stable. However, has been having persistent hyperkalemia. - On bicarb PO. Levels stable. - Nephrology following. 7. 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 + urine AG. Nephro on board. - c/w fludrocortisone daily. - Monitor daily BMPs and treat as needed. VS, I&O, 24H, Fishbone Vital Signs/I&O Vital Signs Date Time Temp Pulse Resp B/P (MAP) Pulse Ox O2 Delivery O2 Flow Rate FiO2 12/04/18 14:00 98.1 74 18 148/79 (102) 97 Room Air I&O- Last 24 Hours up to 6 AM 12/04/18 06:00 Intake Total 815 ml Output Total 3350 ml Balance -2535 ml Laboratory Data 24H LABS Laboratory Tests 2 12/03/18 20:07: Anion Gap 7L, Glomerular Filtration Rate 38.4L, Calcium Level 8.4L 12/04/18 06:10: Anion Gap 7L, Glomerular Filtration Rate 39.3, Calcium Level 7.6L, Nucleated Red Blood Cells % (auto) 0.2H CBC/BMP Laboratory Tests 12/03/18 20:07 12/04/18 06:10 LOLA TERAN MD Dec 04, 2018 14:52
[2018-12-04 22:00] VITALS: BP 147/80
[2018-12-05] MEDS: LOPERAMIDE 2 MG CAPLET PO SCH ×5 (00:27→20:37)
[2018-12-05] MEDS: methylPREDNISolone INJ 40 MG/1 ML VIAL (J2920) IV SCH ×2 (05:10→18:16)
[2018-12-05 06:00] VITALS: BP 134/84
[2018-12-05 07:34] LABS: HEMATOCRIT 30.5 % (36.0-47.0); HEMOGLOBIN 9.9 g/dl (12.0-15.5); MEAN CORPUSCULAR HEMOGLOBIN 29.7 pg (27.0-33.0); MEAN CORPUSCULAR HGB CONC 32.5 g/dl (32.0-36.5); MEAN CORPUSCULAR VOLUME 91.6 fl (80.0-96.0); PLATELET COUNT, AUTOMATED 265 10^3/uL (150-450); RED BLOOD COUNT 3.33 10^6/uL (4.00-5.40); WHITE BLOOD COUNT 13.7 10^3/uL (4.0-10.0)
[2018-12-05 07:59] LABS: ALBUMIN 2.5 GM/DL (3.2-5.2); CALCIUM LEVEL 8.2 MG/DL (8.8-10.2); CREATININE FOR GFR 1.38 MG/DL (0.55-1.30); GLOMERULAR FILTRATION RATE 39.7 (>39); PHOSPHORUS LEVEL 4.9 MG/DL (2.5-4.9); POTASSIUM SERUM 5.4 MEQ/L (3.5-5.1)
[2018-12-05] MEDS: ESCITALOPRAM OXALATE 10 MG TAB (LEXAPRO) PO SCH (09:11)
[2018-12-05] MEDS: MAGNESIUM OXIDE 400 MG TAB (MAG-OX) PO SCH ×2 (09:11→20:37)
[2018-12-05] MEDS: MESALAMINE 250 MG CR CAP PO SCH ×3 (09:12→20:37)
[2018-12-05] MEDS: VITAMIN D 1,000 INTERNATIONAL UNITS TABLET PO SCH (09:12)
[2018-12-05] MEDS: FLUDROCORTISONE ACETATE 0.1 MG TAB PO SCH (09:12)
[2018-12-05] MEDS: SODIUM BICARBONATE 325 MG TAB PO SCH ×2 (09:12→20:37)
[2018-12-05] MEDS: FIBER-CON 625 MG TAB PO SCH ×4 (09:12→20:37)
[2018-12-05] MEDS: CALCIUM/VITAMIN D 500 MG TAB PO SCH ×2 (09:12→20:37)
[2018-12-05] MEDS: LOMOTIL 2.5MG/0.025MG TABLET PO SCH ×3 (09:13→20:43)
[2018-12-05] MEDS: LACTOBACILLUS ACIDOPHILUS CAP (BACID) PO SCH ×3 (09:13→18:15)
[2018-12-05] MEDS: CHOLESTYRAMINE 4 GM PWD PKT PO SCH ×3 (10:13→22:00)
--- NOTE | 2018-12-05 11:29 | IPNPDOC ---
Date Seen The patient was seen on 12/05/18. Progress Note NEPHROLOGY SERVICE PROGRESS NOTE: SUBJECTIVE: Patient was seen and examined at the bedside this morning. She is not having any complaints at this time. She still seems to be eating only minimal amounts, but is drinking significant amount of fluid. Otherwise, no issues overnight OBJECTIVE: PHYSICAL EXAMINATION: VITAL SIGNS: Please see below. GENERAL APPEARANCE: Sitting up in bed, calm, cooperative, appears stated age, no acute distress HEENT: EOMI, PERRLA; neck is supple with no thyromegaly or lymphadenopathy RESPIRATORY: Clear to auscultation bilaterally with no adventitious breath so unds appreciated CARDIOVASCULAR: JVD normal; RRR without murmurs/rubs/gallops ABDOMEN: Soft, nontender to palpation, no masses/organomegaly, Ostomy in place draining greenish fluid/formed stool EXTREMITIES: Some trace edema in ankles and feet bilaterally NEUROLOGICAL: No obvious focal deficits PSYCHIATRIC: normal mood/affect Skin: No rashes or ulcers. LN: No significant cervical or inguinal lymphadenopathy LABORATORY DATA, IMAGING STUDIES, MICROBIOLOGY: Please see below. 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 Acute on chronic kidney disease III: stable -Patient's Cr 1.38 today 2. Metabolic acidosis: -Continue Sodium bicarbonate 3. 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 -IF K does not come down with another dose of fludrocortisone today will consider a dose of Lasix 4. Hypomagnesemia: -Continue MagOx replacement 5. History of L-sided renal mass: patient had partial nephrectomy -Cr stable for now. 6. High-output ostomy: Plan for ostomy reversal sometime next week -Continue FiberCon and Immodium -Continue clear liquid diet, but be sure to keep to 2g K restriction for now DISPOSITION: Pending improvement in electrolytes VS, I&O, 24H, Fishbone Vital Signs/I&O Vital Signs Date Time Temp Pulse Resp B/P (MAP) Pulse Ox O2 Delivery O2 Flow Rate FiO2 12/05/18 06:00 98.0 65 17 134/84 (101) 96 Room Air I&O- Last 24 Hours up to 6 AM 12/05/18 06:00 Intake Total 1640 ml Output Total 4100 ml Balance -2460 ml Laboratory Data 24H LABS Laboratory Tests 2 12/05/18 06:33: Nucleated Red Blood Cells % (auto) 0.0, Anion Gap 7L, Glomerular Filtration Rate 39.7, Calcium Level 8.2L, Phosphorus Level 4.9, Albumin 2.5L CBC/BMP Laboratory Tests 12/05/18 06:33 GME ATTESTATION GME ATTESTATION My faculty preceptor for this patient encounter was physically present during the encounter and was fully available. All aspects of the patient interview, examination, medical decision making process, and medical care plan development were reviewed and approved by the faculty preceptor. The faculty preceptor is aware and concurs with the plan as stated in the body of this note and will attest to such by his/her cosignature. DEVEN BRANNON MD Dec 05, 2018 11:28
[2018-12-05 13:56] LABS: CALCIUM LEVEL 8.5 MG/DL (8.8-10.2); CREATININE FOR GFR 1.53 MG/DL (0.55-1.30); GLOMERULAR FILTRATION RATE 35.2 (>39); POTASSIUM SERUM 5.6 MEQ/L (3.5-5.1)
[2018-12-05 14:00] VITALS: BP 146/78
--- NOTE | 2018-12-05 15:56 | IPNPDOC ---
Date Seen The patient was seen on 12/05/18. Progress Note SUBJECTIVE: Patient offered no complaints. K 5.6 today from 5.4 WBC 14->13 OBJECTIVE PHYSICAL EXAMINATION: VITAL SIGNS: Please see below. General: No acute distress, Alert Eyes: Normal sclera, EOMI, MANJINDER HENT: Atraumatic, neck supple, moist mucous membranes Cardiovascular: Normal rate, normal rhythm. No murmurs appreciated. Pulmonary: Clear to auscultation b/l, no wheezing GI: Soft, nontender, ostomy in place with formed stool. Skin: Warm and dry Neuro: CN grossly intact. No focal deficits. Strengths equal b/l. Psych: oriented x 3 LABORATORY DATA, IMAGING STUDIES, MICROBIOLOGY: Please see below. DVT prophylaxis ordered?: HSQ ASSESSMENT AND PLAN: 1. Ulcerative colitis - s/p sigmoid colectomy with ileostomy. - Symptoms improved on steroids and mesalamine as recommended by GI. - Surgery following as well, plan to take patient back to OR for closure of ileostomy after medically treated with steroids/mesalamine and improvement of electrolytes. - Has high output ostomy. GI panel negative, s/p octreotide. 2. Renal cell ca - s/p L. side partial nephrectomy. 3. Normocytic anemia - s/p 2 units pRBC. - Monitor and transfuse as needed. 4. UTI - Resolved. s/p ciprofloxacin 5 days. 5. Severe protein malnutrition - 2/2 poor oral intake and high ostomy output. - c/w ensure and supplements. 6. CKD III - Cr stable. However, has been having persistent hyperkalemia. - On bicarb PO. Levels stable. - Nephrology following. 7. 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 + urine AG. Nephro on board. - c/w fludrocortisone daily. - Monitor daily BMPs and treat as needed. 8. Ruth catheter - In place since surgery for colovesicular adhesions/fistula. - Supposed to keep ruth in after discharge last time and follow up with urology but unsure if patient has had followed up. - consider discontinuing for voiding trial. Check with urology. VS, I&O, 24H, Fishbone Vital Signs/I&O Vital Signs Date Time Temp Pulse Resp B/P (MAP) Pulse Ox O2 Delivery O2 Flow Rate FiO2 12/05/18 14:00 99.1 74 20 146/78 (100) 96 Room Air I&O- Last 24 Hours up to 6 AM 12/05/18 06:00 Intake Total 1640 ml Output Total 4100 ml Balance -2460 ml Laboratory Data 24H LABS Laboratory Tests 2 12/05/18 06:33: Nucleated Red Blood Cells % (auto) 0.0, Anion Gap 7L, Glomerular Filtration Rate 39.7, Calcium Level 8.2L, Phosphorus Level 4.9, Albumin 2.5L 12/05/18 13:22: Anion Gap 9, Glomerular Filtration Rate 35.2L, Calcium Level 8.5L CBC/BMP Laboratory Tests 12/05/18 06:33 12/05/18 13:22 LOLA TERAN MD Dec 05, 2018 15:55
[2018-12-05] MEDS ORDERED: NS 500 ML IV ONE (19:30)
[2018-12-05] MEDS ORDERED: FUROSEMIDE 20 MG/2 ML VIAL (J1940) IV ONE (19:30)
[2018-12-05] MEDS: metroNIDAZOLE (FLAGYL) 500 MG TAB PO SCH ×2 (21:50→22:06)
[2018-12-05 22:00] VITALS: BP 142/79
[2018-12-05] MEDS: MIRALAX *UNIT DOSE* 17GM PACKET PO SCH (22:06)
[2018-12-05] MEDS: NEOMYCIN SULFATE 500 MG TAB PO SCH (22:06)
[2018-12-06] VITALS (9 sets, daily range): BP systolic 118–173; BP diastolic 61–88
[2018-12-06] MEDS: MIRALAX *UNIT DOSE* 17GM PACKET PO SCH (00:27)
[2018-12-06] MEDS: LOPERAMIDE 2 MG CAPLET PO SCH ×3 (00:27→08:07)
[2018-12-06] MEDS ORDERED: SODIUM CHLORIDE 0.9% 500 ML IV ONE (04:00)
[2018-12-06] MEDS: methylPREDNISolone INJ 40 MG/1 ML VIAL (J2920) IV SCH ×2 (05:12→18:13)
[2018-12-06] MEDS: NEOMYCIN SULFATE 500 MG TAB PO SCH (05:12)
[2018-12-06] MEDS: metroNIDAZOLE (FLAGYL) 500 MG TAB PO SCH (05:12)
[2018-12-06 05:57] LABS: HEMATOCRIT 29.6 % (36.0-47.0); HEMOGLOBIN 9.6 g/dl (12.0-15.5); MEAN CORPUSCULAR HEMOGLOBIN 29.8 pg (27.0-33.0); MEAN CORPUSCULAR HGB CONC 32.4 g/dl (32.0-36.5); MEAN CORPUSCULAR VOLUME 91.9 fl (80.0-96.0); PLATELET COUNT, AUTOMATED 269 10^3/uL (150-450); RED BLOOD COUNT 3.22 10^6/uL (4.00-5.40)
[2018-12-06] MEDS ORDERED: cefoTEtan DISODIUM 2 GM in D5W MINI-BAG PLUS 50 ML IV ONE (06:00)
[2018-12-06 06:11] LABS: CALCIUM LEVEL 8.3 MG/DL (8.8-10.2); CREATININE FOR GFR 1.71 MG/DL (0.55-1.30); POTASSIUM SERUM 4.8 MEQ/L (3.5-5.1)
[2018-12-06] MEDS: FIBER-CON 625 MG TAB PO SCH ×4 (08:06→21:59)
[2018-12-06] MEDS: FLUDROCORTISONE ACETATE 0.1 MG TAB PO SCH (08:06)
[2018-12-06] MEDS: MESALAMINE 250 MG CR CAP PO SCH ×3 (08:06→21:58)
[2018-12-06] MEDS: LACTOBACILLUS ACIDOPHILUS CAP (BACID) PO SCH ×3 (08:06→18:12)
[2018-12-06] MEDS: LOMOTIL 2.5MG/0.025MG TABLET PO SCH ×3 (08:06→21:59)
[2018-12-06] MEDS: CALCIUM/VITAMIN D 500 MG TAB PO SCH ×2 (08:07→21:58)
[2018-12-06] MEDS: ESCITALOPRAM OXALATE 10 MG TAB (LEXAPRO) PO SCH (08:07)
[2018-12-06] MEDS: SODIUM BICARBONATE 325 MG TAB PO SCH ×2 (08:07→21:59)
[2018-12-06] MEDS: MAGNESIUM OXIDE 400 MG TAB (MAG-OX) PO SCH ×2 (08:07→21:59)
[2018-12-06] MEDS: VITAMIN D 1,000 INTERNATIONAL UNITS TABLET PO SCH (08:07)
--- NOTE | 2018-12-06 09:47 | IPN ---
DATE: 12/05/2018 HISTORY: The patient has been in the hospital for a month now being treated for initially acute renal failure secondary to high ileostomy outputs. That apparently stabilized but recently she has been having issues with high potassium levels. I had scheduled her for a takedown of her ileostomy after appropriate workup on the 03 of December, but on the scheduled date her potassium was 6.0. I have been following from a slight distance waiting to see if her potassium would be brought under better control. I am hoping to add her onto the schedule tomorrow for an attempted closing of her ileostomy. If it is not possible to get this done on the then the patient should probably be sent home when her medical conditions are stable and I will have her come back as an outpatient to close her ileostomy. Vital signs: Show that the patient has been afebrile over the past 24 hours. Her pulse is in the 60s and low 70s and blood pressure is good. Intake and output show that yesterday she had 1520 in with 2950 recorded out. PHYSICAL EXAMINATION: The patient is alert and appears comfortable. She is sitting in a chair at bedside. She denies any nausea or vomiting or pain. The abdomen is soft and nontender. Her ileostomy is healthy. She has some semi solid stool and liquid in her ostomy appliance. Laboratory studies today show white count of 14, hemoglobin 10, hematocrit 30 and platelet count of 265,000. Her chemistry profile today early in the morning showed a potassium 5.4 and on repeat at 01:22 this afternoon it was 5.6. BUN is 30 with a creatinine of 1.5. IMPRESSION: The patient overall seems to be doing well though her potassium was still high earlier today. I am going to try adding her on for closure of her ileostomy. I note that Dr. Ann of nephrology has ordered another bolus of normal saline and a dose of Lasix. She was also started on Florinef earlier today. If her potassium is acceptably low, I will proceed with her surgery on the . I am going to give her some oral antibiotics in preparation and put her back on clear liquids until 2 o'clock in the morning on the . She will also get two doses of MiraLax to clean out her GI tract somewhat. I will give her another small bolus of normal saline first thing in the morning. If her potassium remains too high then I will need to cancel her surgery and I will not be able to reschedule this for probably another week to 10 days as I will be out of town this coming week. MTDD
[2018-12-06] MEDS: CHOLESTYRAMINE 4 GM PWD PKT PO SCH ×3 (10:38→21:58)
[2018-12-06] MEDS ORDERED: ONDANSETRON 4MG/2ML VIAL (J2405) As Ordered ONE (11:50)
[2018-12-06] MEDS ORDERED: LIDOCAINE 2% INJ 100 MG/5 ML SDV (FOR ANES.) As Ordered ONE (11:50)
[2018-12-06] MEDS ORDERED: PROPOFOL 200 MG/20 ML VIAL As Ordered ONE (11:50)
[2018-12-06] MEDS ORDERED: dexameTHASONE 4 MG/ML 1ML VIAL (J1100) As Ordered ONE (11:50)
[2018-12-06] MEDS ORDERED: fentaNYL 250 MCG/5 ML INJECTION (J3010) As Ordered ONE (11:50)
[2018-12-06] MEDS ORDERED: MIDAZOLAM INJ 2 MG/2 ML VIAL (J2250) As Ordered ONE (11:50)
[2018-12-06] MEDS ORDERED: SUGAMMADEX SODIUM 500 MG/5 ML VIAL (BRIDION) As Ordered ONE (11:50)
[2018-12-06] MEDS ORDERED: ROCURONIUM BROMIDE 50 MG/5 ML VIAL As Ordered ONE ×2 (11:50→12:16)
[2018-12-06] MEDS ORDERED: METOCLOPRAMIDE INJ 10MG/2ML VIAL (J2765) As Ordered ONE (11:50)
[2018-12-06] MEDS ORDERED: PHENYLephrine HCL 500 MCG/5 ML (100MCG/ML) SYRINGE (J2370) As Ordered ONE (11:50)
[2018-12-06] MEDS ORDERED: BUPIVACAINE HCL 0.25% 30 ML VIAL As Ordered ONE (11:51)
[2018-12-06] MEDS ORDERED: NS 0.45% 1,000 ML IV SCH (12:00)
[2018-12-06 12:22] LABS: MAGNESIUM LEVEL 1.6 MG/DL (1.8-2.4)
[2018-12-06] MEDS ORDERED: GLYCOPYRROLATE INJ 0.2 MG/ML 2 ML VIAL As Ordered ONE (12:47)
[2018-12-06] MEDS ORDERED: NEOSTIGMINE 10 MG/10 ML VIAL (J2710) As Ordered ONE (12:47)
[2018-12-06] MEDS ORDERED: LABETALOL HCL 100 MG/20 ML VIAL As Ordered ONE ×2 (13:01→13:54)
[2018-12-06] MEDS ORDERED: MORPHINE 4 MG/ML 1ML VIAL/SYRINGE (J2270) IV PRN (13:15)
[2018-12-06] MEDS ORDERED: NS 1,000 ML IV SCH (13:30)
[2018-12-06] MEDS ORDERED: oxyCODONE 5MG TAB PO PRN (13:30)
[2018-12-06] MEDS ORDERED: ONDANSETRON 4MG/2ML VIAL (J2405) IV PRN (13:30)
[2018-12-06] MEDS ORDERED: fentaNYL 100 MCG/2 ML INJECTION (J3010) IV PRN (13:30)
[2018-12-06] MEDS ORDERED: ACETAMINOPHEN 1000MG 100ML IV BTL (OFIRMEV) (J0131 PER 10MG) As Ordered ONE (13:54)
[2018-12-06] MEDS ORDERED: oxyCODONE 5MG TAB As Ordered ONE (13:54)
--- NOTE | 2018-12-06 13:55 | IPNPDOC ---
Date Seen The patient was seen on 12/06/18. Progress Note SUBJECTIVE: Patient reports feeling well without any complaints. Patient NPO this AM in preparation for surgery. K improved to 4.8 this morning, afebrile overnight. OBJECTIVE PHYSICAL EXAMINATION: VITAL SIGNS: Please see below. General: No acute distress, Alert Eyes: Normal sclera, EOMI, MANJINDER HENT: Atraumatic, neck supple, moist mucous membranes Cardiovascular: Normal rate, normal rhythm. No murmurs appreciated. Pulmonary: Clear to auscultation b/l, no wheezing GI: Soft, nontender, ostomy in place with formed stool. Skin: Warm and dry Neuro: CN grossly intact. No focal deficits. Strengths equal b/l. Psych: oriented x 3 LABORATORY DATA, IMAGING STUDIES, MICROBIOLOGY: Please see below. DVT prophylaxis ordered?: HSQ ASSESSMENT AND PLAN: 1. Ulcerative colitis - s/p sigmoid colectomy with ileostomy. - Symptoms improved on steroids and mesalamine as recommended by GI. - For surgery today for reversal of ileostomy. - Has high output ostomy. GI panel negative, s/p octreotide. 2. Renal cell ca - s/p L. side partial nephrectomy. 3. Normocytic anemia - s/p 2 units pRBC. - Monitor and transfuse as needed. 4. UTI - Resolved. s/p ciprofloxacin 5 days. 5. Severe protein malnutrition - 2/2 poor oral intake and high ostomy output. - c/w ensure and supplements. 6. CKD III - Cr stable. - On bicarb PO. Levels stable. - Nephrology following. 7. Hyperkalemia - Improving. 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 + urine AG. Nephro on board. - c/w fludrocortisone daily. - Monitor daily BMPs and treat as needed. 8. Torre catheter - In place since surgery for colovesicular adhesions/fistula. - Was recommended to remove by surgery but patient was anxious about it. Removed on this admission and has been urinating without difficulty. VS, I&O, 24H, Fishbone Vital Signs/I&O Vital Signs Date Time Temp Pulse Resp B/P (MAP) Pulse Ox O2 Delivery O2 Flow Rate FiO2 12/06/18 13:45 75 16 180/92 (121) 98 Nasal Cannula 2 12/06/18 13:40 98.1 I&O- Last 24 Hours up to 6 AM 12/06/18 06:00 Intake Total 2140 ml Output Total 3275 ml Balance -1135 ml Laboratory Data 24H LABS Laboratory Tests 2 12/06/18 05:39: Nucleated Red Blood Cells % (auto) 0.0, Anion Gap 9, Glomerular Filtration Rate 31.0L, Calcium Level 8.3L, Magnesium Level 1.6L CBC/BMP Laboratory Tests 12/06/18 05:39 LOLA TERAN MD Dec 06, 2018 13:55
[2018-12-06] MEDS: LABETALOL HCL 100 MG/20 ML VIAL IV PRN ×5 (14:00→14:20)
[2018-12-06] MEDS ORDERED: ACETAMINOPHEN *IV* 500 MG in IV 1 EA IV ONE (14:00)
--- NOTE | 2018-12-06 15:20 | IPN ---
DATE: 12/06/2018 SUBJECTIVE: Ruthy is seen and examined this morning at the bedside. Her potassium levels did normalize overnight after she was given intravenous (IV) Lasix and fluid bolus. She is nothing by mouth for the operating room (OR) later this morning. The patient denies any new complaints or concerns. She continues with watery output to the ostomy. Intake yesterday was 1760. Urine output yesterday was 2750 and stool output was 1375. Weight in the bed scale today is not recorded. VITAL SIGNS: Temperature 97.0, pulse 72, respiratory rate 18, blood pressure 130/73, saturating 95% on room air. GENERAL: The patient is seen lying in bed awake, alert, comfortable, oriented, no distress. Tongue is moist. Neck is supple. Jugular veins are not elevated. HEART SOUNDS: S1, S2. Regular rate and rhythm. LUNGS: Clear to auscultation bilaterally. ABDOMEN: Soft and nontender. There is a pink and patent ostomy present on the right with watery stool and pasty stool present. EXTREMITIES: Have only trace edema and compression stockings are in place. NEUROLOGIC: No focal deficits. Oriented times three. PSYCHIATRIC: Appropriate mood and effect. SKIN: Normal temperature and turgor. LABORATORY DATA: Sodium 137, potassium 4.8, bicarbonate 24, BUN 37, creatinine 1.7. Hemoglobin 9.6, platelets 269. INPATIENT MEDICATIONS: She received normal saline bolus and one dose of Lasix 20 mg IV yesterday. Noted that her Flagyl and neomycin were discontinued. Remainder of her medications are unchanged from prior. PROBLEMS: 1. Acute kidney injury (PRIYANKA) on chronic kidney disease (CKD) stage III. Patient's creatinine has been fluctuating, but has been mostly stable; however, today it did go up to 1.7 after she was given a small dose of Lasix yesterday to help promote potassium losses. I do see that she is net negative 2-1/2 liters in the previous 24 hours. She is now additionally nothing by mouth for the OR. I am ongoing to start her on some standing IV fluids to keep her hydrated, especially given the ostomy losses. 2. Hyperkalemia, persistent. It has improved after she was given a small dose of Lasix with IV fluids in addition to her oral bicarbonate and once daily fludrocortisone . Her diet was just changed yesterday to potassium restriction. I am not putting her on any standing diuretic at present, but we will reassess for any need of further diuretic if the hyperkalemia re-occurs. 3. Metabolic acidosis. It has improved from prior. It is probably secondary to both ostomy losses and possible renal tubular acidosis (RTA). It may improve with reversal of the ostomy. We will continue with oral sodium bicarbonate for now. 4. Hypomagnesemia. She is receiving a significant dose of magnesium oxide and repeat magnesium level has been ordered. 5. High output ostomy. Patient continues with significant watery losses. Her potassium has improved. She is nothing by mouth for OR and ostomy reversal today. I have ordered gentle IV fluids, especially given her net negative fluid status over the past 24 hours.
[2018-12-06] MEDS: NORCO, ANEXSIA 5/325MG TABLET (HYDROcodone/ACETAMINOPHEN) PO PRN ×2 (16:00→22:00)
[2018-12-07 02:00] VITALS: BP 168/79
[2018-12-07 06:00] VITALS: BP 165/75
[2018-12-07] MEDS: methylPREDNISolone INJ 40 MG/1 ML VIAL (J2920) IV SCH (06:04)
[2018-12-07 06:25] LABS: BASO % 0.1 % (0.0-1.0); HEMATOCRIT 28.5 % (36.0-47.0); HEMOGLOBIN 9.6 g/dl (12.0-15.5); LYMPH # 0.7 10^3/uL (1.5-5.0); LYMPH % 4.3 % (24.0-44.0); MEAN CORPUSCULAR HGB CONC 33.7 g/dl (32.0-36.5); MEAN CORPUSCULAR VOLUME 91.9 fl (80.0-96.0); MONO # 0.8 10^3/uL (0.0-0.8); MONO % 4.6 % (0.0-5.0); NEUTROPHILS # 15.2 10^3/uL (1.5-8.5); NEUTROPHILS % 88.9 % (36.0-66.0); PLATELET COUNT, AUTOMATED 246 10^3/uL (150-450); WHITE BLOOD COUNT 17.1 10^3/uL (4.0-10.0)
[2018-12-07 07:03] LABS: CALCIUM LEVEL 8.7 MG/DL (8.8-10.2); CREATININE FOR GFR 1.78 MG/DL (0.55-1.30); GLOMERULAR FILTRATION RATE 29.6 (>39); POTASSIUM SERUM 5.2 MEQ/L (3.5-5.1)
[2018-12-07] MEDS: FIBER-CON 625 MG TAB PO SCH ×4 (08:10→21:00)
[2018-12-07] MEDS: LOMOTIL 2.5MG/0.025MG TABLET PO SCH (08:10)
[2018-12-07] MEDS: ESCITALOPRAM OXALATE 10 MG TAB (LEXAPRO) PO SCH (08:11)
[2018-12-07] MEDS: FLUDROCORTISONE ACETATE 0.1 MG TAB PO SCH (08:11)
[2018-12-07] MEDS: CALCIUM/VITAMIN D 500 MG TAB PO SCH ×2 (08:11→21:01)
[2018-12-07] MEDS: SODIUM BICARBONATE 325 MG TAB PO SCH ×2 (08:11→21:00)
[2018-12-07] MEDS: MESALAMINE 250 MG CR CAP PO SCH ×3 (08:11→21:00)
[2018-12-07] MEDS: VITAMIN D 1,000 INTERNATIONAL UNITS TABLET PO SCH (08:11)
[2018-12-07] MEDS: LACTOBACILLUS ACIDOPHILUS CAP (BACID) PO SCH ×3 (08:11→17:30)
[2018-12-07] MEDS: MAGNESIUM OXIDE 400 MG TAB (MAG-OX) PO SCH ×2 (08:12→21:01)
[2018-12-07 10:00] VITALS: BP 121/67
[2018-12-07] MEDS: CHOLESTYRAMINE 4 GM PWD PKT PO SCH ×3 (10:15→22:07)
[2018-12-07] MEDS ORDERED: FUROSEMIDE 20 MG TAB PO ONE (12:30)
--- NOTE | 2018-12-07 13:34 | IPN ---
DATE: 12/07/2018 HISTORY: The patient is now postop day #1 from a closure of her ileostomy. She reports some mild pain only with movement. She denies any nausea or vomiting. Vital signs show that she has been afebrile since her surgery yesterday. Her pulse is in the low 70s generally. Her blood pressure is excellent. Intake and output show that yesterday she had 3100 in with 570 recorded out. She has had some urinary incontinence, which has limited our ability to monitor her output. PHYSICAL EXAM: The patient is sitting up in bed eating some clear liquids. She is alert and oriented. Heart exam shows a regular rate and rhythm. The lungs are clear. The abdomen is perhaps mildly full. She does have bowel sounds present. Her dressing is dry and intact. The abdomen is soft and without any undue tenderness. Laboratory studies show that her white count is 17 with a hemoglobin of 10, hematocrit of 28 and a platelet count of 246,000. Her differential count shows 89% neutrophils, 4% lymphocytes and 5% monocytes. Her chemistry profile today shows a sodium of 136, potassium 5.2, chloride 105, CO2 of 21, BUN of 33, creatinine 1.78 and a glucose of 98. IMPRESSION: The patient is doing very well postop day #1 from closure of her ileostomy. She believes she has had a little bit of flatus but no bowel movement yet. She is tolerating the clear liquids but has not yet taken a large volume. PLAN: I will advance her to full liquids but not all the way to regular diet just yet until we see how her bowel function returns. I am going to stop her Solu-Medrol and convert her to some oral prednisone at a dose of 30 mg daily and we should then begin to taper this. I will stop her other antimotility agent for now, again until we see what sort of bowel movement she will be having with return of colon function. SEEMA
--- NOTE | 2018-12-07 13:44 | IPN ---
DATE OF SERVICE: 12/07/2018 SUBJECTIVE: Ruthy is seen and examined this morning at the bedside. She reports she feels well. Pain is adequately controlled. She is tolerating a full liquid diet. She had closure of her ileostomy yesterday. Labs show very mild hyperkalemia. Vital signs: Temperature 98.4, pulse 72, respiratory rate 16, blood pressure 165/75, saturating 97% on room air. Intake yesterday was 3500. Urine output was not fully recorded. She had incontinent void. Stool output was 450. Net positive 2.8 liters. In general, the patient is seen lying in bed awake, alert, comfortable, in no acute distress. Extraocular muscles are intact. Tongue is moist. Neck is supple. Jugular veins are not elevated. Heart sounds: S1, S2, regular rate and rhythm. Lungs show symmetric air entry bilaterally. No crackle or rales. Abdomen is soft and nontender. There is a dressing over the site of her prior ostomy, which is clean, dry and intact. Dressing was not removed. The extremities have 1+ pedal edema. She is wearing compression stockings. Genitourinary: There is no suprapubic fullness. There is no Torre catheter. Neurologic: No focal deficit. Oriented times three. Psychiatric: Appropriate mood and affect. LABS: White count 17, hemoglobin 9.6, platelet 246. Sodium 136, potassium 5.2, BUN 33, creatinine 1.7. INPATIENT MEDICATIONS: She is presently off of IV fluids. Her methylprednisolone has been stopped and she is switched over to prednisone 30 mg by mouth daily. Pain medications have been adjusted by the primary team. She is off Lomotil. Remainder of medications are unchanged from prior. PROBLEMS: 1. Acute kidney injury (PRIYANKA) on chronic kidney disease (CKD) stage III. The patient's creatinine has been having minor fluctuations but is overall within her baseline range. She has some pedal edema and is in positive fluid balance the prior 24 hours. I am going to give her a small dose of oral Lasix today, which will also help with a mild hyperkalemia. 2. Hyperkalemia persistent but overall improved from prior. She has mild hypervolemia as well. We will give her Lasix by mouth to help with both potassium excretion and correction of her volume status. Continue with oral potassium restriction of 2 grams per day. Continue with sodium bicarbonate supplementation as well. 3. Metabolic acidosis. I would continue with sodium bicarbonate supplementation for now. However, given that she is no longer having significant bicarbonate losses from the ostomy, we may be able to cut back on this. 4. Hypomagnesemia. She is on a large dose of 1.6 grams of magnesium oxide per day. Last magnesium level yesterday was low at 1.6. I am continuing her current dose of Mag-Ox. However, given that she is no longer having large ostomy losses, we may also be able to cut back on her magnesium supplements.
[2018-12-07 14:00] VITALS: BP 149/79
--- NOTE | 2018-12-07 14:28 | RO ---
DATE OF PROCEDURE: 12/06/2018 PREOPERATIVE DIAGNOSIS: Diverting ileostomy for closure. POSTOPERATIVE DIAGNOSIS: Diverting ileostomy for closure. PROCEDURE PERFORMED: Takedown of ileostomy with ileoileal anastomosis. SURGEON: Dr. Bassem Stock TOOL AND DIE MACHINIST: ANESTHESIA: General. INDICATIONS FOR PROCEDURE: The patient is a 73-year-old woman who is approximately 2 months to 2-1/2 months postoperative from a laparoscopic converted to open sigmoid resection for a sigmoid stricture associated with ulcerative colitis. She suffered a rectal laceration during the attempted anastomosis and a hand-sewn anastomosis was done with clipping of the rectal laceration and creation of a diverting ileostomy. That has now healed and she is for closure of her ileostomy. OPERATIVE PROCEDURE: The patient was brought to the operating room and placed supine on the operating table. She was placed under general endotracheal anesthesia. Thromboembolic deterrent stockings (TEDS) and sequentials were utilized. The patient's ileostomy appliance was removed. The ileostomy was closed with a pursestring suture of #2-0 silk. The patient's abdomen was then prepped and draped in a sterile fashion. A transverse elliptical excision of the ostomy site was performed with a thin superior skin margin superiorly and inferiorly and tapering on the medial and lateral ends. This was approximately 6 cm in length. The incision was deepened into the subcutaneous tissues using the cautery. The wall of the ileum was identified and working along this plane the dissection was carried down into the abdomen circumferentially. The distal end of the small bowel had been tacked to the side of the stoma limb with several Prolene sutures and these were readily identified and both ends of the bowel were then delivered through the incision after extending the fascial incision slightly inferiorly. The stoma was excised with a firing of the linear cutter 55 stapler. The ends of the bowel were then aligned and a stapled anastomosis was performed with a linear cutter 55 stapler and completed with a [id number] stapler. Several reinforcing sutures of #3-0 Vicryl were placed. The bowel was then reduced into the abdomen. The posterior fascia was closed with a series of interrupted simple sutures of #1 Vicryl. The wound was copiously irrigated with saline and the anterior fascia was then also closed with interrupted simple sutures of #1 Vicryl. The wound was inspected for hemostasis which was excellent. The skin was then approximated with skin gianna. A light dressing was applied. The patient tolerated the procedure well without apparent complication. She was awakened in the operating room, extubated and moved to the recovery room in stable condition. SEEMA
[2018-12-07] MEDS: predniSONE 10 MG TAB PO SCH (15:14)
--- NOTE | 2018-12-07 18:52 | IPNPDOC ---
Date Seen The patient was seen on 12/07/18. Progress Note SUBJECTIVE: Patient s/p ileostomy closure yesterday. Reported some soreness but otherwise feels well. OBJECTIVE PHYSICAL EXAMINATION: VITAL SIGNS: Please see below. General: No acute distress, Alert Eyes: Normal sclera, EOMI, MANJINDER HENT: Atraumatic, neck supple, moist mucous membranes Cardiovascular: Normal rate, normal rhythm. No murmurs appreciated. Pulmonary: Clear to auscultation b/l, no wheezing GI: Soft, nontender, ostomy in place with formed stool. Skin: Warm and dry Neuro: CN grossly intact. No focal deficits. Strengths equal b/l. Psych: oriented x 3 LABORATORY DATA, IMAGING STUDIES, MICROBIOLOGY: Please see below. DVT prophylaxis ordered?: HSQ ASSESSMENT AND PLAN: 1. Ulcerative colitis - s/p sigmoid colectomy with ileostomy and now closed. - Symptoms improved on steroids and mesalamine as recommended by GI. Tapering steroid. - advance diet per surgery. - Has high output ostomy. GI panel negative, s/p octreotide. 2. Renal cell ca - s/p L. side partial nephrectomy. 3. Normocytic anemia - s/p 2 units pRBC. - Monitor and transfuse as needed. 4. UTI - Resolved. s/p ciprofloxacin 5 days. 5. Severe protein malnutrition - 2/2 poor oral intake and high ostomy output. - c/w ensure and supplements. 6. CKD III - Cr stable. - On bicarb PO. Levels stable. - Nephrology following. 7. Hyperkalemia - Improving overall with fluctuating levels. - c/w fludrocortisone daily and continue low K diet. - Monitor daily BMPs and treat as needed. 8. Torre catheter - In place since surgery for colovesicular adhesions/fistula. - Was recommended to remove by surgery but patient was anxious about it. Removed on this admission and has been urinating without difficulty. VS, I&O, 24H, Fishbone Vital Signs/I&O Vital Signs Date Time Temp Pulse Resp B/P (MAP) Pulse Ox O2 Delivery O2 Flow Rate FiO2 12/07/18 14:00 99.3 84 17 149/79 (102) 97 Room Air 12/07/18 02:00 2.0 I&O- Last 24 Hours up to 6 AM 12/07/18 06:00 Intake Total 3247 ml Output Total 120 ml Balance 3127 ml Laboratory Data 24H LABS Laboratory Tests 2 12/07/18 06:07: Immature Granulocyte % (Auto) 2.1, Neutrophils (%) (Auto) 88.9H, Lymphocytes (%) (Auto) 4.3L, Monocytes (%) (Auto) 4.6, Eosinophils (%) (Auto) 0.0, Basophils (%) (Auto) 0.1, Neutrophils # (Auto) 15.2H, Lymphocytes # (Auto) 0.7L, Monocytes # (Auto) 0.8, Eosinophils # (Auto) 0.0, Basophils # (Auto) 0.0, Nucleated Red Blood Cells % (auto) 0.0, Anion Gap 10, Glomerular Filtration Rate 29.6L, Calcium Level 8.7L CBC/BMP Laboratory Tests 12/07/18 06:07 LOLA TERAN MD Dec 07, 2018 18:52
[2018-12-07 22:00] VITALS: BP 149/85
[2018-12-08 02:00] VITALS: BP 134/87
[2018-12-08 05:45] LABS: HEMATOCRIT 29.4 % (36.0-47.0); HEMOGLOBIN 9.6 g/dl (12.0-15.5); MEAN CORPUSCULAR HEMOGLOBIN 29.7 pg (27.0-33.0); MEAN CORPUSCULAR HGB CONC 32.7 g/dl (32.0-36.5); PLATELET COUNT, AUTOMATED 279 10^3/uL (150-450); RED BLOOD COUNT 3.23 10^6/uL (4.00-5.40); WHITE BLOOD COUNT 11.1 10^3/uL (4.0-10.0)
[2018-12-08 06:00] VITALS: BP 144/86
[2018-12-08 06:46] LABS: CALCIUM LEVEL 8.9 MG/DL (8.8-10.2); CREATININE FOR GFR 1.43 MG/DL (0.55-1.30); GLOMERULAR FILTRATION RATE 38.1 (>39); MAGNESIUM LEVEL 2.1 MG/DL (1.8-2.4); POTASSIUM SERUM 4.6 MEQ/L (3.5-5.1)
[2018-12-08] MEDS: VITAMIN D 1,000 INTERNATIONAL UNITS TABLET PO SCH (09:17)
[2018-12-08] MEDS: LACTOBACILLUS ACIDOPHILUS CAP (BACID) PO SCH ×3 (09:17→17:51)
[2018-12-08] MEDS: CALCIUM/VITAMIN D 500 MG TAB PO SCH ×2 (09:17→20:41)
[2018-12-08] MEDS: MESALAMINE 250 MG CR CAP PO SCH ×3 (09:17→20:40)
[2018-12-08] MEDS: MAGNESIUM OXIDE 400 MG TAB (MAG-OX) PO SCH (09:17)
[2018-12-08] MEDS: ESCITALOPRAM OXALATE 10 MG TAB (LEXAPRO) PO SCH (09:18)
[2018-12-08] MEDS: SODIUM BICARBONATE 325 MG TAB PO SCH (09:18)
[2018-12-08] MEDS: predniSONE 10 MG TAB PO SCH (09:18)
[2018-12-08] MEDS: FIBER-CON 625 MG TAB PO SCH ×4 (09:18→20:40)
[2018-12-08] MEDS: FLUDROCORTISONE ACETATE 0.1 MG TAB PO SCH (09:18)
[2018-12-08 10:00] VITALS: BP 136/77
[2018-12-08] MEDS: CHOLESTYRAMINE 4 GM PWD PKT PO SCH ×3 (11:46→22:35)
--- NOTE | 2018-12-08 12:22 | IPNPDOC ---
Text Note Date of Service The patient was seen on 12/08/18. NOTE No acute events overnight. Denies problems with nausea, emesis, fevers, or pain. She has been out of bed moving around, and is tolerating diet with a couple BMs. VSSAF NAD abd - soft, NT, nd, incisions c/d/i labs - below A) 73y/o female s/p ileostomy closure P) reg diet ambulate plan on d/c home in am Orlando Armenta DO VS,Ethel, I+O VS, Omaribone, I+O Laboratory Tests 12/08/18 05:20 Vital Signs Date Time Temp Pulse Resp B/P (MAP) Pulse Ox O2 Delivery O2 Flow Rate FiO2 12/08/18 06:00 98.2 87 18 144/86 (105) 98 12/07/18 22:00 Room Air 12/07/18 02:00 2.0 I&O- Last 24 Hours up to 6 AM 12/08/18 06:00 Intake Total 890 ml Output Total 200 ml Balance 690 ml NIESHA ARMENTA DO Dec 08, 2018 12:22
--- NOTE | 2018-12-08 13:32 | IPN ---
DATE: 12/08/2018 SUBJECTIVE: Ruthy is seen and examined this morning at bedside. Reports she is having no issues. Her stools are somewhat soft, has been voiding without problems. Renal function is improved back towards baseline. She received a small dose of oral Lasix yesterday. Her potassium has normalized. She is tolerating a full liquid diet. Vital signs: Temperature 98.2, pulse 88, respiratory rate 19, blood pressure 134/87, saturating 98% on room air. Intake yesterday was 1 liter. There were three incontinent voids recorded yesterday and two bowel movements. General: The patient is seen sitting out of bed to the chair, elderly female, comfortable in no acute distress. Extraocular muscles are intact. Tongue is moist. Neck is supple. Jugular veins were not elevated. Cardiac: S1, S2 regular rate and rhythm. Lungs were clear to auscultation bilaterally. Abdomen is soft and nontender. The incision site is clean with gianna. Extremities show no clubbing or cyanosis. There is some chronic pedal edema. She is wearing compression stockings. Neurologic: No focal deficits. Psychiatric: Appropriate mood and affect. LABORATORIES: Sodium 136, potassium 4.6, bicarbonate 25, BUN 27, creatinine 1.4, magnesium 2.1. INPATIENT MEDICATIONS. I have cut the magnesium down to 400 mg twice daily. I have cut the bicarbonate down to 325 mg twice a day. Remainder medications are unchanged from prior. PROBLEMS: 1. Acute kidney injury on chronic kidney disease stage III. The patient's renal function is at her usual baseline. At home she takes diuretic only as needed and in the hospital we have been doing the same and I recommend that when she is discharged she can go on her usual as needed diuretic. She should continue with dietary potassium restriction. 2. Metabolic acidosis. It is improved, serum bicarbonate is up to 25. I am cutting back on her oral sodium bicarbonate supplementation as she is no longer having significant ostomy losses of bicarbonate. 3. Hypomagnesemia. Her magnesium level has improved to 2.1. Again, now that she is not having large ostomy losses I believe that we can cut back on her magnesium supplement and I am cutting her down to 400 mg p.o. twice daily. DISPOSITION: The patient is stable for discharge from a nephrology point of view, but will need to be followed up in the office with an one week for recheck of her electrolytes.
[2018-12-08 14:00] VITALS: BP 110/66
[2018-12-08 18:00] VITALS: BP 135/73
--- NOTE | 2018-12-08 19:32 | IPNPDOC ---
Date Seen The patient was seen on 12/08/18. Progress Note SUBJECTIVE: Patient reports sore surgical site but tolerable. No acute events reported overnight. Tolerating diet. OBJECTIVE PHYSICAL EXAMINATION: VITAL SIGNS: Please see below. General: No acute distress, Alert Eyes: Normal sclera, EOMI, MANJINDER HENT: Atraumatic, neck supple, moist mucous membranes Cardiovascular: Normal rate, normal rhythm. No murmurs appreciated. Pulmonary: Clear to auscultation b/l, no wheezing GI: Soft, nontender, abdomen with dressing c/d/i. Skin: Warm and dry Neuro: CN grossly intact. No focal deficits. Strengths equal b/l. Psych: oriented x 3 LABORATORY DATA, IMAGING STUDIES, MICROBIOLOGY: Please see below. DVT prophylaxis ordered?: HSQ ASSESSMENT AND PLAN: 1. Ulcerative colitis - s/p sigmoid colectomy with ileostomy and now closed. - Symptoms improved on steroids and mesalamine as recommended by GI. Tapering steroid. - advance diet. - Has high output ostomy. GI panel negative, s/p octreotide. 2. Renal cell ca - s/p L. side partial nephrectomy. 3. Normocytic anemia - s/p 2 units pRBC. - Monitor and transfuse as needed. 4. UTI - Resolved. s/p ciprofloxacin 5 days. 5. Severe protein malnutrition - 2/2 poor oral intake and high ostomy output. - c/w ensure and supplements. 6. CKD III - Cr stable. - On bicarb PO. Levels stable. - Nephrology following. 7. Hyperkalemia - Improving overall with fluctuating levels. - c/w fludrocortisone daily and continue low K diet. - Monitor daily BMPs and treat as needed. 8. Torre catheter - In place since surgery for colovesicular adhesions/fistula. - Was recommended to remove by surgery but patient was anxious about it. Removed on this admission and has been urinating without difficulty. - f/u with urology post discharge. Dispo: Likely d/c in AM. VS, I&O, 24H, Fishbone Vital Signs/I&O Vital Signs Date Time Temp Pulse Resp B/P (MAP) Pulse Ox O2 Delivery O2 Flow Rate FiO2 12/08/18 18:00 99.5 99 18 135/73 (93) 97 Room Air 12/07/18 02:00 2.0 I&O- Last 24 Hours up to 6 AM 12/08/18 06:00 Intake Total 890 ml Output Total 200 ml Balance 690 ml Laboratory Data 24H LABS Laboratory Tests 2 12/08/18 05:20: Nucleated Red Blood Cells % (auto) 0.0, Anion Gap 9, Glomerular Filtration Rate 38.1L, Calcium Level 8.9, Magnesium Level 2.1 CBC/BMP Laboratory Tests 12/08/18 05:20 LOLA TERAN MD Dec 08, 2018 19:32
[2018-12-08] MEDS ORDERED: SODIUM BICARBONATE 325 MG TAB PO SCH (21:00)
[2018-12-08] MEDS ORDERED: MAGNESIUM OXIDE 400 MG TAB (MAG-OX) PO SCH (21:00)
[2018-12-08 22:00] VITALS: BP 138/81
[2018-12-09 02:00] VITALS: BP 132/77
[2018-12-09] MEDS ORDERED: NS 1,000 ML IV SCH (05:06)
--- NOTE | 2018-12-09 05:44 | IPNPDOC ---
Text Note Date of Service The patient was seen on 12/09/18. NOTE I received a page around 4 AM, the patient had bright red blood in his stool about 15-20 cc. Patient is status post ileectomy reversal performed by Dr. Stock on 12/06/2018. According to most recent surgical note written by Dr. Armenta patient was tolerating by mouth food, making bowel movement, no blood was noted in patient's bowel movement. There was plan to discharge patient this a.m. I examined patient, patient was alert, oriented, denied any pain, ileostomy site did not have any signs of drainage, no bleeding, nontender. PE VITALS: See Below GENERAL APPEARANCE: Alert no acute distress. , Elderly female SKIN: Warm, well perfused. ENT: Palate intact, bullard tympanic membrane no bulging, no erythema, Neck supple, no thyromegaly THORAX: Symmetrical. LUNGS: Clear to auscultation bilaterally. HEART: Normal S1, S2. No murmurs, no rubs, no gallops ABDOMEN: Soft. No masses. Bowel sounds are present., Visible scar from ileectomy reversal TRUNK/SPINE:Straight. EXTREMITIES: Moves all extremities equally. No gross deformities. PULSES: 2+ upper and lower extremity . Assessment and plan, Contacted Dr. Armenta, he advised. Continue regular diet, and that this was most likely a normal occurrence from surgery. This will likely resolve on its own. We'll monitor H&H every 8 hours. VS,Fishbone, I+O VS, Fishbone, I+O Vital Signs Date Time Temp Pulse Resp B/P (MAP) Pulse Ox O2 Delivery O2 Flow Rate FiO2 12/09/18 02:00 98.2 95 18 132/77 (95) 98 12/08/18 22:00 Room Air 12/07/18 02:00 2.0 I&O- Last 24 Hours up to 6 AM 12/09/18 06:00 Intake Total 400 ml Output Total 250 ml Balance 150 ml ONOFRE ESQUIVEL DO Dec 09, 2018 05:43
[2018-12-09 06:00] VITALS: BP 148/83
[2018-12-09 06:34] LABS: HEMATOCRIT 26.3 % (36.0-47.0); HEMOGLOBIN 8.5 g/dl (12.0-15.5); MEAN CORPUSCULAR HEMOGLOBIN 30.2 pg (27.0-33.0); MEAN CORPUSCULAR HGB CONC 32.3 g/dl (32.0-36.5); MEAN CORPUSCULAR VOLUME 93.6 fl (80.0-96.0); PLATELET COUNT, AUTOMATED 238 10^3/uL (150-450); RED BLOOD COUNT 2.81 10^6/uL (4.00-5.40); WHITE BLOOD COUNT 9.4 10^3/uL (4.0-10.0)
[2018-12-09 06:35] LABS: HEMATOCRIT 26.7 % (36.0-47.0); HEMOGLOBIN 8.5 g/dl (12.0-15.5)
[2018-12-09 07:03] LABS: CALCIUM LEVEL 8.6 MG/DL (8.8-10.2); CREATININE FOR GFR 1.3 MG/DL (0.55-1.30); GLOMERULAR FILTRATION RATE 42.5 (>39); MAGNESIUM LEVEL 2.2 MG/DL (1.8-2.4); POTASSIUM SERUM 3.8 MEQ/L (3.5-5.1)
[2018-12-09 10:00] VITALS: BP 135/83
[2018-12-09] MEDS: MAGNESIUM OXIDE 400 MG TAB (MAG-OX) PO SCH (10:00)
[2018-12-09] MEDS: FIBER-CON 625 MG TAB PO SCH ×4 (10:00→21:57)
[2018-12-09] MEDS: ESCITALOPRAM OXALATE 10 MG TAB (LEXAPRO) PO SCH (10:00)
[2018-12-09] MEDS: VITAMIN D 1,000 INTERNATIONAL UNITS TABLET PO SCH (10:00)
[2018-12-09] MEDS: predniSONE 10 MG TAB PO SCH (10:00)
[2018-12-09] MEDS: FLUDROCORTISONE ACETATE 0.1 MG TAB PO SCH (10:00)
[2018-12-09] MEDS: LACTOBACILLUS ACIDOPHILUS CAP (BACID) PO SCH ×3 (10:00→17:34)
[2018-12-09] MEDS: CALCIUM/VITAMIN D 500 MG TAB PO SCH ×2 (10:00→21:58)
[2018-12-09] MEDS: MESALAMINE 250 MG CR CAP PO SCH ×3 (10:01→21:58)
[2018-12-09] MEDS: CHOLESTYRAMINE 4 GM PWD PKT PO SCH ×3 (11:28→23:04)
--- NOTE | 2018-12-09 13:08 | IPN ---
DATE OF SERVICE: 12/09/2018 SUBJECTIVE: Patient seen and examined this morning at the bedside. Denies any overnight events or complaints. She is now on a regular diet. Electrolytes remain stable and several of her supplements have been discontinued by myself. She denies any shortness of breath or troubles voiding. Temperature 98.7, pulse 79, respiratory rate 19, blood pressure 135/83, saturating 98% on room air. Intake yesterday and output yesterday are not fully recorded. Voids have been incontinent. General: The patient is seen sitting out of bed to the chair, elderly female, comfortable, in no distress. Extraocular muscles are intact. Tongue is moist. Neck is supple. Jugular veins are not elevated. Cardiac: S1, S2, regular rate and rhythm. Lungs are clear to auscultation bilaterally. Abdomen is soft and nontender. The incision site is clean with gianna. The extremities show no clubbing or cyanosis. There is some trace pedal edema. She is not wearing compression stockings today. Neurologic: No focal deficits. Skin: Normal temperature and turgor. Psychiatric: Appropriate mood and affect. LABS: Sodium 140, potassium 3.8, bicarbonate 27, BUN 36, creatinine 1.3, magnesium 2.2, hemoglobin 8.5. INPATIENT MEDICATIONS: I cut the magnesium oxide down to 400 mg once a day. I discontinued sodium bicarbonate and I discontinued fludrocortisone. Remainder OF medications are unchanged from prior. PROBLEMS: 1. Acute kidney injury (PRIYANKA) on chronic kidney disease (CKD) stage III. The renal function has recovered to her usual baseline. She does not need any standing diuretics. At home, she was previously only taking diuretic as needed and I recommend that she can continue on the same. 2. Metabolic acidosis. It is completely resolved. Serum bicarbonate is up to 27. It was likely due to ostomy losses of bicarbonate and I have discontinued her oral sodium bicarbonate supplementation. 3. Hypomagnesemia. Her magnesium level has improved nicely again now that she is not having large ostomy losses, we can cut back and I have reduced her magnesium oxide to 400 mg once a day. 5. Hyperkalemia. It has also completely resolved. Her potassium today is down to 3.8. I am discontinuing her fludrocortisone. DISPOSITION: Patient is stable for discharge from a nephrology point of view. Nephrology is signing off at present. Please reconsult as needed.
[2018-12-09 13:51] LABS: HEMATOCRIT 28.6 % (36.0-47.0); HEMOGLOBIN 9.3 g/dl (12.0-15.5)
[2018-12-09 14:00] VITALS: BP 115/61
[2018-12-09 18:00] VITALS: BP 134/75
--- NOTE | 2018-12-09 19:35 | IPNPDOC ---
Date Seen The patient was seen on 12/09/18. Progress Note SUBJECTIVE: Patient reports feeling fine but did note having a bloody bowel movement early this morning. She noted a significant amount of blood and nervous to be discharged today. K 3.8 OBJECTIVE PHYSICAL EXAMINATION: VITAL SIGNS: Please see below. General: No acute distress, Alert Eyes: Normal sclera, EOMI, MANJINDER HENT: Atraumatic, neck supple, moist mucous membranes Cardiovascular: Normal rate, normal rhythm. No murmurs appreciated. Pulmonary: Clear to auscultation b/l, no wheezing GI: Soft, nontender, abdomen with dressing c/d/i. Skin: Warm and dry Neuro: CN grossly intact. No focal deficits. Strengths equal b/l. Psych: oriented x 3 LABORATORY DATA, IMAGING STUDIES, MICROBIOLOGY: Please see below. DVT prophylaxis ordered?: HSQ ASSESSMENT AND PLAN: 1. Ulcerative colitis - s/p sigmoid colectomy with ileostomy and now closed. - Symptoms improved on steroids and mesalamine as recommended by GI. - advance diet. - Has high output ostomy. GI panel negative, s/p octreotide. 2. Renal cell ca - s/p L. side partial nephrectomy. 3. Normocytic anemia - s/p 2 units pRBC. - Monitor and transfuse as needed. 4. UTI - Resolved. s/p ciprofloxacin 5 days. 5. Severe protein malnutrition - 2/2 poor oral intake and high ostomy output. - c/w ensure and supplements. 6. CKD III - Cr stable. - On bicarb PO. Levels stable. - Nephrology following. 7. Hyperkalemia - Improving overall with fluctuating levels. - c/w fludrocortisone daily and continue low K diet. - Monitor daily BMPs and treat as needed. 8. Torre catheter - In place since surgery for colovesicular adhesions/fistula. - Was recommended to remove by surgery but patient was anxious about it. Removed on this admission and has been urinating without difficulty. - f/u with urology post discharge. 9. BRBPR - H/H had been stable. Reportedly can be seen post op. - Just monitor for now. Transfuse if needed, although unlikely that patient will need. Dispo: Plan to discharge in Am if patient remains stable. VS, I&O, 24H, Fishbone Vital Signs/I&O Vital Signs Date Time Temp Pulse Resp B/P (MAP) Pulse Ox O2 Delivery O2 Flow Rate FiO2 12/09/18 18:00 97.6 101 18 134/75 (94) 98 12/09/18 10:00 Room Air 12/07/18 02:00 2.0 I&O- Last 24 Hours up to 6 AM 12/09/18 06:00 Intake Total 700 ml Output Total 250 ml Balance 450 ml Laboratory Data 24H LABS Laboratory Tests 2 12/09/18 06:05: Nucleated Red Blood Cells % (auto) 0.0, Anion Gap 7L, Glomerular Filtration Rate 42.5, Calcium Level 8.6L, Magnesium Level 2.2 CBC/BMP Laboratory Tests 12/09/18 06:05 12/09/18 06:06 12/09/18 13:40 LOLA TERAN MD Dec 09, 2018 19:35
[2018-12-09 21:57] LABS: HEMATOCRIT 25.3 % (36.0-47.0); HEMOGLOBIN 8.1 g/dl (12.0-15.5)
[2018-12-09 22:00] VITALS: BP 139/75
--- NOTE | 2018-12-09 22:06 | IPNPDOC ---
Text Note Date of Service The patient was seen on 12/09/18. NOTE Overnight she had a BM with some blood in it that has her concerned about going home. Since then she had another one that was slightly black, but no more bright red bleeding. Denies problems with nausea, emesis, fevers, or pain. She has been out of bed moving around, and is tolerating diet with a couple BMs. VSSAF NAD abd - soft, NT, nd, incisions c/d/i labs - below A) 73y/o female s/p ileostomy closure P) reg diet ambulate monitor hgb plan on d/c home in am if stools are non longer bloody Orlando Armenta DO VS,Ethel, I+O VS, Ethel, I+O Laboratory Tests 12/09/18 06:05 12/09/18 06:06 12/09/18 13:40 12/09/18 21:41 Vital Signs Date Time Temp Pulse Resp B/P (MAP) Pulse Ox O2 Delivery O2 Flow Rate FiO2 12/09/18 18:00 97.6 101 18 134/75 (94) 98 12/09/18 10:00 Room Air 12/07/18 02:00 2.0 I&O- Last 24 Hours up to 6 AM 12/09/18 06:00 Intake Total 700 ml Output Total 250 ml Balance 450 ml NIESHA ARMENTA DO Dec 09, 2018 22:06
[2018-12-10 02:00] VITALS: BP 135/80
[2018-12-10 06:00] VITALS: BP 138/88
[2018-12-10 06:49] LABS: HEMATOCRIT 23.2 % (36.0-47.0); HEMOGLOBIN 7.3 g/dl (12.0-15.5); MEAN CORPUSCULAR HEMOGLOBIN 29.4 pg (27.0-33.0); MEAN CORPUSCULAR HGB CONC 31.5 g/dl (32.0-36.5); MEAN CORPUSCULAR VOLUME 93.5 fl (80.0-96.0); PLATELET COUNT, AUTOMATED 179 10^3/uL (150-450); RED BLOOD COUNT 2.48 10^6/uL (4.00-5.40); WHITE BLOOD COUNT 9.2 10^3/uL (4.0-10.0)
[2018-12-10 07:15] LABS: CALCIUM LEVEL 8.5 MG/DL (8.8-10.2); CREATININE FOR GFR 1.28 MG/DL (0.55-1.30); GLOMERULAR FILTRATION RATE 43.3 (>39); MAGNESIUM LEVEL 1.9 MG/DL (1.8-2.4); POTASSIUM SERUM 4.2 MEQ/L (3.5-5.1)
[2018-12-10] MEDS: CALCIUM/VITAMIN D 500 MG TAB PO SCH ×2 (08:35→21:08)
[2018-12-10] MEDS: LACTOBACILLUS ACIDOPHILUS CAP (BACID) PO SCH ×3 (08:36→14:56)
[2018-12-10] MEDS: predniSONE 10 MG TAB PO SCH (08:36)
[2018-12-10] MEDS: FIBER-CON 625 MG TAB PO SCH ×4 (08:36→21:08)
[2018-12-10] MEDS: ESCITALOPRAM OXALATE 10 MG TAB (LEXAPRO) PO SCH (08:36)
[2018-12-10] MEDS: VITAMIN D 1,000 INTERNATIONAL UNITS TABLET PO SCH (08:36)
[2018-12-10] MEDS: MAGNESIUM OXIDE 400 MG TAB (MAG-OX) PO SCH (08:36)
[2018-12-10] MEDS: MESALAMINE 250 MG CR CAP PO SCH ×3 (08:36→21:08)
[2018-12-10] MEDS: CHOLESTYRAMINE 4 GM PWD PKT PO SCH ×3 (09:54→22:22)
[2018-12-10 12:15] LABS: HEMATOCRIT 25.6 % (36.0-47.0); HEMOGLOBIN 8.3 g/dl (12.0-15.5)
[2018-12-10 14:00] VITALS: BP 114/64
--- NOTE | 2018-12-10 17:09 | IPNPDOC ---
Text Note Date of Service The patient was seen on 12/10/18. NOTE Denies problems with nausea, emesis, fevers, or pain. She has been out of bed moving around, and is tolerating diet. Multiple BMs over the last 24 hours with some blood in them. VSSAF NAD abd - soft, NT, nd, incisions c/d/i labs - below A) 73y/o female s/p ileostomy closure P) reg diet ambulate monitor hgb plan on d/c home in am if stools are non longer bloody Orlando Armenta DO VS,Ethel, I+O VS, Ethel, I+O Laboratory Tests 12/09/18 21:41 12/10/18 06:03 12/10/18 11:53 Vital Signs Date Time Temp Pulse Resp B/P (MAP) Pulse Ox O2 Delivery O2 Flow Rate FiO2 12/10/18 14:00 98.5 102 20 114/64 (81) 98 Room Air 12/07/18 02:00 2.0 I&O- Last 24 Hours up to 6 AM 12/10/18 06:00 Intake Total 1140 ml Output Total 675 ml Balance 465 ml NIESHA ARMENTA DO Dec 10, 2018 17:09
--- NOTE | 2018-12-10 18:01 | IPNPDOC ---
Date Seen The patient was seen on 12/10/18. Progress Note SUBJECTIVE: Patient did not notice any blood today. Hb did drop down to 7.3 this morning. However, repeat 8.3. No acute events reported overnight. OBJECTIVE PHYSICAL EXAMINATION: VITAL SIGNS: Please see below. General: No acute distress, Alert Eyes: Normal sclera, EOMI, MANJINDER HENT: Atraumatic, neck supple, moist mucous membranes Cardiovascular: Normal rate, normal rhythm. No murmurs appreciated. Pulmonary: Clear to auscultation b/l, no wheezing GI: Soft, nontender, abdomen with dressing c/d/i. Skin: Warm and dry Neuro: CN grossly intact. No focal deficits. Strengths equal b/l. Psych: oriented x 3 LABORATORY DATA, IMAGING STUDIES, MICROBIOLOGY: Please see below. DVT prophylaxis ordered?: HSQ ASSESSMENT AND PLAN: 1. Ulcerative colitis - s/p sigmoid colectomy with ileostomy and now closed. - Symptoms improved on steroids and mesalamine as recommended by GI. - advance diet. - Has high output ostomy. GI panel negative, s/p octreotide. 2. Renal cell ca - s/p L. side partial nephrectomy. 3. Normocytic anemia - s/p 2 units pRBC. - Monitor and transfuse as needed. 4. UTI - Resolved. s/p ciprofloxacin 5 days. 5. Severe protein malnutrition - 2/2 poor oral intake and high ostomy output. - c/w ensure and supplements. 6. CKD III - Cr stable. - On bicarb PO. Levels stable. - Nephrology following. 7. Hyperkalemia - Improving overall with fluctuating levels. - c/w fludrocortisone daily and continue low K diet. - Monitor daily BMPs and treat as needed. 8. Torre catheter - In place since surgery for colovesicular adhesions/fistula. - Was recommended to remove by surgery but patient was anxious about it. Removed on this admission and has been urinating without difficulty. - f/u with urology post discharge. 9. BRBPR - H/H had been stable. Reportedly can be seen post op. - Just monitor for now. Transfuse if needed. - Will d/c in AM if Hb stable. Dispo: Plan to discharge in Am if patient remains stable. VS, I&O, 24H, Fishbone Vital Signs/I&O Vital Signs Date Time Temp Pulse Resp B/P (MAP) Pulse Ox O2 Delivery O2 Flow Rate FiO2 12/10/18 14:00 98.5 102 20 114/64 (81) 98 Room Air 12/07/18 02:00 2.0 I&O- Last 24 Hours up to 6 AM 12/10/18 06:00 Intake Total 1140 ml Output Total 675 ml Balance 465 ml Laboratory Data 24H LABS Laboratory Tests 2 12/10/18 06:03: Nucleated Red Blood Cells % (auto) 0.0, Anion Gap 7L, Glomerular Filtration Rate 43.3, Calcium Level 8.5L, Magnesium Level 1.9 CBC/BMP Laboratory Tests 12/09/18 21:41 12/10/18 06:03 12/10/18 11:53 LOLA TERAN MD Dec 10, 2018 18:01
[2018-12-10 22:00] VITALS: BP 117/64
[2018-12-10 23:07] LABS: HEMATOCRIT 23.1 % (36.0-47.0); HEMOGLOBIN 7.2 g/dl (12.0-15.5)
[2018-12-11] VITALS (9 sets, daily range): BP systolic 117–155; BP diastolic 69–90
[2018-12-11 06:09] LABS: HEMATOCRIT 21.5 % (36.0-47.0)
[2018-12-11 06:13] LABS: HEMOGLOBIN 6.8 g/dl (12.0-15.5)
[2018-12-11] MEDS: LACTOBACILLUS ACIDOPHILUS CAP (BACID) PO SCH ×3 (08:45→16:23)
[2018-12-11] MEDS: MESALAMINE 250 MG CR CAP PO SCH ×3 (08:45→20:57)
[2018-12-11] MEDS: VITAMIN D 1,000 INTERNATIONAL UNITS TABLET PO SCH (08:45)
[2018-12-11] MEDS: CALCIUM/VITAMIN D 500 MG TAB PO SCH ×2 (08:46→20:57)
[2018-12-11] MEDS: FIBER-CON 625 MG TAB PO SCH ×4 (08:46→20:57)
[2018-12-11] MEDS: predniSONE 10 MG TAB PO SCH (08:47)
[2018-12-11] MEDS: ESCITALOPRAM OXALATE 10 MG TAB (LEXAPRO) PO SCH (08:47)
[2018-12-11] MEDS: MAGNESIUM OXIDE 400 MG TAB (MAG-OX) PO SCH (08:48)
[2018-12-11] MEDS: CHOLESTYRAMINE 4 GM PWD PKT PO SCH ×3 (09:56→21:03)
--- NOTE | 2018-12-11 14:00 | IPNPDOC ---
Date Seen The patient was seen on 12/11/18. Progress Note SUBJECTIVE: Patient offered no complaints this morning, however Hb noted to be at 6.8. No evidence of blood noted in stool. OBJECTIVE PHYSICAL EXAMINATION: VITAL SIGNS: Please see below. General: No acute distress, Alert Eyes: Normal sclera, EOMI, MANJINDER HENT: Atraumatic, neck supple, moist mucous membranes Cardiovascular: Normal rate, normal rhythm. No murmurs appreciated. Pulmonary: Clear to auscultation b/l, no wheezing GI: Soft, nontender, abdomen with dressing c/d/i. Skin: Warm and dry Neuro: CN grossly intact. No focal deficits. Strengths equal b/l. Psych: oriented x 3 LABORATORY DATA, IMAGING STUDIES, MICROBIOLOGY: Please see below. DVT prophylaxis ordered?: HSQ ASSESSMENT AND PLAN: 1. Ulcerative colitis - s/p sigmoid colectomy with ileostomy and now closed. - Has high output ostomy. GI panel negative, s/p octreotide. 2. Renal cell ca - s/p L. side partial nephrectomy. 3. Normocytic anemia - s/p 2 units pRBC. To get 2 more today. - Monitor and transfuse as needed. 4. UTI - Resolved. s/p ciprofloxacin 5 days. 5. Severe protein malnutrition - 2/2 poor oral intake and high ostomy output. - c/w ensure and supplements. 6. CKD III - Cr stable. - On bicarb PO. Levels stable. 7. Hyperkalemia - resolved. - c/w fludrocortisone daily and continue low K diet. - Monitor daily BMPs and treat as needed. 8. Torre catheter - In place since surgery for colovesicular adhesions/fistula. - Was recommended to remove by surgery but patient was anxious about it. Removed on this admission and has been urinating without difficulty. - f/u with urology post discharge. 9. BRBPR - To get 2 units pRBC today. - Will d/c in AM if Hb stable. VS, I&O, 24H, Fishbone Vital Signs/I&O Vital Signs Date Time Temp Pulse Resp B/P (MAP) Pulse Ox O2 Delivery O2 Flow Rate FiO2 12/11/18 13:43 98.0 88 18 155/90 97 Room Air 12/07/18 02:00 2.0 I&O- Last 24 Hours up to 6 AM 12/11/18 06:00 Intake Total 1800 ml Output Total 275 ml Balance 1525 ml Laboratory Data 24H LABS Laboratory Tests 2 12/11/18 05:24: Magnesium Level 1.9 CBC/BMP Laboratory Tests 12/10/18 21:48 12/11/18 05:24 LOLA TERAN MD Dec 11, 2018 14:00
[2018-12-11 17:43] LABS: HEMATOCRIT 32.1 % (36.0-47.0); HEMOGLOBIN 10.5 g/dl (12.0-15.5)
[2018-12-12 06:00] VITALS: BP 141/87
[2018-12-12 07:36] LABS: HEMATOCRIT 30.2 % (36.0-47.0); HEMOGLOBIN 10.1 g/dl (12.0-15.5)
[2018-12-12] MEDS: LACTOBACILLUS ACIDOPHILUS CAP (BACID) PO SCH ×2 (08:00→11:49)
--- NOTE | 2018-12-12 09:50 | DS.PDOC ---
Discharge Summary General Date of Admission Nov 04, 2018 at 17:35 Date of Discharge 12/12/18 Discharge Summary PROCEDURES PERFORMED DURING STAY: [None]. Procedure: Colonoscopy Indications: Follow-up endoscopy after surgery, Patient had rectal laceration at surgery 7 weeks ago treated with endoscopic clips. Now for reevaluation of rectal tear and hand sewn anastomosis. Impression: - Palpable endoscopic clips at tip of finger. found on digital rectal exam. - Congested, erythematous, eroded, friable (with spontaneous bleeding), granular and inflamed mucosa in the rectum, in the recto-sigmoid colon and in the sigmoid colon. Biopsied. - Patent end-to-end colo-rectal anastomosis, characterized by erosion, friable mucosa, a hemorrhagic appearance and inflammation. - Repair of the rectum with multiple endoscopic clips noted in the rectal wall. anastomosis. PROCEDURE PERFORMED: Takedown of ileostomy with ileoileal anastomosis. 12/06/18 ADMITTING DIAGNOSES: 1. PRIYANKA on CKD 2. ulcerative colitis 3. Anemia 4. Renal cell ca DISCHARGE DIAGNOSES: 1. PRIYANKA on CKD 2. ulcerative colitis 3. Anemia 4. Renal cell ca 5. Hyperkalemia 6. UTI 7. Bleeding per rectum COMPLICATIONS/CHIEF COMPLAINT: Acute Renal Failure. HISTORY OF PRESENT ILLNESS: "The patient is a 73-year-old woman who had undergone sigmoid colectomy with coloproctostomy this past summer who was sent to the ed by Dr. Gaspar because of elevated cr. She stated that since her surgery she has not had good appetite and has been getting weaker. Per daughter at bedside she only eats soft foods. Patient said she feels a bit depressed, and denied difficulty swallowing, nausea, vomiting, abd pain, fever or chills. : HOSPITAL COURSE: Patient was was admitted and treated with UTI in addition to getting closure of her ileostomy after getting a laparoscopic converted to open sigmoid resection with creation of diverting ileostomy 2.5 months prior to presentation. Course complicated by hyperkalemia requiring management with assistance of nephrology to control potassium prior to surgical ielostomy closure. Patient's course of admission complicated by anemia and blood per rectum requiring 4 units pRBC transfusions. She currently feels well and electrolytes are satisfactory. Patient to be discharged to f/u with PMD and Surgery as outpatient. DISCHARGE MEDICATIONS: Please see below. ALLERGIES: Please see below. PHYSICAL EXAMINATION ON DISCHARGE: VITAL SIGNS: Please see below. General: No acute distress, Alert Eyes: Normal sclera, EOMI, MANJINDER HENT: Atraumatic, neck supple, moist mucous membranes Cardiovascular: Normal rate, normal rhythm. No murmurs appreciated. Pulmonary: Clear to auscultation b/l, no wheezing GI: Soft, nontender, abdomen incision site clean and dry. Skin: Warm and dry Neuro: CN grossly intact. No focal deficits. Strengths equal b/l. Psych: oriented x 3 LABORATORY DATA: Please see below. IMAGING: renal US- IMPRESSION: 1. Mild right renal atrophy. 2. Echogenic kidneys bilaterally consistent with medical renal disease. There is a lobular contour of the left kidney. 3. Right renal calculus in the lower pole measuring 8 x 4 x 6 mm. 4. There is a Torre catheter in the bladder. 5. No hydronephrosis. Abdomen/Pelvis CT (11/10)- Impression: There has been interim sigmoid colon resection and diverting ileostomy. There is no evidence of bowel distension or obstruction. No air-fluid levels. There is no ascites. The mesentery is unremarkable. There is a large fixed hiatal hernia containing almost all of the stomach, unchanged. There are small bilateral pleural effusions and there is bilateral lower lobe atelectasis as an interval change. The left lower lobe lung nodule is obscured on the current study. Bilateral renal cortical scarring. There is no hydronephrosis. There are nonobstructive renal calculi at the lower pole of the right kidney. There appear be capsular calcifications at the lower pole of the left kidney. The previous right inguinal hernia containing small bowel loops is no longer identified. ACTIVITY: [As tolerated]. DIET: Regular diet DISCHARGE PLAN: f/u PMD and Surgery DISPOSITION: Home. DISCHARGE INSTRUCTIONS: f/u PMD and Surgery ITEMS TO FOLLOWUP ON ON OUTPATIENT: none DISCHARGE CONDITION: [Stable]. TIME SPENT ON DISCHARGE: 32 minutes. Vital Signs/I&Os Vital Signs Date Time Temp Pulse Resp B/P (MAP) Pulse Ox O2 Delivery O2 Flow Rate FiO2 12/12/18 06:00 98.3 94 17 141/87 (105) 98 Room Air 12/07/18 02:00 2.0 I&O- Last 24 Hours up to 6 AM 12/12/18 06:00 Intake Total 2080 ml Output Total 625 ml Balance 1455 ml Laboratory Data Labs 24H Laboratory Tests 2 12/12/18 05:28: Magnesium Level 1.9 CBC/BMP Laboratory Tests 12/11/18 17:18 12/12/18 05:26 Discharge Medications Scheduled Calcium Polycarbophil (Fiber-Lax) 625 Mg Tablet, 1 EA PO QID Calcium/Vitamin D (Calcium 500-Vit D3 200 Tablet) 1 Each Tablet, 500 MG PO BID Cholestyramine (Cholestyramine Packet) 4 Gm Powd.pack, 2 GM PO BID Escitalopram Oxalate (Escitalopram Oxalate) 10 Mg Tablet, 10 MG PO DAILY L.acidoph/L.bulg/B.bif/S.therm (Perri-Bid Caplet) 1 Each Tablet, 2 EA PO BID Loperamide HCl (Loperamide) 2 Mg Capsule, 2 MG PO Q4H Magnesium Oxide (Magnesium Oxide) 400 Mg Tablet, 800 MG PO BID Sodium Bicarbonate (Sodium Bicarbonate) 325 Mg Tablet, 650 MG PO BID Vitamin D (Vitamin D3) 1,000 Unit Tablet, 1,000 UNITS PO DAILY Allergies Coded Allergies: Unclassified (Verified Allergy, Mild, RASH FROM CHG WIPES, 11/17/18) No Known Drug Allergies (Verified Allergy, Unknown, 11/08/18) LOLA TERAN MD Dec 12, 2018 09:49
[2018-12-12] MEDS: ESCITALOPRAM OXALATE 10 MG TAB (LEXAPRO) PO SCH (10:14)
[2018-12-12] MEDS: MESALAMINE 250 MG CR CAP PO SCH (10:14)
[2018-12-12] MEDS: MAGNESIUM OXIDE 400 MG TAB (MAG-OX) PO SCH (10:14)
[2018-12-12] MEDS: CALCIUM/VITAMIN D 500 MG TAB PO SCH (10:14)
[2018-12-12] MEDS: VITAMIN D 1,000 INTERNATIONAL UNITS TABLET PO SCH (10:14)
[2018-12-12] MEDS: FIBER-CON 625 MG TAB PO SCH ×2 (10:14→11:49)
[2018-12-12] MEDS: CHOLESTYRAMINE 4 GM PWD PKT PO SCH (10:15)
[2018-12-12] MEDS: predniSONE 10 MG TAB PO SCH (10:15)
[2018-12-12 14:00] VITALS: BP 129/83
== END 2018-12-12 15:48 | disposition home health service (06) | DRG 987 ==
LOC: M ED 14:34 → EDBD 14:34 → M ED INP 17:35 → M PCU 18:39 → M MSPAV 11-10 18:53
PROVIDERS: ADMIT Internal Medicine; ATTEND Student in an Organized Health Care Education/Training Program
PROC: 30233N1 Transfusion of Nonautologous Red Blood Cells into Peripheral Vein, Percutaneous Approach (ICD-10-PCS; principal; 2018-11-15)
PROC: 0DBN8ZX Excision of Sigmoid Colon, Via Natural or Artificial Opening Endoscopic, Diagnostic (ICD-10-PCS; 2018-11-26)
PROC: 0DBP8ZX Excision of Rectum, Via Natural or Artificial Opening Endoscopic, Diagnostic (ICD-10-PCS; 2018-11-26)
PROC: 0DBB0ZZ Excision of Ileum, Open Approach (ICD-10-PCS; 2018-12-06)
DX: N17.9 Acute kidney failure, unspecified (principal); E43 Unspecified severe protein-calorie malnutrition; E87.2 Acidosis; E87.1 Hypo-osmolality and hyponatremia; E78.00 Pure hypercholesterolemia, unspecified; N18.3 Chronic kidney disease, stage 3 (moderate); E86.0 Dehydration; E87.6 Hypokalemia; F32.9 Major depressive disorder, single episode, unspecified; E83.42 Hypomagnesemia; D72.819 Decreased white blood cell count, unspecified; E83.39 Other disorders of phosphorus metabolism; E55.9 Vitamin D deficiency, unspecified; R19.7 Diarrhea, unspecified; D64.9 Anemia, unspecified; Z43.2 Encounter for attention to ileostomy; Z85.528 Personal history of other malignant neoplasm of kidney; Z90.49 Acquired absence of other specified parts of digestive tract; Z87.442 Personal history of urinary calculi

== ENCOUNTER → 2019-04-12 | Outpatient (REF) | payer MEDICARE ==
[~2019-04-12] MED LIST changes: +CALCD50TA PO; +CHOL100029 PO; +CHOL4PW PO; +ESCI10TA2 PO; +FIBE62TA PO; +LOPE2CA PO; +MAG400TA PO; +PT COMMENTS; +RISATAB3 PO; +SODI325T9 PO
[2019-04-12 18:24] LABS: PERCENT SATURATION 16.5 % (13.2-45.0)
== END ==
LOC: M LAB REF 16:40
PROVIDERS: ATTEND Internal Medicine
DX: D50.9 Iron deficiency anemia, unspecified (principal)

== ENCOUNTER → 2019-07-12 | Outpatient (CLI) | payer MEDICARE ==
[~2019-07-12] MED LIST changes: +IRON65TA2 PO; +NO ITAB PO; +ROSU20TA5 PO; +VITAD1000T PO
== END ==
LOC: M LABSMTC 11:50
PROVIDERS: ATTEND Anesthesiology
DX: Z01.812 Encounter for preprocedural laboratory examination (principal); Z11.59 Encounter for screening for other viral diseases

== ENCOUNTER 2019-07-15 08:34 | Day surgery (SDC) | payer MEDICARE ==
[~2019-07-15] VITALS: Ht 147.3 cm; Wt 56.7 kg
[~2019-07-15 08:34] MED LIST changes: +BSS IRR 500ML/OMIDRIA 4ML IRR BAG (OR ONLY) (J1097 PER ML) As Ordered ONE; +CEFUROXIME 1MG/0.1ML INTRACAMERAL INJ As Ordered ONE; +DUOVISC (0.50ML VISCOAT/0.55ML PROVISC) OPHTH KIT As Ordered ONE; +MIDAZOLAM INJ 2MG/2ML VIAL (J2250 PER 1MG) As Ordered ONE; +OFLOXACIN 0.3 % (OCUFLOX) OPTH SOL 5ML OS ONE; +PHENYLEPHRINE 2.5% OPHTH SOL 2ML OS ONE; +POVIDONE-IODINE 5% OPHTH PREP SOL 30ML As Ordered ONE; +PROPARACAINE 0.5% OPHTH SOL 15ML OS ONE; +TROPICAMIDE 1% OPHTH SOLN 2ML OS ONE; +fentaNYL 100 MCG/2 ML INJECTION (J3010) As Ordered ONE
[2019-07-15] MEDS ORDERED: BSS IRR 500ML/OMIDRIA 4ML IRR BAG (OR ONLY) (J1097 PER ML) As Ordered ONE (10:22)
[2019-07-15 11:05] VITALS: BP 178/86
--- NOTE | 2019-07-23 00:04 | RO ---
DATE OF PROCEDURE: 07/15/2019 PREOPERATIVE DIAGNOSIS: 1. Visually significant nuclear sclerotic cataract left eye. POSTOPERATIVE DIAGNOSIS: 1. Visually significant nuclear sclerotic cataract left eye. PROCEDURE: 1. Cataract extraction with use of phacoemulsification and placement of intraocular lens, AU00T0, 23.0 D, left eye. SURGEON: Vargas Clancy DO OUTSIDE SALES REPRESENTATIVE: None. ANESTHESIA: Local with monitored anesthesia care (MAC), with Omidria (4 mL/500 mL) mixed into irrigation solution. COMPLICATIONS: None. POSTOPERATIVE CONDITION: Stable. INDICATIONS FOR SURGERY: 1. Blurred vision affecting patients activities of daily living. DESCRIPTION OF PROCEDURE: The patient was seen in the preoperative area and properly identified. The correct operative eye was identified and marked. The patient received topical anesthetic, antibiotics, and topical dilating drops. The patient was then transferred to the operating room. The correct side was re-identified, and a time-out was performed. The eye was prepped and draped in a sterile fashion. The eyelids were isolated with Tegaderm tape, and the lids were held open with an adjustable speculum. A 1.0 mm paracentesis incision was made. Intraocular preservative-free Shugarcaine was then injected into the anterior chamber. Viscoelastic was then injected into the anterior chamber through the paracentesis. Using a 2.4 mm sharp-tipped keratome, the anterior chamber was entered via a temporal clear cornea incision. A continuous curvilinear capsulorrhexis was created with Utrata forceps. Hydrodissection was performed with balanced salt solution (BSS) on a blunt cannula until the nucleus was able to rotate freely. The crystalline lens was phacoemulsified and aspirated. Irrigation/aspiration was used to remove the cortical material. Cohesive viscoelastic was placed into the capsular bag to deepen it. The implant was placed into the capsular bag and allowed to unfold. Placement was confirmed by visualizing the anterior capsulorrhexis. Irrigation/aspiration was used to remove the viscoelastic. The clear corneal incision was hydrated with BSS on a blunt cannula. The lens was well positioned. The incisions were then tested for leaks and found to be negative. Cefuroxime was injected into the anterior chamber. The eye was then palpated for appropriate pressure and adjusted accordingly with BSS. The eyelid speculum was then carefully removed. A shield was placed over the eye. The patient tolerated the procedure well and was discharged to the recovery unit in a stable condition.
== END 2019-07-15 11:43 | disposition home or self-care (01) ==
LOC: M SDC 08:34
PROVIDERS: ATTEND Ophthalmology
DX: H25.12 Age-related nuclear cataract, left eye (principal); I10 Essential (primary) hypertension; E78.5 Hyperlipidemia, unspecified; K44.9 Diaphragmatic hernia without obstruction or gangrene; D64.9 Anemia, unspecified; F41.9 Anxiety disorder, unspecified; Z79.899 Other long term (current) drug therapy
CPT/HCPCS: 66984; J1097; J2250; J3010; V2632

== ENCOUNTER → 2019-07-26 | Outpatient (CLI) | payer MEDICARE ==
[~2019-07-26] MED LIST changes: -BSS IRR 500ML/OMIDRIA 4ML IRR BAG (OR ONLY) (J1097 PER ML) As Ordered ONE; -CEFUROXIME 1MG/0.1ML INTRACAMERAL INJ As Ordered ONE; -DUOVISC (0.50ML VISCOAT/0.55ML PROVISC) OPHTH KIT As Ordered ONE; -MIDAZOLAM INJ 2MG/2ML VIAL (J2250 PER 1MG) As Ordered ONE; -OFLOXACIN 0.3 % (OCUFLOX) OPTH SOL 5ML OS ONE; -PHENYLEPHRINE 2.5% OPHTH SOL 2ML OS ONE; -POVIDONE-IODINE 5% OPHTH PREP SOL 30ML As Ordered ONE; -PROPARACAINE 0.5% OPHTH SOL 15ML OS ONE; -TROPICAMIDE 1% OPHTH SOLN 2ML OS ONE; -fentaNYL 100 MCG/2 ML INJECTION (J3010) As Ordered ONE
== END ==
LOC: M LABSMTC 10:44
PROVIDERS: ATTEND Anesthesiology
DX: Z03.818 Encounter for observation for suspected exposure to other biological agents ruled out (principal); Z11.59 Encounter for screening for other viral diseases
CPT/HCPCS: C9803; U0003

== ENCOUNTER 2019-07-29 06:33 | Day surgery (SDC) | payer MEDICARE ==
[~2019-07-29] VITALS: Ht 147.3 cm; Wt 57.2 kg
[2019-07-29] MEDS ORDERED: DUOVISC (0.50ML VISCOAT/0.55ML PROVISC) OPHTH KIT As Ordered ONE (06:48)
[2019-07-29] MEDS ORDERED: POVIDONE-IODINE 5% OPHTH PREP SOL 30ML As Ordered ONE (06:48)
[2019-07-29] MEDS ORDERED: CEFUROXIME 1MG/0.1ML INTRACAMERAL INJ As Ordered ONE (06:49)
[2019-07-29] MEDS ORDERED: fentaNYL 100 MCG/2 ML INJECTION (J3010) As Ordered ONE (06:58)
[2019-07-29] MEDS ORDERED: MIDAZOLAM INJ 2MG/2ML VIAL (J2250 PER 1MG) As Ordered ONE (06:58)
[2019-07-29] MEDS ORDERED: TROPICAMIDE 1% OPHTH SOLN 2ML OD ONE (07:00)
[2019-07-29] MEDS ORDERED: PHENYLEPHRINE 2.5% OPHTH SOL 2ML OD ONE (07:00)
[2019-07-29] MEDS ORDERED: OFLOXACIN 0.3 % (OCUFLOX) OPTH SOL 5ML OD ONE (07:00)
[2019-07-29] MEDS ORDERED: PROPARACAINE 0.5% OPHTH SOL 15ML OD ONE (07:00)
[2019-07-29] MEDS ORDERED: BSS IRR 500ML/OMIDRIA 4ML IRR BAG (OR ONLY) (J1097 PER ML) As Ordered ONE (07:53)
[2019-07-29 09:05] VITALS: BP 156/72
--- NOTE | 2019-08-03 14:24 | RO ---
DATE OF STUDY: 07/29/2019 PREOPERATIVE DIAGNOSIS: 1. Visually significant nuclear sclerotic cataract right eye. POSTOPERATIVE DIAGNOSIS: 1. Visually significant nuclear sclerotic cataract right eye. PROCEDURE: 1. Cataract extraction with use of phacoemulsification and placement of intraocular lens, AU00T0 22.0 D, right eye. SURGEON: Vargas Clancy DO [place] MANAGER: None. ANESTHESIA: Local with monitored anesthesia care (MAC), with Omidria (4 mL/500 mL) mixed into irrigation solution. COMPLICATIONS: None. POSTOPERATIVE CONDITION: Stable. INDICATIONS FOR SURGERY: 1. Blurred vision affecting patients activities of daily living. DESCRIPTION OF PROCEDURE: The patient was seen in the preoperative area and properly identified. The correct operative eye was identified and marked. The patient received topical anesthetic, antibiotics, and topical dilating drops. The patient was then transferred to the operating room. The correct side was re-identified, and a time-out was performed. The eye was prepped and draped in a sterile fashion. The eyelids were isolated with Tegaderm tape, and the lids were held open with an adjustable speculum. A 1.0 mm paracentesis incision was made. Intraocular preservative-free Shugarcaine was then injected into the anterior chamber. Viscoelastic was then injected into the anterior chamber through the paracentesis. Using a 2.4 mm sharp-tipped keratome, the anterior chamber was entered via a temporal clear cornea incision. A continuous curvilinear capsulorrhexis was created with Utrata forceps. Hydrodissection was performed with balanced salt solution (BSS) on a blunt cannula until the nucleus was able to rotate freely. The crystalline lens was phacoemulsified and aspirated. Irrigation/aspiration was used to remove the cortical material. Cohesive viscoelastic was placed into the capsular bag to deepen it. The implant was placed into the capsular bag and allowed to unfold. Placement was confirmed by visualizing the anterior capsulorrhexis. Irrigation/aspiration was used to remove the viscoelastic. The clear corneal incision was hydrated with BSS on a blunt cannula. The lens was well positioned. The incisions were then tested for leaks and found to be negative. Cefuroxime was injected into the anterior chamber. The eye was then palpated for appropriate pressure and adjusted accordingly with BSS. The eyelid speculum was then carefully removed. A shield was placed over the eye. The patient tolerated the procedure well and was discharged to the recovery unit in a stable condition.
== END 2019-07-29 09:35 | disposition home or self-care (01) ==
LOC: M SDC 06:33
PROVIDERS: ATTEND Ophthalmology
DX: H25.11 Age-related nuclear cataract, right eye (principal); I10 Essential (primary) hypertension; E78.5 Hyperlipidemia, unspecified; K44.9 Diaphragmatic hernia without obstruction or gangrene; D64.9 Anemia, unspecified; F41.9 Anxiety disorder, unspecified; Z79.899 Other long term (current) drug therapy; Z88.8 Allergy status to other drugs, medicaments and biological substances; Z86.73 Personal history of transient ischemic attack (TIA), and cerebral infarction without residual deficits
CPT/HCPCS: 66984; J1097; J2250; J3010; V2632

== ENCOUNTER → 2019-10-13 | Outpatient (REF) | payer MEDICARE ==
[~2019-10-13] MED LIST changes: +D31000TA2 PO; -VITAD1000T PO
[2019-10-13 14:22] LABS: PERCENT SATURATION 27.5 % (13.2-45.0)
== END ==
LOC: M LAB REF 11:18
PROVIDERS: ATTEND Internal Medicine
DX: D50.9 Iron deficiency anemia, unspecified (principal)

== ENCOUNTER → 2020-04-14 | Outpatient (REF) | payer MEDICARE ==
[~2020-04-14] MED LIST changes: +ESCI10TA16 PO; -ESCI10TA2 PO; -MAG400TA PO; +MAGN400T35 PO
== END ==
LOC: M LAB REF 16:52
PROVIDERS: ATTEND Internal Medicine
DX: D50.9 Iron deficiency anemia, unspecified (principal)

== ENCOUNTER → 2020-07-26 | Outpatient (CLI) | payer MEDICARE ==
--- NOTE | 2020-07-26 13:53 | REP ---
INDICATION: PAIN. COMPARISON: None. TECHNIQUE: Three views of the right shoulder were performed. FINDINGS: There is an impacted proximal right humeral fracture. The glenohumeral relationship is maintained. The acromioclavicular relationship is within normal limits. There is a tiny calcification seen adjacent to the acromion process laterally. This is likely the result of chronic changes. IMPRESSION: Proximal humeral fracture as described above <Electronically signed by Michele Casanova > 07/26/20 [id number]
== END ==
LOC: M WUC 13:30
PROVIDERS: ATTEND Physician Assistant
DX: S42.291A Other displaced fracture of upper end of right humerus, initial encounter for closed fracture (principal); X58.XXXA Exposure to other specified factors, initial encounter; Y92.89 Other specified places as the place of occurrence of the external cause; Y93.89 Activity, other specified; Y99.8 Other external cause status

== ENCOUNTER → 2020-11-08 | Outpatient (REF) | payer MEDICARE ==
[2020-11-08 17:25] LABS: PERCENT SATURATION 33.2 % (13.2-45.0); URIC ACID 8.7 MG/DL (2.6-6.0)
[2020-11-08 17:37] LABS: PTH INTACT 101.3 PG/ML (18.5-88.0)
== END ==
LOC: M LAB REF 16:24
PROVIDERS: ATTEND Internal Medicine
DX: I12.9 Hypertensive chronic kidney disease with stage 1 through stage 4 chronic kidney disease, or unspecified chronic kidney disease (principal); Z79.899 Other long term (current) drug therapy

== ENCOUNTER → 2020-11-17 | Outpatient (CLI) | payer MEDICARE ==
--- NOTE | 2020-11-17 16:01 | REP ---
INDICATION: HX TIA, THYROID NODULES. COMPARISON: None. TECHNIQUE: Real-time sonographic evaluation of the thyroid gland FINDINGS: The right lobe of the thyroid gland measures 3.4 x 1.3 x 1.7 cm and the left lobe measures 3.6 x 1.1 x 1.7 cm. The isthmus measures 3 mm. In the right lobe of the thyroid gland there are 3 distinct solid nodules. One of the superior pole measures 1.4 cm 1 in the midpole region measuring 4 mm and the 3rd in the lower pole measuring 7 mm. In the left lobe of the thyroid gland there are 3 distinct sub cm sized nodules all in the midpole region all having a maximal dimension of 4 mm. IMPRESSION: Minimal thyroid nodules as described above. <Electronically signed by Michele Casanova > 11/17/20 [id number]
--- NOTE | 2020-11-17 17:12 | REP ---
INDICATION: HX TIA, THYROID NODULES COMPARISON: None. TECHNIQUE: Real-time ultrasound evaluation and duplex Doppler interrogation of the extracranial carotid vasculature is performed. FINDINGS: Antegrade flow is observed in both vertebral arteries. Right carotid: The right common carotid artery shows diffuse intimal thickening but is otherwise unremarkable. There isminimal mixed plaquing in the right carotid bulb and proximal ICA on two-dimensional scanning. Color flow and spectral Doppler interrogation are unremarkable on the right. Velocity chart right carotid: Right CCA PSV: 62 cm/S Right ICA PSV: 86 cm/S Right ICA EDV: 34 cm/S Right ECA PSV: 69 cm/S Right ICA/CCA ratio: 1.4 Left carotid: The left common carotid artery shows diffuse intimal thickening but is otherwise unremarkable. There is minimal mixed plaquing in the left carotid bulb and proximal ICA on two-dimensional scanning. Color flow and spectral Doppler interrogation are unremarkable on the left. Velocity chart left carotid: Left CCA PSV: 74 cm/S Left ICA PSV: 72 cm/S Left ICA EDV: 24 cm/S Left ECA PSV: 63 cm/S Left ICA/CCA ratio: 0.9 IMPRESSION: Less than 50% category narrowing in the right internal carotid artery by Doppler velocity criteria. Less than 50% category narrowing in the left ICA by Doppler velocity criteria. <Electronically signed by Hernando Alvares > 11/17/20 [id number]
== END ==
LOC: M WHC 12:48
PROVIDERS: ATTEND Internal Medicine
DX: E04.2 Nontoxic multinodular goiter (principal); Z86.73 Personal history of transient ischemic attack (TIA), and cerebral infarction without residual deficits

== ENCOUNTER → 2021-05-09 | Outpatient (REF) | payer MEDICARE ==
[~2021-05-09] MED LIST changes: -D31000TA2 PO; +VITA100093 PO
[2021-05-11 08:11] LABS: LDL DIRECT 215 mg/dL (0-99)
== END ==
LOC: M LAB REF 10:29
PROVIDERS: ATTEND Internal Medicine
DX: E78.1 Pure hyperglyceridemia (principal)

== ENCOUNTER → 2021-06-06 | Outpatient (REF) | payer MEDICARE ==
[2021-06-06 17:11] LABS: PHOSPHORUS LEVEL 3.9 MG/DL (2.5-4.9)
[2021-06-06 17:25] LABS: PTH INTACT 194.2 PG/ML (18.5-88.0)
== END ==
LOC: M LAB REF 16:17
PROVIDERS: ATTEND Physician Assistant Medical
DX: N18.4 Chronic kidney disease, stage 4 (severe) (principal)

== ENCOUNTER → 2022-03-18 | Outpatient (REF) | payer MEDICARE ==
[2022-03-18 16:42] LABS: PHOSPHORUS LEVEL 3.8 MG/DL (2.4-5.1); PTH INTACT 107.2 PG/ML (18.5-88.0)
== END ==
LOC: M LAB REF 15:44
PROVIDERS: ATTEND Internal Medicine
DX: N18.4 Chronic kidney disease, stage 4 (severe) (principal)

== ENCOUNTER → 2022-09-17 | Outpatient (REF) | payer MEDICARE ==
[~2022-09-17] MED LIST changes: -ROSU20TA5 PO; +ROSU20TA61 PO
== END ==
LOC: M LAB REF 16:19
PROVIDERS: ATTEND Internal Medicine
DX: N18.4 Chronic kidney disease, stage 4 (severe) (principal)

== ENCOUNTER → 2023-03-25 | Outpatient (REF) | payer MEDICARE ==
[2023-03-25 20:15] LABS: URIC ACID 9.4 MG/DL (3.1-7.8)
[2023-03-25 20:28] LABS: PTH INTACT 148.2 PG/ML (18.5-88.0)
[2023-03-27 08:15] LABS: LDL DIRECT 200 mg/dL (0-99)
== END ==
LOC: M LAB REF 17:29
PROVIDERS: ATTEND Internal Medicine
DX: E78.00 Pure hypercholesterolemia, unspecified (principal); N18.4 Chronic kidney disease, stage 4 (severe); I12.9 Hypertensive chronic kidney disease with stage 1 through stage 4 chronic kidney disease, or unspecified chronic kidney disease

== ENCOUNTER 2023-06-14 13:46 | Inpatient (IN) | payer MEDICARE ==
[~2023-06-14] VITALS: Ht 147.3 cm; Wt 53.1 kg
[2023-06-14] MEDS: NORCO, ANEXSIA 5/325MG TABLET (HYDROcodone/ACETAMINOPHEN) PO ONE (15:36)
[2023-06-14 15:47] LABS: BASO % 0.4 % (0.0-1.0); EOS # 0.2 10^3/uL (0.0-0.5); EOS % 1.4 % (0.0-3.0); HEMATOCRIT 33.4 % (36.0-47.0); HEMOGLOBIN 11.3 g/dl (12.0-15.5); LYMPH # 0.9 10^3/uL (1.5-5.0); LYMPH % 8.4 % (24.0-44.0); MEAN CORPUSCULAR HGB CONC 33.8 g/dl (32.0-36.5); MEAN CORPUSCULAR VOLUME 103.4 fl (80.0-96.0); MONO # 0.6 10^3/uL (0.0-0.8); MONO % 5.8 % (2.0-8.0); NEUTROPHILS # 8.7 10^3/uL (1.5-8.5); PLATELET COUNT, AUTOMATED 267 10^3/uL (150-450); RED BLOOD COUNT 3.23 10^6/uL (4.00-5.40); WHITE BLOOD COUNT 10.5 10^3/uL (4.0-10.0)
[2023-06-14 16:02] LABS: INR 0.96; PROTHROMBIN TIME 12.5 SECONDS (12.5-14.5)
[2023-06-14 16:14] LABS: CALCIUM LEVEL 9.3 MG/DL (8.3-10.6); CREATININE FOR GFR 2.04 MG/DL (0.55-1.30); POTASSIUM SERUM 4.5 MMOL/L (3.5-5.1)
[2023-06-14] MEDS ORDERED: FIBE62TA PO (16:48)
[2023-06-14] MEDS ORDERED: ATOR1TAB21 PO (16:48)
[2023-06-14] MEDS ORDERED: D 1010004 PO (16:48)
[2023-06-14] MEDS ORDERED: OLME20TA50 PO (16:48)
[2023-06-14] MEDS ORDERED: AMLO1TAB24 PO (16:48)
[2023-06-14] MEDS ORDERED: HOME MED LIST COMPLETE! XX SCH (16:50)
[2023-06-14 17:42] LABS: THYROID STIMULATING HORMONE 2.188 uIU/ML (0.55-4.78); TOTAL 25(OH) VITAMIN D 21.1 NG/ML (20.0-100.0)
[2023-06-14 18:28] VITALS: BP 190/100
[2023-06-14 18:30] VITALS: BP 192/105; TEMP 97.9; O2SAT 98
[2023-06-14 19:27] VITALS: BP 182/100; TEMP 97.7; O2SAT 97
[2023-06-14] MEDS ORDERED: ONDANSETRON 4MG 2ML VIAL IV PRN (19:45)
[2023-06-14] MEDS ORDERED: PROMETHAZINE 25MG/ML 1ML VIAL IV PRN (19:45)
[2023-06-14] MEDS: LR 1,000 ML IV SCH ×2 (19:45→23:56)
[2023-06-14] MEDS ORDERED: fentaNYL 100 MCG/2 ML INJECTION IV PRN (19:45)
[2023-06-14] MEDS ORDERED: HYDROMORPHONE HCL 0.5 MG/ 0.5 ML SYRINGE IV PRN (19:45)
[2023-06-14] MEDS ORDERED: MIDAZOLAM INJ 2MG/2ML VIAL As Ordered ONE (20:03)
[2023-06-14] MEDS ORDERED: METOCLOPRAMIDE INJ 10MG/2ML VIAL As Ordered ONE (20:03)
[2023-06-14] MEDS ORDERED: LIDOCAINE 2% 100MG/5ML SDV (FOR ANES.) As Ordered ONE (20:03)
[2023-06-14] MEDS ORDERED: ONDANSETRON 4MG 2ML VIAL As Ordered ONE (20:03)
[2023-06-14] MEDS ORDERED: fentaNYL 100 MCG/2 ML INJECTION As Ordered ONE (20:03)
[2023-06-14] MEDS ORDERED: ROCURONIUM BROMIDE 50MG/5ML VIAL As Ordered ONE (20:03)
[2023-06-14] MEDS ORDERED: propofoL 200 MG/20 ML VIAL As Ordered ONE (20:03)
[2023-06-14] MEDS: ceFAZolin 2 GM/D5W 50 ML IV BAG As Ordered ONE (20:18)
[2023-06-14] MEDS ORDERED: SUGAMMADEX SODIUM 500 MG/5 ML VIAL (BRIDION) As Ordered ONE (20:35)
[2023-06-14] MEDS ORDERED: PHENYLephrine 500MCG 5ML (100MCG/ML) SYRINGE As Ordered ONE (20:35)
[2023-06-14] MEDS ORDERED: HEPARIN SOD (PORCINE) 5000UNITS/ML 1ML VIAL/SYRINGE SQ SCH (21:00)
[2023-06-14 22:46] VITALS: BP 179/104; TEMP 97.5; O2SAT 97
[2023-06-14 23:15] VITALS: BP 170/99; TEMP 97.3; O2SAT 97
[2023-06-14 23:45] VITALS: BP 158/96; TEMP 97.7; O2SAT 98
[2023-06-14] MEDS: SENOKOT S TAB PO SCH (23:56)
[2023-06-14] MEDS: OLMESARTAN MEDOXOMIL 20 MG TAB (BENICAR) PO SCH (23:57)
[2023-06-15] VITALS (9 sets, daily range): BP systolic 115–140; BP diastolic 69–90; TEMP 97.2–97.9; O2SAT 95–98
[2023-06-15 06:59] LABS: BASO % 0.2 % (0.0-1.0); HEMATOCRIT 30.9 % (36.0-47.0); HEMOGLOBIN 10.5 g/dl (12.0-15.5); LYMPH # 0.5 10^3/uL (1.5-5.0); LYMPH % 5.2 % (24.0-44.0); MONO # 0.3 10^3/uL (0.0-0.8); MONO % 2.8 % (2.0-8.0); NEUTROPHILS # 8.1 10^3/uL (1.5-8.5); NEUTROPHILS % 91.2 % (36.0-66.0); PLATELET COUNT, AUTOMATED 246 10^3/uL (150-450); WHITE BLOOD COUNT 8.9 10^3/uL (4.0-10.0)
[2023-06-15 07:19] LABS: ALBUMIN 3.3 G/DL (3.2-5.2); BILIRUBIN,TOTAL 0.6 MG/DL (0.3-1.2); CALCIUM LEVEL 8.7 MG/DL (8.3-10.6); CREATININE FOR GFR 1.96 MG/DL (0.55-1.30); GLOMERULAR FILTRATION RATE 26.2 (>39); MAGNESIUM LEVEL 1.6 MG/DL (1.8-2.4); TOTAL PROTEIN 6.2 G/DL (5.7-8.2)
[2023-06-15 07:21] LABS: PTH INTACT 181.8 PG/ML (18.5-88.0)
[2023-06-15] MEDS: ASPIRIN 81MG ENTERIC TABLET PO SCH (10:24)
[2023-06-15] MEDS: amLODIPine 5 MG TAB PO SCH (18:34)
[2023-06-15] MEDS: FERROUS SULFATE 325MG TAB PO SCH (20:33)
[2023-06-15] MEDS: ATORVASTATIN 20 MG TAB PO SCH (20:33)
[2023-06-16] VITALS (10 sets, daily range): BP systolic 150–160; BP diastolic 85–89; TEMP 97.7–98.3; O2SAT 90–100
[2023-06-16 07:15] LABS: BASO % 0.1 % (0.0-1.0); EOS # 0.1 10^3/uL (0.0-0.5); EOS % 1.1 % (0.0-3.0); HEMATOCRIT 28.1 % (36.0-47.0); HEMOGLOBIN 9.3 g/dl (12.0-15.5); LYMPH # 1.4 10^3/uL (1.5-5.0); LYMPH % 18.8 % (24.0-44.0); MEAN CORPUSCULAR HEMOGLOBIN 34.8 pg (27.0-33.0); MEAN CORPUSCULAR HGB CONC 33.1 g/dl (32.0-36.5); MEAN CORPUSCULAR VOLUME 105.2 fl (80.0-96.0); MONO # 0.7 10^3/uL (0.0-0.8); NEUTROPHILS # 5.2 10^3/uL (1.5-8.5); NEUTROPHILS % 70.3 % (36.0-66.0); PLATELET COUNT, AUTOMATED 226 10^3/uL (150-450); RED BLOOD COUNT 2.67 10^6/uL (4.00-5.40); WHITE BLOOD COUNT 7.4 10^3/uL (4.0-10.0)
[2023-06-16 08:03] LABS: ALBUMIN 2.8 G/DL (3.2-5.2); BILIRUBIN,TOTAL 0.5 MG/DL (0.3-1.2); CALCIUM LEVEL 8.5 MG/DL (8.3-10.6); CREATININE FOR GFR 2.16 MG/DL (0.55-1.30); GLOMERULAR FILTRATION RATE 23.4 (>39); MAGNESIUM LEVEL 1.8 MG/DL (1.8-2.4); POTASSIUM SERUM 4.6 MMOL/L (3.5-5.1); TOTAL PROTEIN 5.6 G/DL (5.7-8.2)
[2023-06-16] MEDS: ACETAMINOPHEN TAB 650MG DOSE (2X325MG) PO PRN (09:13)
[2023-06-16 09:57] LABS: BILIRUBIN,DIRECT 0.1 MG/DL (<0.4); PHOSPHORUS LEVEL 2.9 MG/DL (2.4-5.1)
[2023-06-16 10:02] LABS: TOTAL 25(OH) VITAMIN D 17.4 NG/ML (20.0-100.0)
[2023-06-16] MEDS ORDERED: NORCO, ANEXSIA 5/325MG TABLET (HYDROcodone/ACETAMINOPHEN) PO PRN (11:05)
[2023-06-16] MEDS: VITAMIN D 50,000 UNITS CAPSULE (ERGOCALCIFEROL 1.25MG) PO SCH (12:47)
[2023-06-17 05:41] VITALS: BP 139/79; TEMP 97.5; O2SAT 92
[2023-06-17 08:00] VITALS: BP 147/86; TEMP 96.8; O2SAT 96
[2023-06-17 08:44] LABS: HEMATOCRIT 30.5 % (36.0-47.0); MEAN CORPUSCULAR HEMOGLOBIN 34.7 pg (27.0-33.0); MEAN CORPUSCULAR HGB CONC 32.8 g/dl (32.0-36.5); MEAN CORPUSCULAR VOLUME 105.9 fl (80.0-96.0); PLATELET COUNT, AUTOMATED 229 10^3/uL (150-450); RED BLOOD COUNT 2.88 10^6/uL (4.00-5.40); WHITE BLOOD COUNT 5.8 10^3/uL (4.0-10.0)
[2023-06-17 13:39] VITALS: BP 158/82; TEMP 98.2; O2SAT 95
[2023-06-17 21:05] VITALS: BP 139/84; TEMP 98.2; O2SAT 100
[2023-06-18 01:50] LABS: TOTAL VOLUME, URINE 900 ML
[2023-06-18 03:12] LABS: CALCIUM, URINE < 5.0 MG/DL
[2023-06-18 06:15] VITALS: BP 156/83; TEMP 97.9; O2SAT 92
[2023-06-18 14:16] VITALS: BP 121/72; TEMP 97.9; O2SAT 99
[2023-06-18 20:47] VITALS: BP 139/89; TEMP 97.9; O2SAT 98
[2023-06-19 06:40] VITALS: BP 156/85; TEMP 97.2; O2SAT 95
[2023-06-19 14:00] VITALS: BP 137/90; TEMP 98.1; O2SAT 95
[2023-06-19 17:33] VITALS: BP 143/88
[2023-06-19 22:00] VITALS: BP 140/88; TEMP 97.9; O2SAT 93
[2023-06-20 06:20] VITALS: BP 139/81; TEMP 97.3; O2SAT 94
[2023-06-21 06:11] VITALS: BP 108/68; TEMP 97.5; O2SAT 95
[2023-06-21 15:05] VITALS: BP 110/64; TEMP 97.2; O2SAT 96
[2023-06-22 06:02] VITALS: BP 139/79; TEMP 97.9; O2SAT 98
[2023-06-22] MEDS ORDERED: SENOKOT S TAB PO PRN (10:40)
[2023-06-22 13:21] VITALS: BP 138/69; TEMP 98.4; O2SAT 95
[2023-06-23 05:07] VITALS: BP 128/73; TEMP 97.5; O2SAT 96
[2023-06-23 20:22] VITALS: BP 124/72; TEMP 98.1; O2SAT 92
[2023-06-24 05:58] VITALS: BP 125/76; TEMP 97.9; O2SAT 94
[2023-06-24 14:00] VITALS: BP 124/70; TEMP 98.1; O2SAT 96
[2023-06-24 19:56] VITALS: BP 123/70; TEMP 98.1; O2SAT 95
[2023-06-25 05:10] VITALS: BP 117/70; TEMP 97.7; O2SAT 97
[2023-06-25 09:25] LABS: BASO # 0.1 10^3/uL (0.0-0.2); BASO % 0.6 % (0.0-1.0); EOS # 0.2 10^3/uL (0.0-0.5); EOS % 2.5 % (0.0-3.0); HEMATOCRIT 29.7 % (36.0-47.0); HEMOGLOBIN 9.8 g/dl (12.0-15.5); LYMPH # 0.9 10^3/uL (1.5-5.0); LYMPH % 10.5 % (24.0-44.0); MEAN CORPUSCULAR HEMOGLOBIN 34.1 pg (27.0-33.0); MEAN CORPUSCULAR VOLUME 103.5 fl (80.0-96.0); MONO # 0.4 10^3/uL (0.0-0.8); MONO % 4.7 % (2.0-8.0); NEUTROPHILS # 6.8 10^3/uL (1.5-8.5); NEUTROPHILS % 79.7 % (36.0-66.0); PLATELET COUNT, AUTOMATED 291 10^3/uL (150-450); RED BLOOD COUNT 2.87 10^6/uL (4.00-5.40); WHITE BLOOD COUNT 8.5 10^3/uL (4.0-10.0)
[2023-06-25 09:48] LABS: ALBUMIN 3.1 G/DL (3.2-5.2); BILIRUBIN,TOTAL 0.4 MG/DL (0.3-1.2); CALCIUM LEVEL 9.4 MG/DL (8.3-10.6); CREATININE FOR GFR 2.38 MG/DL (0.55-1.30); GLOMERULAR FILTRATION RATE 20.9 (>39); MAGNESIUM LEVEL 2.1 MG/DL (1.8-2.4); POTASSIUM SERUM 5.4 MMOL/L (3.5-5.1); TOTAL PROTEIN 6.2 G/DL (5.7-8.2)
[2023-06-25 14:00] VITALS: BP 133/72; TEMP 97.7; O2SAT 95
[2023-06-25 15:47] LABS: CALCIUM LEVEL 9.3 MG/DL (8.3-10.6); CREATININE FOR GFR 2.5 MG/DL (0.55-1.30); GLOMERULAR FILTRATION RATE 19.8 (>39); POTASSIUM SERUM 5.4 MMOL/L (3.5-5.1)
[2023-06-25] MEDS: LACTULOSE 20GM/30ML SYRUP UDC PO ONE (16:00)
[2023-06-25] MEDS: SOD POLYSTYRENE SULFONATE SUSP 15GM 60ML UD PO ONE (16:39)
[2023-06-25 21:10] VITALS: BP 124/74; TEMP 98.4; O2SAT 96
[2023-06-26 06:10] VITALS: BP 143/78; TEMP 97.9; O2SAT 93
[2023-06-26] MEDS: ASPIRIN 81MG ENTERIC TABLET PO SCH (09:07)
[2023-06-26 10:06] LABS: BASO # 0.1 10^3/uL (0.0-0.2); BASO % 0.6 % (0.0-1.0); EOS # 0.2 10^3/uL (0.0-0.5); EOS % 1.9 % (0.0-3.0); HEMATOCRIT 31.4 % (36.0-47.0); HEMOGLOBIN 10.1 g/dl (12.0-15.5); LYMPH # 0.6 10^3/uL (1.5-5.0); LYMPH % 6.2 % (24.0-44.0); MEAN CORPUSCULAR HGB CONC 32.2 g/dl (32.0-36.5); MEAN CORPUSCULAR VOLUME 105.7 fl (80.0-96.0); MONO # 0.4 10^3/uL (0.0-0.8); MONO % 4.2 % (2.0-8.0); NEUTROPHILS # 8.2 10^3/uL (1.5-8.5); NEUTROPHILS % 85.6 % (36.0-66.0); PLATELET COUNT, AUTOMATED 284 10^3/uL (150-450); RED BLOOD COUNT 2.97 10^6/uL (4.00-5.40); WHITE BLOOD COUNT 9.5 10^3/uL (4.0-10.0)
[2023-06-26 10:31] LABS: CREATININE FOR GFR 2.42 MG/DL (0.55-1.30); GLOMERULAR FILTRATION RATE 20.5 (>39); POTASSIUM SERUM 4.6 MMOL/L (3.5-5.1)
[2023-06-26 13:54] VITALS: BP 113/71; TEMP 97.9; O2SAT 97
[2023-06-26 20:43] VITALS: BP 122/71; TEMP 98.1; O2SAT 95
[2023-06-27 05:33] VITALS: BP 123/75; TEMP 97.7; O2SAT 96
[2023-06-27 14:21] VITALS: BP 118/69; TEMP 97.9; O2SAT 97
[2023-06-27 20:00] VITALS: BP 118/70; TEMP 97.9; O2SAT 98
[2023-06-27] MEDS: HEPARIN SOD (PORCINE) 5000UNITS/ML 1ML VIAL/SYRINGE SQ SCH (20:21)
[2023-06-28 06:00] VITALS: BP 124/60; TEMP 96.6; O2SAT 97
[2023-06-28] MEDS ORDERED: ENOXAPARIN 40MG/0.4ML SYRINGE (J1650 PER 10MG) SC SCH (09:00)
[2023-06-28 14:00] VITALS: BP 111/70; TEMP 97.5; O2SAT 96
[2023-06-28 19:52] VITALS: BP 115/71; TEMP 97.7; O2SAT 96
[2023-06-29 05:21] VITALS: BP 125/73; TEMP 98.1; O2SAT 96
[2023-06-29 14:00] VITALS: BP 121/75; TEMP 98.4; O2SAT 94
[2023-06-29 22:00] VITALS: BP 137/69; TEMP 96.9; O2SAT 95
[2023-06-30 06:04] VITALS: BP 114/68; TEMP 97.7; O2SAT 96
[2023-06-30 14:00] VITALS: BP 110/60; TEMP 97.9; O2SAT 94
[2023-06-30 20:21] VITALS: BP 112/62; TEMP 98.4; O2SAT 95
[2023-07-01 06:05] VITALS: BP 106/62; TEMP 97.3; O2SAT 96
[2023-07-01 14:34] VITALS: BP 128/61; TEMP 97.3; O2SAT 97
[2023-07-01 20:18] VITALS: BP 125/67; TEMP 97.5; O2SAT 94
[2023-07-02] VITALS (7 sets, daily range): BP systolic 120–130; BP diastolic 68–76; TEMP 97.7–98.2; O2SAT 96–98
[2023-07-02] MEDS: D5W/0.45% SODIUM CHLORIDE 1,000 ML IV SCH (04:49)
[2023-07-02] MEDS ORDERED: HYDROmorphone HCL 2MG/ML 1ML VIAL As Ordered ONE (06:56)
[2023-07-02] MEDS ORDERED: KETOROLAC 60MG 2ML VIAL As Ordered ONE (06:58)
[2023-07-02] MEDS ORDERED: ACETAMINOPHEN 1000MG 100ML IV BAG As Ordered ONE (07:09)
[2023-07-02] MEDS: EPINEPHrine 1MG/10ML SYRINGE 1.5IN As Ordered ONE (07:36)
[2023-07-02] MEDS: TRANEXAMIC ACID 100 MG/ML 10ML VIAL As Ordered ONE (08:05)
[2023-07-02] MEDS: EPINEPHrine INJ 1 MG/ML 1ML AMP As Ordered ONE (08:30)
[2023-07-02] MEDS: DOCUSATE SODIUM 100MG CAPSULE PO SCH (09:00)
[2023-07-02] MEDS: BACITRACIN OINTMENT 30GM TUBE As Ordered ONE (11:30)
[2023-07-02] MEDS: VANCOMYCIN 1000MG/20ML VIAL As Ordered ONE (11:35)
[2023-07-02] MEDS ORDERED: ONDANSETRON 4MG 2ML VIAL IV PRN ×2 (11:35→11:40)
[2023-07-02] MEDS ORDERED: MORPHINE 2 MG/ML 1ML VIAL IV PRN (11:35)
[2023-07-02] MEDS ORDERED: oxyCODONE 5MG TAB PO PRN (11:35)
[2023-07-02] MEDS ORDERED: fentaNYL 100 MCG/2 ML INJECTION IV PRN (11:35)
[2023-07-02] MEDS ORDERED: zolPIDEM TARTRATE 5 MG TAB PO PRN (11:40)
[2023-07-02] MEDS ORDERED: MORPHINE 4 MG/ML 1ML VIAL IV PRN (11:40)
[2023-07-02] MEDS ORDERED: SENNA 8.6 MG TAB (SENOKOT) PO PRN (11:40)
[2023-07-02] MEDS ORDERED: diphenhydrAMINE 50MG/ML VIAL IV PRN (11:40)
[2023-07-02] MEDS ORDERED: HYDROmorphone 2 MG TAB PO PRN (11:40)
[2023-07-02] MEDS: ceFAZolin SOD 2 GM in IV 1 EA IV SCH (17:24)
[2023-07-03] VITALS: BP 110/64; TEMP 97.5; O2SAT 98
[2023-07-03 04:00] VITALS: BP 109/58; TEMP 97.9; O2SAT 98
[2023-07-03] MEDS: NORCO, ANEXSIA 5/325MG TABLET (HYDROcodone/ACETAMINOPHEN) PO ONE (08:16)
[2023-07-03] MEDS: HEPARIN SOD (PORCINE) 5000UNITS/ML 1ML VIAL/SYRINGE SQ SCH (09:16)
[2023-07-03 10:33] LABS: HEMATOCRIT 28.3 % (36.0-47.0); MEAN CORPUSCULAR HEMOGLOBIN 34.2 pg (27.0-33.0); MEAN CORPUSCULAR HGB CONC 31.8 g/dl (32.0-36.5); MEAN CORPUSCULAR VOLUME 107.6 fl (80.0-96.0); PLATELET COUNT, AUTOMATED 280 10^3/uL (150-450); RED BLOOD COUNT 2.63 10^6/uL (4.00-5.40)
[2023-07-03 10:48] LABS: CALCIUM LEVEL 9.3 MG/DL (8.3-10.6); CREATININE FOR GFR 2.36 MG/DL (0.55-1.30); GLOMERULAR FILTRATION RATE 21.1 (>39)
[2023-07-03 15:08] VITALS: BP 105/55; TEMP 96.6; O2SAT 95
[2023-07-03] MEDS: oxyCODONE 5MG TAB PO PRN (21:30)
[2023-07-03 22:00] VITALS: BP 112/60; TEMP 97.1; O2SAT 95
[2023-07-04 05:11] VITALS: BP 102/65; TEMP 97.9; O2SAT 95
[2023-07-04 06:56] LABS: HEMATOCRIT 26.7 % (36.0-47.0); HEMOGLOBIN 8.7 g/dl (12.0-15.5); MEAN CORPUSCULAR HEMOGLOBIN 34.4 pg (27.0-33.0); MEAN CORPUSCULAR HGB CONC 32.6 g/dl (32.0-36.5); MEAN CORPUSCULAR VOLUME 105.5 fl (80.0-96.0); PLATELET COUNT, AUTOMATED 233 10^3/uL (150-450); RED BLOOD COUNT 2.53 10^6/uL (4.00-5.40); WHITE BLOOD COUNT 7.6 10^3/uL (4.0-10.0)
[2023-07-04 07:25] LABS: CALCIUM LEVEL 9.6 MG/DL (8.3-10.6); CREATININE FOR GFR 2.23 MG/DL (0.55-1.30); GLOMERULAR FILTRATION RATE 22.6 (>39); POTASSIUM SERUM 5.8 MMOL/L (3.5-5.1)
[2023-07-04] MEDS: ACETAMINOPHEN TAB 650MG DOSE (2X325MG) PO PRN (09:05)
[2023-07-04 14:11] VITALS: BP 103/66; TEMP 97.8; O2SAT 98
[2023-07-04] MEDS: CALCIUM GLUCONATE 1,000 MG in D5W MINI-BAG PLUS 100 ML IV ONE (19:30)
[2023-07-04] MEDS: PATIROMER SORBITEX CALCIUM 8.4 GM POWDER PACKET (VELTASSA) PO ONE (19:31)
[2023-07-04 19:58] LABS: CALCIUM LEVEL 9.5 MG/DL (8.3-10.6); CREATININE FOR GFR 2.24 MG/DL (0.55-1.30); GLOMERULAR FILTRATION RATE 22.4 (>39); POTASSIUM SERUM 5.3 MMOL/L (3.5-5.1)
[2023-07-04 20:21] VITALS: BP 115/72; TEMP 98.3; O2SAT 94
[2023-07-04] MEDS: SODIUM BICARBONATE 325 MG TAB PO SCH (20:31)
[2023-07-04 23:14] VITALS: BP 106/60; TEMP 98; O2SAT 96
[2023-07-05 03:16] VITALS: BP 118/55; TEMP 97.5; O2SAT 98
[2023-07-05 06:37] LABS: HEMATOCRIT 27.7 % (36.0-47.0); HEMOGLOBIN 8.9 g/dl (12.0-15.5); MEAN CORPUSCULAR HEMOGLOBIN 33.8 pg (27.0-33.0); MEAN CORPUSCULAR HGB CONC 32.1 g/dl (32.0-36.5); MEAN CORPUSCULAR VOLUME 105.3 fl (80.0-96.0); PLATELET COUNT, AUTOMATED 247 10^3/uL (150-450); RED BLOOD COUNT 2.63 10^6/uL (4.00-5.40)
[2023-07-05 07:11] LABS: CALCIUM LEVEL 9.8 MG/DL (8.3-10.6); CREATININE FOR GFR 2.25 MG/DL (0.55-1.30); GLOMERULAR FILTRATION RATE 22.3 (>39)
[2023-07-05 08:28] VITALS: BP 106/55; TEMP 97.7; O2SAT 99
[2023-07-05] MEDS ORDERED: CALCIUM GLUCONATE 1,000 MG in D5W MINI-BAG PLUS 100 ML IV ONE (10:30)
[2023-07-05] MEDS ORDERED: SODIUM BICARBONATE 150 MEQ in D5W 1,000 ML IV SCH (10:30)
[2023-07-05 12:00] VITALS: BP 99/59; TEMP 97.6; O2SAT 99
[2023-07-05] MEDS ORDERED: PATIROMER SORBITEX CALCIUM 8.4 GM POWDER PACKET (VELTASSA) PO SCH (12:00)
[2023-07-05] MEDS: PATIROMER SORBITEX CALCIUM 8.4 GM POWDER PACKET (VELTASSA) PO SCH (12:56)
[2023-07-05] MEDS: SODIUM BICARBONATE 75 MEQ in NS 0.45% 1,000 ML IV SCH (13:50)
[2023-07-05 16:53] LABS: CALCIUM LEVEL 10.1 MG/DL (8.3-10.6); CREATININE FOR GFR 2.22 MG/DL (0.55-1.30); GLOMERULAR FILTRATION RATE 22.7 (>39); POTASSIUM SERUM 5.6 MMOL/L (3.5-5.1)
[2023-07-05] MEDS: SODIUM BICARBONATE 325 MG TAB PO SCH (17:37)
[2023-07-05 20:06] VITALS: BP 124/62; TEMP 98.2; O2SAT 97
[2023-07-05 23:04] LABS: CALCIUM LEVEL 9.4 MG/DL (8.3-10.6); CREATININE FOR GFR 2.14 MG/DL (0.55-1.30); GLOMERULAR FILTRATION RATE 23.7 (>39); POTASSIUM SERUM 5.5 MMOL/L (3.5-5.1)
[2023-07-06] VITALS (7 sets, daily range): BP systolic 106–139; BP diastolic 55–64; TEMP 97.2–98.5; O2SAT 91–98
[2023-07-06 04:42] LABS: CALCIUM LEVEL 9.1 MG/DL (8.3-10.6); CREATININE FOR GFR 2.17 MG/DL (0.55-1.30); GLOMERULAR FILTRATION RATE 23.3 (>39); POTASSIUM SERUM 5.3 MMOL/L (3.5-5.1)
[2023-07-06 04:44] LABS: PERCENT SATURATION 24.6 % (13.2-45.0)
[2023-07-06 04:46] LABS: FERRITIN 345.8 NG/ML (7.3-270.7)
[2023-07-06 04:47] LABS: FOLATE 6.72 NG/ML (>5.4)
[2023-07-06] MEDS: VITAMIN D 1,000 INTERNATIONAL UNITS TABLET PO SCH (08:22)
[2023-07-06 10:33] LABS: CALCIUM LEVEL 8.9 MG/DL (8.3-10.6); CREATININE FOR GFR 2.07 MG/DL (0.55-1.30); GLOMERULAR FILTRATION RATE 24.6 (>39); POTASSIUM SERUM 4.8 MMOL/L (3.5-5.1)
[2023-07-06] MEDS: FERRIC CARBOXYMALTOSE INJ 750 MG, VIAL MATE ADAPTER 1 EACH in NS 250 ML IV ONE (11:39)
[2023-07-06 16:56] LABS: CALCIUM LEVEL 8.9 MG/DL (8.3-10.6); CREATININE FOR GFR 2.04 MG/DL (0.55-1.30); POTASSIUM SERUM 4.4 MMOL/L (3.5-5.1)
[2023-07-06 22:20] LABS: IONIZED CALCIUM 4.7 MG/DL (4.5-5.3)
[2023-07-06 22:52] LABS: CALCIUM LEVEL 8.7 MG/DL (8.3-10.6); CREATININE FOR GFR 1.89 MG/DL (0.55-1.30); GLOMERULAR FILTRATION RATE 27.3 (>39); MAGNESIUM LEVEL 1.7 MG/DL (1.8-2.4); POTASSIUM SERUM 4.5 MMOL/L (3.5-5.1)
[2023-07-07 00:02] VITALS: BP 124/58; TEMP 97.8; O2SAT 90
[2023-07-07 05:13] LABS: CALCIUM LEVEL 8.7 MG/DL (8.3-10.6); CREATININE FOR GFR 1.93 MG/DL (0.55-1.30); GLOMERULAR FILTRATION RATE 26.7 (>39); MAGNESIUM LEVEL 1.6 MG/DL (1.8-2.4); POTASSIUM SERUM 4.8 MMOL/L (3.5-5.1)
[2023-07-07 10:17] LABS: IONIZED CALCIUM 4.5 MG/DL (4.5-5.3)
[2023-07-07 10:54] LABS: CALCIUM LEVEL 8.8 MG/DL (8.3-10.6); CREATININE FOR GFR 1.79 MG/DL (0.55-1.30); GLOMERULAR FILTRATION RATE 29.1 (>39); MAGNESIUM LEVEL 1.6 MG/DL (1.8-2.4); POTASSIUM SERUM 4.4 MMOL/L (3.5-5.1)
[2023-07-07 11:52] VITALS: BP 133/68; TEMP 97.6; O2SAT 98
[2023-07-07 16:06] LABS: IONIZED CALCIUM 4.4 MG/DL (4.5-5.3)
[2023-07-07 16:34] LABS: MAGNESIUM LEVEL 1.7 MG/DL (1.8-2.4)
[2023-07-07 16:48] LABS: CREATININE FOR GFR 1.86 MG/DL (0.55-1.30); GLOMERULAR FILTRATION RATE 27.8 (>39); POTASSIUM SERUM 4.4 MMOL/L (3.5-5.1)
[2023-07-07 19:34] VITALS: BP 161/82; TEMP 98.2; O2SAT 99
[2023-07-07 20:10] VITALS: BP 138/86
[2023-07-07] MEDS: SENOKOT S TAB PO SCH (21:00)
[2023-07-07 22:57] LABS: CALCIUM LEVEL 8.9 MG/DL (8.3-10.6); CREATININE FOR GFR 1.76 MG/DL (0.55-1.30); GLOMERULAR FILTRATION RATE 29.7 (>39)
[2023-07-08 05:24] VITALS: BP 143/88; TEMP 97.7; O2SAT 97
[2023-07-08] MEDS ORDERED: DOCUSATE SODIUM 100MG CAPSULE PO PRN (10:00)
[2023-07-08 14:30] VITALS: BP 147/95; TEMP 98; O2SAT 96
[2023-07-08 20:31] VITALS: BP 149/95; TEMP 97.9; O2SAT 98
[2023-07-09 05:19] VITALS: BP 155/90; TEMP 97.9; O2SAT 98
[2023-07-09 06:02] LABS: BASO % 0.4 % (0.0-1.0); EOS # 0.2 10^3/uL (0.0-0.5); EOS % 3.3 % (0.0-3.0); HEMATOCRIT 25.5 % (36.0-47.0); HEMOGLOBIN 8.3 g/dl (12.0-15.5); LYMPH # 1.2 10^3/uL (1.5-5.0); LYMPH % 16.5 % (24.0-44.0); MEAN CORPUSCULAR HEMOGLOBIN 33.7 pg (27.0-33.0); MEAN CORPUSCULAR HGB CONC 32.5 g/dl (32.0-36.5); MEAN CORPUSCULAR VOLUME 103.7 fl (80.0-96.0); MONO # 0.5 10^3/uL (0.0-0.8); MONO % 7.2 % (2.0-8.0); NEUTROPHILS % 69.3 % (36.0-66.0); PLATELET COUNT, AUTOMATED 229 10^3/uL (150-450); RED BLOOD COUNT 2.46 10^6/uL (4.00-5.40); WHITE BLOOD COUNT 7.2 10^3/uL (4.0-10.0)
[2023-07-09 06:24] LABS: CALCIUM LEVEL 9.6 MG/DL (8.3-10.6); CREATININE FOR GFR 1.8 MG/DL (0.55-1.30); GLOMERULAR FILTRATION RATE 28.9 (>39); POTASSIUM SERUM 4.3 MMOL/L (3.5-5.1)
[2023-07-09] MEDS ORDERED: SODI650T PO (15:57)
[2023-07-09] MEDS ORDERED: SENN-52 PO (15:57)
[2023-07-09] MEDS ORDERED: OXYC-517 PO (15:58)
[2023-07-09 16:26] VITALS: BP 142/86
== END 2023-07-09 17:30 | disposition home or self-care (01) | DRG 493 ==
LOC: M ED 13:46 → M ED INP 17:08 → M MS5PR 18:55 → M PCU 07-04 20:17 → M MS5PR 07-07 14:00
PROVIDERS: ADMIT Internal Medicine; ATTEND Internal Medicine Nephrology
PROC: 0SGG04Z Fusion of Left Ankle Joint with Internal Fixation Device, Open Approach (ICD-10-PCS; principal; 2023-06-14 16:47)
PROC: 0SPG05Z Removal of External Fixation Device from Left Ankle Joint, Open Approach (ICD-10-PCS; 2023-07-02)
PROC: 0SBG4ZZ Excision of Left Ankle Joint, Percutaneous Endoscopic Approach (ICD-10-PCS; 2023-07-02)
DX: S82.852A Displaced trimalleolar fracture of left lower leg, initial encounter for closed fracture (principal); K51.90 Ulcerative colitis, unspecified, without complications; N18.4 Chronic kidney disease, stage 4 (severe); N17.9 Acute kidney failure, unspecified; E87.20 Acidosis, unspecified; N25.81 Secondary hyperparathyroidism of renal origin; I13.0 Hypertensive heart and chronic kidney disease with heart failure and stage 1 through stage 4 chronic kidney disease, or unspecified chronic kidney disease; E87.5 Hyperkalemia; E78.5 Hyperlipidemia, unspecified; K44.9 Diaphragmatic hernia without obstruction or gangrene; K57.90 Diverticulosis of intestine, part unspecified, without perforation or abscess without bleeding; D63.1 Anemia in chronic kidney disease; I69.398 Other sequelae of cerebral infarction; D50.9 Iron deficiency anemia, unspecified; Z88.8 Allergy status to other drugs, medicaments and biological substances; Z79.899 Other long term (current) drug therapy; Z85.828 Personal history of other malignant neoplasm of skin; M19.90 Unspecified osteoarthritis, unspecified site; E55.9 Vitamin D deficiency, unspecified; I25.10 Atherosclerotic heart disease of native coronary artery without angina pectoris; I25.2 Old myocardial infarction; I50.9 Heart failure, unspecified; E11.51 Type 2 diabetes mellitus with diabetic peripheral angiopathy without gangrene; Z79.4 Long term (current) use of insulin

== ENCOUNTER → 2023-07-17 | Outpatient (CLI) | payer MEDICARE ==
[~2023-07-17] MED LIST changes: +AMLO1TAB24 PO; +ATOR1TAB21 PO; +D 1010004 PO; +OLME20TA50 PO; +OXYC-517 PO; +SENN-52 PO; +SODI650T PO
== END ==
LOC: M SOG 07:56
PROVIDERS: ATTEND Physician Assistant
DX: S82.872A Displaced pilon fracture of left tibia, initial encounter for closed fracture (principal); X58.XXXA Exposure to other specified factors, initial encounter; Y92.9 Unspecified place or not applicable; Y93.9 Activity, unspecified; Y99.9 Unspecified external cause status

== ENCOUNTER → 2023-07-23 | Outpatient (REF) | payer MEDICARE ==
[2023-07-24 14:22] LABS: PERCENT SATURATION 20.7 % (13.2-45.0)
[2023-07-24 14:25] LABS: FOLATE 8.2 NG/ML (>5.4)
== END ==
LOC: M LAB REF 13:14
PROVIDERS: ATTEND Internal Medicine
DX: N18.9 Chronic kidney disease, unspecified (principal); D50.9 Iron deficiency anemia, unspecified; D63.1 Anemia in chronic kidney disease

== ENCOUNTER → 2023-07-31 | Outpatient (CLI) | payer MEDICARE | LOC: M SOG 09:24 | PROVIDERS: ATTEND Physician Assistant | DX: S82.872A Displaced pilon fracture of left tibia, initial encounter for closed fracture (principal); Y93.9 Activity, unspecified; Y92.9 Unspecified place or not applicable ==

== ENCOUNTER → 2023-08-20 | Outpatient (REF) | payer MEDICARE | LOC: M LAB REF 16:31 | PROVIDERS: ATTEND Internal Medicine | DX: N18.4 Chronic kidney disease, stage 4 (severe) (principal) ==

== ENCOUNTER → 2023-10-21 | Outpatient (REF) | payer MEDICARE ==
[2023-10-21 18:07] LABS: URIC ACID 7.5 MG/DL (3.1-7.8)
[2023-10-21 18:08] LABS: PHOSPHORUS LEVEL 4.1 MG/DL (2.4-5.1); PTH INTACT 53.5 PG/ML (18.5-88.0)
== END ==
LOC: M LAB REF 16:50
PROVIDERS: ATTEND Internal Medicine
DX: N18.4 Chronic kidney disease, stage 4 (severe) (principal)

== ENCOUNTER → 2023-11-20 | Outpatient (CLI) | payer MEDICARE ==
[~2023-11-20] MED LIST changes: -ROSU20TA61 PO; +ROSU20TA86 PO
== END ==
LOC: M WHC 14:23
PROVIDERS: ATTEND Internal Medicine
DX: M81.0 Age-related osteoporosis without current pathological fracture (principal); M85.89 Other specified disorders of bone density and structure, multiple sites

== ENCOUNTER → 2023-12-11 | Outpatient (REF) | payer MEDICARE | LOC: M PLALAB 16:48 | PROVIDERS: ATTEND Physician Assistant | DX: S82.872D Displaced pilon fracture of left tibia, subsequent encounter for closed fracture with routine healing (principal); Y93.9 Activity, unspecified; Y92.9 Unspecified place or not applicable ==

== ENCOUNTER → 2024-01-08 | Outpatient (CLI) | payer MEDICARE | LOC: M SOG 07:55 | PROVIDERS: ATTEND Physician Assistant | DX: S82.872A Displaced pilon fracture of left tibia, initial encounter for closed fracture (principal); Y93.9 Activity, unspecified; Y92.9 Unspecified place or not applicable ==

== ENCOUNTER → 2024-06-02 | Outpatient (REF) | payer MEDICARE ==
[2024-06-02 18:58] LABS: PHOSPHORUS LEVEL 3.7 MG/DL (2.4-5.1); PTH INTACT 103.7 PG/ML (18.5-88.0)
[2024-06-02 19:00] LABS: URIC ACID 7.8 MG/DL (3.1-7.8)
== END ==
LOC: M LAB REF 17:35
PROVIDERS: ATTEND Internal Medicine
DX: N18.4 Chronic kidney disease, stage 4 (severe) (principal); M81.0 Age-related osteoporosis without current pathological fracture